=== PATIENT | male | born 1940 | race Caucasian/White ===

== ENCOUNTER 2023-01-28 18:33 | Inpatient (IN) | payer MEDICARE, SELFPAY ==
--- OUTSIDE RECORDS SUMMARY | 2023-01-28 18:37 | XMS_ITS | Continuity of Care Document ---
Author Name Unknown Organization [facility] Address [address] [place] [address]- Care Team Providers Care Bridge Contractor Name Role Phone Stephanie Chaudhari NP Primary Care Physician Encounter [facility] Date(s): 12/13/21 - 01/12/22 [facility] [address] [place] [address]- Allergies, Adverse Reactions, Alerts Substance Reaction Severity Status oxycodone 1 Active amLODIPine Active 1Pt. states that he is unsure if allergy is active. Cannot recall reaction. Immunizations Given and Recorded Vaccine Date Status Refusal Reason SARS-CoV-2 (COVID-19) mRNA BNT-162b2 vac 10/30/21 Recorded SARS-CoV-2 (COVID-19) mRNA BNT-162b2 vac 01/25/21 Recorded SARS-CoV-2 (COVID-19) mRNA BNT-162b2 vac 01/04/21 Recorded tetanus/diphtheria/pertussis, acel(Tdap) 09/14/21 Given influenza virus vaccine, inactivated 08/23/18 Lokesh rded influenza virus vaccine, inactivated 08/24/17 Lokesh rded influenza virus vaccine, inactivated 08/19/16 Lokesh rded influenza virus vaccine, inactivated 08/09/15 Lokesh rded influenza virus vaccine, inactivated 08/14/14 Lokesh rded influenza virus vaccine, inactivated 07/09/11 Lokesh rded influenza virus vaccine, inactivated 09/17/05 Give n Not Given Vaccine Date Status Refusal Reason pneumococcal 13-valent vaccine 1 01/20/21 Not Give n Patient Refuses 1Result Comment: pt. states he already got vaccine Medications aspirin 81 mg oral delayed release tablet = 81 mg, By Mouth, Daily, # 30 tablet, 0 Refills, Maintenance, 11/20/20 13:29:00 EST, EC Tablet, [facility], Partial fill upon patient request if the prescription is for a schedule II opioid drug., 184, cm, 11/19/20 8:51:00 EST, Height, 81.... Start Date: 11/20/20 Stop Date: 12/20/20 Status: Ordered atorvastatin 80 mg oral tablet 1 tablet = 80 mg, By Mouth, Daily at bedtime, # 90 tablet, 0 Refills, Maintenance, Tablet Start Date: 12/15/12 Stop Date: 03/15/13 Status: Ordered Coreg 25 mg oral tablet 25 mg, 1, tablet, By Mouth, 2 times a day, # 60 tablet, Refills 0, Tot. Refills 0, Maintenance, 11/20/20 13:29:00 EST, Route to Pharmacy Electronically, [id number], Partial fill upon patient request if the prescription is for a schedule II... Start Date: 11/20/20 Status: Ordered Diabetic Shoes (1 pair) Diabetic Shoes (1 pair), See Instructions, # 1 each, Refills 1, Tot. Refills 1, Maintenance, Wear shoes continously, E11.65, 01/03/22 14:12:00 EST, Supply Start Date: 01/03/22 Status: Ordered Fish Oil 1200 mg oral capsule 1 capsule = 1,200 mg, By Mouth, Daily, 0 Refills, Maintenance, 09/18/21 22:20:00 EST, Partial fill upon patient request if the prescription is for a schedule II opioid drug. Start Date: 09/18/21 Status: Ordered FREESTYLE JOSÉ MIGUEL SENSOR MEDB Miscellaneous FREESTYLE JOSÉ [employer] MEDB Miscellaneous, See Instructions, # 1 Unknown, 11 Refills, USE TO SCAN FOR BLOOD SUGAR AT LEAST FOUR TIMES A DAY, 183, cm, 12/09/21 11:37:00 EST, Height, 91, kg, 12/08/21 21:08:00 EST, Dry Weight Start Date: 12/10/21 Status: Ordered furosemide 20 mg oral tablet 20 mg, 1, tablet, By Mouth, Daily, # 30 tablet, Refills 0, Maintenance, 09/18/21 6:32:00 EST, Partial fill upon patient request if the prescription is for a schedule II opioid drug. Start Date: 09/18/21 Status: Ordered hydrALAZINE 25 mg oral tablet 25 mg, 1, tablet, By Mouth, Every 8 hours, # 90 tablet, Refills 0, Tot. Refills 0, Maintenance, 11/20/20 13:33:00 EST, Route to Pharmacy Electronically, [id number], Partial fill upon patient request if the prescription is for a schedule II... Start Date: 11/20/20 Stop Date: 12/20/20 Status: Ordered Nitroglycerin 0.4mg Sublingual Tablet See Instructions, Scheduled / PRN, 50 tablet, 5, 5, 05/12/06 20:26:33, chest pain, 1 tab under tongue every 5 minutes as needed for chest pain., Print CINDI Number, [id number] [place] [address] Start Date: 05/12/06 Status: Ordered NovoLIN N FlexPen 100 units/mL subcutaneous suspension See Instructions, INJECT 22 UNITS SUBCUTANEOUSLY WITH BREAKFAST AND 30 UNITS AT BEDTIME, # 45 mL, 0Refills, [facility], 183, cm, 09/27/21 12:43:00 EST, Height, 93, kg, 09/19/21 11:31:00 EST, Dry Weight Start Date: 09/27/21 Status: Ordered Novolin R human recombinant 100 u/ml injectable injection = 15 units, Subcutaneous Injection, 3 times a day before meals, Take 15 units before meals, 3 timesdaily. E11.65, # 30 mL, 5 Refills, Maintenance, 02/13/21 11:42:00 EDT, Solution, [facility], Partial fill upon patient request if th... Start Date: 02/13/21 Status: Ordered oxybutynin 10 mg/24 hr oral tablet, extended release 1 tablet = 10 mg, By Mouth, Daily, Maintenance, 04/11/21 17:04:00 EDT, ER Tablet, ; Start Date: 04/11/21 Status: Ordered Plavix 75 mg oral tablet 75 mg, 1, tablet, By Mouth, Daily, # 30 tablet, Refills 1, Tot. Refills 1, Maintenance, 11/20/20 13:29:00 EST, Route to Pharmacy Electronically, [facility], 184, cm, 11/19/20 8:51:00 EST, Height, 81.4, kg, 11/09/20 6:43:00 EST, Dry Weight Start Date: 11/20/20 Status: Ordered sertraline 50 mg oral tablet 1 tablet = 50 mg, By Mouth, Daily, # 30 tablet, 0 Refills, Maintenance, 09/18/21 6:32:00 EST, Tablet, Partial fill upon patient request if the prescription is for a schedule II opioid drug. Start Date: 09/18/21 Status: Ordered Vitamin C 1000 mg oral tablet 1 tablet = 1,000 mg, By Mouth, Daily, Maintenance, 11/08/20 16:55:00 EST, Tablet, Partial fi; Start Date: 11/08/20 Status: Ordered Vitamin D3 1000 intl units oral tablet 1 tablet = 1,000 International_Units, By Mouth, Daily, Maintenance, 11/08/20 16:54:00 EST, Tablet, Partial fill upon patient request if the prescription is for a schedule II opioid drug. Start Date: 11/08/20 Status: Ordered Problem List Condition Effective Dates Status Health Status Inform ant CAD - Coronary artery disease(Confirmed) Active Chronic kidney disease(Confirmed) Active Dementia(Confirmed) Active Diabetes mellitus type 2(Confirmed) Active Right foot drop(Confirmed) Active History of BPH(Confirmed) Active Hard of hearing(Confirmed) Active History of CVA (cerebrovascu lar accident)(Confirmed) Active Hyperlipidemia(Confirmed) Active Hypertension(Confirmed) Active Osteoarthritis(Confirmed) Active Social History Social History Type Response Smoking Status Never smoker entered on: 11/24/14 Sex
--- OUTSIDE RECORDS SUMMARY | 2023-01-28 18:37 | XMS_ITS | Continuity of Care Document ---
Author Name Unknown Organization [facility] Address [address] [place] [address]- Care Team Providers Care Bottle Selector Name Role Phone Stephanie Chaudhari NP Primary Care Physician [phone] Encounter [facility] Date(s): 12/08/21 - 12/09/[address] [address]- Discharge Disposition: A-D/C Home Attending Physician: Joseph Morgan MD Admitting Physician: Joseph Morgan MD Referring Physician: Not on Staff, Referring MD Allergies, Adverse Reactions, Alerts Substance Reaction Severity [...] Refills, Maintenance, 11/20/20 13:29:00 EST, EC Tablet, [facility], Partial fill upon patient [...] 11/20/20 13:29:00 EST, Route to Pharmacy Electronically, [facility], Partial fill upon patient request if the prescription is for a schedule II... Start Date: 11/20/20 Status: Ordered Fish Oil 1200 mg oral capsule 1 capsule = 1,200 mg, By Mouth, Daily, 0 Refills, Maintenance, 09/18/21 22:20:00 EST, Partial fill upon patient request if the prescription is for a schedule II opioid drug. Start Date: 09/18/21 Status: Ordered furosemide 20 mg oral tablet [...] 11/20/20 13:33:00 EST, Route to Pharmacy Electronically, [facility], Partial fill upon patient request if the prescription is for a schedule II... Start Date: 11/20/20 Stop Date: 12/20/20 Status: Ordered Nitroglycerin 0.4mg Sublingual Tablet See Instructions, Scheduled / PRN, 50 tablet, 5, 5, 05/12/06 20:26:33, chest pain, 1 tab under tongue every 5 minutes as needed for chest pain., Print CINDI Number, [id number] [place] [address] Start Date: 05/12/06 Status: Ordered NovoLIN N FlexPen 100 units/mL subcutaneous suspension See Instructions, INJECT 22 UNITS SUBCUTANEOUSLY WITH BREAKFAST AND 30 UNITS AT BEDTIME, # 45 mL, 0Refills, [facility], 183, cm, 09/27/21 12:43:00 EST, Height, 93, kg, 09/19/21 11:31:00 EST, Dry Weight Start Date: 09/27/21 Status: Ordered Novolin R human recombinant 100 u/ml injectable injection = 15 units, Subcutaneous Injection, 3 times a day before meals, Take 15 units before meals, 3 timesdaily. E11.65, # 30 mL, 5 Refills, Maintenance, 02/13/21 11:42:00 EDT, Solution, [facility], Partial fill upon patient [...] 11/20/20 13:29:00 EST, Route to Pharmacy Electronically, [facility], 184, cm, 11/19/20 8:51:00 [...] Active Hyperlipidemia(Confirmed) Active Hypertension(Confirmed) Active Osteoarthritis(Confirmed) Active Results Radiology Reports * Exam Date Time Procedure Performing Provider Status 12/08/21 10:38 PM Chest 2 Views Frontal and Lat Alysia Ramesh; Auth (Verified) Notes: (Chest 2 Views Frontal and Lat) Reason For Exam: Shortness of Breath RESULT: Chest 2 Views Frontal and Lat Chest 2 Views Frontal and Lat Hx of Present Illness: Family stated that when pt experiences a UTI he becomes aggressive and confused. Today pt had unexplained outburst at and dumped refrigerator contents onto fhe floor.; Reason: Shortness of Breath; Clinical Question(s): CHF COMPARISON: 09/28/2021 FINDINGS: LINES AND TUBES: Dual-lead left subclavian pacer/AICD wires are intact. LUNGS AND PLEURA: Low lung volumes with mild basilar atelectasis. Lungs are otherwise clear with no consolidation. No pleural effusion. No pneumothorax. HEART, MEDIASTINUM AND IAIN: Mild prominence of the cardiac silhouette, unchanged. Normal upper mediastinal and hilar contour. BONES AND SOFT TISSUES: No acute abnormality. IMPRESSION: No acute abnormality. WSN: [id number] Ordering Physician: Soco Gagnon Dictated By: Jony Flores MD Dictated Date/Time: 12/08/21 10:41 p Reviewed By: Jony Flores MD Signed By: Jony Flores MD Signed Date/Time: 12/08/21 10:41 pm Transcribed By: CSChristelle Transcribed Date/Time: 12/08/21 10:41 pm Vital Signs Most recent to oldest [Reference Range]: 1 2 3 Height 183 cm (12/09/21 11:37 AM) 183 cm (12/09/21 10:45 AM) 183 cm (12/09/21 2:42 AM) Weight 91 kg (12/08/21 9:08 PM) 91 kg (12/08/21 9:03 PM) Oxygen Saturation [94-100 %] 99 % (12/09/21 11:37 AM) 98 % (12/09/21 10:45 AM) 98 % (12/09/21 7:25 AM) Pulse Rate [55-90 bpm] 63 bpm (12/09/21 11:37 AM) 60 bpm (12/09/21 10:45 AM) 64 bpm (12/09/21 7:25 AM) Body Mass Index [18.5-24.99] 27.17 *H* (12/08/21 9:03 PM) Blood Pressure [90-138/55-84 mm Hg] 174/70mm Hg *H* (12/09/21 11:37 AM) 150/71mm Hg *H* (12/09/21 10:45 AM) 140/57mm Hg *H* (12/09/21 7:25 AM) Respiratory Rate [16-30 br/min] 18 br/min (12/09/21 11:37 AM) 16 br/min (12/09/21 10:45 AM) 16 br/min (12/09/21 7:25 AM) Temperature [96.8-100.4 DegF] 97.9 DegF (12/09/21 11:37 AM) 97.7 DegF (12/09/21 7:25 AM) 98.3 DegF (12/09/21 2:42 AM) Liters per Minute 0 L/min (12/09/21 10:45 AM) Mode of Delivery (Oxygen) Room air (12/09/21 11:37 AM) Room air (12/09/21 10:45 AM) Room air (12/09/21 7:25 AM) Blood pressure sites Arm, left (12/09/21 11:37 AM) Arm, left (12/09/21 10:45 AM) Arm, left (12/09/21 7:25 AM) Temperature Route Oral (12/09/21 11:37 AM) Temporal (12/09/21 7:25 AM) Oral (12/09/21 2:42 AM) Dry Weight 91 kg (12/08/21 9:08 PM) 91 kg (12/08/21 9:03 PM) Weight Obtained Via Patient/family stated (12/08/21 9:08 PM) Patient/family stated (12/08/21 9:03 PM) Dry Weight Obtained Via Patient/family stated (12/08/21 9:08 PM) Patient/family stated (12/08/21 9:03 PM) Social History Social History Type Response Smoking Status Never smoker entered on: 11/24/14 Sex
--- OUTSIDE RECORDS SUMMARY | 2023-01-28 18:37 | XMS_ITS | Continuity of Care Document ---
Author Name Unknown Organization [facility] Address [address] [place] [address]- Care Team Providers Care Electric Car Operator Name Role Phone Haresh ANN, Floyd Primary Care Physician Encounter [facility] Date(s): 09/07/20 - 09/08/[address] [address] [[email or web address]] Discharge Disposition: A-D/C Home Attending Physician: Oralia Summers DO Admitting Physician: Janice Hargrove DO Referring Physician: Tuan Dykes MD Allergies, Adverse Reactions, Alerts Substance Reaction Severity Status oxycodone Active Immunizations Given and Recorded Vaccine Date Status Refusal Reason influenza virus vaccine, inactivated 09/17/05 Give n Medications Aspirin = 81 mg, By Mouth, Daily, 0 Refills, Maintenance Start Date: 08/15/11 Status: Ordered atorvastatin 80 mg oral tablet 1 tablet = 80 mg, By Mouth, Daily at bedtime, # 90 tablet, 0 Refills, Maintenance, Tablet Start Date: 12/15/12 Stop Date: 03/15/13 Status: Ordered carvedilol 25 mg oral tablet 12.5 mg, 0.5, tablet, By Mouth, 2 times a day, # 60 tablet, Refills 0, Maintenance, 01/22/19 20:04:29 EDT Start Date: 01/22/19 Status: Ordered DIABETIC SHOES W/ 3 SHOE INSERTS DIABETIC SHOES W/ 3 SHOE INSERTS, See Instructions, # 1 each, Refills 0, Tot. Refills 0, Maintenance, E11.65, 09/07/20 15:44:00 EST, Supply Start Date: 09/07/20 Status: Ordered Fish Oil = 1,000 mg, By Mouth, 2 times a day, 0 Refills, Maintenance Start Date: 08/15/11 Status: Ordered glipiZIDE 10 mg oral tablet 2 tablet = 20 mg, By Mouth, Daily, # 30 tablet, 0 Refills, Maintenance, 01/10/20 9:43:00 EDT, Tablet Start Date: 01/10/20 Status: Ordered Insulin LISPRO Inj Subcutaneous Infusion, 0 Refills, Maintenance, 09/06/20 23:36:00 EST Start Date: 09/06/20 Status: Ordered isosorbide mononitrate 30 mg oral tablet, extended release 30 mg, 1, tablet, By Mouth, Daily, # 30 tablet, Refills 0, Tot. Refills 0, Maintenance, 01/23/19 14:42:30 EDT, Route to Pharmacy Electronically, [id number], [facility] [id number] Start Date: 01/23/19 Stop Date: 02/22/19 Status: Ordered Lantus 100 u/ml subcutaneous solution See Instructions, Subcutaneous Injection, 30 units at night, 5 Refills, Maintenance, 09/06/20 23:36:00 EST Start Date: 09/06/20 Stop Date: 10/06/20 Status: Ordered lisinopril 40 mg oral tablet 1 tablet = 40 mg, By Mouth, Daily, # 90 tablet, 0 Refills, Maintenance, Tablet Start Date: 12/15/12 Stop Date: 03/15/13 Status: Ordered melatonin 3 mg oral tablet 2 tablet = 6 mg, By Mouth, Daily, Take at 7:00 PM daily, # 60 tablet, 1 Refills, Maintenance, 01/11/20 12:07:00 EDT, Tablet, [facility], 183, cm, 01/11/20 3:11:00 EDT, Height, 96.4, kg, 01/11/20 4:29:00 EDT, Dry Weight Start Date: 01/11/20 Status: Ordered metFORMIN 500 mg oral tablet 2 tablet = 1,000 mg, By Mouth, Daily, # 60 tablet, 0 Refills, Maintenance, 01/10/20 9:44:00 EDT, Tablet Start Date: 01/10/20 Status: Ordered Nitroglycerin 0.4mg Sublingual Tablet See Instructions, Scheduled / PRN, 50 tablet, 5, 5, 05/12/06 20:26:33, chest pain, 1 tab under tongue every 5 minutes as needed for chest pain., Print CINDI Number, [id number] [place] [address] Start Date: 05/12/06 Status: Ordered oxybutynin 10 mg/24 hr oral tablet, extended release 1 tablet = 10 mg, By Mouth, Daily, # 30 tablet, 0 Refills, Maintenance, 01/11/20 14:34:00 EDT, ER Tablet Start Date: 01/11/20 Status: Ordered Plavix 75 mg oral tablet 75 mg, 1, tablet, By Mouth, Daily, # 30 tablet, Refills 1, Tot. Refills 1, Maintenance, 01/11/20 12:05:00 EDT, Route to Pharmacy Electronically, [id number], 183, cm, 01/11/20 3:11:00 EDT, Height, 96.4, kg, 01/11/20 4:29:00 EDT, Dry Weight Start Date: 01/11/20 Status: Ordered Problem List Condition Effective Dates Status Health Status Inform ant CAD - Coronary artery disease(Confirmed) Active Diabetes mellitus type 2(Confirmed) Active Hyperlipidemia(Confirmed) Active Vital Signs Most recent to oldest [Reference Range]: 1 2 3 Height 183 cm (09/08/20 9:46 AM) 183 cm (09/08/20 4:53 AM) 183 cm (09/07/20 7:50 PM) Weight 93.8 kg (09/06/20 11:01 PM) 97.5 kg (09/06/20 9:53 PM) 97.5 kg (09/06/20 8:25 PM) Oxygen Saturation [94-100 %] 98 % (09/08/20 9:46 AM) 97 % (09/08/20 4:53 AM) 97 % (09/08/20 12:00 AM) Pulse Rate [55-90 bpm] 73 bpm (09/08/20 9:46 AM) 67 bpm (09/08/20 8:14 AM) 82 bpm (09/08/20 4:53 AM) Body Mass Index [18.5-24.99] 28.01 *H* (09/06/20 11:01 PM) 29.11 *H* (09/06/20 9:53 PM) Blood Pressure [90-138/55-84 mm Hg] 108/61mm Hg (09/08/20 9:46 AM) 149/71mm Hg *H* (09/08/20 8:14 AM) 149/71mm Hg *H* (09/08/20 8:14 AM) Respiratory Rate [16-30 br/min] 20 br/min (09/08/20 9:46 AM) 20 br/min (09/08/20 4:53 AM) 22 br/min (09/08/20 12:00 AM) Temperature [96.8-100.4 DegF] 97.5 DegF (09/08/20 9:46 AM) 97.8 DegF (09/08/20 4:53 AM) 98.2 DegF (09/08/20 12:00 AM) Mode of Delivery (Oxygen) Room air (09/08/20 9:46 AM) Room air (09/08/20 4:53 AM) Room air (09/08/20 12:00 AM) Blood pressure sites Arm, left (09/08/20 9:46 AM) Arm, left (09/08/20 4:53 AM) Arm, left (09/08/20 12:00 AM) Temperature Route Oral (09/08/20 9:46 AM) Temporal (09/08/20 4:53 AM) Temporal (09/08/20 12:00 AM) Dry Weight 93.8 kg (09/06/20 11:01 PM) 97.5 kg (09/06/20 9:53 PM) 97.5 kg (09/06/20 8:25 PM) Weight Obtained Via Bed scale (09/06/20 11:01 PM) Patient/family stated (09/06/20 8:25 PM) Dry Weight Obtained Via Bed scale (09/06/20 11:01 PM) Patient/family stated (09/06/20 8:25 PM) Social History Social History Type Response Smoking Status Never smoker entered on: 11/24/14 Sex
--- OUTSIDE RECORDS SUMMARY | 2023-01-28 18:37 | XMS_ITS | Continuity of Care Document ---
Author Name Unknown Organization [facility] Address [address] [place] [id number]- Care Team Providers Care Regulatory Attorney Name Role Phone Haresh ANN, Floyd Primary Care Physician Encounter [facility] Date(s): 01/11/20 - 02/10/[address] [address]- [place] Attending Physician: Not on Staff, Attending MD Admitting Physician: Not on Staff, Admitting MD Referring Physician: Not on Staff, Referring MD Allergies, Adverse Reactions, Alerts Substance Reaction Severity Status oxybutynin 1 Active oxycodone Active 1dizziness Immunizations Given and Recorded Vaccine Date Status [...] 20:04:29 EDT Start Date: 01/22/19 Status: Ordered duloxetine 30 mg oral enteric coated capsule 1 capsule = 30 mg, By Mouth, Daily, 0 Refills, Maintenance, 01/11/20 14:35:00 EDT Start Date: 01/11/20 Status: Ordered Fish Oil = 1,000 mg, By Mouth, 2 times a day, 0 Refills, Maintenance Start Date: 08/15/11 Status: Ordered glipiZIDE 10 mg oral tablet 2 tablet = 20 mg, By Mouth, Daily, # 30 tablet, 0 Refills, Maintenance, 01/10/20 9:43:00 EDT, Tablet Start Date: 01/10/20 Status: Ordered Hydrochlorothiazide = 25 mg, By Mouth, Daily, 0 Refills, Maintenance Start Date: 08/15/11 Status: Ordered isosorbide mononitrate 30 mg oral tablet, extended release 30 mg, 1, tablet, By Mouth, Daily, # 30 tablet, Refills 0, Tot. Refills 0, Maintenance, 01/23/19 14:42:30 EDT, Route to Pharmacy Electronically, [id number], [facility] [id number] Start Date: 01/23/19 Stop Date: 02/22/19 Status: Ordered lisinopril 40 mg oral tablet 1 tablet = 40 mg, By Mouth, Daily, # 90 tablet, 0 Refills, Maintenance, Tablet Start Date: 12/15/12 Stop Date: 03/15/13 Status: Ordered melatonin 3 mg oral tablet 2 tablet = 6 mg, By Mouth, Daily, Take at 7:00 PM daily, # 60 tablet, 1 Refills, Maintenance, 01/11/20 12:07:00 EDT, Tablet, [id number], 183, cm, 01/11/20 3:11:00 EDT, Height, 96.4, kg, 01/11/20 4:29:00 EDT, Dry Weight Start Date: 01/11/20 Status: Ordered metFORMIN 500 mg oral tablet 2 tablet = 1,000 mg, By Mouth, Daily, # 60 tablet, 0 Refills, Maintenance, 01/10/20 9:44:00 EDT, Tablet Start Date: 01/10/20 Status: Ordered Multi Vitamin+ 0 Refills, Maintenance, 01/10/20 9:44:00 EDT Start Date: 01/10/20 Status: Ordered Nitroglycerin 0.4mg Sublingual Tablet See Instructions, Scheduled / PRN, 50 tablet, 5, 5, 05/12/06 20:26:33, chest pain, 1 tab under tongue every 5 minutes as needed for chest pain., Print CINDI Number, [address] [place] [address] Start Date: 05/12/06 Status: Ordered oxybutynin 10 [...] 01/11/20 12:05:00 EDT, Route to Pharmacy Electronically, [id number], 183, cm, 01/11/20 3:11:00 EDT, Height, 96.4, kg, 01/11/20 4:29:00 EDT, Dry Weight Start Date: 01/11/20 Status: Ordered saw palmetto 450 mg oral capsule 1 capsule, By Mouth, Daily, 0 Refills, Maintenance, 01/26/17 8:05:02 EDT Start Date: 01/26/17 Status: Ordered Problem List Condition Effective Dates Status Health Status Inform ant CAD - Coronary artery disease(Confirmed) Active Diabetes mellitus type 2(Confirmed) Active Hyperlipidemia(Confirmed) Active Social History Social History Type Response Smoking Status Never smoker entered on: 11/24/14 Sex
--- OUTSIDE RECORDS SUMMARY | 2023-01-28 18:37 | XMS_ITS | Continuity of Care Document ---
Author Name Unknown Organization [facility] ter Address [address] [place] [address]- Care Team Providers Care Diesel Electrician Name Role Phone Stephanie Chaudhari NP Primary Care Physician [phone] Encounter [facility] Date(s): 01/24/21 - 02/23/[address] [address] Attending Physician: AdmLeah chen Admitting Physician: AdmtrLeah Referring Physician: Admtr ArClaudy Allergies, Adverse Reactions, Alerts Substance Reaction Severity Status oxycodone Active Immunizations Given and Recorded Vaccine Date Status Refusal Reason influenza virus vaccine, inactivated 09/17/05 Give n Not Given Vaccine Date Status Refusal Reason pneumococcal 13-valent vaccine 1 01/20/21 Not Give n Patient Refuses 1Result Comment: pt. states he already got vaccine Medications amLODIPine 10 mg oral tablet 10 mg, 1, tablet, By Mouth, Daily, # 30 tablet, Refills 0, Tot. Refills 0, Maintenance, 11/20/20 13:32:00 EST, Route to Pharmacy Electronically, [facility], Partial fill upon patient request if the prescription is for a schedule II opioid d... Start Date: 11/20/20 Status: Ordered aspirin 81 mg oral delayed release tablet = 81 mg, By Mouth, Daily, # 30 tablet, 0 Refills, Maintenance, 11/20/20 13:29:00 EST, EC Tablet, [facility], Partial fill upon patient [...] 11/20/20 13:29:00 EST, Route to Pharmacy Electronically, [facility], Partial fill upon patient request if the prescription is for a schedule II... Start Date: 11/20/20 Status: Ordered Fish Oil = 1,000 mg, By Mouth, Daily, 0 Refills, Maintenance, 08/15/11 1:12:57 EDT Start Date: 08/15/11 Status: Ordered gabapentin 100 mg oral capsule 100 mg, 1, capsule, By Mouth, Daily at supper, # 30 capsule, Refills 0, Tot. Refills 0, Maintenance, 11/20/20 13:33:00 EST, Route to Pharmacy Electronically, [facility], Partial fill upon patient request if the prescription is for a schedul... Start Date: 11/20/20 Status: Ordered hydrALAZINE 25 mg oral tablet 25 mg, 1, tablet, By Mouth, Every 8 hours, # 90 tablet, Refills 0, Tot. Refills 0, Maintenance, 11/20/20 13:33:00 EST, Route to Pharmacy Electronically, [facility], Partial fill upon patient request if the prescription is for a schedule II... Start Date: 11/20/20 Stop Date: 12/20/20 Status: Ordered isosorbide mononitrate 30 mg oral tablet, extended release 30 mg, 1, tablet, By Mouth, Daily, # 30 tablet, Refills 0, Tot. Refills 0, Maintenance, 11/20/20 13:31:00 EST, Route to Pharmacy Electronically, [facility], 184, cm, 11/19/20 8:51:00 EST, Height, 81.4, kg, 11/09/20 6:43:00 EST, Dry Weight Start Date: 11/20/20 Stop Date: 12/20/20 Status: Ordered Nitroglycerin 0.4mg Sublingual Tablet See Instructions, Scheduled / PRN, 50 tablet, 5, 5, 05/12/06 20:26:33, chest pain, 1 tab under tongue every 5 minutes as needed for chest pain., Print CINDI Number, [address] [place] [address] Start Date: 05/12/06 Status: Ordered Novolin R human recombinant 100 u/ml injectable injection = 15 units, Subcutaneous Injection, 3 times a day before meals, Take 15 units before meals, 3 timesdaily. E11.65, # 30 mL, 5 Refills, Maintenance, 02/13/21 11:42:00 EDT, Solution, [facility], Partial fill upon patient request if th... Start Date: 02/13/21 Status: Ordered Plavix 75 mg oral tablet 75 mg, 1, tablet, By Mouth, Daily, # 30 tablet, Refills 1, Tot. Refills 1, Maintenance, 11/20/20 13:29:00 EST, Route to Pharmacy Electronically, [facility], 184, cm, 11/19/20 8:51:00 EST, Height, 81.4, kg, 11/09/20 6:43:00 EST, Dry Weight Start Date: 11/20/20 Status: Ordered Relion N FlexPen 100 units/mL subcutaneous suspension See Instructions, Take 22 units with breakfast, 30 units with bedtime. E11.65, # 30 mL, 3 Refills, Maintenance, 02/13/21 11:41:00 EDT, Injection, [facility], Partial fill upon patient request if the prescription is for a schedule II... Start Date: 02/13/21 Status: Ordered traZODone 50 mg oral tablet 25 mg, 0.5, tablet, By Mouth, Daily at supper, # 15 tablet, Refills 0, Tot. Refills 0, Maintenance,11/20/20 13:32:00 EST, Route to Pharmacy Electronically, [facility], Partial fill upon patient request if the prescription is for a schedule... Start Date: 11/20/20 Status: Ordered Vitamin C 1000 mg oral tablet 1 tablet = 1,000 mg, By Mouth, Daily, Maintenance, 11/08/20 16:55:00 EST, Tablet, Partial fill uponpatient request if the prescription is for a schedule II opioid drug. Start Date: 11/08/20 Status: Ordered Vitamin D3 [...]
--- OUTSIDE RECORDS SUMMARY | 2023-01-28 18:37 | XMS_ITS | Continuity of Care Document ---
Author Name Unknown Organization [facility] ter Address [address] [place] [id number]- Care Team Providers Care Sort Line Name Role Phone Fara ANNE, Stephanie Primary Care Physician [id number] Date(s): 04/11/21 - 04/12/[address] [address] Dis[facility] Disposition: A-D/C Home Attending Physician: Dagoberto ANN, Isabelle Chowdhury Admitting Physician: Analia ANN, Shaji Diallo Referring Physician: Not on Staff, Referring MD Allergies, Adverse Reactions, Alerts Substance Reaction Severity Status oxycodone Active amLODIPine Active Immunizations Given and Recorded Vaccine Date [...] 11/20/20 13:32:00 EST, Route to Pharmacy Electronically, [facility], Partial fill upon patient request if the prescription is for a schedule II opioid d... Start Date: 11/20/20 Status: Ordered aspirin 81 mg oral delayed release tablet = 81 mg, By Mouth, Daily, # 30 tablet, 0 Refills, Maintenance, 11/20/20 13:29:00 EST, EC Tablet, [facility], Partial fill upon patient request if the prescription is for a schedule II opioid drug., 184, cm, 11/19/20 8:51:00 EST, Height, 81.... Start Date: 11/20/20 Stop Date: 2/18/21 Status: Ordered atorvastatin 80 mg oral tablet 1 tablet = 80 mg, By Mouth, Daily at bedtime, # 90 tablet, 0 Refills, Maintenance, Tablet Start Date: 12/15/12 Stop Date: 03/15/13 Status: Ordered carvedilol 25 mg oral tablet 25 mg, Tablet, By Mouth, 04/12/21 9:00:00 EDT Start Date: 04/12/21 Stop Date: 04/12/21 Status: Completed Coreg 25 mg oral tablet 25 mg, 1, tablet, By Mouth, 2 times a day, # 60 tablet, Refills 0, Tot. Refills 0, Maintenance, 11/20/20 13:29:00 EST, Route to Pharmacy Electronically, [facility], Partial fill upon patient request if the prescription is for a schedule II... Start Date: 11/20/20 Status: Ordered Fish Oil = 1,000 mg, By Mouth, Daily, 0 Refills, Maintenance, 08/15/11 1:12:57 EDT Start Date: 08/15/11 Status: Ordered Gold Osullivan [employer] topical lotion 1 application, Topically, Daily, Maintenance, 04/11/21 17:06:00 EDT, ; Start Date: 04/11/21 Status: Ordered hydrALAZINE 25 mg oral tablet 25 mg, Tablet, By Mouth, 04/12/21 9:00:00 EDT Start Date: 04/12/21 Stop Date: 04/12/21 Status: Completed hydrALAZINE 25 mg oral tablet 25 mg, Tablet, By Mouth, 04/12/21 15:00:00 EDT Start Date: 04/12/21 Stop Date: 04/12/21 Status: Completed hydrALAZINE 25 mg oral tablet 25 mg, 1, tablet, By Mouth, Every 8 hours, # 90 tablet, Refills 0, Tot. Refills 0, Maintenance, 11/20/20 13:33:00 EST, Route to Pharmacy Electronically, [facility], Partial fill upon patient request if the prescription is for a schedule II... Start Date: 11/20/20 Stop Date: 12/20/20 Status: Ordered isosorbide mononitrate 30 mg oral tablet, extended release 30 mg, 1, tablet, By Mouth, Daily, # 30 tablet, Refills 0, Tot. Refills 0, Maintenance, 11/20/20 13:31:00 EST, Route to Pharmacy Electronically, [facility], 184, cm, 11/19/20 8:51:00 EST, Height, 81.4, kg, 11/09/20 6:43:00 EST, Dry Weight Start Date: 11/20/20 Stop Date: 12/20/20 Status: Ordered Nitroglycerin 0.4mg Sublingual Tablet See Instructions, Scheduled / PRN, 50 tablet, 5, 5, 05/12/06 20:26:33, chest pain, 1 tab under tongue every 5 minutes as needed for chest pain., Print CINDI Number, [address] [place] [address] Start Date: 05/12/06 Status: Ordered Novolin R [...] 11/20/20 13:29:00 EST, Route to Pharmacy Electronically, [facility], 184, cm, 11/19/20 8:51:00 EST, [...] schedule II... Start Date: 02/13/21 Status: Ordered silver sulfADIAZINE 1% topical cream 1 application, Topically, Daily, Maintenance, 04/11/21 17:05:00 EDT, ; Start Date: 04/11/21 Status: Ordered Vitamin C 1000 mg oral [...] Exam Date Time Procedure Performing Provider Status 04/11/21 1:01 AM Chest 2 Views Frontal and Lat Dayna Lord; Reba (Verified) Notes: (Chest 2 Views Frontal and Lat) Reason For Exam: Chest Pain;Other: RESULT: Chest 2 Views Frontal and Lat Chest 2 Views Frontal and Lat Hx of Present Illness: Patient from home with complaints of chest pressure in his central area radiating to back since 45 mts ago. History of NM before; Reason: Other:; Chest Pain; Clinical Question(s): CHF COMPARISON: Prior chest radiograph, most recently December 13, 2020. FINDINGS: LINES AND TUBES: None. LUNGS AND PLEURA: Lung volumes are low with bronchovascular crowding and atelectasis. Pulmonary vascularity appears mildly congested and indistinct. No pleural effusion. No pneumothorax. HEART, MEDIASTINUM AND IAIN: Heart is normal in size. Normal upper mediastinal and hilar contour. BONES AND SOFT TISSUES: No acute abnormality. Mild degenerative changes throughout the spine. IMPRESSION: Low lung volumes with bronchovascular crowding and atelectasis. Mildly congested and indistinct vasculature suggesting mild pulmonary edema. WSN: [id number] Ordering Physician: Naila Linares Dictated By: Carlitos Dodson MD Dictated Date/Time: 04/11/21 8:15 am Reviewed By: Carlitos Dodson MD Signed By: Carlitos Dodosn MD Signed Date/Time: 04/11/21 8:15 am Transcribed By: MUNIR Transcribed Date/Time: 04/11/21 8:12 am Vital Signs Most recent to oldest [Reference Range]: 1 2 3 4 Height 183 cm (04/12/21 1:37 PM) 183 cm (04/12/21 7:54 AM) 183 cm (04/12/21 5:58 AM) Weight 93.5 kg (04/12/21 1:04 PM) 93.5 kg (04/12/21 5:00 AM) 98 kg (04/11/21 10:14 AM) Oxygen Saturation [94-100 %] 99 % (04/12/21 1:37 PM) 99 % (04/12/21 7:54 AM) 99 % (04/12/21 5:58 AM) Pulse Rate [55-90 bpm] 66 bpm (04/12/21 1:37 PM) 66 bpm (04/12/21 9:18 AM) 66 bpm (04/12/21 7:54 AM) Blood Pressure [90-138/55-84 mm Hg] 133/68mm Hg (04/12/21 4:43 PM) 133/68mm Hg (04/12/21 1:37 PM) 175/68mm Hg *H* (04/12/21 9:18 AM) 175/68mm Hg *H* (04/12/21 9:18 AM) Respiratory Rate [16-30 br/min] 18 br/min (04/12/21 1:37 PM) 19 br/min (04/12/21 7:54 AM) 18 br/min (04/12/21 5:58 AM) Temperature [96.8-100.4 DegF] 97.6 DegF (04/12/21 1:37 PM) 97.5 DegF (04/12/21 7:54 AM) 97.6 DegF (04/12/21 5:58 AM) Mode of Delivery (Oxygen) Room air (04/12/21 1:37 PM) Room air (04/12/21 7:54 AM) Room air (04/12/21 5:58 AM) Blood pressure sites Arm, right (04/12/21 1:37 PM) Arm, left (04/12/21 7:54 AM) Arm, right (04/12/21 5:58 AM) Temperature Route Oral (04/12/21 1:37 PM) Oral (04/12/21 7:54 AM) Oral (04/12/21 5:58 AM) Dry Weight 98 kg (04/11/21 12:18 AM) Weight Obtained Via Bed scale (04/12/21 5:00 AM) Social History Social History Type Response Smoking Status Never smoker entered on: 11/24/14 Sex
--- OUTSIDE RECORDS SUMMARY | 2023-01-28 18:37 | XMS_ITS | Continuity of Care Document ---
Author Name Unknown Organization [facility] Address [address] [place] [address]- Care Team Providers Care Sales Support Technician Name Role Phone Floyd Hutson MD Primary Care Physician Encounter [facility] AC[facility] R [id number] Date(s): 07/20/20 - 08/19/20 [facility] [address] [place] [address] [facility] Attending Physician: Leah Nguyen Admitting Physician: AdmLeah chen Referring Physician: Admtr ArClaudy Allergies, Adverse Reactions, [...] 01/23/19 14:42:30 EDT, Route to Pharmacy Electronically, [id number], [id number] Start Date: 01/23/19 Stop Date: 02/22/19 Status: [...] 1 Refills, Maintenance, 01/11/20 12:07:00 EDT, Tablet, [facility], 183, cm, 01/11/20 3:11:00 [...] for chest pain., Print CINDI Number, [address] [place] [address] Start Date: 05/12/06 Status: Ordered oxybutynin 10 [...] 01/11/20 12:05:00 EDT, Route to Pharmacy Electronically, [facility], 183, cm, 01/11/20 3:11:00 [...]
--- OUTSIDE RECORDS SUMMARY | 2023-01-28 18:37 | XMS_ITS | Continuity of Care Document ---
Author Name Unknown Organization [facility] Address [address] [facility] [place] [address]- Care Team Providers Care Plant Guard Name Role Phone Stephanie Chaudhari NP Primary Care Physician Encounter [facility] Date(s): 11/05/22 - 12/05/22 [facility] [address] [place] [address]- Attending Physician: Admgustavo, Leah Admitting Physician: AdmtrLeah Referring Physician: Admtr, Ar8 Allergies, Adverse Reactions, Alerts Substance Reaction Severity Status oxycodone 1 Active amLODIPine Active 1Pt. states that he is unsure if allergy is active. Cannot recall reaction. Immunizations Given and Recorded Vaccine Date Status Refusal Reason [id number] 12y+ bivalent booster vax 09/03/22 Recorded influenza virus vaccine, inactivated 09/03/22 Lokesh rded influenza virus vaccine, inactivated 08/23/18 Lokesh rded influenza virus vaccine, inactivated 08/24/17 Lokesh rded influenza virus vaccine, inactivated 08/19/16 Lokesh rded influenza virus vaccine, inactivated 08/09/15 Lokesh rded influenza virus vaccine, inactivated 08/14/14 Lokesh rded influenza virus vaccine, inactivated 07/09/11 Lokesh rded influenza virus vaccine, inactivated 09/17/05 Give n SARS-CoV-2 (COVID-19) mRNA BNT-162b2 vac 10/30/21 Recorded SARS-CoV-2 (COVID-19) mRNA BNT-162b2 vac 01/25/21 Recorded SARS-CoV-2 (COVID-19) mRNA BNT-162b2 vac 01/04/21 Recorded tetanus/diphtheria/pertussis, acel(Tdap) 09/14/21 Given Not Given Vaccine Date Status Refusal Reason pneumococcal 13-valent vaccine 1 3/21/21 Not Give n Patient Refuses 1Result Comment: pt. states he already got vaccine Medications Aricept 10 mg oral tablet 10 mg, 1, tablet, By Mouth, Daily at bedtime, Refills 0, Maintenance, 09/23/22 8:41:00 EST, Partialfill upon patient request if the prescription is for a schedule II opioid drug. Start Date: 09/23/22 Status: Ordered aspirin 81 mg oral delayed release tablet = 81 mg, By Mouth, Daily, # 30 tablet, 0 Refills, Maintenance, 11/20/20 13:29:00 EST, EC Tablet, [facility], Partial fill upon patient request if the prescription is for a schedule II opioid drug., 184, cm, 11/19/20 8:51:00 EST, Height, 81.... Start Date: 11/20/20 Stop Date: 12/20/20 Status: Ordered atorvastatin 80 mg oral tablet 1 tablet = 80 mg, By Mouth, Daily at bedtime, # 90 tablet, 0 Refills, Maintenance, Tablet Start Date: 12/15/12 Stop Date: 03/15/13 Status: Ordered Centrum Silver Men's 1 tablet, By Mouth, Daily, 0 Refills, Maintenance, 09/16/22 16:19:00 EST, Partial fill upon patientrequest if the prescription is for a schedule II opioid drug. Start Date: 09/16/22 Status: Ordered Coreg 25 mg oral tablet 25 mg, 1, tablet, By Mouth, 2 times a day, # 60 tablet, Refills 0, Tot. Refills 0, Maintenance, 11/20/20 13:29:00 EST, Route to Pharmacy Electronically, [facility], Partial fill upon patient request if the prescription is for a schedule II... Start Date: 11/20/20 Status: Ordered Diabetic Shoes (1 pair) Diabetic Shoes (1 pair), See Instructions, # 1 each, Refills 1, Tot. Refills 1, Maintenance, Wear shoes continously, E11.65, 11/19/22 5:57:00 EST, Supply Start Date: 11/19/22 Status: Ordered Fish Oil 1000 mg oral capsule 1 capsule = 1,000 mg, By Mouth, Daily, 0 Refills, Maintenance, 09/16/22 16:19:00 EST, Partial fill upon patient request if the prescription is for a schedule II opioid drug. Start Date: 09/16/22 Status: Ordered furosemide 40 mg oral tablet 40 mg, 1, tablet, By Mouth, Daily, Refills 0, Maintenance, 09/23/22 8:41:00 EST, Partial fill upon patient request if the prescription is for a schedule II opioid drug. Start Date: 09/23/22 Status: Ordered hydrALAZINE 25 mg oral tablet 50 mg, 2, tablet, By Mouth, 3 times a day, Refills 0, Maintenance, 09/23/22 8:41:00 EST, Partial fill upon patient request if the prescription is for a schedule II opioid drug. Start Date: 09/23/22 Status: Ordered Namenda 5 mg oral tablet 1 tablet = 5 mg, By Mouth, Daily, 0 Refills, Maintenance, 09/16/22 16:16:00 EST, Partial fill upon patient request if the prescription is for a schedule II opioid drug. Start Date: 09/16/22 Status: Ordered Nitrostat 0.4 mg sublingual tablet 1 tablet = 0.4 mg, Sublingual, Every 5 minutes, PRN Chest Pain, not to exceed 3 doses/15 min--if pain persists, seek medical attention, 0 Refills, Maintenance, 09/16/22 16:17:00 EST, Partial fill upon patient request if the prescription is for a sched... Start Date: 09/16/22 Status: Ordered NovoLIN N FlexPen 100 units/mL subcutaneous suspension = 25 units, Subcutaneous Injection, Daily before breakfast, 0 Refills, Maintenance, 09/16/22 16:14:00 EST, Partial fill upon patient request if the prescription is for a schedule II opioid drug. Start Date: 09/16/22 Status: Ordered NovoLIN N FlexPen 100 units/mL subcutaneous suspension = 30 units, Subcutaneous Injection, Daily at bedtime, 0 Refills, Maintenance, 09/16/22 16:14:00 EST, Partial fill upon patient request if the prescription is for a schedule II opioid drug. Start Date: 09/16/22 Status: Ordered NovoLIN R FlexPen 100 units/mL injectable solution = 15 units, Subcutaneous Injection, Daily before breakfast, 0 Refills, Maintenance, 09/16/22 16:15:00 EST, Partial fill upon patient request if the prescription is for a schedule II opioid drug. Start Date: 09/16/22 Status: Ordered NovoLIN R FlexPen 100 units/mL injectable solution = 12 units, Subcutaneous Injection, Daily before lunch, 0 Refills, Maintenance, 09/16/22 16:15:00 EST, Partial fill upon patient request if the prescription is for a schedule II opioid drug. Start Date: 09/16/22 Status: Ordered NovoLIN R FlexPen 100 units/mL injectable solution = 15 units, Subcutaneous Injection, Daily before dinner, 0 Refills, Maintenance, 09/16/22 16:16:00 EST, Partial fill upon patient request if the prescription is for a schedule II opioid drug. Start Date: 09/16/22 Status: Ordered oxybutynin 10 mg/24 hr oral tablet, extended release 1 tablet = 10 mg, By Mouth, Daily, Maintenance, 04/11/21 17:04:00 EDT, ER Tablet, ; Start Date: 04/11/21 Status: Ordered Plavix 75 mg oral tablet 75 mg, 1, tablet, By Mouth, Daily, # 30 tablet, Refills 1, Tot. Refills 1, Maintenance, 11/20/20 13:29:00 EST, Route to Pharmacy Electronically, [facility], 184, cm, 11/19/20 8:51:00 EST, Height, 81.4, kg, 11/09/20 6:43:00 EST, Dry Weight Start Date: 11/20/20 Status: Ordered Vitamin B-12 1000 mcg oral tablet 1,000 mcg, 1, tablet, By Mouth, Daily, Refills 0, Maintenance, 09/16/22 16:18:00 EST, Partial fill upon patient request if the prescription is for a schedule II opioid drug. Start Date: 09/16/22 Status: Ordered Vitamin C 1000 mg oral [...] opioid drug. Start Date: 11/08/20 Status: Ordered Zoloft 100 mg oral tablet 1 tablet = 100 mg, By Mouth, Daily, 0 Refills, Maintenance, 09/16/22 16:18:00 EST, Partial fill upon patient request if the prescription is for a schedule II opioid drug. Start Date: 09/16/22 Status: Ordered Problem List Condition Confirmation Course Effective Dates Status H ealth Status Informant CAD - Coronary artery disease Confirmed Active Chronic diastolic heart failure Confirmed Active Stage 3b chronic kidney disease Confirmed Active Dementia Confirmed Active Right foot drop Confirmed Active History of BPH Confirmed Active Hard of hearing Confirmed Active History of CVA (cerebrovascular accident) Confirmed Active Hyperlipidemia Confirmed Active Hypertension Confirmed Active Type 2 diabetes mellitus with stage 3b chronic kidney disease, with long-term current use of insulin Confirmed Active DNR and DNI, but okay with NIPPV Confirmed Active Osteoarthritis Confirmed Active Social History Social History Type Response Smoking Status Never smoker entered on: 11/24/14 Sex Patient Care team information Care Team Personnel Name: Ezio Aguayo MD Position: [facility] Renal MD Member Role: Lifetime Consulting Physician Address: Address: [address] [place] [address], [address] [place] [address]- Name: Cecelia Trotter RN Position: [facility] RN Member Role: Primary Care Nurse Name: Alice Hwang RN Position: [facility] SN RN Member Role: Primary Care Nurse Name: Libra Sullivan RN Position: [facility] RN Member Role: Primary Care Nurse Name: Marleny Cantrell RN Position: S RN Member Role: Primary Care Nurse Name: Stephanie Chaudhari NP Position: [facility] Office Staff Member Role: PCP Address: Address: [address] [place], [place] [id number] [place] [address]- Name: Yamila Corley RN Position: S RN Member Role: Primary Care Nurse Name: Benji Ellison RN Position: S RN Member Role: Primary Care Nurse Name: Chitra Gonzalez RN Position: S RN Member Role: Primary Care Nurse Name: Scarlet Mayo RN Position: S RN Member Role: Primary Care Nurse Name: Nadya Gee RN Position: S RN Member Role: Primary Care Nurse Name: Deisi Reid RN Position: S RN Member Role: Primary Care Nurse Name: Nickolas Blevins MD Position: [facility] Renal MD Member Role: Lifetime Consulting Physician Address: Address: [address] [place] [address] [address] [facility], [place] [address]- Name: Isha Metzger RN Position: S RN Member Role: Primary Care Nurse Name: Malathi Reardon RN Position: [facility] SN RN Member Role: Primary Care Nurse Name: Ean De La Rosa MD Position: [facility] Renal MD Member Role: Lifetime Consulting Physician Address: Address: [address] [place] [address] [facility] [address] Care Team Related Persons Name: AFSANEH HALLEY Address: home [place]KNOWN [id number] Name: MAC FUENTES Address: home [address] [place] [address]
--- OUTSIDE RECORDS SUMMARY | 2023-01-28 18:37 | XMS_ITS | Continuity of Care Document ---
Author Name Unknown Organization [facility] Diabetes Address [address] [place] [address]- Care Team Providers Care Supervisor Nuclear Medicine Name Role Phone Haresh ANN, Floyd Primary Care Physician [place] [facility] [place] - 01/23/23 [facility] [address] [place] [address]- Allergies, Adverse Reactions, Alerts Substance Reaction Severity Status oxycodone 1 Active amLODIPine Active 1Pt. states that he is unsure if allergy is active. Cannot recall reaction. Immunizations Given and Recorded Vaccine Date Status Refusal Reason [id number] 12y+ bivalent booster vax 09/03/22 Recorded influenza [...] Maintenance, 11/20/20 13:29:00 EST, EC Tablet, [facility], Partial fill upon patient [...] 13:29:00 EST, Route to Pharmacy Electronically, [facility], Partial fill upon patient request if the prescription is for a schedule II... Start Date: 11/20/20 Status: Ordered Diabetic Shoes (1 pair) Diabetic Shoes (1 pair), See Instructions, # 1 each, Refills 1, Tot. Refills 1, Maintenance, Wear shoes continously, E11.65, 11/19/22 5:57:00 EST, Supply Start Date: 11/19/22 Status: Ordered Diabetic shoes with custom inserts Diabetic shoes with custom inserts, See Instructions, # 1 each, Refills 0, Tot. Refills 0, Maintenance, DX= E11.40, 01/08/23 10:15:00 EST, Supply Start Date: 01/08/23 Status: Ordered Fish Oil 1000 mg oral capsule 1 capsule = 1,000 mg, By Mouth, Daily, 0 Refills, Maintenance, 09/16/22 16:19:00 EST, Partial fill upon patient request if the prescription is for a schedule II opioid drug. Start Date: 09/16/22 Status: Ordered Freestyle Donald Sensor Freestyle Donald Sensor, See Instructions, # 2 each, Refills 11, Tot. Refills 11, Maintenance, use for continuously checking blood glucose. change every 2 weeks. E11.9, 12/22/22 14:52:00 EST, Supply, 183, cm, 11/12/22 15:35:00 EST, Height, 100, kg,... Start Date: 12/22/22 Status: Ordered furosemide 40 mg oral tablet [...] opioid drug. Start Date: 09/23/22 Status: Ordered Jardiance 25 mg oral tablet 1 tablet = 25 mg, By Mouth, Daily in AM, # 90 tablet, 9 Refills, Maintenance, 12/29/22 11:52:00 EST, Tablet, [facility], Partial fill upon patient request if the prescription is for a schedule II opioid drug., 183, cm, 12/29/22... Start Date: 12/29/22 Status: Ordered losartan 50 mg oral tablet 50 mg, 1, tablet, By Mouth, Daily, # 90 tablet, Refills 10, Tot. Refills 10, Maintenance, 12/29/22 11:53:00 EST, Route to Pharmacy Electronically, [facility], Partial fill uponpatient request if the prescription is for a schedu... Start Date: 12/29/22 Status: Ordered Namenda 5 mg oral tablet [...] a sched... Start Date: 09/16/22 Status: Ordered Novolin R human recombinant 100 u/ml injectable injection See Instructions, Regular insulin TAKE 3 TIMES DAILY WITH MEALS -Breakfast: 15 units -Lunch: 12 units -Dinner: 15 units, # 20 mL, 4 Refills, Maintenance, 12/16/22 9:40:00 EST, [facility], Partial fill upon patient request if... Start Date: 12/16/22 Status: Ordered oxybutynin 10 mg/24 hr oral tablet, extended release 1 tablet = 10 mg, By Mouth, Daily, Maintenance, 04/11/21 17:04:00 EDT, ER Tablet, ; Start Date: 04/11/21 Status: Ordered Plavix 75 mg oral tablet 75 mg, 1, tablet, By Mouth, Daily, # 30 tablet, Refills 1, Tot. Refills 1, Maintenance, 11/20/20 13:29:00 EST, Route to Pharmacy Electronically, [facility], 184, cm, 11/19/20 8:51:00 [...] Care team information Care Team Personnel Name: Dede ANN, Ezio Matias Position: [facility] Renal MD Member Role: Lifetime Consulting Physician Address: Address: [address] [place] [address], [address] [place] [id number]- Name: Cecelia Trotter RN Position: [facility] RN Member Role: Primary Care Nurse Name: Alice Hwang RN Position: [facility] RN Member Role: Primary Care Nurse Name: Libra Sullivan RN Position: [facility] RN Member Role: Primary Care Nurse Name: Marleny Cantrell RN Position: [facility] RN Member Role: Primary Care Nurse Name: Benji Ellison RN Position: [facility] RN Member Role: Primary Care Nurse Name: Chitra Gonzalez RN Position: [facility] RN Member Role: Primary Care Nurse Name: Scarlet Mayo RN Position: [facility] RN Member Role: Primary Care Nurse Name: Nadya Gee RN Position: [facility] RN Member Role: Primary Care Nurse Name: Floyd Hutson MD Position: [facility] Outreach Member Role: PCP Address: Address: [address] [place] [address] [address] [place] [address]- Name: Deisi Reid RN Position: [facility] RN Member Role: Primary Care Nurse Name: Nickolas Blevins MD Position: S Renal MD Member Role: Lifetime Consulting Physician Address: Address: [address] [place] [address] [facility] [place] [address]- Name: Isha Metzger RN Position: S RN Member Role: Primary Care Nurse Name: Malathi Reardon RN Position: [facility] SN RN Member Role: Primary Care Nurse Name: Ean De La Rosa MD Position: [facility] Renal MD Member Role: Lifetime Consulting Physician Address: Address: [address] [place] [address] [facility] [place] [address]- Care Team Related Persons Name: HALLEY SHELBY Address: [place] [address] Name: MAC FUENTES Address: home [address] [place] [id number]
--- OUTSIDE RECORDS SUMMARY | 2023-01-28 18:37 | XMS_ITS | Continuity of Care Document ---
Author Name Unknown Organization [facility] Nephrology Address [address] [place] [address]- Care Team Providers Care Automobile Assembler Name Role Phone Stephanie Chaudhari NP Primary Care Physician Encounter [facility] Date(s): 03/29/21 - 04/28/21 [facility] [address] [place] [address]- Attending Physician: Leah Nguyen Admitting Physician: AdmtrLeah Referring Physician: Admtr, Ar8 [...] 11/20/20 13:32:00 EST, Route to Pharmacy Electronically, [facility], Partial fill upon patient request if the prescription is for a schedule II opioid d... Start Date: 11/20/20 Status: Ordered aspirin 81 mg oral delayed release tablet = 81 mg, By Mouth, Daily, # 30 tablet, 0 Refills, Maintenance, 11/20/20 13:29:00 EST, EC Tablet, [facility], Partial fill upon [...] 11/20/20 13:29:00 EST, Route to Pharmacy Electronically, [facility], Partial fill upon [...] 11/20/20 13:33:00 EST, Route to Pharmacy Electronically, [facility], Partial fill upon patient request if the prescription is for a schedule II... Start Date: 11/20/20 Stop Date: 12/20/20 Status: Ordered isosorbide mononitrate 30 mg oral tablet, extended release 30 mg, 1, tablet, By Mouth, Daily, # 30 tablet, Refills 0, Tot. Refills 0, Maintenance, 11/20/20 13:31:00 EST, Route to Pharmacy Electronically, [facility], 184, cm, 11/19/20 8:51:00 EST, Height, 81.4, kg, 11/09/20 6:43:00 EST, Dry Weight Start Date: 11/20/20 Stop Date: 12/20/20 Status: Ordered Nitroglycerin 0.4mg Sublingual Tablet See Instructions, Scheduled / PRN, 50 tablet, 5, 5, 05/12/06 20:26:33, chest pain, 1 tab under tongue every 5 minutes as needed for chest pain., Print CINDI Number, [address] [place] [address] Start Date: 05/12/06 Status: Ordered Novolin R [...] 11/20/20 13:29:00 EST, Route to Pharmacy Electronically, [facility], 184, cm, 11/19/20 [...]
--- OUTSIDE RECORDS SUMMARY | 2023-01-28 18:37 | XMS_ITS | Continuity of Care Document ---
Author Name Unknown Organization [facility] Address [address] [facility] [place] [address]- Care Team Providers Care Line Operator Name Role Phone Stephanie Chaudhari NP Primary Care Physician Encounter [facility] Date(s): 12/04/22 - 01/03/23 [facility] [address] [place] [address] [place] [address]- Allergies, Adverse Reactions, Alerts Substance Reaction Severity Status oxycodone 1 Active amLODIPine Active 1Pt. states that he is unsure if allergy is active. Cannot recall reaction. Immunizations Given and Recorded Vaccine Date Status Refusal Reason [id number] 12y+ bivalent booster vax 09/03/22 Recorded influenza [...] Refills, Maintenance, 11/20/20 13:29:00 EST, EC Tablet, [facility], Partial fill upon patient [...] 11/20/20 13:29:00 EST, Route to Pharmacy Electronically, [facility], Partial fill upon patient [...] 9 Refills, Maintenance, 12/29/22 11:52:00 EST, Tablet, [facility], Partial fill upon patient request if the prescription is for a schedule II opioid drug., 183, cm, 12/29/22... Start Date: 12/29/22 Status: Ordered losartan 50 mg oral tablet 50 mg, 1, tablet, By Mouth, Daily, # 90 tablet, Refills 10, Tot. Refills 10, Maintenance, 12/29/22 11:53:00 EST, Route to Pharmacy Electronically, [facility], Partial fill uponpatient request [...] mL, 4 Refills, Maintenance, 12/16/22 9:40:00 EST, [facility], Partial fill upon patient [...] 11/20/20 13:29:00 EST, Route to Pharmacy Electronically, [facility], 184, cm, 11/19/20 8:51:00 [...] Personnel Name: Dede ANN, Ezio Matias Position: [facility] Renal MD Member Role: Lifetime Consulting Physician Address: Address: [address] [place] [address], [address] [place] [address]- Name: Cecelia Trotter RN Position: [facility] RN Member Role: Primary Care Nurse Name: Alice Hwang RN Position: [facility] SN RN Member Role: Primary Care Nurse Name: Libra Sullivan RN Position: [facility] RN Member Role: Primary Care Nurse Name: Marleny Cantrell RN Position: [facility] RN Member Role: Primary Care Nurse Name: Stephanie Chaudhari NP Position: [facility] Office Staff Member Role: PCP Address: Address: [address] [place] [address] [address] [place] [address]- Name: Benji Ellison RN Position: [facility] RN Member Role: Primary Care Nurse Name: Chitra Gonzalez RN Position: [facility] RN Member Role: Primary Care Nurse Name: Scarlet Mayo RN Position: [facility] RN Member Role: Primary Care Nurse Name: Nadya Gee RN Position: [facility] RN Member Role: Primary Care Nurse Name: Deisi Reid RN Position: [facility] RN Member Role: Primary Care Nurse Name: Nickolas Blevins MD Position: [facility] Renal MD Member Role: Lifetime Consulting Physician Address: Address: [address] [place] [address] [address] [facility] [place] [address]- Name: Isha Metzger RN Position: S RN Member Role: Primary Care Nurse Name: Malathi Reardon RN Position: S SN RN Member Role: Primary Care Nurse Name: Ean De La Rosa MD Position: [facility] Renal MD Member Role: Lifetime Consulting Physician Address: Address: [address] [place] [address] [facility] [place] [address]- Care Team Related Persons Name: HALLEY SHELBY Address: [place] [address] Name: MAC FUENTES Address: [address] [address]
--- OUTSIDE RECORDS SUMMARY | 2023-01-28 18:37 | XMS_ITS | Continuity of Care Document ---
Author Name Unknown Organization [facility] ter Address [address] [place] [address]- Care Team Providers Care Weaver [place] Name Role Phone Stephanie Chaudhari NP Primary Care Physician [phone] Encounter [facility] [place] Date(s): 12/13/20 - 12/14/[address] [address]- Encounter Diagnosis TIA (transient ischemic attack)(Final) - 12/13/20 Diabetes(Final) - 12/13/20 Hypertension(Final) - 12/13/20 Hyperlipidemia(Final) - 12/13/20 History of stroke(Final) - 12/13/20 Discharge Disposition: A-D/C Home Attending Physician: Andrew Drew MD Admitting Physician: Santos Read MD Referring Physician: Not on Staff, Referring MD Allergies, Adverse Reactions, Alerts Substance Reaction Severity Status oxycodone Active Immunizations Given and Recorded Vaccine Date Status Refusal Reason influenza virus vaccine, inactivated 09/17/05 Give n Medications amLODIPine 10 mg oral tablet 10 mg, 1, tablet, By Mouth, Daily, # 30 tablet, Refills 0, Tot. Refills 0, Maintenance, 11/20/20 13:32:00 EST, Route to Pharmacy Electronically, [facility], Partial fill upon patient request if the prescription is for a schedule II opioid d... Start Date: 11/20/20 Status: Ordered amoxicillin-clavulanate 875 mg-125 mg oral tablet = 875 mg, By Mouth, 2 times a day, for 5 days, # 10 tablet, 0 Refills, Acute 12/19/20 12:16:00 EST,12/14/20 12:16:00 EST, Tablet, [facility], Partial fill upon patient request if the prescription is for a schedule II opioid drug., 181,... Start Date: 12/14/20 Stop Date: 12/19/20 Status: Ordered aspirin 81 mg oral delayed release tablet = 81 mg, By Mouth, Daily, # 30 tablet, 0 Refills, Maintenance, 11/20/20 13:29:00 EST, EC Tablet, [facility], Partial fill upon [...] 11/20/20 13:29:00 EST, Route to Pharmacy Electronically, [facility], Partial fill upon [...] 11/20/20 13:33:00 EST, Route to Pharmacy Electronically, [facility], Partial fill upon patient request if the prescription is for a schedul... Start Date: 11/20/20 Status: Ordered hydrALAZINE 25 mg oral tablet 25 mg, 1, tablet, By Mouth, Every 8 hours, # 90 tablet, Refills 0, Tot. Refills 0, Maintenance, 11/20/20 13:33:00 EST, Route to Pharmacy Electronically, [facility], Partial fill upon patient request if the prescription is for a schedule II... Start Date: 11/20/20 Stop Date: 12/20/20 Status: Ordered isosorbide mononitrate 30 mg oral tablet, extended release 30 mg, 1, tablet, By Mouth, Daily, # 30 tablet, Refills 0, Tot. Refills 0, Maintenance, 11/20/20 13:31:00 EST, Route to Pharmacy Electronically, [facility], 184, cm, 11/19/20 8:51:00 EST, Height, 81.4, kg, 11/09/20 6:43:00 EST, Dry Weight Start Date: 11/20/20 Stop Date: 12/20/20 Status: Ordered Nitroglycerin 0.4mg Sublingual Tablet See Instructions, Scheduled / PRN, 50 tablet, 5, 5, 05/12/06 20:26:33, chest pain, 1 tab under tongue every 5 minutes as needed for chest pain., Print CINDI Number, [address] [place] [address] Start Date: 05/12/06 Status: Ordered Novolin R human recombinant 100 u/ml injectable injection = 15 units, Subcutaneous Injection, 2 times a day, At breakfast and dinner, Maintenance, 12/13/20 17:51:00 EST, Solution, Partial fill upon patient request if the prescription is for a schedule II opioid drug. Start Date: 12/13/20 Status: Ordered Plavix 75 mg oral tablet 75 mg, 1, tablet, By Mouth, Daily, # 30 tablet, Refills 1, Tot. Refills 1, Maintenance, 11/20/20 13:29:00 EST, Route to Pharmacy Electronically, [facility], 184, cm, 11/19/20 8:51:00 EST, Height, 81.4, kg, 11/09/20 6:43:00 EST, Dry Weight Start Date: 11/20/20 Status: Ordered Relion N FlexPen 100 units/mL subcutaneous suspension See Instructions, Inject 15 units subcuataneously daily at breakfast and 30 units at bedtime., Maintenance, 12/13/20 17:48:00 EST, Partial fill upon patient request if the prescription is for a schedule II opioid drug. Start Date: 12/13/20 Status: Ordered traZODone 50 mg oral tablet 25 mg, 0.5, tablet, By Mouth, Daily at supper, # 15 tablet, Refills 0, Tot. Refills 0, Maintenance,11/20/20 13:32:00 EST, Route to Pharmacy Electronically, [facility], Partial fill upon patient request if the [...] Exam Date Time Procedure Performing Provider Status 12/13/20 10:42 AM Chest Portable [facility] (Verified) Notes: (Chest Portable) Reason For Exam: Stroke;Other: RESULT: Chest Portable Chest Portable Hx of Present Illness: ems called to patients home when reported at 0845 had trouble with speech, upon ems arrival symptoms have resolved. No unilateral weakness. Has had hyperglycemia pocus 200-300s working with pcp on this. Denies headache dizziness.; Reason: Other:; Stroke; Clinical Question(s): CHF COMPARISON: 11/08/2020. FINDINGS: LINES AND TUBES: None. LUNGS AND PLEURA: Lung volumes remain diminished with bronchovascular crowding. No focal infiltrate. No pleural effusion. No pneumothorax. HEART, MEDIASTINUM AND IAIN: Heart is normal in size. Normal upper mediastinal and hilar contour. BONES AND SOFT TISSUES: No acute abnormality. IMPRESSION: Hypoventilated. No evidence of acute abnormality. WSN: [id number] Ordering Physician: Ean Aviles Dictated By: Jay Jay Teresa MD Dictated Date/Time: 12/13/20 11:00 a Reviewed By: Jay Jay Teresa MD Signed By: Jay Jay Teresa MD Signed Date/Time: 12/13/20 11:00 am Transcribed By: MUNIR Transcribed Date/Time: 12/13/20 10:57 am Vital Signs Most recent to oldest [Reference Range]: 1 2 3 Height 181 cm (12/14/20 9:54 AM) Weight 81.4 kg (12/14/20 9:54 AM) Oxygen Saturation [94-100 %] 97 % (12/14/20 9:47 AM) 99 % (12/14/20 8:48 AM) 97 % (12/14/20 6:16 AM) Pulse Rate [55-90 bpm] 67 bpm (12/14/20 9:47 AM) 83 bpm (12/14/20 8:48 AM) 77 bpm (12/14/20 6:16 AM) Body Mass Index [18.5-24.99] 24.85 (12/14/20 9:54 AM) Blood Pressure [90-138/55-84 mm Hg] 133/68mm Hg (12/14/20 9:47 AM) 184/65mm Hg *H* (12/14/20 8:48 AM) 163/77mm Hg *H* (12/14/20 6:16 AM) Respiratory Rate [16-30 br/min] 17 br/min (12/14/20 9:47 AM) 18 br/min (12/14/20 8:48 AM) 20 br/min (12/14/20 6:16 AM) Temperature [96.8-100.4 DegF] 97.2 DegF (12/14/20 9:47 AM) 97.8 DegF (12/14/20 6:16 AM) 98.8 DegF (12/14/20 2:21 AM) Mode of Delivery (Oxygen) Room air (12/14/20 9:47 AM) Room air (12/14/20 8:48 AM) Room air (12/14/20 6:16 AM) Blood pressure sites Arm, right (12/14/20 9:47 AM) Arm, right (12/14/20 6:16 AM) Arm, right (12/14/20 12:30 AM) Temperature Route Oral (12/14/20 9:47 AM) Oral (12/14/20 6:16 AM) Oral (12/14/20 2:21 AM) Dry Weight 81.4 kg (12/14/20 9:54 AM) Social History Social History Type Response Smoking Status Never smoker entered on: 11/24/14 Sex
--- OUTSIDE RECORDS SUMMARY | 2023-01-28 18:38 | XMS_ITS | Continuity of Care Document ---
Author Name Unknown Organization [facility] Address [address] [place] [address]- Care Team Providers Care Category Analyst Name Role Phone Stephanie Chaudhari NP Primary Care Physician [phone] Encounter [facility] Date(s): 10/31/21 - 11/01/[address] [address]- Discharge Disposition: A-D/C Home Attending Physician: Neeta Woody MD Admitting Physician: Ana M Venegas MD Referring Physician: Maximo Garcia MD Allergies, Adverse Reactions, Alerts Substance Reaction Severity Status amLODIPine Active oxycodone 1 Active 1Pt. states that he is unsure [...] Refills, Maintenance, 11/20/20 13:29:00 EST, EC Tablet, [facility], Partial fill upon patient [...] Coreg 25 mg oral tablet 25 mg, Tablet, By Mouth, 11/01/21 9:00:00 EST Start Date: 11/01/21 Stop Date: 11/01/21 Status: Completed Coreg 25 mg oral tablet 25 mg, 1, tablet, By Mouth, 2 times a day, # 60 tablet, Refills 0, Tot. Refills 0, Maintenance, 11/20/20 13:29:00 EST, Route to Pharmacy Electronically, [facility], Partial fill upon patient [...] 11/20/20 13:33:00 EST, Route to Pharmacy Electronically, [facility], Partial fill upon patient request if the prescription is for a schedule II... Start Date: 11/20/20 Stop Date: 12/20/20 Status: Ordered Nitroglycerin 0.4mg Sublingual Tablet See Instructions, Scheduled / PRN, 50 tablet, 5, 5, 05/12/06 20:26:33, chest pain, 1 tab under tongue every 5 minutes as needed for chest pain., Print CINDI Number, [address] [place] [address] Start Date: 05/12/06 Status: Ordered NovoLIN N FlexPen 100 units/mL subcutaneous suspension See Instructions, INJECT 22 UNITS SUBCUTANEOUSLY WITH BREAKFAST AND 30 UNITS AT BEDTIME, # 45 mL, 0Refills, [facility], 183, cm, 09/27/21 12:43:00 EST, Height, 93, kg, 09/19/21 11:31:00 EST, Dry Weight Start Date: 09/27/21 Status: Ordered Novolin R human recombinant 100 u/ml injectable injection = 15 units, Subcutaneous Injection, 3 times a day before meals, Take 15 units before meals, 3 timesdaily. E11.65, # 30 mL, 5 Refills, Maintenance, 02/13/21 11:42:00 EDT, Solution, [facility], Partial fill upon patient [...] 11/20/20 13:29:00 EST, Route to Pharmacy Electronically, [facility], 184, cm, 11/19/20 8:51:00 [...] Active Hyperlipidemia(Confirmed) Active Hypertension(Confirmed) Active Osteoarthritis(Confirmed) Active Vital Signs Most recent to oldest [Reference Range]: 1 2 3 Height 180 cm (11/01/21 2:31 PM) 180 cm (11/01/21 11:01 AM) 180 cm (11/01/21 6:20 AM) Weight 92.4 kg (11/01/21 2:31 PM) 92.4 kg (11/01/21 11:01 AM) 92.4 kg (10/31/21 8:00 PM) Oxygen Saturation [94-100 %] 99 % (11/01/21 2:31 PM) 100 % (11/01/21 12:19 PM) 97 % (11/01/21 7:29 AM) Pulse Rate [55-90 bpm] 62 bpm (11/01/21 2:31 PM) 71 bpm (11/01/21 12:19 PM) 65 bpm (11/01/21 9:38 AM) Body Mass Index [18.5-24.99] 28.52 *H* (11/01/21 11:01 AM) 28.52 *H* (10/31/21 8:00 PM) 29.94 *H* (10/31/21 6:31 PM) Blood Pressure [90-138/55-84 mm Hg] 169/74mm Hg *H* (11/01/21 2:31 PM) 116/62mm Hg (11/01/21 12:19 PM) 160/56mm Hg *H* (11/01/21 9:38 AM) Respiratory Rate [16-30 br/min] 20 br/min (11/01/21 2:31 PM) 16 br/min (11/01/21 9:20 AM) 16 br/min (11/01/21 7:29 AM) Temperature [96.8-100.4 DegF] 98.4 DegF (11/01/21 2:31 PM) 98.0 DegF (11/01/21 6:20 AM) 98.0 DegF (11/01/21 3:41 AM) Liters per Minute 0 L/min (10/31/21 8:00 PM) Mode of Delivery (Oxygen) Room air (11/01/21 2:31 PM) Room air (11/01/21 12:19 PM) Room air (11/01/21 7:29 AM) Blood pressure sites Arm, left (11/01/21 12:19 PM) Arm, left (11/01/21 6:20 AM) Arm, left (11/01/21 3:41 AM) Temperature Route Oral (11/01/21 2:31 PM) Oral (11/01/21 6:20 AM) Oral (11/01/21 3:41 AM) Dry Weight 88.6 kg (11/01/21 2:31 PM) 88.6 kg (11/01/21 11:01 AM) 88.6 kg (10/31/21 8:00 PM) Weight Obtained Via Standing scale (10/31/21 8:00 PM) Patient/family stated (10/31/21 1:11 PM) Dry Weight Obtained Via Patient/family s tated (10/31/21 8:00 PM) Patient/family stated (10/31/21 1:11 PM) Social History Social History Type Response Smoking Status Never smoker entered on: 11/24/14 Sex
--- OUTSIDE RECORDS SUMMARY | 2023-01-28 18:38 | XMS_ITS | Continuity of Care Document ---
Author Name Unknown Organization [facility] Nephrology Address [address] [place] [address]- Care Team Providers Care Machine Container Washer Name Role Phone Stephanie Chaudhari NP Primary Care Physician [phone] [facility] Date(s): 10/06/22 - 11/05/22 [facility] Neph[facility] [address] [place] [address] [place] [address]- Allergies, Adverse Reactions, Alerts Substance Reaction Severity Status oxycodone 1 Active amLODIPine Active 1Pt. states that he is unsure if allergy is active. Cannot recall reaction. Immunizations Given and Recorded Vaccine Date Status Refusal Reason influenza virus vaccine, inactivated 09/03/22 Lokesh rded [...] Refills, Maintenance, 11/20/20 13:29:00 EST, EC Tablet, [facility], Partial fill upon patient request [...] 11/20/20 13:29:00 EST, Route to Pharmacy Electronically, [facility], Partial fill upon patient request if the prescription is for a schedule II... Start Date: 11/20/20 Status: Ordered Fish Oil 1000 mg oral [...] 11/20/20 13:29:00 EST, Route to Pharmacy Electronically, [facility], 184, cm, 11/19/20 8:51:00 EST, [...] Team Personnel Name: Ezio Aguayo MD Position: [facility] Renal MD Member Role: Lifetime Consulting Physician Address: Address: [address] [place] [address], [address] [place] [address]- Name: Cecelia Trotter RN Position: S RN Member Role: Primary Care Nurse Name: Alice Hwang RN Position: [facility] SN RN Member Role: Primary Care Nurse Name: Libra Sullivan RN Position: S RN Member Role: Primary Care Nurse Name: Marleny Cantrell RN Position: S RN Member Role: Primary Care Nurse Name: Stephanie Chaudhari NP Position: [facility] [place] Office Staff Member Role: PCP Address: Address: [address] [place] [address] [address] [place] [address]- Name: Yamila Corley RN Position: S RN [...] Care Nurse Name: Nickolas Blevins MD Position: [facility] Renal MD Member Role: Lifetime Consulting Physician Address: Address: [address] [place] [address] [address] [facility] [place] [address]- Name: Isha Metzger RN Position: S RN Member Role: Primary Care Nurse Name: Malathi Reardon RN Position: [facility] SN RN Member Role: Primary Care Nurse Name: Ean De La Rosa MD Position: [facility] Renal MD Member Role: Lifetime Consulting Physician Address: Address: [address] [place] [address] [facility] [place] [address]- Care Team Related Persons Name: HALLEY SHELBY Address: home UNKNOWN [id number] Name: MAC FUENTES Address: home [address] [place] [address]
--- OUTSIDE RECORDS SUMMARY | 2023-01-28 18:38 | XMS_ITS | Continuity of Care Document ---
Author Name Unknown Organization [facility] Address [address] [place] [address]- Care Team Providers Care Clay Press Operator Name Role Phone Stephanie Chaudhari NP Primary Care Physician Encounter [facility] Date(s): 02/13/21 - 03/15/21 [facility] and Diabetes [address] [place] [id number] Allergies, Adverse Reactions, Alerts Substance Reaction Severity [...] 11/20/20 13:32:00 EST, Route to Pharmacy Electronically, [facility], Partial fill upon patient request if the prescription is for a schedule II opioid d... Start Date: 11/20/20 Status: Ordered aspirin 81 mg oral delayed release tablet = 81 mg, By Mouth, Daily, # 30 tablet, 0 Refills, Maintenance, 11/20/20 13:29:00 EST, EC Tablet, [facility], Partial fill upon patient [...] 11/20/20 13:29:00 EST, Route to Pharmacy Electronically, [facility], Partial fill upon patient [...] 11/20/20 13:33:00 EST, Route to Pharmacy Electronically, [facility], Partial fill upon patient request if the prescription is for a schedul... Start Date: 11/20/20 Status: Ordered hydrALAZINE 25 mg oral tablet 25 mg, 1, tablet, By Mouth, Every 8 hours, # 90 tablet, Refills 0, Tot. Refills 0, Maintenance, 11/20/20 13:33:00 EST, Route to Pharmacy Electronically, [facility], Partial fill upon patient request if the prescription is for a schedule II... Start Date: 11/20/20 Stop Date: 12/20/20 Status: Ordered isosorbide mononitrate 30 mg oral tablet, extended release 30 mg, 1, tablet, By Mouth, Daily, # 30 tablet, Refills 0, Tot. Refills 0, Maintenance, 11/20/20 13:31:00 EST, Route to Pharmacy Electronically, [facility], 184, cm, 11/19/20 8:51:00 EST, Height, 81.4, kg, 11/09/20 6:43:00 EST, Dry Weight Start Date: 11/20/20 Stop Date: 12/20/20 Status: Ordered Nitroglycerin 0.4mg Sublingual Tablet See Instructions, Scheduled / PRN, 50 tablet, 5, 5, 05/12/06 20:26:33, chest pain, 1 tab under tongue every 5 minutes as needed for chest pain., Print CINDI Number, [address] [place] [address] Start Date: 05/12/06 Status: Ordered Novolin R human recombinant 100 u/ml injectable injection = 15 units, Subcutaneous Injection, 3 times a day before meals, Take 15 units before meals, 3 timesdaily. E11.65, # 30 mL, 5 Refills, Maintenance, 02/13/21 11:42:00 EDT, Solution, [facility], Partial fill upon patient request if th... Start Date: 02/13/21 Status: Ordered Plavix 75 mg oral tablet 75 mg, 1, tablet, By Mouth, Daily, # 30 tablet, Refills 1, Tot. Refills 1, Maintenance, 11/20/20 13:29:00 EST, Route to Pharmacy Electronically, [facility], 184, cm, 11/19/20 8:51:00 EST, Height, 81.4, kg, 11/09/20 6:43:00 EST, Dry Weight Start Date: 11/20/20 Status: Ordered Relion N FlexPen 100 units/mL subcutaneous suspension See Instructions, Take 22 units with breakfast, 30 units with bedtime. E11.65, # 30 mL, 3 Refills, Maintenance, 02/13/21 11:41:00 EDT, Injection, [facility], Partial fill upon patient request if the prescription is for a schedule II... Start Date: 02/13/21 Status: Ordered traZODone 50 mg oral tablet 25 mg, 0.5, tablet, By Mouth, Daily at supper, # 15 tablet, Refills 0, Tot. Refills 0, Maintenance,11/20/20 13:32:00 EST, Route to Pharmacy Electronically, [facility], Partial fill upon patient [...]
--- OUTSIDE RECORDS SUMMARY | 2023-01-28 18:38 | XMS_ITS | Continuity of Care Document ---
Author Name Unknown Organization [facility] Address [address] [place] [address]- Care Team Providers Care Process Development Technician Name Role Phone Stephanie Chaudhari NP Primary Care Physician Encounter [facility] Date(s): 05/17/21 - 06/16/21 [facility] [address] [place] [address]- Attending Physician: Leah Nguyen Admitting Physician: AdmtrLeah Referring Physician: AdmtrLeah Allergies, Adverse Reactions, Alerts Substance Reaction Severity [...] 11/20/20 13:32:00 EST, Route to Pharmacy Electronically, [facility], Partial fill upon patient request if the prescription is for a schedule II opioid d... Start Date: 11/20/20 Status: Ordered aspirin 81 mg oral delayed release tablet = 81 mg, By Mouth, Daily, # 30 tablet, 0 Refills, Maintenance, 11/20/20 13:29:00 EST, EC Tablet, [facility], Partial fill upon patient [...] 11/20/20 13:29:00 EST, Route to Pharmacy Electronically, [facility], Partial fill upon patient [...] 11/20/20 13:33:00 EST, Route to Pharmacy Electronically, [facility], Partial fill upon patient request if the prescription is for a schedule II... Start Date: 11/20/20 Stop Date: 12/20/20 Status: Ordered isosorbide mononitrate 30 mg oral tablet, extended release 30 mg, 1, tablet, By Mouth, Daily, # 30 tablet, Refills 0, Tot. Refills 0, Maintenance, 11/20/20 13:31:00 EST, Route to Pharmacy Electronically, [facility], 184, cm, 11/19/20 8:51:00 EST, Height, 81.4, kg, 11/09/20 6:43:00 EST, Dry Weight Start Date: 11/20/20 Stop Date: 12/20/20 Status: Ordered Nitroglycerin 0.4mg Sublingual Tablet See Instructions, Scheduled / PRN, 50 tablet, 5, 5, 05/12/06 20:26:33, chest pain, 1 tab under tongue every 5 minutes as needed for chest pain., Print CINDI Number, [address] [place] [address] Start Date: 05/12/06 Status: Ordered Novolin R [...] 11/20/20 13:29:00 EST, Route to Pharmacy Electronically, [facility], 184, cm, 11/19/20 8:51:00 [...]
--- OUTSIDE RECORDS SUMMARY | 2023-01-28 18:38 | XMS_ITS | Continuity of Care Document ---
Author Name Unknown Organization [facility] Neurology Address [address] [facility], [address] Floor, [address] [place] [address]- Care Team Providers Care Fine Arts Packer Name Role Phone Haresh ANN, Floyd Primary Care Physician [phone] Encounter [facility] Date(s): 02/29/20 - 03/30/20 [facility] Neu[facility] [address] [facility], [address]rd Floor, [address] [place] [address]- [facility] Attending Physician: Leah Nguyen Admitting Physician: Leah Nguyen Referring Physician: AdmtrLeah Allergies, Adverse Reactions, Alerts [...] 01/23/19 14:42:30 EDT, Route to Pharmacy Electronically, [id number], [id number] Start Date: 01/23/19 Stop Date: 02/22/19 Status: [...] 1 Refills, Maintenance, 01/11/20 12:07:00 EDT, Tablet, [facility], 183, cm, 01/11/20 3:11:00 [...] needed for chest pain., Print CINDI Number, [address] [place] [address] Start Date: 05/12/06 Status: Ordered oxybutynin 10 [...] 01/11/20 12:05:00 EDT, Route to Pharmacy Electronically, [facility], 183, cm, 01/11/20 3:11:00 [...]
--- OUTSIDE RECORDS SUMMARY | 2023-01-28 18:38 | XMS_ITS | Continuity of Care Document ---
Author Name Unknown Organization [facility] Address [address] [place] [address]- Care Team Providers Care Welding Machine Operator Plasma Arc Name Role Phone Stephanie Chaudhari NP Primary Care Physician [phone] [place] [facility] Date(s): 11/26/20 - 12/26/20 [facility] Diabetes [address] [place] [id number] Allergies, Adverse Reactions, Alerts Substance Reaction Severity Status oxycodone Active Immunizations Given and Recorded Vaccine Date Status Refusal Reason influenza virus vaccine, inactivated 09/17/05 Give n Medications amLODIPine 10 mg oral tablet 10 mg, 1, tablet, By Mouth, Daily, # 30 tablet, Refills 0, Tot. Refills 0, Maintenance, 11/20/20 13:32:00 EST, Route to Pharmacy Electronically, [facility], Partial fill upon patient request if the prescription is for a schedule II opioid d... Start Date: 11/20/20 Status: Ordered aspirin 81 mg oral delayed release tablet = 81 mg, By Mouth, Daily, # 30 tablet, 0 Refills, Maintenance, 11/20/20 13:29:00 EST, EC Tablet, [facility], Partial fill upon patient [...] 11/20/20 13:29:00 EST, Route to Pharmacy Electronically, [facility], Partial fill upon patient [...] 11/20/20 13:33:00 EST, Route to Pharmacy Electronically, [facility] 5278, Partial fill upon patient request if the prescription is for a schedul... Start Date: 11/20/20 Status: Ordered hydrALAZINE 25 mg oral tablet 25 mg, 1, tablet, By Mouth, Every 8 hours, # 90 tablet, Refills 0, Tot. Refills 0, Maintenance, 11/20/20 13:33:00 EST, Route to Pharmacy Electronically, [facility], Partial fill upon patient request if the prescription is for a schedule II... Start Date: 11/20/20 Stop Date: 12/20/20 Status: Ordered isosorbide mononitrate 30 mg oral tablet, extended release 30 mg, 1, tablet, By Mouth, Daily, # 30 tablet, Refills 0, Tot. Refills 0, Maintenance, 11/20/20 13:31:00 EST, Route to Pharmacy Electronically, [facility], 184, cm, 11/19/20 8:51:00 EST, Height, 81.4, kg, 11/09/20 6:43:00 EST, Dry Weight Start Date: 11/20/20 Stop Date: 12/20/20 Status: Ordered Nitroglycerin 0.4mg Sublingual Tablet See Instructions, Scheduled / PRN, 50 tablet, 5, 5, 05/12/06 20:26:33, chest pain, 1 tab under tongue every 5 minutes as needed for chest pain., Print CINDI Number, [address] [place] [address] Start Date: 05/12/06 Status: Ordered Novolin R [...] 11/20/20 13:29:00 EST, Route to Pharmacy Electronically, [facility], 184, cm, 11/19/20 8:51:00 [...] Maintenance,11/20/20 13:32:00 EST, Route to Pharmacy Electronically, [facility], Partial fill upon patient [...]
--- OUTSIDE RECORDS SUMMARY | 2023-01-28 18:38 | XMS_ITS | Continuity of Care Document ---
Author Name Unknown Organization [facility] Address [address] [place] [address]- Care Team Providers Care Bell Staff Name Role Phone Fara ANNE, Stephanie Primary Care Physician [place] [facility] Date(s): 12/21/20 - 02/02/[address] [address]- Attending Physician: Jani Barragan MD Admitting Physician: Jani Barragan MD Referring Physician: Stephanie Chaudhari NP Allergies, Adverse Reactions, Alerts Substance Reaction Severity [...] 11/20/20 13:32:00 EST, Route to Pharmacy Electronically, [facility], Partial fill upon patient request if the prescription is for a schedule II opioid d... Start Date: 11/20/20 Status: Ordered aspirin 81 mg oral delayed release tablet = 81 mg, By Mouth, Daily, # 30 tablet, 0 Refills, Maintenance, 11/20/20 13:29:00 EST, EC Tablet, [facility], Partial fill upon patient request [...] 11/20/20 13:29:00 EST, Route to Pharmacy Electronically, [facility], Partial fill upon patient request [...] 11/20/20 13:33:00 EST, Route to Pharmacy Electronically, [facility], Partial fill upon patient request if the prescription is for a schedul... Start Date: 11/20/20 Status: Ordered hydrALAZINE 25 mg oral tablet 25 mg, 1, tablet, By Mouth, Every 8 hours, # 90 tablet, Refills 0, Tot. Refills 0, Maintenance, 11/20/20 13:33:00 EST, Route to Pharmacy Electronically, [facility], Partial fill upon patient request if the prescription is for a schedule II... Start Date: 11/20/20 Stop Date: 12/20/20 Status: Ordered isosorbide mononitrate 30 mg oral tablet, extended release 30 mg, 1, tablet, By Mouth, Daily, # 30 tablet, Refills 0, Tot. Refills 0, Maintenance, 11/20/20 13:31:00 EST, Route to Pharmacy Electronically, [facility], 184, cm, 11/19/20 8:51:00 EST, Height, 81.4, kg, 11/09/20 6:43:00 EST, Dry Weight Start Date: 11/20/20 Stop Date: 12/20/20 Status: Ordered Nitroglycerin 0.4mg Sublingual Tablet See Instructions, Scheduled / PRN, 50 tablet, 5, 5, 05/12/06 20:26:33, chest pain, 1 tab under tongue every 5 minutes as needed for chest pain., Print CINDI Number, [address] [place] [address] Start Date: 05/12/06 Status: Ordered Novolin R [...] 11/20/20 13:29:00 EST, Route to Pharmacy Electronically, [facility], 184, cm, 11/19/20 8:51:00 EST, [...] Maintenance,11/20/20 13:32:00 EST, Route to Pharmacy Electronically, [facility], Partial fill upon patient request [...]
--- OUTSIDE RECORDS SUMMARY | 2023-01-28 18:38 | XMS_ITS | Continuity of Care Document ---
Author Name Unknown Organization [facility] Address [address] [place] [address]- Care Team Providers Care Salt Machine Operator Name Role Phone Haresh ANN, Floyd Primary Care Physician Encounter [facility] Date(s): 02/20/20 - 02/20/[address] [address]- [facility] Discharge Disposition: A-D/C Home Attending Physician: Joseph [...] 01/23/19 14:42:30 EDT, Route to Pharmacy Electronically, [id number], [id number] Start Date: 01/23/19 Stop Date: 02/22/19 Status: [...] 1 Refills, Maintenance, 01/11/20 12:07:00 EDT, Tablet, [facility], 183, cm, 01/11/20 [...] needed for chest pain., Print CINDI Number, [address] [place] [address] Start Date: 05/12/06 Status: Ordered oxybutynin 10 [...] 01/11/20 12:05:00 EDT, Route to Pharmacy Electronically, [facility], 183, cm, 01/11/20 [...] recent to oldest [Reference Range]: 1 2 Height 183 cm (02/20/20 9:39 PM) 183 cm (02/20/20 7:38 PM) Weight 98 kg (02/20/20 9:39 PM) 98 kg (02/20/20 7:38 PM) Oxygen Saturation [94-100 %] 97 % (02/20/20 9:39 PM) 99 % (02/20/20 7:38 PM) Pulse Rate [55-90 bpm] 69 bpm (02/20/20 9:39 PM) 72 bpm (02/20/20 7:38 PM) Body Mass Index [18.5-24.99] 29.26 *H* (02/20/20 9:39 PM) Blood Pressure [90-138/55-84 mm Hg] 159/ 85mm Hg *H* (02/20/20 9:39 PM) 161/65mm Hg *H* (02/20/20 7:38 PM) Respiratory Rate [16-30 br/min] 16 br/mi n (02/20/20 9:39 PM) 16 br/min (02/20/20 7:38 PM) Temperature [96.8-100.4 DegF] 98.2 DegF (02/20/20 7:38 PM) Mode of Delivery (Oxygen) Room air (02/20/20 9:39 PM) Room air (02/20/20 7:38 PM) Blood pressure sites Arm, left (02/20/20 9:39 PM) Arm, left (02/20/20 7:38 PM) Temperature Route Oral (02/20/20 7:38 PM) Dry Weight 98 kg (02/20/20 9:39 PM) 98 kg (02/20/20 7:38 PM) Weight Obtained Via Patient/family state d (02/20/20 7:38 PM) Dry Weight Obtained Via Patient/family s tated (02/20/20 7:38 PM) Social History Social History Type Response Smoking Status Never smoker entered on: 11/24/14 Sex
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
--- OUTSIDE RECORDS SUMMARY | 2023-01-28 18:38 | XMS_ITS | Continuity of Care Document ---
Author Name Unknown Organization [facility] Address [address] [place] [address]- Care Team Providers Care Intake Coordinator Name Role Phone Fara ANNE, Stephanie Primary Care Physician Encounter [facility] Date(s): 01/19/21 - 01/20/[address] [address]- Discharge Disposition: A-D/C Home Attending Physician: Neeta Woody MD Admitting Physician: Marquez Laguerre DO Referring Physician: Not on Staff, Referring MD [...] amLODIPine 10 mg oral tablet 10 mg, Tablet, By Mouth, 01/20/21 9:00:00 EDT Start Date: 01/20/21 Stop Date: 01/20/21 Status: Completed amLODIPine 10 mg oral tablet 10 mg, 1, tablet, By Mouth, Daily, # 30 tablet, Refills 0, Tot. Refills 0, Maintenance, 11/20/20 13:32:00 EST, Route to Pharmacy Electronically, [facility], Partial fill upon patient request if the prescription is for a schedule II opioid d... Start Date: 11/20/20 Status: Ordered aspirin 81 mg oral delayed release tablet = 81 mg, By Mouth, Daily, # 30 tablet, 0 Refills, Maintenance, 11/20/20 13:29:00 EST, EC Tablet, [facility], Partial fill upon [...] oral tablet 25 mg, Tablet, By Mouth, 01/20/21 9:00:00 EDT Start Date: 01/20/21 Stop Date: 01/20/21 Status: Completed Coreg 25 mg oral tablet 25 mg, 1, tablet, By Mouth, 2 times a day, # 60 tablet, Refills 0, Tot. Refills 0, Maintenance, 11/20/20 13:29:00 EST, Route to Pharmacy Electronically, [facility], Partial fill upon [...] 11/20/20 13:33:00 EST, Route to Pharmacy Electronically, [facility], Partial fill upon patient request if the prescription is for a schedul... Start Date: 11/20/20 Status: Ordered hydrALAZINE 25 mg oral tablet 25 mg, Tablet, By Mouth, 01/20/21 7:00:00 EDT Start Date: 01/20/21 Stop Date: 01/20/21 Status: Completed hydrALAZINE 25 mg oral tablet 25 mg, 1, tablet, By Mouth, Every 8 hours, # 90 tablet, Refills 0, Tot. Refills 0, Maintenance, 11/20/20 13:33:00 EST, Route to Pharmacy Electronically, [facility], Partial fill upon patient request if the prescription is for a schedule II... Start Date: 11/20/20 Stop Date: 12/20/20 Status: Ordered isosorbide mononitrate 30 mg oral tablet, extended release 30 mg, 1, tablet, By Mouth, Daily, # 30 tablet, Refills 0, Tot. Refills 0, Maintenance, 11/20/20 13:31:00 EST, Route to Pharmacy Electronically, [facility], 184, cm, 11/19/20 8:51:00 EST, Height, 81.4, kg, 11/09/20 6:43:00 EST, Dry Weight Start Date: 11/20/20 Stop Date: 12/20/20 Status: Ordered levoFLOXacin 500 mg oral tablet 1 tablet = 500 mg, By Mouth, Every 24 hours, for 4 days, # 4 tablet, 0 Refills, Acute 01/25/21 12:49:00 EDT, 01/21/21 12:49:00 EDT, Tablet, [facility], Partial fill upon patient request ifthe prescription is for a schedule II opioid drug.,... Start Date: 01/21/21 Stop Date: 01/25/21 Status: Ordered Nitroglycerin 0.4mg Sublingual Tablet See Instructions, Scheduled / PRN, 50 tablet, 5, 5, 05/12/06 20:26:33, chest pain, 1 tab under tongue every 5 minutes as needed for chest pain., Print CINDI Number, [address] [place] [address] Start Date: 05/12/06 Status: Ordered Novolin R [...] 11/20/20 13:29:00 EST, Route to Pharmacy Electronically, [facility], 184, cm, 11/19/20 [...] Maintenance,11/20/20 13:32:00 EST, Route to Pharmacy Electronically, [facility], Partial fill upon [...] [Reference Range]: 1 2 3 4 Height 182 cm (01/20/21 1:57 PM) 182 cm (01/20/21 5:29 AM) 182 cm (01/19/21 11:22 PM) Weight 94.5 kg (01/19/21 11:22 PM) 97.7 kg (01/19/21 8:28 PM) Oxygen Saturation [94-100 %] 99 % (01/20/21 1:57 PM) 95 % (01/20/21 5:29 AM) 96 % (01/19/21 11:22 PM) Pulse Rate [55-90 bpm] 65 bpm (01/20/21 1:57 PM) 80 bpm (01/20/21 8:13 AM) 74 bpm (01/20/21 5:29 AM) Body Mass Index [18.5-24.99] 28.53 *H* (01/19/21 11:22 PM) Blood Pressure [90-138/55-84 mm Hg] 133/64mm Hg (01/20/21 1:57 PM) 161/81mm Hg *H* (01/20/21 8:13 AM) 161/81mm Hg *H* (01/20/21 8:13 AM) 161/81mm Hg *H* (01/20/21 8:13 AM) Respiratory Rate [16-30 br/min] 20 br/min (01/20/21 1:57 PM) 20 br/min (01/20/21 5:29 AM) 20 br/min (01/19/21 11:22 PM) Temperature [96.8-100.4 DegF] 98.0 DegF (01/20/21 1:57 PM) 97.6 DegF (01/20/21 5:29 AM) 98.4 DegF (01/19/21 11:22 PM) Mode of Delivery (Oxygen) Room air (01/20/21 1:57 PM) Room air (01/20/21 5:29 AM) Room air (01/19/21 11:22 PM) Blood pressure sites Arm, left (01/20/21 1:57 PM) Arm, right (01/20/21 5:29 AM) Arm, left (01/19/21 11:22 PM) Temperature Route Oral (01/20/21 1:57 PM) Oral (01/20/21 5:29 AM) Oral (01/19/21 11:22 PM) Dry Weight 94.5 kg (01/19/21 11:22 PM) 97.7 kg (01/19/21 8:28 PM) Weight Obtained Via Standing scale (01/19/21 11:22 PM) Patient/family stated (01/19/21 8:28 PM) Dry Weight Obtained Via Standing scale (01/19/21 11:22 PM) Patient/family stated (01/19/21 8:28 PM) Social History Social History Type Response Smoking Status Never smoker entered on: 11/24/14 Sex
--- OUTSIDE RECORDS SUMMARY | 2023-01-28 18:38 | XMS_ITS | Continuity of Care Document ---
Author Name Unknown Organization [facility] Address [address] [facility] [place] [address]- Care Team Providers Care Embedded Systems Software Engineer Name Role Phone Fara ANNE, Stephanie Primary Care Physician [phone] Encounter [facility] Date(s): 10/06/22 - 12/05/22 [facility] [address] [place] [address] [place] [address]- Attending Physician: Rolando Malhotra MD Allergies, Adverse Reactions, Alerts Substance Reaction Severity Status oxycodone 1 Active amLODIPine Active 1Pt. states that he is unsure if allergy is active. Cannot recall reaction. Immunizations Given and Recorded Vaccine Date Status Refusal Reason [id number] 12y+ bivalent booster vax 09/03/22 Recorded influenza [...] Maintenance, 11/20/20 13:29:00 EST, EC Tablet, [facility], Partial fill upon patient [...] 13:29:00 EST, Route to Pharmacy Electronically, [facility], Partial fill upon patient [...] 13:29:00 EST, Route to Pharmacy Electronically, [facility], 184, cm, 11/19/20 8:51:00 [...] Team Personnel Name: Ezio Aguayo MD Position: [facility] Renal MD Member Role: Lifetime Consulting Physician Address: Address: [address] [place] [address], [address] [place] [address] Name: Cecelia Trotter RN Position: [facility] RN Member Role: Primary Care Nurse Name: Alice Hwang RN Position: [facility] SN RN Member Role: Primary Care Nurse Name: Libra Sullivan RN Position: [facility] RN Member Role: Primary Care Nurse Name: Marleny Cantrell RN Position: [facility] RN Member Role: Primary Care Nurse Name: Stephanie Chaudhari NP Position: [facility] Office Staff Member Role: PCP Address: Address: [address] [place] [id number]- Name: Yamila Corley RN Position: [facility] RN Member Role: Primary Care Nurse Name: Benji Ellison RN Position: S RN Member Role: Primary Care Nurse Name: Chitra Gonzalez RN Position: [facility] RN Member Role: Primary Care Nurse Name: Scarlet Mayo RN Position: [facility] RN Member Role: Primary Care Nurse Name: Nadya Gee RN Position: [facility] RN Member Role: Primary Care Nurse Name: Deisi Reid RN Position: S RN Member Role: Primary Care Nurse Name: Nickolas Blevins MD Position: [facility] Renal MD Member Role: Lifetime Consulting Physician Address: Address: [address] [place] [address] [address] [facility] [place] [address]- Name: Isha Metzger RN Position: S RN Member Role: Primary Care Nurse Name: Malathi Reardon RN Position: [facility] RN Member Role: Primary Care Nurse Name: Ean De La Rosa MD Position: [facility] Renal MD Member Role: Lifetime Consulting Physician Address: Address: [address] [place] [address] [facility] [address] Care Team Related Persons Name: HALLEY SHELBY Address: home [place]KNOWN [id number] Name: MAC FUENTES Address: home [address] [place] [address]
--- OUTSIDE RECORDS SUMMARY | 2023-01-28 18:38 | XMS_ITS | Continuity of Care Document ---
Author Name Unknown Organization [facility] Address [address] [place] [address]- Care Team Providers Care Funeral Prearrangement Counselor Name Role Phone Stephanie Chaudhari NP Primary Care Physician Encounter [facility] Date(s): 02/22/21 - 03/24/21 [facility] [address] [place] [address]- Referring Physician: Keerthi Valente Allergies, Adverse Reactions, Alerts Substance Reaction Severity [...] 11/20/20 13:32:00 EST, Route to Pharmacy Electronically, [facility], Partial fill upon patient request if the prescription is for a schedule II opioid d... Start Date: 11/20/20 Status: Ordered aspirin 81 mg oral delayed release tablet = 81 mg, By Mouth, Daily, # 30 tablet, 0 Refills, Maintenance, 11/20/20 13:29:00 EST, EC Tablet, [facility], Partial fill upon [...] 11/20/20 13:29:00 EST, Route to Pharmacy Electronically, [facility], Partial fill upon [...] 11/20/20 13:33:00 EST, Route to Pharmacy Electronically, [facility], Partial fill upon patient request if the prescription is for a schedul... Start Date: 11/20/20 Status: Ordered hydrALAZINE 25 mg oral tablet 25 mg, 1, tablet, By Mouth, Every 8 hours, # 90 tablet, Refills 0, Tot. Refills 0, Maintenance, 11/20/20 13:33:00 EST, Route to Pharmacy Electronically, [facility], Partial fill upon patient request if the prescription is for a schedule II... Start Date: 11/20/20 Stop Date: 12/20/20 Status: Ordered isosorbide mononitrate 30 mg oral tablet, extended release 30 mg, 1, tablet, By Mouth, Daily, # 30 tablet, Refills 0, Tot. Refills 0, Maintenance, 11/20/20 13:31:00 EST, Route to Pharmacy Electronically, [facility], 184, cm, 11/19/20 8:51:00 EST, Height, 81.4, kg, 11/09/20 6:43:00 EST, Dry Weight Start Date: 11/20/20 Stop Date: 12/20/20 Status: Ordered Nitroglycerin 0.4mg Sublingual Tablet See Instructions, Scheduled / PRN, 50 tablet, 5, 5, 05/12/06 20:26:33, chest pain, 1 tab under tongue every 5 minutes as needed for chest pain., Print CINDI Number, [address] [place] [address] Start Date: 05/12/06 Status: Ordered Novolin R human recombinant 100 u/ml injectable injection = 15 units, Subcutaneous Injection, 3 times a day before meals, Take 15 units before meals, 3 timesdaily. E11.65, # 30 mL, 5 Refills, Maintenance, 02/13/21 11:42:00 EDT, Solution, [facility], Partial fill upon patient request if th... Start Date: 02/13/21 Status: Ordered Plavix 75 mg oral tablet 75 mg, 1, tablet, By Mouth, Daily, # 30 tablet, Refills 1, Tot. Refills 1, Maintenance, 11/20/20 13:29:00 EST, Route to Pharmacy Electronically, [facility], 184, cm, 11/19/20 8:51:00 EST, Height, 81.4, kg, 11/09/20 6:43:00 EST, Dry Weight Start Date: 11/20/20 Status: Ordered Relion N FlexPen 100 units/mL subcutaneous suspension See Instructions, Take 22 units with breakfast, 30 units with bedtime. E11.65, # 30 mL, 3 Refills, Maintenance, 02/13/21 11:41:00 EDT, Injection, [facility], Partial fill upon patient request if the prescription is for a schedule II... Start Date: 02/13/21 Status: Ordered traZODone 50 mg oral tablet 25 mg, 0.5, tablet, By Mouth, Daily at supper, # 15 tablet, Refills 0, Tot. Refills 0, Maintenance,11/20/20 13:32:00 EST, Route to Pharmacy Electronically, [facility], Partial fill upon [...]
--- OUTSIDE RECORDS SUMMARY | 2023-01-28 18:38 | XMS_ITS | Continuity of Care Document ---
Author Name Unknown Organization [facility] Address [address] [place] [address]- Care Team Providers Care Mental Health Orderly Name Role Phone Stephanie Chaudhari NP Primary Care Physician Encounter [facility] [place] [place] Date(s): 09/23/21 - 09/27/[address] [address] Discharge Disposition: Disch/Trans to IP Rehab or unit w/in Hos Attending Physician: Bhavya Victor MD Admitting Physician: Jesus Stanley MD Referring Physician: Jesus Stanley MD Allergies, Adverse Reactions, Alerts Substance Reaction Severity Status amLODIPine Active oxycodone Active Immunizations Given and Recorded Vaccine Date Status Refusal Reason tetanus/diphtheria/pertussis, acel(Tdap) 09/14/21 Given SARS-CoV-2 (COVID-19) mRNA BNT-162b2 vac 01/25/21 Recorded SARS-CoV-2 (COVID-19) mRNA BNT-162b2 vac 01/04/21 Recorded influenza virus vaccine, inactivated 09/17/05 Give n Not Given Vaccine Date Status Refusal Reason pneumococcal 13-valent vaccine 1 01/20/21 Not Give n Patient Refuses 1Result Comment: pt. states he already got vaccine Medications aspirin 81 mg oral delayed release tablet = 81 mg, By Mouth, Daily, # 30 tablet, 0 Refills, Maintenance, 11/20/20 13:29:00 EST, EC Tablet, [facility], Partial fill upon patient request if the [...] oral tablet 25 mg, Tablet, By Mouth, 09/27/21 9:00:00 EST Start Date: 09/27/21 Stop Date: 09/27/21 Status: Completed Coreg 25 mg oral tablet 25 mg, 1, tablet, By Mouth, 2 times a day, # 60 tablet, Refills 0, Tot. Refills 0, Maintenance, 11/20/20 13:29:00 EST, Route to Pharmacy Electronically, [facility], Partial fill upon patient request [...] oral tablet 25 mg, Tablet, By Mouth, 09/27/21 13:00:00 EST Start Date: 09/27/21 Stop Date: 09/27/21 Status: Completed hydrALAZINE 25 mg oral tablet 25 mg, 1, tablet, By Mouth, Every 8 hours, # 90 tablet, Refills 0, Tot. Refills 0, Maintenance, 11/20/20 13:33:00 EST, Route to Pharmacy Electronically, [facility], Partial fill upon patient request if the prescription is for a schedule II... Start Date: 11/20/20 Stop Date: 12/20/20 Status: Ordered isosorbide mononitrate 30 mg oral tablet, extended release 60 mg, 2, tablet, By Mouth, Daily, # 60 tablet, Refills 0, Tot. Refills 0, Maintenance, 09/23/21 9:37:00 EST, Route to Pharmacy Electronically, [facility], Partial fill upon patient request if the prescription is for a schedule II opioid . Start Date: 09/23/21 Status: Ordered Nitroglycerin 0.4mg Sublingual Tablet See Instructions, Scheduled / PRN, 50 tablet, 5, 5, 05/12/06 20:26:33, chest pain, 1 tab under tongue every 5 minutes as needed for chest pain., Print CINDI Number, [address] [place] [address] Start Date: 05/12/06 Status: Ordered NovoLIN N FlexPen 100 units/mL subcutaneous suspension See Instructions, INJECT 22 UNITS SUBCUTANEOUSLY WITH BREAKFAST AND 30 UNITS AT BEDTIME, # 45 mL, 0Refills, [facility], 183, cm, 09/27/21 12:43:00 EST, Height, 93, kg, 09/19/21 11:31:00 EST, Dry Weight Start Date: 09/27/21 Status: Ordered Novolin R human recombinant 100 u/ml injectable injection = 15 units, Subcutaneous Injection, 3 times a day before meals, Take 15 units before meals, 3 timesdaily. E11.65, # 30 mL, 5 Refills, Maintenance, 02/13/21 11:42:00 EDT, Solution, [facility], Partial fill [...] 11/20/20 13:29:00 EST, Route to Pharmacy Electronically, [facility], 184, cm, 11/19/20 8:51:00 EST, [...] Exam Date Time Procedure Performing Provider Status 09/27/21 4:27 PM Chest 2 Views Frontal and Lat Amita Ibanez; Auth (Verified) Notes: (Chest 2 Views Frontal and Lat) Reason For Exam: Postop RESULT: Chest 2 Views Frontal and Lat Chest 2 Views Frontal and Lat HISTORY: Postoperative. COMPARISON: Chest radiograph 09/18/2021. FINDINGS: LINES AND TUBES: Left subclavian approach dual lead pacemaker wires appear intact, tip overlying the heart. LUNGS AND PLEURA: Low lung volumes. No pleural effusion. No pneumothorax. HEART, MEDIASTINUM AND IAIN: Unchanged cardiomediastinal silhouette. BONES AND SOFT TISSUES: Multilevel degenerative changes of the spine. Subacute fracture lateral aspect right eighth rib, present previously. Previously present mildly displaced fracture lateral aspect left ninth rib not imaged on the current study. IMPRESSION: New left subclavian approach dual lead pacemaker. No acute complications. I have personally reviewed the images and I agree with this report. WSN: [id number] Ordering Physician: Anand Ramos Dictated By: Ted ANN, Dick Duran Dictated Date/Time: 09/27/21 4:48 pm Reviewed By: Jony Vila MD By: Jony Vila MD Signed Date/Time: 09/27/21 4:53 pm Transcribed By: MUNIR Transcribed Date/Time: 09/27/21 4:48 pm Vital Signs Most recent to oldest [Reference Range]: 1 2 3 Height 183 cm (09/27/21 12:30 PM) 183 cm (09/27/21 7:45 AM) 183 cm (09/26/21 8:10 PM) Weight 87.8 kg (09/26/21 6:33 AM) 89.9 kg (09/25/21 6:57 AM) 91 kg (09/25/21 6:10 AM) Oxygen Saturation [94-100 %] 95 % (09/27/21 12:30 PM) 97 % (09/27/21 7:45 AM) 97 % (09/26/21 8:10 PM) Pulse Rate [55-90 bpm] 59 bpm (09/27/21 12:30 PM) 62 bpm (09/27/21 8:34 AM) 62 bpm (09/27/21 7:45 AM) Blood Pressure [90-138/55-84 mm Hg] 132/64mm Hg (09/27/21 2:09 PM) 132/64mm Hg (09/27/21 12:30 PM) 184/71mm Hg *H* (09/27/21 8:34 AM) Respiratory Rate [16-30 br/min] 20 br/min (09/27/21 12:30 PM) 20 br/min (09/27/21 7:45 AM) 18 br/min (09/26/21 8:10 PM) Temperature [96.8-100.4 DegF] 97.0 DegF (09/27/21 12:30 PM) 97.4 DegF (09/27/21 7:45 AM) 97.3 DegF (09/26/21 8:10 PM) Mode of Delivery (Oxygen) Room air (09/27/21 12:30 PM) Room air (09/27/21 7:45 AM) Room air (09/26/21 8:10 PM) Blood pressure sites Arm, left (09/27/21 12:30 PM) Arm, right (09/27/21 7:45 AM) Arm, right (09/26/21 8:10 PM) Temperature Route Temporal (09/27/21 12:30 PM) Temporal (09/27/21 7:45 AM) Temporal (09/26/21 8:10 PM) Weight Obtained Via Bed scale (09/26/21 6:33 AM) Bed scale (09/25/21 6:57 AM) Bed scale (09/24/21 5:54 AM) Social History Social History Type Response Smoking Status Never smoker entered on: 11/24/14 Sex
--- OUTSIDE RECORDS SUMMARY | 2023-01-28 18:38 | XMS_ITS | Continuity of Care Document ---
Author Name Unknown Organization [facility] Address [address] [place] [address]- Care Team Providers Care Location Director Name Role Phone Fara WATERMELON HARVESTING SUPERVISOR, Stephanie Primary Care Physician Encounter 11/21/20 - 01/18/21 [facility] [address] [place] [address]- Discharge Disposition: GOALS MET Allergies, Adverse Reactions, Alerts Substance Reaction Severity Status oxycodone Active Immunizations Given and Recorded Vaccine Date Status Refusal Reason influenza virus vaccine, inactivated 09/17/05 Give n Medications amLODIPine 10 mg oral tablet 10 mg, 1, tablet, By Mouth, Daily, # 30 tablet, Refills 0, Tot. Refills 0, Maintenance, 11/20/20 13:32:00 EST, Route to Pharmacy Electronically, [facility], Partial fill upon patient request if the prescription is for a schedule II opioid d... Start Date: 11/20/20 Status: Ordered aspirin 81 mg oral delayed release tablet = 81 mg, By Mouth, Daily, # 30 tablet, 0 Refills, Maintenance, 11/20/20 13:29:00 EST, EC Tablet, [facility], Partial fill upon [...] 11/20/20 13:29:00 EST, Route to Pharmacy Electronically, [facility], Partial fill upon [...] 11/20/20 13:33:00 EST, Route to Pharmacy Electronically, [facility], Partial fill upon patient request if the prescription is for a schedul... Start Date: 11/20/20 Status: Ordered hydrALAZINE 25 mg oral tablet 25 mg, 1, tablet, By Mouth, Every 8 hours, # 90 tablet, Refills 0, Tot. Refills 0, Maintenance, 11/20/20 13:33:00 EST, Route to Pharmacy Electronically, [facility], Partial fill upon patient request if the prescription is for a schedule II... Start Date: 11/20/20 Stop Date: 12/20/20 Status: Ordered isosorbide mononitrate 30 mg oral tablet, extended release 30 mg, 1, tablet, By Mouth, Daily, # 30 tablet, Refills 0, Tot. Refills 0, Maintenance, 11/20/20 13:31:00 EST, Route to Pharmacy Electronically, [facility], 184, cm, 11/19/20 8:51:00 EST, Height, 81.4, kg, 11/09/20 6:43:00 EST, Dry Weight Start Date: 11/20/20 Stop Date: 12/20/20 Status: Ordered Nitroglycerin 0.4mg Sublingual Tablet See Instructions, Scheduled / PRN, 50 tablet, 5, 5, 05/12/06 20:26:33, chest pain, 1 tab under tongue every 5 minutes as needed for chest pain., Print CINDI Number, [address] [place] [address] Start Date: 05/12/06 Status: Ordered Novolin R [...] 11/20/20 13:29:00 EST, Route to Pharmacy Electronically, [facility], 184, cm, 11/19/20 [...] Maintenance,11/20/20 13:32:00 EST, Route to Pharmacy Electronically, [facility], Partial fill upon [...]
--- OUTSIDE RECORDS SUMMARY | 2023-01-28 18:38 | XMS_ITS | Continuity of Care Document ---
Author Name Unknown Organization [facility] Address [address] [place] [address]- Care Team Providers Care Special Duty Nurse Name Role Phone Fara ANNE, Stephanie Primary Care Physician [place] [facility] [place]): 12/05/20 - 01/04/21 [facility] [address] [place] [id number] Allergies, Adverse Reactions, Alerts Substance Reaction Severity Status oxycodone Active Immunizations Given and Recorded Vaccine Date Status Refusal Reason influenza virus vaccine, inactivated 09/17/05 Give n Medications amLODIPine 10 mg oral tablet 10 mg, 1, tablet, By Mouth, Daily, # 30 tablet, Refills 0, Tot. Refills 0, Maintenance, 11/20/20 13:32:00 EST, Route to Pharmacy Electronically, [facility], Partial fill upon patient request if the prescription is for a schedule II opioid d... Start Date: 11/20/20 Status: Ordered aspirin 81 mg oral delayed release tablet = 81 mg, By Mouth, Daily, # 30 tablet, 0 Refills, Maintenance, 11/20/20 13:29:00 EST, EC Tablet, [facility], Partial fill upon [...] 11/20/20 13:29:00 EST, Route to Pharmacy Electronically, [facility], Partial fill upon [...] 11/20/20 13:33:00 EST, Route to Pharmacy Electronically, [facility], Partial fill upon patient request if the prescription is for a schedul... Start Date: 11/20/20 Status: Ordered hydrALAZINE 25 mg oral tablet 25 mg, 1, tablet, By Mouth, Every 8 hours, # 90 tablet, Refills 0, Tot. Refills 0, Maintenance, 11/20/20 13:33:00 EST, Route to Pharmacy Electronically, [facility], Partial fill upon patient request if the prescription is for a schedule II... Start Date: 11/20/20 Stop Date: 12/20/20 Status: Ordered isosorbide mononitrate 30 mg oral tablet, extended release 30 mg, 1, tablet, By Mouth, Daily, # 30 tablet, Refills 0, Tot. Refills 0, Maintenance, 11/20/20 13:31:00 EST, Route to Pharmacy Electronically, [facility], 184, cm, 11/19/20 8:51:00 EST, Height, 81.4, kg, 11/09/20 6:43:00 EST, Dry Weight Start Date: 11/20/20 Stop Date: 12/20/20 Status: Ordered Nitroglycerin 0.4mg Sublingual Tablet See Instructions, Scheduled / PRN, 50 tablet, 5, 5, 05/12/06 20:26:33, chest pain, 1 tab under tongue every 5 minutes as needed for chest pain., Print [facility]INDI Number, [id number] [place] [address] Start Date: 05/12/06 Status: Ordered Novolin R [...] 11/20/20 13:29:00 EST, Route to Pharmacy Electronically, [facility], 184, cm, 11/19/20 [...] Maintenance,11/20/20 13:32:00 EST, Route to Pharmacy Electronically, [facility], Partial fill upon [...]
--- OUTSIDE RECORDS SUMMARY | 2023-01-28 18:38 | XMS_ITS | Continuity of Care Document ---
Author Name Unknown Organization [facility] Address [address] [place] [address]- Care Team Providers Care Concrete Foreman Name Role Phone Stephanie Chaudhari NP Primary Care Physician Encounter [facility] Date(s): 11/11/22 - 11/12/[address] [address]- Discharge Disposition: A-D/C Home Attending Physician: Isaac Salazar MD Admitting Physician: Fabiano ANN, Lesly Referring Physician: Not on Staff, Referring MD Allergies, Adverse Reactions, Alerts Substance Reaction Severity Status oxycodone 1 Active amLODIPine Active 1Pt. states that he is unsure if allergy is active. Cannot recall reaction. Immunizations Given and Recorded Vaccine Date Status Refusal Reason [id number] 12y+ bivalent booster vax 09/03/22 Recorded influenza [...] Refills, Maintenance, 11/20/20 13:29:00 EST, EC Tablet, [id number], Partial fill upon [...] oral tablet 25 mg, Tablet, By Mouth, 11/12/22 9:00:00 EST Start Date: 11/12/22 Stop Date: 11/12/22 Status: Completed Coreg 25 mg oral tablet 25 mg, 1, tablet, By Mouth, 2 times a day, # 60 tablet, Refills 0, Tot. Refills 0, Maintenance, 11/20/20 13:29:00 EST, Route to Pharmacy Electronically, [id number], Partial fill upon [...] hydrALAZINE 25 mg oral tablet 50 mg, Tablet, By Mouth, 11/12/22 9:00:00 EST Start Date: 11/12/22 Stop Date: 11/12/22 Status: Completed hydrALAZINE 25 mg oral tablet 50 mg, [...] 11/20/20 13:29:00 EST, Route to Pharmacy Electronically, [id number], 184, cm, 11/19/20 [...] with NIPPV Confirmed Active Osteoarthritis Confirmed Active Results Radiology Reports * Exam Date Time Procedure Performing Provider Status 11/11/22 5:[address] Cervical Spine W/O Contrast Paulette Toribio; Reba (Verified) Notes: (CT Cervical Spine W/O Contrast) Reason For Exam: Trauma RESULT: CT Cervical Spine W/O Contrast CT Head/Brain W/O Contrast, CT Cervical Spine W/O Contrast INDICATION: Increased weakness and falls over the past few days. One fall with head strike. TECHNIQUE: Noncontrast head CT using axial technique was reconstructed in axial and coronal planes.Noncontrast spiral CT through the cervical spine was formatted in 3 planes. Automatic tube modulation was used for the cervical spine and iterative dose reconstruction was used for both the head and cervical spine to optimize scan parameters and image quality. COMPARISON: None. FINDINGS: Research Scientist View Findings, Lines and Tubes: 12/08/2021. BRAIN AND EXTRA-AXIAL SPACES: No parenchymal hemorrhage, midline shift, or mass effect. Almanza-white matter differentiation is wellpreserved. Right frontal and parietal lobe encephalomalacia, seen on prior. No acute infarct. Negative insular ribbon and hyperdense vessel signs. Mild prominence of the ventricles and sulci consistent with parenchymal volume loss. Moderate low-density white matter changes. No subarachnoid hemorrhage. No subdural or epidural collection. CALVARIUM, SKULL BASE, AND SOFT TISSUES: No fractures or suspicious bony lesions. The paranasal sinuses and mastoid air cells are clear. Visualized orbits and globes are intact. The extracranial soft tissues are unremarkable. CERVICAL SPINE: No fracture. No acute osseous abnormalities. Moderate multilevel degenerative disc space narrowing and end plate irregularity. Cervical lordosisis straightened. There is grade 1 anterolisthesis of C7 on T1. OTHER BONES: No acute abnormality. CERVICAL SOFT TISSUES AND LUNG APICES: Bilateral carotid bulb calcifications Visualized lung apices are clear. IMPRESSION: No acute intracranial process. Moderate degenerative changes of the cervical spine with no acute fracture or abnormality. I have personally reviewed the images and I agree with this report. WSN: [id number] Ordering Physician: Shay Menendez Dictated By: Abelardo Contreras MD Dictated Date/Time: 11/11/22 5:38 pm Reviewed By: Ibeth Toney MD Signed By: Ibeth Toney MD Signed Date/Time: 11/11/22 5:43 pm Transcribed By: MUNIR Transcribed Date/Time: 11/11/22 5:31 pm * Exam Date Time Procedure Performing Provider Status 11/11/22 5:[address] Head/Brain W/O Contrast Catarino , Ulises jacobsonyl; Auth (Verified) Notes: (CT Head/Brain W/O Contrast) Reason For Exam: Trauma RESULT: CT Head/Brain W/O Contrast CT Head/Brain W/O Contrast, CT Cervical Spine W/O Contrast INDICATION: Increased weakness and falls over the past few days. One fall with head strike. TECHNIQUE: Noncontrast head CT using axial technique was reconstructed in axial and coronal planes.Noncontrast spiral CT through the cervical spine was formatted in 3 planes. Automatic tube modulation was used for the cervical spine and iterative dose reconstruction was used for both the head and cervical spine to optimize scan parameters and image quality. COMPARISON: None. FINDINGS: Research Scientist View Findings, Lines and Tubes: 12/08/2021. BRAIN AND EXTRA-AXIAL SPACES: No parenchymal hemorrhage, midline shift, or mass effect. Almanza-white matter differentiation is wellpreserved. Right frontal and parietal lobe encephalomalacia, seen on prior. No acute infarct. Negative insular ribbon and hyperdense vessel signs. Mild prominence of the ventricles and sulci consistent with parenchymal volume loss. Moderate low-density white matter changes. No subarachnoid hemorrhage. No subdural or epidural collection. CALVARIUM, SKULL BASE, AND SOFT TISSUES: No fractures or suspicious bony lesions. The paranasal sinuses and mastoid air cells are clear. Visualized orbits and globes are intact. The extracranial soft tissues are unremarkable. CERVICAL SPINE: No fracture. No acute osseous abnormalities. Moderate multilevel degenerative disc space narrowing and end plate irregularity. Cervical lordosisis straightened. There is grade 1 anterolisthesis of C7 on T1. OTHER BONES: No acute abnormality. CERVICAL SOFT TISSUES AND LUNG APICES: Bilateral carotid bulb calcifications Visualized lung apices are clear. IMPRESSION: No acute intracranial process. Moderate degenerative changes of the cervical spine with no acute fracture or abnormality. I have personally reviewed the images and I agree with this report. WSN: [id number] Ordering Physician: Shay Menendez Dictated By: Abelardo Contreras MD Dictated Date/Time: 11/11/22 5:38 pm Reviewed By: Ibeth Toney MD Signed By: Ibeth Toney MD Signed Date/Time: 11/11/22 5:43 pm Transcribed By: MUNIR Transcribed Date/Time: 11/11/22 5:31 pm * Exam Date Time Procedure Performing Provider Status 11/11/22 5:17 PM Chest 2 Views Frontal and Lat Risa Terrazas; Reba (Verified) Notes: (Chest 2 Views Frontal and Lat) Reason For Exam: Persistent Cough RESULT: Chest 2 Views Frontal and Lat Chest 2 Views Frontal and Lat Hx of Present Illness: pt presents via ems reporting weakness and falls over the past couple days. pt last fell 3 days ago, hit head, on plavix. pt also presents hypertensive per pt highest reading was 200 100. denies any CASTORENA or blurry vision.; Reason: Persistent Cough; Clinical Question(s): Pneumonia COMPARISON: 09/16/2022 FINDINGS: LINES AND TUBES: Dual-lead left subclavian pacer/AICD wires are intact. LUNGS AND PLEURA: Clear lungs. Normal pulmonary vascularity. No pleural effusion. No pneumothorax. HEART, MEDIASTINUM AND IAIN: Heart is normal in size. Normal mediastinal and hilar contour. BONES AND SOFT TISSUES: No acute abnormality. Osteopenia. Spine degenerative changes. IMPRESSION: No acute abnormality. WSN: [id number] Ordering Physician: Shay Menendez Dictated By: Jony Barrera MD Dictated Date/Time: 11/11/22 5:23 pm Reviewed By: Jony Barrera MD Signed By: Jony Barrera MD Signed Date/Time: 11/11/22 5:23 pm Transcribed By: MUNIR Transcribed Date/Time: 11/11/22 5:21 pm Vital Signs Most recent to oldest [Reference Range]: 1 2 3 Height 183 cm (11/12/22 3:35 PM) 183 cm (11/12/22 9:14 AM) 183 cm (11/12/22 5:06 AM) Weight 100 kg (11/12/22 3:35 PM) 100 kg (11/12/22 9:14 AM) 100 kg (11/12/22 5:06 AM) Oxygen Saturation [94-100 %] 98 % (11/12/22 3:35 PM) 98 % (11/12/22 9:14 AM) 98 % (11/12/22 5:06 AM) Pulse Rate [55-90 bpm] 66 bpm (11/12/22 3:35 PM) 64 bpm (11/12/22 9:14 AM) 64 bpm (11/12/22 9:10 AM) Body Mass Index [18.5-24.99 kg/m2] 29.86 kg/m2 *H* (11/12/22 3:35 PM) 29.86 kg/m2 *H* (11/12/22 9:14 AM) 29.86 kg/m2 *H* (11/12/22 5:06 AM) Blood Pressure [90-138/55-84 mm Hg] 152/68mm Hg *H* (11/12/22 3:35 PM) 141/50mm Hg *H* (11/12/22 9:14 AM) 141/50mm Hg *H* (11/12/22 9:11 AM) Respiratory Rate [16-30 br/min] 16 br/min (11/12/22 3:35 PM) 18 br/min (11/12/22 9:14 AM) 16 br/min (11/12/22 5:06 AM) Temperature [96.8-100.4 DegF] 97.7 DegF (11/12/22 9:14 AM) 98.3 DegF (11/12/22 5:06 AM) 98.9 DegF (11/11/22 11:07 PM) Mode of Delivery (Oxygen) Room air (11/12/22 3:35 PM) Room air (11/12/22 5:06 AM) Room air (11/11/22 8:35 PM) Blood pressure sites Arm, right (11/12/22 3:35 PM) Arm, left (11/12/22 5:06 AM) Arm, left (11/11/22 11:07 PM) Temperature Route Temporal (11/11/22 11:07 PM) Temporal (11/11/22 4:13 PM) Oral (11/11/22 2:49 PM) Dry Weight 100 kg (11/12/22 3:35 PM) 100 kg (11/12/22 9:14 AM) 100 kg (11/12/22 5:06 AM) Social History Social History Type Response Smoking Status Never smoker entered on: 11/24/14 Sex History and physical note * Balwinder Bishop DO: PERFORM, MODIFY Event Display: History and Physical Hospital Authored Date: Patient: ??JOSEPH CRESPO ? Age:??82 Years?Sex:??Male?:??1940?? History of Present Illness Mr. Crespo is an 82-year-old gentleman??with a past medical history of??diastolic heart failure, coronary artery disease, type 2 diabetes, chronic kidney disease, hypertension, stroke who presents with??multiple falls and elevated blood pressures. History is obtained from??prior records,??the patient's , and the patient who is a fair historian. ?? The patient??states that his keeps track of his blood pressures and they are generally controlled at home. ??His physical therapist came to the house today??and checked his blood pressure before??their session and noted that it was??200 systolic.?? His ??checked it on their machine as welland his blood pressure was as high as??220/115.?? He did not have any symptoms??at that time.?Hecurrently offers no complaints other than a??mild frontal headache which is not unusual for him.?? I spoke to his on the phone who states that his blood pressures are generally in the 130-140 range. ??She has been giving him all his medications as prescribed.?? She does note that while he was in rehab he was getting hydralazine 50 mg 4 times daily??though??after coming home she was instructed??to??give it??3 times daily which she has been doing.?? There have been no dose changes to his blood pressure medications and he has not missed any doses.?? She is concerned about his blood pressurethough??she is more concerned that he is falling a lot.?? He has had some unwitnessed falls??at home as??they constantly find new bruises on him.?? This morning she noted??new bruises on his??chin and he does not know how it got there.?? He is unsteady on his feet and has??right foot drop which impairs his mobility. ?? In the ED his blood pressure was as high as 200 systolic. ??He was given 25 mg of oral hydralazine??with improvement in his blood pressures.?? His labs were unremarkable. ??CT scan of the head showed no acute??pathology. Review of Systems Positive ROS are noted in??BOLD TEXT General?fatigue, weight change, fever, chills, falls HEENT?CASTORENA, vision change, sore throat?? Pulm?cough, SOB, BALES, wheezing CV?chest pain, palpitations, PND, orthopnea, edema GI?abd pain, nausea, vomiting, diarrhea, constipation, melena, hematochezia ?dysuria, increased frequency, hematuria, incontinence MS?back pain, joint swelling, arthralgias Neuro?syncope, dizziness, weakness, paresthesias Hematologic?bleeding tendency, easy bruising Skin?rash, lesions Psych?depression, SI/HI Objective Vital Signs?? Temperature: 98.9 DegF (11/11/22 23:07:00) Temperature Route: Temporal (11/11/22 23:07:00) Pulse Rate: 84 bpm (11/11/22 23:07:00) Respiratory Rate: 16 br/min (11/11/22 23:07:00) Systolic Blood Pressure:??172 mm Hg??High (11/11/22:07:) Diastolic Blood Pressure: 58 mm Hg (11/11/22::00) Blood pressure sites: Arm, left (11/11/22:07:00) Mean Arterial Pressure: 96 mm Hg (11/11/22:07:) Pulse Pressure: 114 mm Hg (11/11/22::) Oxygen Saturation: 99 % (11/11/22::) Mode of Delivery (Oxygen): Room air (11/11/22 20:35:00) ?? Physical Exam Constitutional: No acute distress, well-developed, alert and oriented x4 HEENT: Normocephalic, ecchymosis noted, PERRLA, EOMI, oropharynx clear, moist mucus membranes, hardof hearing Respiratory: CTA bilaterally, no wheezes/rhonchi/rales Cardiac: RRR, +S1/S2, no murmurs/rubs, pulses palpable and equal in all extremities, edema bilaterally, worse on the left Gastrointestinal: +BS, non-tender to palpation, non-distended Neurologic: CNII-XII grossly intact, 5/5 strength in all extremities, sensation intact, left foot drop Musculoskeletal: No gross deformities, back non-tender to palpation Skin: Scattered ecchymosis on his extremities Psych: Mood appropriate to situation Assessment/Plan Assessment:??Mr. Crespo is an 82 yo gentleman with pmh of HFpEF, CAD, T2DM, CKD, HTN, CVA who presents with falls and elevated blood pressures ?? Frequent falls (R29.6):??Likely multifactorial. He does have??right foot drop and??bilateral knee replacements.??There could be a component of orthostasis??as his??antihypertensives and diuretics were uptitrated during his admission back in September. CT head and neck did not show any acute injuries. No symptoms to suggest infection though does have a leukocytosis and hx of BPH so need to rule out UTI -Physical therapy evaluation -Check orthostatics -Urinalysis ?? Uncontrolled hypertension (I10):??Blood pressure as high as 203/71 in the ED. Was noted to be high at home on a routine check. He is asymptomatic. CT head shows no acute pathology. Unclear cause of his elevated blood pressures as his administers his medications and he has not missed any doses nor have there been any dose changes. Blood pressure normalized after a single dose of 25 mg hydralazine. Troponin elevated though lower than his levels in 09/2022. Likely his baseline in the setting of CKD -We will continue his home antihypertensive regimen consisting of Coreg 25 mg twice daily, hydralazine 50 mg 3 times daily ?? Chronic diastolic heart failure (I50.32):??Currently appears euvolemic.??Continue Lasix ?? Stage 4 Chronic kidney disease: Baseline creatinine hovering around 3 for the past few months, was??1.8 in early 2021. Currently 3.1 ?? Dementia (F03.90):??Mentation is at baseline, he is alert and oriented though hard of hearing.??Continue Namenda, donepezil ?? Type 2 diabetes mellitus with stage 3b chronic kidney disease, with long-term current use of insulin (E11.22):??Continue??insulin NPH??25 units in the morning and 30 units at bedtime with lispro sliding scale ?? Coronary artery disease (I25.10):??. History of CVA (cerebrovascular accident) (Z86.73):? -Continue aspirin, Plavix ?? VTE Prophylaxis:??Moderate risk, Lovenox ?VTE Prophylaxis Assessment:??VTE Prophylaxis Ordered ?? Code Status:??DNR/DNI, MOLST in CIS ?Order Code Status:??Code Status Ordered ?? Patient evaluated on 11/11/2022 ?? Histories Allergies Allergies ?(Active and Proposed Allergies Only) oxycodone? (Severity: Unknown severity, Onset: Unknown) ?Comments: Pt. states that he is unsure if allergy is active. Cannot recall reaction. amLODIPine? (Severity: Unknown severity, Onset: Unknown) ? Past Medical History/Problem List Active Problems??(13) CAD - Coronary artery disease Chronic diastolic heart failure Dementia DNR and DNI, but okay with NIPPV Hard of hearing History of BPH History of CVA (cerebrovascular accident) Hyperlipidemia Hypertension Osteoarthritis Right foot drop Stage 3b chronic kidney disease Type 2 diabetes mellitus with stage 3b chronic kidney disease, with long-term current use of insulin ? Past Surgical History Comprehensive eye examination: 11/03/06 Prostate specific antigen (PSA); complexed (direct measurement) ? 13-JUL-2018 23:08:32<$>: 10/14/06 Colonoscopy: 07/05/02 ? Social History Alcohol Details:??Use: Never. Home/Environment Details:??Lives with: Spouse. Nutrition/Health Details:??Diet: Diabetic, Low sodium. Other Details:??Name: HCP: Mac Vazquez, . ??Details: He is a DO NOT RESUSCITATE and DO NOT INTUBATE, but okay with NIPPV. Substance Abuse Details:??Use: Never. Tobacco Details:??Never smoker Electronic Cigarette/Vaping Details:??Electronic Cigarette Use: Never. ? Family History No family history recorded. ? Medications Home Medications Ascorbic Acid (Vitamin C 1000 mg oral tablet)?1?tab(s)?1,000?Milligram?By Mouth?Daily Aspirin (aspirin 81 mg oral delayed release tablet)?81?Milligram?By Mouth?Daily?for 30?Days Atorvastatin (atorvastatin 80 mg oral tablet)?1?tab(s)?80?Milligram?By Mouth?Daily at bedtime?for 90?Days Carvedilol (Coreg 25 mg oral tablet)?25?Milligram?1?tablet?By Mouth?2 times a day Cholecalciferol (Vitamin D3 1000 intl units oral tablet)?1?tab(s)?1,000?International Unit?By Mouth?Daily Clopidogrel (Plavix 75 mg oral tablet)?75?Milligram?1?tablet?By Mouth?Daily Cyanocobalamin (Vitamin B-12 1000 mcg oral tablet)?1,000?Microgram?1?tablet?By Mouth?Daily Donepezil (Aricept 10 mg oral tablet)?10?Milligram?1?tablet?By Mouth?Daily at bedtime Furosemide (furosemide 40 mg oral tablet)?40?Milligram?1?tablet?By Mouth?Daily hydrALAZINE (hydrALAZINE 25 mg oral tablet)?50?Milligram?2?tablet?By Mouth?3 times a day Insulin NPH (NovoLIN N FlexPen 100 units/mL subcutaneous suspension)?25?unit(s)?Subcutaneous Injection?Daily before breakfast Insulin NPH (NovoLIN N FlexPen 100 units/mL subcutaneous suspension)?30?unit(s)?Subcutaneous Injection?Daily at bedtime Insulin Regular Human (NovoLIN R FlexPen 100 units/mL injectable solution)?15?unit(s)?Subcutaneous Injection?Daily before breakfast Insulin Regular Human (NovoLIN R FlexPen 100 units/mL injectable solution)?12?unit(s)?Subcutaneous Injection?Daily before lunch Insulin Regular Human (NovoLIN R FlexPen 100 units/mL injectable solution)?15?unit(s)?Subcutaneous Injection?Daily before dinner Memantine (Namenda 5 mg oral tablet)?1?tab(s)?5?Milligram?By Mouth?Daily Multivitamin With Minerals (Centrum Silver Men's)?1?tab(s)?By Mouth?Daily Nitroglycerin (Nitrostat 0.4 mg sublingual tablet)?1?tab(s)?0.4?Milligram?Sublingual?Every 5 minutes?as needed?Chest Pain?not to exceed 3 doses/15 min--if pain persists, seek medical attention [place]-3 Polyunsaturated Fatty Acids (Fish Oil 1000 mg oral capsule)?1?capsule?1,000?Milligram?By Mouth?Daily Oxybutynin (oxybutynin 10 mg/24 hr oral tablet, extended release)?1?tab(s)?10?Milligram?By Mouth?Daily Sertraline (Zoloft 100 mg oral tablet)?1?tab(s)?100?Milligram?By Mouth?Daily ? Results Recent Labs BLOOD COUNT & DIFF WBC 13.6 k/mm3 (High)?? 11/11/2022 16:25 RBC 3.25 m/mm3 (Low)?? 11/11/2022 16:25 Hgb 9.6 Gm/dL (Low)?? 11/11/2022 16:25 Hct 28.7 % (Low)?? 11/11/2022 16:25 MCV 88.3 femtoliters ()?? 11/11/2022 16:25 MCH 29.5 pg ()?? 11/11/2022 16:25 MCHC 33.4 g/dL ()?? 11/11/2022 16:25 Platelet Count 248 k/mm3 ()?? 11/11/2022 16:25 RDW-SD 45.3 femtoliters ()?? 11/11/2022 16:25 MPV 11.5 femtoliters ()?? 11/11/2022 16:25 Nucleated RBC (Automated) 0.0 #/100 WBC'S ()?? 11/11/2022 16:25 Abs. NRBC 0.0 k/mm3 ()?? 11/11/2022 16:25 Abs. Neut 10.3 k/mm3 (High)?? 11/11/2022 16:25 Abs. Lymph 2.2 k/mm3 ()?? 11/11/2022 16:25 Abs. Marshall 0.9 k/mm3 ()?? 11/11/2022 16:25 Abs. Eo 0.1 k/mm3 ()?? 11/11/2022 16:25 Abs. Baso 0.0 k/mm3 ()?? 11/11/2022 16:25 Neut % 75.9 % ()?? 11/11/2022 16:25 Lymph % 16.0 % ()?? 11/11/2022 16:25 Marshall % 6.8 % ()?? 11/11/2022 16:25 Eos % 0.7 % ()?? 11/11/2022 16:25 Baso % 0.2 % ()?? 11/11/2022 16:25 Imm Gran 0.4 % ()?? 11/11/2022 16:25 Abs. Imm Gran 0.1 k/mm3 ()?? 11/11/2022 16:25 ?? CARDIAC Nt-Probnp 1023 pg/mL (High)?? 11/11/2022 16:27 High Sensitivity Troponin (HSTnT) 556 ng/L (Critical)?? 11/11/2022 19:29 ?? CHEM GENERAL Sodium 141 mmol/L ()?? 11/11/2022 16:25 Potassium 4.0 mmol/L ()?? 11/11/2022 16:25 Chloride 103 mmol/L ()?? 11/11/2022 16:25 Bicarbonate Level 21 mmol/L (Low)?? 11/11/2022 16:25 Anion Gap 17 ()?? 11/11/2022 16:25 Glucose Level 103 mg/dL (High)?? 11/11/2022 16:25 Glucose, POC 213 mg/dL (High)?? 11/11/2022 22:48 BUN 77 mg/dL (High)?? 11/11/2022 16:25 Creatinine-Blood 3.1 mg/dL (High)?? 11/11/2022 16:25 Estimated GFR Creatinine 20 ML/MIN/1.73 M2 ()?? 11/11/2022 16:25 ?? HEME OTHER Hold Blue Top SPECIMEN DISCARDED AFTER 4 HOURS. ()?? 11/11/2022 16:25 ?? VIROLOGY Influenza A PCR NEGATIVE ()?? 11/11/2022 18:52 Influenza B PCR NEGATIVE ()?? 11/11/2022 18:52 RSV PCR NEGATIVE ()?? 11/11/2022 18:52 COVID-19 PCR Specimen Source NASAL ()?? 11/11/2022 18:52 COVID-19 PCR Result NEGATIVE ()?? 11/11/2022 18:52 ? EKG study * Event Display: ECG 12-Lead Authored Date: Please click on pdf link to open report * Event Display: ECG 12-Lead Authored Date: Ventricular Rate: 65 BPM Atrial Rate: 65 BPM P-R Interval: 170 ms QRS Duration: 100 ms Q-T Interval: 438 ms QTC Calculation(Bazett): 455 ms P [place]: 96 degrees R [place]: 6 degrees T [place]: 40 degrees Normal sinus rhythm Voltage criteria for left ventricular hypertrophy Inferior infarct , age undetermined Abnormal ECG When compared with ECG of 17-SEP-2022 10:54, Inferior infarct is now Present Confirmed by DAMIÁN LANGSTON MD ([id number]) on 11/12/2022 7:48:34 PM Rand: DAMIÁN LANGSTON MD Note * Isaac Salazar MD: PERFORM Event Display: Discharge/Transfer Note Hospital Authored Date: [id number] Patient: ??JOSEPH CRESPO ? Age:??82 Years?Sex:??Male?:??1940?? Patient Information Discharge Location: ED Hold Primary Care Physician: Stephanie Chaudhari NP Admit Date/Time: 11/11/22 18:15 Discharge Disposition Discharge Disposition: Home with Home Health Discharge Diagnosis Chronic diastolic heart failure (I50.32) Coronary artery disease (I25.10) Dementia (F03.90) Frequent falls (R29.6) History of BPH (Z87.438) History of CVA (cerebrovascular accident) (Z86.73) Hyperlipidemia (E78.5) Type 2 diabetes mellitus with stage 3b chronic kidney disease, with long-term current use of insulin (E11.22) Uncontrolled hypertension (I10) CAD - Coronary artery disease Dementia Hard of hearing History of BPH Hyperlipidemia Osteoarthritis Right foot drop ?? _ Discharge Medications Ascorbic Acid (Vitamin C 1000 mg oral tablet)?1?tab(s)?1,000?Milligram?By Mouth?Daily Aspirin (aspirin 81 mg oral delayed release tablet)?81?Milligram?By Mouth?Daily?for 30?Days Atorvastatin (atorvastatin 80 mg oral tablet)?1?tab(s)?80?Milligram?By Mouth?Daily at bedtime?for 90?Days Carvedilol (Coreg 25 mg oral tablet)?25?Milligram?1?tablet?By Mouth?2 times a day Cholecalciferol (Vitamin D3 1000 intl units oral tablet)?1?tab(s)?1,000?International Unit?By Mouth?Daily Clopidogrel (Plavix 75 mg oral tablet)?75?Milligram?1?tablet?By Mouth?Daily Cyanocobalamin (Vitamin B-12 1000 mcg oral tablet)?1,000?Microgram?1?tablet?By Mouth?Daily Donepezil (Aricept 10 mg oral tablet)?10?Milligram?1?tablet?By Mouth?Daily at bedtime Furosemide (furosemide 40 mg oral tablet)?40?Milligram?1?tablet?By Mouth?Daily hydrALAZINE (hydrALAZINE 25 mg oral tablet)?50?Milligram?2?tablet?By Mouth?3 times a day Insulin NPH (NovoLIN N FlexPen 100 units/mL subcutaneous suspension)?25?unit(s)?Subcutaneous Injection?Daily before breakfast Insulin NPH (NovoLIN N FlexPen 100 units/mL subcutaneous suspension)?30?unit(s)?Subcutaneous Injection?Daily at bedtime Insulin Regular Human (NovoLIN R FlexPen 100 units/mL injectable solution)?15?unit(s)?Subcutaneous Injection?Daily before breakfast Insulin Regular Human (NovoLIN R FlexPen 100 units/mL injectable solution)?12?unit(s)?Subcutaneous Injection?Daily before lunch Insulin Regular Human (NovoLIN R FlexPen 100 units/mL injectable solution)?15?unit(s)?Subcutaneous Injection?Daily before dinner Memantine (Namenda 5 mg oral tablet)?1?tab(s)?5?Milligram?By Mouth?Daily Multivitamin With Minerals (Centrum Silver Men's)?1?tab(s)?By Mouth?Daily Nitroglycerin (Nitrostat 0.4 mg sublingual tablet)?1?tab(s)?0.4?Milligram?Sublingual?Every 5 minutes?as needed?Chest Pain?not to exceed 3 doses/15 min--if pain persists, seek medical attention [place]-3 Polyunsaturated Fatty Acids (Fish Oil 1000 mg oral capsule)?1?capsule?1,000?Milligram?By Mouth?Daily Oxybutynin (oxybutynin 10 mg/24 hr oral tablet, extended release)?1?tab(s)?10?Milligram?By Mouth?Daily Sertraline (Zoloft 100 mg oral tablet)?1?tab(s)?100?Milligram?By Mouth?Daily ? Medications Started none Medications Discontinued none Doses Changed none Allergies Allergies ?(Active and Proposed Allergies Only) oxycodone? (Severity: Unknown severity, Onset: Unknown) ?Comments: Pt. states that he is unsure if allergy is active. Cannot recall reaction. amLODIPine? (Severity: Unknown severity, Onset: Unknown) ? PCP Follow-Up/Heads-Up none Hospital Course Frequent falls Hypertensive urgency ??? 82-year-old gentleman with past medical history of hypertension presented to the hospital with complaints of multiple falls and elevated blood pressure. Patient mentions that visiting nurse at his house check blood pressure was above 200 and recommended to go to the hospital. In the emergency department he had systolic blood pressure 203, he was given p.o. hydralazine which improved his bloodpressure to patient's baseline of systolic 140-150. Patient was restarted on home blood pressure regimen with Coreg twice daily and hydralazine 50 mg 3 times a day. Patient does have multiple falls at home he has a history of right foot drop as well as bilateral knee replacements.?Trauma work-upwith CT head/C-spine is negative, chest x-ray is negative as well.?Patient was seen by physical therapist recommended for home with services for physical therapy at home. Patient will be discharged home. ?? Diastolic heart failure ??? Not in acute exacerbation, continue with home dose of Lasix ?? CKD stage IV ??? Patient's creatinine in early 2021 was 1.8 however in the last few months it has been closer to3. Creatinine during this admission was 3.1. 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 ?? Dementia ??? Continue with Namenda and donepezil ?? Type 2 diabetes mellitus ??? Continue with NPH insulin 25 units in the morning and 30 units at bedtime ?? CAD History of CVA ??? Continue with aspirin/Plavix ?? Objective Assessment and Plan Assessment:??See hospital course?? Vital Signs?? Temperature: 97.7 DegF (11/12/22 09:14:00) Temperature Route: Temporal (11/11/22 23:07:00) Pulse Rate: 64 bpm (11/12/22 09:14:00) Respiratory Rate: 18 br/min (11/12/22 09:14:00) Systolic Blood Pressure:??141 mm Hg??High (11/12/22 09:14:00) Diastolic Blood Pressure:??50 mm Hg??Low (11/12/22 09:14:00) Blood pressure sites: Arm, left (11/12/22 05:06:00) Mean Arterial Pressure: 80 mm Hg (11/12/22 09:14:00) Pulse Pressure: 91 mm Hg (11/12/22 09:14:00) Oxygen Saturation: 98 % (11/12/22 09:14:00) Mode of Delivery (Oxygen): Room air (11/12/22 05:06:00) ? . Physical Exam Constitutional: Alert, in no distress. Oriented??x3 Respiratory: Clear to auscultation. No wheezing, rales or rhonchi. Cardiovascular: S1 S2 regular. No murmurs,??no pitting edema Gastrointestinal: Abdomen soft, no abdonimal tenderness, non-distended. Normal bowel sounds. Neurologic: Moving all extremities Psychiatric: Normal mood and affect Pending Results Urinalysis w/hold for Urine Culture ordered on 11/11/2022 Follow-Up Appointments Added Follow Up ?Time Frame ?Comments Fara ANNE, Stephanie?2 to 5 weeks Patient Instructions You were admitted to the hospital due to multiple falls and elevated blood pressure.?? You were given medication for the blood pressure and it has returned to your baseline.?? You will need to continue with the home blood pressure regimen.?? You were also seen by physical therapy for multiple falls, they recommended that you should receive physical therapy at home. ?? No new medications ?? Continue taking all of your other home medications as previously prescribed ?? Please follow-up with your primary care physician Post Discharge Care Code Status: ?? No Resuscitation Condition: fair Prognosis: Fair Discharge ?11/12/22 14:04:00 EST Discharge Prescriptions ?None, ??11/12/22 14:04:00 EST Home Health Face to Face *Denotes mandatory tijerina ?? *I certify that this patient is under my care and that I or an allowed non- physician working with me had a face to face encounter with the patient on this date:??11/12/2022 14:05 ?? *The encounter with the patient was in whole, or in part, for the following medical condition, which is the primary diagnosis(es) for home health care:??Chronic diastolic heart failure (I50.32) Coronary artery disease (I25.10) Dementia (F03.90) Frequent falls (R29.6) History of BPH (Z87.438) History of CVA (cerebrovascular accident) (Z86.73) Hyperlipidemia (E78.5) Type 2 diabetes mellitus with stage 3b chronic kidney disease, with long-term current use of insulin (E11.22) Uncontrolled hypertension (I10) CAD - Coronary artery disease Dementia Hard of hearing History of BPH Hyperlipidemia Osteoarthritis Right foot drop ? *Select the indications for the discipline/s that are being arranged for this patient. Nursing (select all that apply): [_] None [X] Medication management (reconciliation, teaching)?? [X] Chronic disease management?? [_] Wound care and treatment?? [_] Home safety evaluation [_] Administer SQ/IM/IV medications?? [_] Cath care?? [_] Drain care?? [_] Trach or GT care?? Other _ Occupation Therapy (select all that apply): [_] None [_] ADL Management [_] Fall prevention training [_] Energy conservation [_] Cognitive training Other _ Physical Therapy (select all that apply): [_] None [_] Functional mobility training [_] Home exercise program to strengthen [_] Increase ROM?? [X] Falls prevention training [_] Home maintenance program for chronic disease Other _ Speech Therapy (select all that apply): [_] None [_] Swallow evaluation and training [_] Speech and language training [_] Cognitive training to process, organize, and/or recall information Other _ ? *Homebound due to (select all that apply): [_] Inability to leave home without assistance/supervision [_] Inability to ambulate without assistance [_] Pain [X] Decreased strength and endurance [_] Unsteady gait [_] Severe SOB and fatigue [_] Impaired transfers [_] Inability to negotiate stairs [_] Limited weight bearing [_] Mental status change? *Physician Signature:??Isaac Salazar MD ?? *By signing this, I certify that I have personally evaluated the patient and agree with the findings and recommendations as documented above. ? hFTF Results Discharge Labs BLOOD COUNT & DIFF WBC 13.6 k/mm3 (High)?? 11/11/2022 16:25 RBC 3.25 m/mm3 (Low)?? 11/11/2022 16:25 Hgb 9.6 Gm/dL (Low)?? 11/11/2022 16:25 Hct 28.7 % (Low)?? 11/11/2022 16:25 MCV 88.3 femtoliters ()?? 11/11/2022 16:25 MCH 29.5 pg ()?? 11/11/2022 16:25 MCHC 33.4 g/dL ()?? 11/11/2022 16:25 Platelet Count 248 k/mm3 ()?? 11/11/2022 16:25 RDW-SD 45.3 femtoliters ()?? 11/11/2022 16:25 MPV 11.5 femtoliters ()?? 11/11/2022 16:25 Nucleated RBC (Automated) 0.0 #/100 WBC'S ()?? 11/11/2022 16:25 Abs. NRBC 0.0 k/mm3 ()?? 11/11/2022 16:25 Abs. Neut 10.3 k/mm3 (High)?? 11/11/2022 16:25 Abs. Lymph 2.2 k/mm3 ()?? 11/11/2022 16:25 Abs. Marshall 0.9 k/mm3 ()?? 11/11/2022 16:25 Abs. Eo 0.1 k/mm3 ()?? 11/11/2022 16:25 Abs. Baso 0.0 k/mm3 ()?? 11/11/2022 16:25 Neut % 75.9 % ()?? 11/11/2022 16:25 Lymph % 16.0 % ()?? 11/11/2022 16:25 Marshall % 6.8 % ()?? 11/11/2022 16:25 Eos % 0.7 % ()?? 11/11/2022 16:25 Baso % 0.2 % ()?? 11/11/2022 16:25 Imm Gran 0.4 % ()?? 11/11/2022 16:25 Abs. Imm Gran 0.1 k/mm3 ()?? 11/11/2022 16:25 ?? CARDIAC Nt-Probnp 1023 pg/mL (High)?? 11/11/2022 16:27 High Sensitivity Troponin (HSTnT) 556 ng/L (Critical)?? 11/11/2022 19:29 ?? CHEM GENERAL Sodium 139 mmol/L ()?? 11/12/2022 05:39 Potassium 3.9 mmol/L ()?? 11/12/2022 05:39 Chloride 102 mmol/L ()?? 11/12/2022 05:39 Bicarbonate Level 20 mmol/L (Low)?? 11/12/2022 05:39 Anion Gap 17 ()?? 11/12/2022 05:39 Glucose Level 103 mg/dL (High)?? 11/11/2022 16:25 Glucose, POC 156 mg/dL (High)?? 11/12/2022 07:34 BUN 73 mg/dL (High)?? 11/12/2022 05:39 Creatinine-Blood 3.2 mg/dL (High)?? 11/12/2022 05:39 Estimated GFR Creatinine 19 ML/MIN/1.73 M2 ()?? 11/12/2022 05:39 ?? HEME OTHER Hold Blue Top SPECIMEN DISCARDED AFTER 4 HOURS. ()?? 11/11/2022 16:25 ? VIROLOGY Influenza A PCR NEGATIVE ()?? 11/11/2022 18:52 Influenza B PCR NEGATIVE ()?? 11/11/2022 18:52 RSV PCR NEGATIVE ()?? 11/11/2022 18:52 COVID-19 PCR Specimen Source NASAL ()?? 11/11/2022 18:52 COVID-19 PCR Result NEGATIVE ()?? 11/11/2022 18:52 ? Imaging(s) ?CT Head/Brain W/O Contrast ?? 11/11/2022 17:11??by Dawna ANN Devrim ? IMPRESSION: ?? No acute intracranial process. ?? Moderate degenerative changes of the cervical spine with no acute fracture or abnormality. ?Chest 2 Views Frontal and Lat ?? 11/11/2022 17:17??by Jony Barrera MD ?IMPRESSION: ?? No acute abnormality. ? 35??minutes spent on discharge * [facility] , CIS S: TRANSCRIBE Jony Barrera MD: VERIFY Event Display: Result: Authored Date: [id number] Chest 2 Views Frontal and Lat Hx of Present Illness: pt presents via ems reporting weakness and falls over the past couple days. pt last fell 3 days ago, hit head, on plavix. pt also presents hypertensive per pt highest reading was 200 100. denies any CASTORENA or blurry vision.; Reason: Persistent Cough; Clinical Question(s): Pneumonia COMPARISON: 09/16/2022 FINDINGS: LINES AND TUBES: Dual-lead left subclavian pacer/AICD wires are intact. LUNGS AND PLEURA: Clear lungs. Normal pulmonary vascularity. No pleural effusion. No pneumothorax. HEART, MEDIASTINUM AND IAIN: Heart is normal in size. Normal mediastinal and hilar contour. BONES AND SOFT TISSUES: No acute abnormality. Osteopenia. Spine degenerative changes. IMPRESSION: No acute abnormality. WSN: [id number] Ordering Physician: Shay Menendez Dictated By: Jony Barrera MD Dictated Date/Time: 11/11/22 5:23 pm Reviewed By: Jony Barrera MD Signed By: Jony Barrera MD Signed Date/Time: 11/11/22 5:23 pm Transcribed By: MUNIR Transcribed Date/Time: 11/11/22 5:[address] Cervical spine WO contrast * [facility] , CIS S: TRANSCRIBE Dawna ANN, Ibeth: VERIFY Abelardo Contreras MD: SIGN Event Display: Result: Authored Date: [id number] CT Head/Brain W/O Contrast, CT Cervical Spine W/O Contrast INDICATION: Increased weakness and falls over the past few days. One fall with head strike. TECHNIQUE: Noncontrast head CT using axial technique was reconstructed in axial and coronal planes.Noncontrast spiral CT through the cervical spine was formatted in 3 planes. Automatic tube modulation was used for the cervical spine and iterative dose reconstruction was used for both the head and cervical spine to optimize scan parameters and image quality. COMPARISON: None. FINDINGS: Research Scientist View Findings, Lines and Tubes: 12/08/2021. BRAIN AND EXTRA-AXIAL SPACES: No parenchymal hemorrhage, midline shift, or mass effect. Almanza-white matter differentiation is wellpreserved. Right frontal and parietal lobe encephalomalacia, seen on prior. No acute infarct. Negative insular ribbon and hyperdense vessel signs. Mild prominence of the ventricles and sulci consistent with parenchymal volume loss. Moderate low-density white matter changes. No subarachnoid hemorrhage. No subdural or epidural collection. CALVARIUM, SKULL BASE, AND SOFT TISSUES: No fractures or suspicious bony lesions. The paranasal sinuses and mastoid air cells are clear. Visualized orbits and globes are intact. The extracranial soft tissues are unremarkable. CERVICAL SPINE: No fracture. No acute osseous abnormalities. Moderate multilevel degenerative disc space narrowing and end plate irregularity. Cervical lordosisis straightened. There is grade 1 anterolisthesis of C7 on T1. OTHER BONES: No acute abnormality. CERVICAL SOFT TISSUES AND LUNG APICES: Bilateral carotid bulb calcifications Visualized lung apices are clear. IMPRESSION: No acute intracranial process. Moderate degenerative changes of the cervical spine with no acute fracture or abnormality. I have personally reviewed the images and I agree with this report. WSN: [id number] Ordering Physician: Shay Menendez Dictated By: Abelardo Contreras MD Dictated Date/Time: 11/11/22 5:38 pm Reviewed By: Ibeth Toney MD Signed By: Ibeth Toney MD Signed Date/Time: 11/11/22 5:43 pm Transcribed By: MUNIR Transcribed Date/Time: 11/11/22 5:[address] Head WO contrast * [facility] , CIS S: TRANSCRIBE Ibeth Toney MD: VERIFY Abelardo Contreras MD: SIGN Event Display: Result: Authored Date: [id number] CT Head/Brain W/O Contrast, CT Cervical Spine W/O Contrast INDICATION: Increased weakness and falls over the past few days. One fall with head strike. TECHNIQUE: Noncontrast head CT using axial technique was reconstructed in axial and coronal planes.Noncontrast spiral CT through the cervical spine was formatted in 3 planes. Automatic tube modulation was used for the cervical spine and iterative dose reconstruction was used for both the head and cervical spine to optimize scan parameters and image quality. COMPARISON: None. FINDINGS: Research Scientist View Findings, Lines and Tubes: 12/08/2021. BRAIN AND EXTRA-AXIAL SPACES: No parenchymal hemorrhage, midline shift, or mass effect. Almanza-white matter differentiation is wellpreserved. Right frontal and parietal lobe encephalomalacia, seen on prior. No acute infarct. Negative insular ribbon and hyperdense vessel signs. Mild prominence of the ventricles and sulci consistent with parenchymal volume loss. Moderate low-density white matter changes. No subarachnoid hemorrhage. No subdural or epidural collection. CALVARIUM, SKULL BASE, AND SOFT TISSUES: No fractures or suspicious bony lesions. The paranasal sinuses and mastoid air cells are clear. Visualized orbits and globes are intact. The extracranial soft tissues are unremarkable. CERVICAL SPINE: No fracture. No acute osseous abnormalities. Moderate multilevel degenerative disc space narrowing and end plate irregularity. Cervical lordosisis straightened. There is grade 1 anterolisthesis of C7 on T1. OTHER BONES: No acute abnormality. CERVICAL SOFT TISSUES AND LUNG APICES: Bilateral carotid bulb calcifications Visualized lung apices are clear. IMPRESSION: No acute intracranial process. Moderate degenerative changes of the cervical spine with no acute fracture or abnormality. I have personally reviewed the images and I agree with this report. WSN: [id number] Ordering Physician: Shay Menendez Dictated By: Abelardo Contreras MD Dictated Date/Time: 11/11/22 5:38 pm Reviewed By: Ibeth Toney MD Signed By: Ibeth Toney MD Signed Date/Time: 11/11/22 5:43 pm Transcribed By: MUNIR Transcribed Date/Time: 11/11/22 5:31 pm Patient Care team information Care Team Personnel Name: Ezio Aguayo MD Position: [facility] Renal MD Member Role: Lifetime Consulting Physician Address: Address: [address] [place] [address], [address] [place] [address]- Name: Cecelia Trotter RN Position: [facility] RN Member Role: Primary Care Nurse Name: Alice Hwang RN Position: [facility] RN Member Role: Primary Care Nurse Name: Libra Sullivan RN Position: [facility] RN Member Role: Primary Care Nurse Name: Marleny Cantrell RN Position: [facility] RN Member Role: Primary Care Nurse Name: Stephanie Chaudhari NP Position: [facility] Office Staff Member Role: PCP Address: Address: [address] [place] [address] [address] [place] [address]- [place] Name: Yamila Corley RN Position: [facility] RN Member Role: Primary Care Nurse Name: Benji Ellison RN Position: [facility] RN Member Role: Primary Care Nurse Name: Chitra Gonzalez RN Position: [facility] RN Member Role: Primary Care Nurse Name: Scarlet Mayo RN Position: [facility] RN Member Role: Primary Care Nurse Name: Nadya Gee RN Position: [facility] RN Member Role: Primary Care Nurse Name: Deisi Reid RN Position: [facility] RN Member Role: Primary Care Nurse Name: Nickolas Blevins MD Position: [facility] Renal MD Member Role: Lifetime Consulting Physician Address: Address: [address] [place] [address] [address] [facility] [place] [address]- Name: Isha Metzger RN Position: [facility] RN Member Role: Primary Care Nurse Name: Malathi Reardon RN Position: [facility] SN RN Member Role: Primary Care Nurse Name: Ean De La Rosa MD Position: [facility] Renal MD Member Role: Lifetime Consulting Physician Address: Address: [address] [place] [address] [facility] [address] Name: Sherrell BRYANT Attending Position: [facility] ED Medicine MD Name: Mac Antonio Position: [facility] ED OA Member Role: ED Associate Name: Oralia Fitch RN Position: [facility] ED RN W/OE and Tasks Member Role: Patient Care Provider Care Team Related Persons Name: HALLEY SHELBY Address: home [place] [address] Name: MAC FUENTES Address: home [address] [place] [address]
--- OUTSIDE RECORDS SUMMARY | 2023-01-28 18:38 | XMS_ITS | Continuity of Care Document ---
Author Name Unknown Organization [facility] ter Address [address] [place] [id number]- Care Team Providers Care Mixer Operator Vacuum Pan Salt Name Role Phone Floyd Hutson MD Primary Care Physician Encounter [facility] Date(s): 05/01/20 - 08/29/[address] [address]- [facility] Attending Physician: Jani Barragan MD Admitting Physician: Jani Barragan MD Referring Physician: Floyd Hutson MD Allergies, Adverse Reactions, Alerts Substance Reaction [...] 20:04:29 EDT Start Date: 01/22/19 Status: Ordered Diabetic schoes Diabetic schoes, See Instructions, # 1 each, Refills 0, Tot. Refills 0, Maintenance, Diabetic shoes, 08/28/20 11:13:00 EDT, Supply Start Date: 08/28/20 Status: Ordered Diabetic shoes Diabetic shoes, See Instructions, # 1 each, Refills 0, Tot. Refills 0, Maintenance, Diabetic shoes,08/28/20 11:08:00 EDT, Supply Start Date: 08/28/20 Status: Ordered duloxetine 30 mg oral enteric [...] 01/23/19 14:42:30 EDT, Route to Pharmacy Electronically, [id number], [facility] [id number] Start Date: 01/23/19 Stop Date: 02/22/19 Status: [...] 1 Refills, Maintenance, 01/11/20 12:07:00 EDT, Tablet, [id number], 183, cm, 01/11/20 3:11:00 [...] for chest pain., Print CINDI Number, [address] [place] [address] Start Date: 05/12/06 Status: Ordered oxybutynin 10 [...] 01/11/20 12:05:00 EDT, Route to Pharmacy Electronically, [id number], 183, cm, 01/11/20 3:11:00 [...]
--- OUTSIDE RECORDS SUMMARY | 2023-01-28 18:38 | XMS_ITS | Continuity of Care Document ---
Author Name Unknown Organization [facility] ter Address [address] [place] [id number] Care Team Providers Care Ignition Expert Name Role Phone Floyd Hutson MD Primary Care Physician [phone] Encounter [facility] Date(s): 09/16/22 - 09/23/[address] [address]- Encounter Diagnosis Hyperkalemia(Final) - 09/19/22 Hyperkalemia(Final) - 09/16/22 Discharge Disposition: Disch/Trans to IP Rehab or unit w/in Hos Attending Physician: Arya ANN, Christine Admitting Physician: Akiko Membreno MD Referring Physician: Not on Staff, Referring [...] Refills, Maintenance, 11/20/20 13:29:00 EST, EC Tablet, [id number], Partial fill upon patient [...] 11/20/20 13:29:00 EST, Route to Pharmacy Electronically, [id number], Partial fill upon patient request if the prescription is for a schedule II... Start Date: 11/20/20 Status: Ordered Coreg 25 mg oral tablet 25 mg, Tablet, By Mouth, 09/23/22 9:00:00 EST Start Date: 09/23/22 Stop Date: 09/23/22 Status: Completed Fish Oil 1000 mg oral capsule 1 [...] oral tablet 50 mg, Tablet, By Mouth, Hold for: SBP <110, 09/23/22 9:00:00 EST Start Date: 09/23/22 Stop Date: 09/23/22 Status: Completed Namenda 5 mg oral tablet 1 tablet [...] 11/20/20 13:29:00 EST, Route to Pharmacy Electronically, [id number], 184, cm, 11/19/20 8:51:00 [...] NIPPV Confirmed Active Osteoarthritis Confirmed Active Results Orders for Microbiology Reports Name Date Blood Culture 09/16/22 Blood Culture #2 09/16/22 Microbiology Reports TEST:Blood Culture, Second Order STATUS:Auth (Verified) BODY SITE: SOURCE:Blood COLLECTED DATE/TIME:09/16/22 8:06 AM Blood Culture, Second Order SPECIMEN DESCRIPTION : BLOOD RHAND SPECIAL REQUESTS : NONE CULTURE : NO GROWTH 5 DAYS. REPORT STATUS : FINAL 09/21/2022 TEST:Blood Culture STATUS:Auth (Verified) BODY SITE: SOURCE:Blood COLLECTED DATE/TIME:09/16/22 7:49 AM Blood Culture SPECIMEN DESCRIPTION : BLOOD L AC SPECIAL REQUESTS : NONE CULTURE : NO GROWTH 5 DAYS. REPORT STATUS : FINAL 09/21/2022 Radiology Reports * Exam Date Time Procedure Performing Provider Status 09/19/22 9:[address] Chest W/O Contrast Maris Swenson ; Modified Notes: (CT Chest W/O Contrast) Reason For Exam: Pneumonia, unresolved;Other: RESULT: CT Chest W/O Contrast CT Chest W/O Contrast INDICATION: Reason: Pneumonia, unresolved; Clinical Question(s): Interstitial Alveolar Infiltration; TECHNIQUE: Helical CT scan of the chest without IV contrast, formatted in 3 planes. Weight-based protocol was performed using automatic exposure control. CTDIvol Body: 7.70 mGy, DLP Body: 305 mGy*cm. COMPARISON: No prior chest CT is available for comparison. Correlation is made with radiograph from09/16/2022. FINDINGS: Ski Patrol Officer view findings, lines and tubes: Dual-lead implanted left subclavian pacemaker. Trachea and airways: Patent without evidence of tracheal or endobronchial lesion. Lungs and pleura: Multifocal bilateral groundglass opacities, most severe in the upper lobes and centrally. Moderate bilateral pleural effusions with underlying atelectasis. No pneumothorax. Mediastinum and gracie: No mass or hematoma. No mediastinal or hilar lymphadenopathy. No esophageal abnormality. Heart: Mild cardiomegaly. The blood pool is hypoattenuating relative to the myocardium, compatible with anemia. No pericardial effusion. Severe coronary artery calcification. Aorta: Moderate vascular calcification but no aneurysm. Pulmonary arteries: Normal caliber. Chest wall soft tissues: No acute abnormality. Diaphragm: Intact. Upper abdomen: More completely evaluated on recent CT abdomen/pelvis from 09/17/2022. Bones: No acute abnormality. Multiple old healed right rib fractures. Mild degenerative changes of the thoracic spine. IMPRESSION: Findings are most likely due to moderate pulmonary edema with bilateral pleural effusions, althoughatypical pneumonia is possible. WSN: [id number] Ordering Physician: Nuzhat Moya Dictated By: Jony William MD Dictated Date/Time: 09/19/22 9:27 am Reviewed By: Jony William MD Signed By: Jony William MD Signed Date/Time: 09/19/22 9:27 am Transcribed By: MUNIR Transcribed Date/Time: 09/19/22 9:21 am * Exam Date Time Procedure Performing Provider Status 09/18/22 2:43 PM US Doppler Ext Lower Venous Right Caroline Goyal; Auth (Verified) Notes: (US Doppler Ext Lower Venous Right) Reason For Exam: Pain/Tenderness Extremities RESULT: US Doppler Ext Lower Venous Right US Doppler Ext Lower Venous Right REASON: Pain Tenderness Extremities; Clinical Question(s): Thrombus COMPARISON: 11/18/2020 IMAGING TECHNIQUE: Streamlined portable ultrasound of the lower extremity deep venous system was performed using grayscale, color, and spectral Doppler ultrasound from the common femoral through the popliteal vein assessing for complete compressibility and good response to compression and augmentation. The calf veins are not assessed. FINDINGS: Common femoral vein: Patent. No thrombosis. Femoral vein: Patent. No thrombosis. Popliteal vein: Patent. No thrombosis. Contralateral common femoral vein: Patent. No thrombosis. OTHER FINDINGS: None. IMPRESSION: No evidence of deep venous thrombosis from the groin through the popliteal vein. Calf veins not assessed with portable technique. I have personally reviewed the images and I agree with this report. WSN: [id number] Ordering Physician: Nuzhat Moya Dictated By: Kylee Newton DO Dictated Date/Time: 09/18/22 3:18 pm Reviewed By: Jm Parr MD Signed By: Jm Parr MD Signed Date/Time: 09/18/22 3:23 pm Transcribed By: MUNIR Transcribed Date/Time: 09/18/22 3:11 pm * Exam Date Time Procedure Performing Provider Status 09/17/22 10:14 PM US Retroperitoneum Comp Claudio Paige; Auth (Verified) Notes: (US Retroperitoneum Comp) Reason For Exam: MAURICIO, hydronpehrosis;Other: RESULT: US Retroperitoneum Comp US Retroperitoneum Comp Reason: Other:; MAURICIO, hydronpehrosis; Clinical Question(s): Acute Renal Failure; Order Comment: COMPARISON: None. FINDINGS: Right kidney: 9.3 cm in length. No hydronephrosis. Normal parenchymal thickness and echotexture. Nostones. No suspicious mass. Left kidney: 9.6 cm in length. No hydronephrosis. Normal parenchymal thickness and echotexture. No stones. No suspicious mass. Few simple cysts, largest measuring 4.5 cm. Urinary bladder: No stone, mass, wall thickening or debris. IMPRESSION: No hydronephrosis or other acute abnormality. WSN: [id number] Ordering Physician: Nuzhat Moya Dictated By: Jony Flores MD Dictated Date/Time: 09/17/22 11:49 p Reviewed By: Jony Flores MD Signed By: Jony Flores MD Signed Date/Time: 09/17/22 11:49 pm Transcribed By: MUNIR Transcribed Date/Time: 09/17/22 11:47 pm * Exam Date Time Procedure Performing Provider Status 09/17/22 4:[address] Abdomen and Pelvi s W/O Contrast Maxine Connolly; Auth (Verified) Notes: (CT Abdomen and Pelvis W/O Contrast) Reason For Exam: Anemia, r/o retroperitoneal;Other: RESULT: CT Abdomen and Pelvis W/O Contrast CT Abdomen and Pelvis W/O Contrast Reason: Other:; Anemia, r o retroperitoneal; Clinical Question(s): Hemorrhage Hematoma; Order Comment: TECHNIQUE: Spiral CT through the abdomen and pelvis without IV contrast formatted in 3 planes. Thisstudy was performed without oral contrast. Weight- based protocol using automatic tube modulation was used to optimize exposure parameters. CTDIvol Body: 15.30 mGy, DLP Body: 893 mGy*cm. COMPARISON: 03/18/2021. FINDINGS: Ski Patrol Officer View Findings, Lines and Tubes: None. Visualized Chest: Small bilateral pleural effusions with adjacent compressive atelectasis of the lower lobes bilaterally. Mild interstitial edema. Mild cardiomegaly, unchanged. Partially imaged pacemaker electrodes in the right atrium and right ventricle. Diaphragm: Normal. Liver: Normal in size and attenuation. 1.1 cm cyst in the anterior right hepatic lobe. Gallbladder: No CT evidence of gallbladder pathology. Bile ducts: No biliary ductal dilation. Spleen: Normal. Pancreas: Normal. Adrenal glands: Normal. Kidneys and ureters: No hydronephrosis, stones, or noncontrast evidence of suspicious masses. 4.3 cm cyst in the upper pole of the left kidney with punctate peripheral wall calcification. Additional probable hemorrhagic or proteinaceous cyst along the anterior aspect of interpolar region measuring a pproximately 1.2 cm is unchanged. Bladder: Mildly distended, though no significant wall thickening. Reproductive organs: The prostate is enlarged measuring approximately 6.8 cm in transverse dimension. Stomach, small bowel, and large bowel: Stomach, small bowel and large bowel are normal in caliber. No evidence of bowel obstruction. There is diffuse wall thickening and surrounding fat stranding of the rectum and distal sigmoid colon compatible with rectosigmoid proctitis. There is a prominent stool ball within the rectal vault. Normal caliber of the small bowel loops. No evidence of bowel obstruction. Appendix: Not seen, but no evidence of appendicitis. Peritoneum and retroperitoneum: Small volume of free flowing fluid in the right lower quadrant. No evidence of loculation. No omental or mesenteric lesions. Lymph nodes: No enlarged lymph nodes. Blood vessels: Moderate atherosclerotic vascular calcification. No aortic aneurysm. Abdominal and pelvic wall: Abdominal wall anasarca. Fat stranding in the ventral abdominal wall maybe related to injection therapy. Bones: No acute abnormality. Old healed right-sided rib fractures. Patient is status post left total hip arthroplasty. IMPRESSION: 1. Rectal and distal sigmoid wall thickening with surrounding fat stranding compatible with proctosigmoiditis. A prominent stool ball within the rectal vault raise the possibility of stercoral colitis. 2. Small bilateral pleural effusions with mild interstitial pulmonary edema. 3. Prostatomegaly. Findings discussed with Nuzhat BEAR at 09/17/2022 4:44 PM. WSN: [id number] Ordering Physician: Nuzhat Moya Dictated By: Jm Aguirre MD Dictated Date/Time: 09/17/22 4:44 pm Reviewed By: Jm Aguirre MD Signed By: Jm Aguirre MD Signed Date/Time: 09/17/22 4:44 pm Transcribed By: MUNIR Transcribed Date/Time: 09/17/22 4:27 pm * Exam Date Time Procedure Performing Provider Status 09/16/22 8:01 AM Chest Portable Sara Gary; Reba ( Verified) Notes: (Chest Portable) Reason For Exam: Shortness of Breath RESULT: Chest Portable Chest Portable REASON: Shortness of Breath; Clinical Question(s): CHF / CHF COMPARISON: 12/08/2021 FINDINGS: LINES AND TUBES: Dual-lead left subclavian pacer wires are intact. LUNGS AND PLEURA: Diffuse groundglass opacity throughout both lungs with mild reticular interstitial prominence. No pleural effusion. No pneumothorax. HEART, MEDIASTINUM AND GRACIE: Heart is normal in size. Normal mediastinal and hilar contour. BONES AND SOFT TISSUES: No acute abnormality. IMPRESSION: Diffuse groundglass opacity throughout both lungs could be due to moderate pulmonary edema or atypical/viral pneumonia. WSN: [id number] Ordering Physician: Edelmira Cuevas Dictated By: Jony William MD Dictated Date/Time: 09/16/22 8:10 am Reviewed By: Jony William MD Signed By: Jony William MD Signed Date/Time: 09/16/22 8:10 am Transcribed By: MUNIR Transcribed Date/Time: 09/16/22 8:09 am Vital Signs Most recent to oldest [Reference Range]: 1 2 3 Height 182 cm (09/23/22 10:09 AM) 182 cm (09/23/22 8:07 AM) 182 cm (09/23/22 3:40 AM) Weight 88.8 kg (09/23/22 6:57 AM) 88.7 kg (09/22/22 5:26 AM) 89.9 kg (09/21/22 5:19 AM) Oxygen Saturation [94-100 %] 98 % (09/23/22 10:09 AM) 96 % (09/23/22 8:07 AM) 99 % (09/23/22 3:40 AM) Pulse Rate [55-90 bpm] 60 bpm (09/23/22 10:09 AM) 63 bpm (09/23/22 9:18 AM) 63 bpm (09/23/22 8:07 AM) Body Mass Index [18.5-24.99 kg/m2] 27.8 kg/m2 *H* (09/16/22 1:22 PM) 28.02 kg/m2 *H* (09/16/22 10:36 AM) Blood Pressure [90-138/55-84 mm Hg] 159/62mm Hg *H* (09/23/22 10:09 AM) 169/59mm Hg *H* (09/23/22 9:19 AM) 169/59mm Hg *H* (09/23/22 9:18 AM) Respiratory Rate [16-30 br/min] 18 br/min (09/23/22 10:09 AM) 18 br/min (09/23/22 8:07 AM) 24 br/min (09/23/22 3:40 AM) Temperature [96.8-100.4 DegF] 97.5 DegF (09/23/22 10:09 AM) 97.7 DegF (09/23/22 8:07 AM) 98.0 DegF (09/23/22 3:40 AM) Liters per Minute 2 L/min (09/21/22 3:17 AM) 2 L/min (09/19/22 7:28 PM) 4 L/min (09/19/22 1:00 PM) Mode of Delivery (Oxygen) Room air (09/23/22 10:09 AM) Room air (09/23/22 8:07 AM) Room air (09/23/22 3:40 AM) Blood pressure sites Arm, right (09/23/22 10:09 AM) Arm, left (09/23/22 8:07 AM) Arm, left (09/23/22 3:40 AM) Temperature Route Oral (09/23/22 10:09 AM) Oral (09/23/22 8:07 AM) Temporal (09/23/22 3:40 AM) Dry Weight 92.1 kg (09/16/22 1:22 PM) 92.8 kg (09/16/22 10:36 AM) 92.8 kg (09/16/22 8:00 AM) Weight Obtained Via Bed scale (09/23/22 6:57 AM) Bed scale (09/22/22 5:26 AM) Bed scale (09/21/22 5:19 AM) Dry Weight Obtained Via Patient/family stated (09/16/22 8:00 AM) Social History Social History Type Response Smoking Status Never smoker entered on: 11/24/14 Sex Male History and physical note * Ceasar Garibay DO: PERFORM Event Display: History and Physical Hospital Authored Date: [id number] Patient: ??JOSEPH CRESPO ? Age:??82 Years?Sex:??Male?:??1940?? Chief Complaint/Reason for Consultation Shortness of breath History of Present Illness 82-year-old gentleman with a history of??chronic diastolic heart failure,??insulin-dependent diabetes mellitus??with CKD,??coronary artery disease, dementia, BPH, hypertension??and hyperlipidemia. ??He presents to??the emergency department??with??respiratory distress??on CPAP.?? He is unable to provide a good history due to??CPAP in place and dementia. ??History is provided by his , Mac. ?? Joseph was in his normal state??of health??and Mac noted??that his lower extremities had become??severely edematous??on Thursday. ??She called??her PCP??and was given permission to give him an extra dose of??his Lasix.?? They then both??awoke this morning at 3 AM??in preparation for an 8:30 AM??PCP appointment.?? She made him coffee and toast??after which??Joseph stated that he??did not feel great and went to go lay down.?? Mac then??heard him calling out??and found him??in extremis??begging her to call 911.?? EMS arrived and put him on CPAP??and gave him??Nitropaste. ?? Mac does note that??he complained of some mild right shoulder pain??this morning, but felt that he had just slept on it wrong.?? He has no pain currently. ?? Mac states that??Joseph usually follows??a low-sodium diet??and she does not make any meals??with added salt.?? Unfortunately,??it was Mac's birthday??this weekend??and on Thursday??theyordered??food for the republican from [employer].?? Joseph indulged himself??a lot??and likely had a high sodium load. Review of Systems Unable to obtain due to??dementia and BiPAP Objective Vital Signs?? Temperature: 98.1 DegF (09/16/22 13:22:00) Temperature Route: Temporal (09/16/22 13:22:00) Pulse Rate: 83 bpm (09/16/22 13:22:00) Heart Rate Monitored: 81 bpm (09/16/22 13:34:00) Respiratory Rate: 20 br/min (09/16/22 13:34:00) Systolic Blood Pressure:??147 mm Hg??High (09/16/22 13:34:00) Diastolic Blood Pressure: 73 mm Hg (09/16/22 13:34:00) Blood pressure sites: Arm, left (09/16/22 13:22:00) Mean Arterial Pressure: 91 mm Hg (09/16/22 13:22:00) Pulse Pressure: 74 mm Hg (09/16/22 13:34:00) Oxygen Saturation: 96 % (09/16/22 13:34:00) Mode of Delivery (Oxygen): BiPAP (09/16/22 13:34:00) FiO2: 40 % (09/16/22 11:45:00) Early Warning Score: 3 (09/16/22 13:34:50) ? Physical Exam Constitutional: Alert. Well developed and well nourished. In no acute distress.?? On BiPAP. Head: Normocephalic. Eyes: Pupils are equal, round and reactive to light. Extraocular muscles intact. No pallor or scleral icterus Ear, Nose and Throat: Trachea midline. Neck: Supple, Full range of motion. Respiratory:??On BiPAP.?? Well bilaterally. Cardiovascular:??Rate regular. Rhythm regular. No murmurs, rubs or gallops. Gastrointestinal:??Abdomen soft. ??Distended. ??Nontender. Normal bowel sounds. Genitourinary:??No costovertebral angle tenderness. Extremities:??2-3+??lower extremity edema. No cyanosis or clubbing. Neurologic:??Awake??and responds to his voice.?Grossly nonfocal.? Skin:??No rash.?? Musculoskeletal:??No gross deformities on inspection. Heme/Lymphatics:??Palpation of neck reveals no swelling or tenderness of neck nodes.?? Psychiatric: Normal mood and affect. Assessment/Plan Diagnoses 1. ??Acute respiratory failure with hypoxia ??(J96.01) 2. ??Acute on chronic diastolic heart failure ??(I50.33) 3. ??Do not intubate, perform CPR, or defibrillate ??(Z66) 4. ??Acute kidney injury superimposed on chronic kidney disease ??(N17.9) 5. ??Elevated troponin ??(R77.8) 6. ??Type 2 diabetes mellitus with stage 3b chronic kidney disease, with long- term current use of insulin ??(E11.22) 7. ??Hyperkalemia ??(E87.5) ?? Assessment:??82-year-old gentleman with a history of chronic diastolic heart failure, insulin-dependent diabetes mellitus with CKD, coronary artery disease, dementia, BPH, hypertension and hyperlipidemia. He presents to the emergency department with respiratory distress on CPAP. He is unable to provide a good history due to CPAP in place and dementia. History is provided by his , Mac. ?? Acute respiratory failure with hypoxia (J96.01):??Due to heart failure exacerbation. Currently on BiPAP and this will be continued. We can try to wean tomorrow. ?? Acute on chronic diastolic heart failure (I50.33):??Due to??dietary indiscretion. We will give IV Lasix and monitor I's and O's and daily weights. ?? Acute kidney injury superimposed on chronic kidney disease (N17.9):??Due to cardiorenal syndrome from heart failure. We will monitor renal function as we diurese. ?? Elevated troponin (R77.8):??History of elevated troponins.??Likely elevated??further due to heart failure exacerbation and acute kidney injury. Do not suspect??a??plaque rupture at this time. ?? Type 2 diabetes mellitus with stage 3b chronic kidney disease, with long-term current use of insulin (E11.22):??We will give basal bolus insulin therapy. ?? Hyperkalemia (E87.5):??Given calcium??and??insulin in the emergency department.??Was only mildly elevated at the time. He will be on a??low potassium diet??and we will monitor??potassium levels. ?? Do not intubate, perform CPR, or defibrillate (Z66):??He is a DO NOT RESUSCITATE and DO NOT INTUBATE per HCP.??She did indicate that he would be willing??to have NIPPV. ?? VTE Prophylaxis:??Subcutaneous heparin ?VTE Prophylaxis Assessment:??VTE Prophylaxis Ordered ?? Code Status:??DNR and DNI ?Order Code Status:??Code Status Ordered Histories Allergies Allergies ?(Active and Proposed Allergies [...] Details:??Electronic Cigarette Use: Never. ? Family History Not contributory to current presentation Medications Home Medications Ascorbic Acid (Vitamin C 1000 mg oral tablet)?1?tab(s)?1,000?Milligram?By Mouth?Daily Aspirin (aspirin 81 mg oral delayed release tablet)?81?Milligram?By Mouth?Daily?for 30?Days Atorvastatin (atorvastatin 80 mg oral tablet)?1?tab(s)?80?Milligram?By Mouth?Daily at bedtime?for 90?Days Carvedilol (Coreg 25 mg oral tablet)?25?Milligram?1?tablet?By Mouth?2 times a day Cholecalciferol (Vitamin D3 1000 intl units oral tablet)?1?tab(s)?1,000?International Unit?By Mouth?Daily Clopidogrel (Plavix 75 mg oral tablet)?75?Milligram?1?tablet?By Mouth?Daily Donepezil (Aricept 10 mg oral tablet)?10?Milligram?1?tablet?By Mouth?Daily at bedtime Durable Medical Equipment (Diabetic Shoes (1 pair))?See Instructions?Wear shoes continously, E11.65 Furosemide (furosemide 20 mg oral tablet)?20?Milligram?1?tablet?By Mouth?Daily Insulin NPH (NovoLIN N FlexPen 100 units/mL subcutaneous suspension)?See Instructions?Take 25units before breakfast and 30 units before dinner. E11.65. 90-day supply. Insulin Regular Human (Novolin R human recombinant 100 u/ml injectable injection)?15?unit(s)?Subcutaneous Injection?3 times a day before meals?Take 15 units before meals, 3 times daily. E11.65 Memantine (Namenda 10 mg oral tablet)?1?tab(s)?10?Milligram?By Mouth?Daily Miscellaneous Rx (FREESTYLE JOSÉ MIGUEL SENSOR MEDB Miscellaneous)?See Instructions?USE TO SCAN FORBLOOD SUGAR AT LEAST FOUR TIMES A DAY Nitroglycerin (Nitroglycerin 0.4mg Sublingual Tablet)?See Instructions?as needed?chest pain?1 tab under tongue every 5 minutes as needed for chest pain. Clifford-3 Polyunsaturated Fatty Acids (Fish Oil 1200 mg oral capsule)?1?capsule?1,200?Milligram?By Mouth?Daily Oxybutynin (oxybutynin 10 mg/24 hr oral tablet, extended release)?1?tab(s)?10?Milligram?By Mouth?Daily Sertraline (sertraline 50 mg oral tablet)?1?tab(s)?50?Milligram?By Mouth?Daily ? Results Recent Labs BLOOD COUNT & DIFF WBC 15.1 k/mm3 (High)?? 09/16/2022 07:49 RBC 3.37 m/mm3 (Low)?? 09/16/2022 07:49 Hgb 9.7 Gm/dL (Low)?? 09/16/2022 07:49 Hct 31.2 % (Low)?? 09/16/2022 07:49 MCV 92.6 femtoliters ()?? 09/16/2022 07:49 MCH 28.8 pg ()?? 09/16/2022 07:49 MCHC 31.1 g/dL (Low)?? 09/16/2022 07:49 Platelet Count 276 k/mm3 ()?? 09/16/2022 07:49 RDW-SD 45.4 femtoliters ()?? 09/16/2022 07:49 MPV 11.7 femtoliters ()?? 09/16/2022 07:49 Nucleated RBC (Automated) 0.0 #/100 WBC'S ()?? 09/16/2022 07:49 Abs. NRBC 0.0 k/mm3 ()?? 09/16/2022 07:49 Abs. Neut 11.7 k/mm3 (High)?? 09/16/2022 07:49 Abs. Lymph 2.1 k/mm3 ()?? 09/16/2022 07:49 Abs. [place] 1.1 k/mm3 ()?? 09/16/2022 07:49 Abs. Eo 0.2 k/mm3 ()?? 09/16/2022 07:49 Abs. Baso 0.0 k/mm3 ()?? 09/16/2022 07:49 Neut % 77.2 % (High)?? 09/16/2022 07:49 Lymph % 13.8 % (Low)?? 09/16/2022 07:49 [place] % 7.2 % ()?? 09/16/2022 07:49 Eos % 1.1 % ()?? 09/16/2022 07:49 Baso % 0.2 % ()?? 09/16/2022 07:49 Imm Gran 0.5 % ()?? 09/16/2022 07:49 Abs. Imm Gran 0.1 k/mm3 ()?? 09/16/2022 07:49 ?? CARDIAC Troponin T Quant 0.54 ng/mL (Critical)?? 09/16/2022 07:49 Nt-Probnp 2627 pg/mL (High)?? 09/16/2022 07:49 ?? CHEM GENERAL Sodium 136 mmol/L ()?? 09/16/2022 07:49 Potassium 5.5 mmol/L (High)?? 09/16/2022 07:49 Chloride 102 mmol/L ()?? 09/16/2022 07:49 Bicarbonate Level 22 mmol/L ()?? 09/16/2022 07:49 Anion Gap 12 ()?? 09/16/2022 07:49 Glucose Level 415 mg/dL (High)?? 09/16/2022 07:49 Glucose, POC 395 mg/dL (High)?? 09/16/2022 10:35 BUN 55 mg/dL (High)?? 09/16/2022 07:49 Creatinine-Blood 2.9 mg/dL (High)?? 09/16/2022 07:49 Estimated GFR Creatinine 22 ML/MIN/1.73 M2 ()?? 09/16/2022 07:49 Calcium 9.0 mg/dL ()?? 09/16/2022 07:49 Magnesium 2.1 mg/dL ()?? 09/16/2022 07:49 Protein, Total 6.3 Gm/dL ()?? 09/16/2022 07:49 Albumin 3.6 Gm/dL ()?? 09/16/2022 07:49 AG Ratio 1.3 ()?? 09/16/2022 07:49 Alkaline Phosphatase 146 units/L (High)?? 09/16/2022 07:49 Lipase 28 units/L ()?? 09/16/2022 07:49 AST (SGOT) 26 units/L ()?? 09/16/2022 07:49 ALT (SGPT) 30 units/L ()?? 09/16/2022 07:49 Bilirubin, Total 0.4 mg/dL ()?? 09/16/2022 07:49 Lactate 2.1 mmol/L ()?? 09/16/2022 07:49 ?? HEME OTHER Hold Blue Top SPECIMEN DISCARDED AFTER 4 HOURS. ()?? 09/16/2022 07:49 ?? VIROLOGY COVID-19 by RT-PCR NEGATIVE ()?? 09/16/2022 08:07 ? EKG study * Event Display: EKG Authored Date: * Event Display: ECG 12-Lead Authored Date: Please click on pdf link to open report * Event Display: ECG 12-Lead Authored Date: Ventricular Rate: 66 BPM Atrial Rate: 66 BPM P-R Interval: 158 ms QRS Duration: 94 ms Q-T Interval: 430 ms QTC Calculation(Bazett): 450 ms P [place]: 31 degrees R [place]: 27 degrees T [place]: 78 degrees Normal sinus rhythm Left ventricular hypertrophy with repolarization abnormality Abnormal ECG When compared with ECG of 17-SEP-2022 10:54, No significant change Confirmed by JANA VAIL ([id number]) on 09/17/2022 12:17:14 PM [place]: JANA VAIL * Event Display: ECG 12-Lead Authored Date: Please click on pdf link to open report * Event Display: ECG 12-Lead Authored Date: Ventricular Rate: 83 BPM Atrial Rate: 83 BPM P-R Interval: 180 ms QRS Duration: 102 ms Q-T Interval: 382 ms QTC Calculation(Bazett): 448 ms P [place]: 42 degrees R [place]: 48 degrees T [place]: 60 degrees Normal sinus rhythm ST and T wave abnormality, consider inferior ischemia Abnormal ECG When compared with ECG of 08-DEC-2021 21:06, ST no longer elevated in Inferior leads Confirmed by CRISTOBAL EAGLE ([id number]) on 09/23/2022 8:32:57 PM [place]: CRISTOBAL EAGLE Heart * Event Display: Echocardiogram - Complete Authored Date: Transthoracic Echocardiography Report (TTE) Patient Demographics Patient Name JOSEPH CRESPO Date of Study 09/17/2022 Corporate Gender Male Facility Race Ethnicity Date of 1940 Height: 71.65 inches Age 82 year(s) Weight: 202.83 pounds Accession Number [id number] BSA: 2.14 m2 Room Number [id number] BMI: 27.77 kg/m2 Referring Physician Daniella Noland Interpreting Jana Vail MD PA Physician Lacing Presser Maris Bustamante RCS Fellow René Diana Indications NSTEMI. Clinical History Hyperlipidemia Coronary artery disease CVA Hypertension Diabetes CKD Study Data Type of Study TTE procedure:Echo Complete-Doppler, Colorflow, M-Mode. Study Date09/17/2022 Start Time: 02:36 PM Study Location: [facility] Adult Echo Study Status: ICU/CCU Patient Status: Routine Technical Quality: Fair due to patient supine. Blood Pressure:127/44 mmHg EKG: Normal sinus rhythm HR: 69 bpm Allergies - Codeine. 2D Measurements LV Diastolic Dimension: 4.86 cm LV Systolic Dimension: 3.3 cm LV Septum Diastolic: 1.29 cm LV PW Diastolic: 1.16 cm AO Root Dimension: 3.5 cm LA Dimension: 4.3 cm LA ESV (BP):70.75 ml LVOT Stroke Volume: 71.7 ml LA ESV Index: 33 ml/m2 Stroke Volume Index33.5 ml/m2 LVOT: 1.9 cm Cardiac Index:2.31 l/min/m2 Ascending Aorta:3.7 cm Doppler Measurements AV Peak Velocity: 163 cm/s MV Peak E-Wave: 116 cm/s AV Peak Gradient: 10.63 mmHg MV Peak A-Wave: 86.4 cm/s AV Mean Gradient: 6 mmHg MV E/A Ratio: 1.34 AV VTI:31.2 cm MV P1/2t: 48 msec LVOT Peak Velocity: 135 cm/s LVOT VTI25.3 cm MV Deceleration Time: 164 msec AV Area (Continuity):2.3 cm2 MV Area (PHT): 4.58 cm2 TR Velocity:292 cm/s TR Gradient:34.11 mmHg E' Septal Velocity: 9.68 cm/s E' Lateral Velocity: 10 cm/s E/Med E':11.44620 E/Lat E':11.6 Cardiac Anatomy Left Ventricle/Interventricular Septum The left ventricular size is normal. The left ventricular wall thickness is mild to moderately increased. The LV systolic function is normal. The left ventricular ejection fraction is 60-65 %. There are no regional wall motion abnormalities. Left ventricular filling pressures are indeterminate. Left Atrium/Interatrial Septum The left atrium is dilated. Aortic Valve The aortic valve is trileaflet. The aortic valve appears mildly thickened and calcified. There is significant no aortic regurgitation. There is no aortic stenosis. Mitral Valve The mitral valve appears mildly thickened. There is moderate mitral regurgitation. There is no significant mitral stenosis. Aorta The ascending aorta and aortic root are normal in size. Right Ventricle The right ventricular size and function appears grossly normal. A pacer/ICD wire is seen in the right ventricle. Right Atrium The right atrium is normal in size. Pulmonic Valve The pulmonic valve is poorly visualized. There is trace pulmonic regurgitation. Tricuspid Valve The tricuspid valve is poorly visualized. There is mild tricuspid valve regurgitation. Pumonary Artery The pulmonary artery systolic pressure estimation is 45-50 mmHg. There is mild pulmonary hypertension. Venous Structures The inferior vena cava appears dilated. Inferior vena cava inspiratory collapse is blunted. Pericardium/Extracardiac There is no pericardial effusion. Summary The left ventricular size is normal. The left ventricular wall thickness is mild to moderately increased. The LV systolic function is normal. The left ventricular ejection fraction is 60-65 %. There are no regional wall motion abnormalities. Left ventricular filling pressures are indeterminate. The aortic valve is trileaflet. The aortic valve appears mildly thickened and calcified. There is significant no aortic regurgitation. There is no aortic stenosis. The mitral valve appears mildly thickened. There is moderate mitral regurgitation. There is no significant mitral stenosis. The right ventricular size and function appears grossly normal. A pacer/ICD wire is seen in the right ventricle. The pulmonary artery systolic pressure estimation is 45-50 mmHg. There is mild pulmonary hypertension. There is no pericardial effusion. Comparison Comparison made to prior done on September 19, 2021. Images not available for review. Signature * Event Display: Echocardiogram - Complete Authored Date: [id number] Note * Maddi Chase RN: PERFORM Event Display: Discharge/Transfer Note Hospital Authored Date: Nursing Discharge Note Entered On: 09/23/2022 13:02 EST Performed On: 09/23/2022 13:01 EST by Maddi Chase RN Nursing Discharge Note 2 Discharge Time : 09/23/2022 12:30 EST Discharge Level of Care at Discharge : Short-term Acute Inpatient Discharge Nursing Homes/Rehab Facilities : [facility] Patient Left Unit Via : Ambulance Patient Accompanied Off Unit with : Ambulance/Chair Van Personnel Handover Given to Transport Personnel : Yes DC Instructions Provided & Signed by Pt : Unable Patient Understands D/C Instructions : Yes Verbalized Understanding of D/C Plan By : Patient Patient Instructions Discharge Signed : No Instructions for Discharge Comments : Pt d/c to rehab Discharge Comments : left iv removed with catheter tip intact Did Pt have Specialty Bed or Wound Vac : No Rena ELDRIDGE, Maddi - 09/23/2022 13:01 EST * Nuzhat King: PERFORM Event Display: Discharge/Transfer Note Hospital Authored Date: [id number] Patient: ??JOSEPH CRESPO ? Age:??82 Years?Sex:??Male?:??1940?? Patient Information Discharge Location: 7 Primary Care Physician: Floyd Hutson MD Admit Date/Time: 09/16/22 09:15 Discharge Date:??09/23/2022 09:00 Discharge Disposition Discharge Disposition: Halfway Facility/Rehab Discharge Diagnosis Acute respiratory failure with hypoxia (J96.01) Acute on chronic diastolic heart failure (I50.33) Acute kidney injury superimposed on chronic kidney disease (N17.9) Elevated troponin (R77.8) Type 2 diabetes mellitus with stage 3b chronic kidney disease, with long-term current use of insulin (E11.22) Hyperkalemia (E87.5) _ Discharge Medications Ascorbic Acid (Vitamin C [...] doses/15 min--if pain persists, seek medical attention Clifford-3 Polyunsaturated Fatty Acids (Fish Oil 1000 mg oral capsule)?1?capsule?1,000?Milligram?By Mouth?Daily Oxybutynin (oxybutynin 10 mg/24 hr oral tablet, extended release)?1?tab(s)?10?Milligram?By Mouth?Daily Sertraline (Zoloft 100 mg oral tablet)?1?tab(s)?100?Milligram?By Mouth?Daily Medications Started None Medications Discontinued None Doses Changed Lasix increased to 40 mg daily Hydralazine increased to 50 mg three times daily Allergies Allergies ?(Active and Proposed Allergies Only) oxycodone? (Severity: Unknown severity, Onset: Unknown) ?Comments: Pt. states that he is unsure if allergy is active. Cannot recall reaction. amLODIPine? (Severity: Unknown severity, Onset: Unknown) PCP Follow-Up/Heads-Up 1. Patient needs labs done at rehab on 09/24 and/or 09/26 with results faxed to Dr. De La Rosa at [phone] 2. Needs close monitoring of his heart failure/renal function for the ongoing months Hospital Course Mr. Crespo is an 82-year-old male with past medical history of chronic diastolic heart failure, insulin-dependent diabetes mellitus with CKD, coronary artery disease, dementia, BPH, hypertension and hyperlipidemia who presented to the urgency department on 09/16 due to shortness of breath and lowerextremity edema. The patient was initially requiring BiPAP, has since been weaned to room air, he received IV diuresis and is now net -2.6 L during this admission with a 4 kg weight loss. His exam issignificantly improved, lungs are clear to auscultation and he has minimal lower extremity edema. He was also found to have acute kidney injury on his CKD, kidney function does remain elevated from his baseline. Labs to be completed on 09/26 and faxed to his half backer (Dr. De La Rosa at [phone]).He also did have a drop in his hemoglobin on 09/17, received 1 unit of PRBCs and IV iron and hemoglobin has remained stable since. There is no evidence of bleeding, CT abdomen and pelvis was nonacute, hemolysis labs were negatvie. On the day of discharge, the patient has no acute complaints and is e ager to be discharged to rehab. ?? See below for problem focused plan: Objective Acute respiratory failure with hypoxia (J96.01):?? Acute on chronic diastolic heart failure (I50.33): Possible pneumonia, rhino/enterovirus Multifactorial due to??heart failure exacerbation, rhinovirus??and possible pneumonia?? Initially on BiPAP, now weaned to room air CXR with diffuse groundglass opacities ? pulmonary edema vs atypical pneumonia Leukocytosis of 14-15, procalcitonin 0.7 Echo (09/17): EF 60-65%, no WMA, moderate MR, PA pressure 45-50 mmHg?? Chest CT (09/19): Moderate pulmonary edema and bilateral pleural effusions Extended viral panel positive for rhino/enterovirus Ceftriaxone and doxycycline x 5 days (completed 09/21) - Continue PO Lasix 40 mg daily - Daily weights (educated on 3/5lb rule) ? Acute kidney injury superimposed on chronic kidney disease (N17.9):?? Recent baseline creatinine 1.8-2.0, presented at 2.9 with a peak at 3.3 Due to cardiorenal syndrome from heart failure, nephrology following Renal US without hydronephrosis - Trend renal function, electrolytes ? *Needs labs done 09/24 and/or 09/[address] De La Rosa at [phone] - Low sodium/potassium diet - Outpatient renal doppler to r/o SHABBIR - Avoid nephrotoxins ? Acute on chronic anemia?? Baseline hgb around 9, dropped to 7.5 on 09/17 No melena/hematochezia/hematuria, no clear??source, denies abdominal pain Hgb stable after transfusion, hemolysis labs negative. B12, folate and iron studies WNL CT abdomen/pelvis without bleed but ? stercoral colitis - Trend CBC in the next upcoming weeks - Resumed ASA??(09/19) and Plavix (09/20) - IV iron per renal ? Elevated troponin (R77.8):?? NSTEMI Multivessel CAD History of elevated troponin, slightly worse than baseline and uptrending EKG with ST segment depressions in inferior and lateral leads Cardiac cath 09/2021 with severe 3 vessel disease, managed medically -??Continue ASA and Plavix ? Hypertension, uncontrolled Was well controlled while on nitro gtt, somewhat uncontrolled since weaned off Home regimen includes carvedilol 25 mg BID and hydralazine 25 mg BID - Continue home carvedilol and hydralazine 50 mg TID - Diuresis as above ? Chronic, stable or resolved medical conditions:?? Type 2 diabetes mellitus with stage 3b chronic kidney disease, with long-term current use of insulin (E11.22):??ISS/POC TID, NPH BID, hypoglycemic emergency measures Hyperkalemia (E87.5) - resolved:??Given calcium??and??insulin in the emergency department.??Was only mildly elevated at the time. He will be on a??low potassium diet??and we will monitor??potassium levels. . Physical Exam Constitutional: 82 year old male, alert, in no??acute distress. Mental Status: Oriented to self and hospital, calm and cooperative. Respiratory: Clear to auscultation, diminished at bases. No wheezing, rales or rhonchi. Cardiovascular: RRR, S1 S2 regular. No murmurs, rubs or gallops.??Trace pitting pedal edema on the right only Gastrointestinal: Abdomen soft, non-tender, non-distended. Normal bowel sounds. Neurologic: No focal deficits, diffusely weak. [facility] Patient Education Titles Furosemide Oral Tablet?? Hydralazine Oral Tablet?? Heart Failure Discharge Instructions for Heart Failure?? Coping with Kidney Failure?? Follow-Up Appointments Added Follow Up ?Time Frame ?Comments Floyd Hutson MD?Within two weeks?Call to schedule a post hospitalization follow up Ean De La Rosa MD?Within two weeks?Please follow up with the kidney doctors within the next couple of weeks Patient Instructions Diagnosis: -Heart failure -Kidney injury -Rhinovirus ?? Important results: -Your kidney function remains slightly worse than your baseline, you will need repeat labs done on 09/24 or 09/[address] Swayer office, they should do these at rehab ?? Further instructions: -Heart failure: Continue to take your water pill (Lasix), eat a low sodium diet (2 g daily). Check your weights daily and call your PCP for weight gain or more than 3 lbs in 1 day or 5 lbs in 1 week -Kidney disease: You should have labs done within the next few days and schedule a follow up with the kidney doctors. Avoids NSAIDs such as Ibuprofen or Aleve. -Rhinovirus: You tested positive for the rhinovirus, per the CDC you no longer need isolation sinceyou are not experiencing any symptoms ?? Medication changes: -Lasix increased to 40 mg daily, hydralazine increased to 50 mg three times a day ? It was a pleasure caring for you, I am glad you are feeling better! Please follow up with your PCP in the next 1-2 weeks for a post-hospitalization follow up Post Discharge Care Diet: Renal diet Activity: Ambulate with assistance as tolerated Wound Care: None Code Status: No Resuscitation Other Comfort Measures: DO NOT RESUSCITATE and DO NOT INTUBATE - okayfor NIV Condition: Fair Prognosis: Fair Discharge ?09/23/22 9:00:00 EST Discharge Prescriptions ?Written, ??09/23/22 9:00:00 EST Home Health Face to Face ^HomeHealthFTF Results Discharge Labs BLOOD BANK Blood Type AB Positive ()?? 09/17/2022 16:02 Antibody Screen Negative ()?? 09/17/2022 16:02 RBC Unit ID [id number] ()?? 09/17/2022 17:14 RBC Available PT ()?? 09/17/2022 17:14 ?? BLOOD COUNT & DIFF WBC 9.4 k/mm3 ()?? 09/22/2022 02:04 RBC 3.33 m/mm3 (Low)?? 09/22/2022 02:04 Hgb 9.3 Gm/dL (Low)?? 09/22/2022 02:04 Hct 28.5 % (Low)?? 09/22/2022 02:04 MCV 85.6 femtoliters ()?? 09/22/2022 02:04 MCH 27.9 pg ()?? 09/22/2022 02:04 MCHC 32.6 g/dL (Low)?? 09/22/2022 02:04 Platelet Count 257 k/mm3 ()?? 09/22/2022 02:04 RDW-SD 40.7 femtoliters ()?? 09/22/2022 02:04 MPV 10.9 femtoliters ()?? 09/22/2022 02:04 Nucleated RBC (Automated) 0.0 #/100 WBC'S ()?? 09/22/2022 02:04 Abs. NRBC 0.0 k/mm3 ()?? 09/22/2022 02:04 Abs. Neut 12.2 k/mm3 (High)?? 09/17/2022 05:28 Abs. Lymph 1.5 k/mm3 ()?? 09/17/2022 05:28 Abs. [place] 1.5 k/mm3 (High)?? 09/17/2022 05:28 Abs. Eo 0.0 k/mm3 ()?? 09/17/2022 05:28 Abs. Baso 0.0 k/mm3 ()?? 09/17/2022 05:28 Neut % 79.2 % (High)?? 09/17/2022 05:28 Lymph % 10.0 % (Low)?? 09/17/2022 05:28 [place] % 9.8 % ()?? 09/17/2022 05:28 Eos % 0.3 % ()?? 09/17/2022 05:28 Baso % 0.2 % ()?? 09/17/2022 05:28 Retic Count 1.6 % ()?? 09/17/2022 11:31 Retic Count Corrected 0.8 % (Low)?? 09/17/2022 11:31 Retic Production Index 0.4 % (Low)?? 09/17/2022 11:31 Imm Gran 0.5 % ()?? 09/17/2022 05:28 Abs. Imm Gran 0.1 k/mm3 ()?? 09/17/2022 05:28 ? CARDIAC CK, Total 191 units/L ()?? 09/17/2022 09:19 CK MB Confirmation - Quant 12.0 ng/mL (High)?? 09/17/2022 09:19 Troponin T Quant 0.65 ng/mL (Critical)?? 09/16/2022 13:16 Nt-Probnp 2627 pg/mL (High)?? 09/16/2022 07:49 High Sensitivity Troponin (HSTnT) 921 ng/L (Critical)?? 09/17/2022 09:19 ? CHEM GENERAL Sodium 138 mmol/L ()?? 09/22/2022 02:04 Potassium 3.4 mmol/L (Low)?? 09/22/2022 02:04 Chloride 101 mmol/L ()?? 09/22/2022 02:04 Bicarbonate Level 24 mmol/L ()?? 09/22/2022 02:04 Anion Gap 13 ()?? 09/22/2022 02:04 Glucose Level 176 mg/dL (High)?? 09/22/2022 02:04 Glucose, POC 79 mg/dL ()?? 09/23/2022 08:05 Hemoglobin A1C (Monitoring) 7.9 % (High)?? 09/17/2022 05:28 BUN 66 mg/dL (High)?? 09/22/2022 02:04 Creatinine-Blood 3.1 mg/dL (High)?? 09/22/2022 02:04 Estimated GFR Creatinine 20 ML/MIN/1.73 M2 ()?? 09/22/2022 02:04 Calcium 9.2 mg/dL ()?? 09/17/2022 05:28 Phosphorus 4.3 mg/dL ()?? 09/21/2022 12:55 Magnesium 1.8 mg/dL ()?? 09/22/2022 02:04 Protein, Total 6.3 Gm/dL ()?? 09/16/2022 07:49 Albumin 3.6 Gm/dL ()?? 09/16/2022 07:49 AG Ratio 1.3 ()?? 09/16/2022 07:49 LDH 259 units/L (High)?? 09/17/2022 09:19 Alkaline Phosphatase 146 units/L (High)?? 09/16/2022 07:49 Lipase 28 units/L ()?? 09/16/2022 07:49 AST (SGOT) 26 units/L ()?? 09/16/2022 07:49 ALT (SGPT) 30 units/L ()?? 09/16/2022 07:49 Bilirubin, Total 0.4 mg/dL ()?? 09/17/2022 09:19 Bilirubin, Direct <0.2 mg/dL ()?? 09/17/2022 09:19 Bilirubin, Indirect Direct bilirubin is less than the measureable limit. Therefore, indirect mg/dL ()?? 09/17/2022 09:19 Vitamin B12 Level 809 pg/mL ()?? 09/18/2022 02:02 Folic Acid Level 24.7 ng/mL ()?? 09/18/2022 02:02 Lactate 0.8 mmol/L ()?? 09/16/2022 13:16 Iron Level 12 mcg/dL (Low)?? 09/18/2022 02:02 Iron Binding Capacity, Unsaturated 186 mcg/dL ()?? 09/18/2022 02:02 Ferritin Level 232 ng/mL ()?? 09/18/2022 02:02 C-Reactive Protein 13.9 mg/dL (High)?? 09/19/2022 09:03 ?? ENDOCRINE/TUMOR MARKER TSH 2.46 uIU/mL ()?? 09/17/2022 05:28 ? HEME OTHER Hold Lavender Top SPECIMEN DISCARDED AFTER 24 HOURS. ()?? 09/23/2022 08:14 Hold Blue Top SPECIMEN DISCARDED AFTER 4 HOURS. ()?? 09/16/2022 07:49 ?? IMMUNOLOGY GENERAL Complement C3 147 mg/dL ()?? 09/20/2022 15:42 Complement C4 37 mg/dL ()?? 09/20/2022 15:42 IgG 838 mg/dL ()?? 09/20/2022 15:42 IgA 288 mg/dL ()?? 09/20/2022 15:42 IgM 75 mg/dL ()?? 09/20/2022 15:42 Transferrin 155 mg/dL (Low)?? 09/18/2022 02:02 Haptoglobin 213 mg/dL (High)?? 09/17/2022 09:19 ? MISC. CHEMISTRY Procalcitonin 0.52 ng/mL ()?? 09/19/2022 09:03 ? UA/URINALYSIS Appear/Color, Urine YELLOW ()?? 09/17/2022 13:34 Clarity TURBID (Abnormal)?? 09/17/2022 13:34 Specific [place], Urine 1.019 ()?? 09/17/2022 13:34 pH, Urine 6.0 ()?? 09/17/2022 13:34 Albumin, Urine 3+ (Abnormal)?? 09/17/2022 13:34 Glucose, Urine 2+ (Abnormal)?? 09/17/2022 13:34 Ketones, Urine NEGATIVE ()?? 09/17/2022 13:34 Bilirubin, Urine NEGATIVE ()?? 09/17/2022 13:34 Hemoglobin, Urine TRACE (Abnormal)?? 09/17/2022 13:34 Nitrite, Urine NEGATIVE ()?? 09/17/2022 13:34 Leukocyte, Urine NEGATIVE ()?? 09/17/2022 13:34 Urobilinogen NORMAL mg/dL ()?? 09/17/2022 13:34 WBC's, Urine <1 /HPF ()?? 09/17/2022 13:34 RBC's, Urine 1 /HPF ()?? 09/17/2022 13:34 Bacteria SLIGHT HPF (Abnormal)?? 09/17/2022 13:34 Squamous Epith <1 /HPF ()?? 09/17/2022 13:34 Hyaline Cast 1 LPF ()?? 09/17/2022 13:34 Granular Cast 1 /LPF ()?? 09/17/2022 13:34 Mucus SLIGHT /LPF ()?? 09/17/2022 13:34 Culture Indication CULTURE NOT INDICATED ()?? 09/17/2022 13:34 ?? URINE OTHER Sodium, Urine Random 78 mmol/L ()?? 09/16/2022 15:30 Protein, Total Urine Random 259 mg/dL ()?? 09/16/2022 15:30 TP/Cr Ratio 7.72 (High)?? 09/16/2022 15:30 Creatinine, Urine 33.5 mg/dL ()?? 09/16/2022 15:30 ?? VIROLOGY Adenovirus by PCR NEGATIVE ()?? 09/18/2022 08:05 Coronavirus 229E by PCR (not COVID-19) NEGATIVE ()?? 09/18/2022 08:05 Coronavirus HKU1 by PCR (not COVID-19) NEGATIVE ()?? 09/18/2022 08:05 Coronavirus NL63 by PCR (not COVID-19) NEGATIVE ()?? 09/18/2022 08:05 Coronavirus OC43 by PCR (not COVID-19) NEGATIVE ()?? 09/18/2022 08:05 Human Metapneumovirus by PCR NEGATIVE ()?? 09/18/2022 08:05 Rhinovirus/Enterovirus by PCR POSITIVE (Abnormal)?? 09/18/2022 08:05 Influenza A by PCR NEGATIVE ()?? 09/18/2022 08:05 Influenza B by PCR NEGATIVE ()?? 09/18/2022 08:05 Parainfluenza 1 by PCR NEGATIVE ()?? 09/18/2022 08:05 Parainfluenza 2 by PCR NEGATIVE ()?? 09/18/2022 08:05 Parainfluenza 3 by PCR NEGATIVE ()?? 09/18/2022 08:05 Parainfluenza 4 by PCR NEGATIVE ()?? 09/18/2022 08:05 RSV by PCR NEGATIVE ()?? 09/18/2022 08:05 Bordetella Pertussis by PCR NEGATIVE ()?? 09/18/2022 08:05 Chlamydophila Pneumoniae by PCR NEGATIVE ()?? 09/18/2022 08:05 Mycoplasma Pneumoniae by PCR NEGATIVE ()?? 09/18/2022 08:05 COVID-19 by RT-PCR NEGATIVE ()?? 09/22/2022 11:50 COVID-19 PCR Specimen Source NASAL ()?? 09/18/2022 05:43 COVID-19 PCR Result NEGATIVE ()?? 09/18/2022 05:43 COVID-19 (SARS-CoV-2) by PCR NEGATIVE ()?? 09/18/2022 08:05 Bordetella Parapertussis by PCR NEGATIVE ()?? 09/18/2022 08:05 ? Microbiology ?? COVID-19 (Novel Coronavirus), Rapid PCR?? Completed?? Source: Nasal Body Site: Nose Collected Dt/Tm: 09/16/2022 07:41 Last Updated Dt/Tm: 09/16/2022 09:15 Blood Culture?? Completed?? Source: Blood Body Site: ?? Collected Dt/Tm: 09/16/2022 07:41 Last Updated Dt/Tm: 09/16/2022 09:57 ?SPECIMEN DESCRIPTION : BLOOD ??L ACSPECIAL REQUESTS : NONECULTURE : NO GROWTH 5 DAYS.REPORT STATUS : FINAL 09/21/2022 Blood Culture #2?? Completed?? Source: Blood Body Site: ?? Collected Dt/Tm: 09/16/2022 07:41 Last Updated Dt/Tm: 09/16/2022 07:42 ?SPECIMEN DESCRIPTION : BLOOD RHANDSPECIAL REQUESTS : NONECULTURE : NO GROWTH 5 DAYS.REPORT STATUS : FINAL 09/21/2022 COVID-19 (2019 Novel Coronavirus) PCR?? Completed?? Source: Nasal Body Site: Nose Collected Dt/Tm: 09/18/2022 05:43 Last Updated Dt/Tm: 09/19/2022 11:45 Respiratory Pathogen PCR with COVID-19?? Completed?? Source: Nasal Body Site: Nose Collected Dt/Tm: 09/18/2022 08:05 Last Updated Dt/Tm: 09/19/2022 09:23 ? 35??minutes spent on discharge * Event Display: Discharge/Transfer Note Hospital Authored Date: * Rena ELDRIDGE, aMddi: PERFORM Event Display: Patient Education/Instruction Authored Date: Inpatient Adult Discharge Instructions [address] [address] Name: JOSEPH CRESPO : 1940 Visit: 09/16/2022 09:15:00 Current Date: 09/23/2022 10:56 Account: [id number] Inpatient Adult Discharge Instructions We would like to thank you for allowing us to assist you with your healthcare needs. The following includes patient education materials and information regarding your injury/illness. Our entire staffstrives to provide an excellent experience for our patients and their families. PLEASE ENSURE YOU FOLLOW-UP PER THE INSTRUCTIONS BELOW! ?? YOUR OPINION IS IMPORTANT TO US! Please complete the survey you may receive by mail or email. Your feedback will be used to make improvements to the healthcare experiences of our patients and their families. Surveys are administered by [employer] ?? If further treatment with your primary care physician or another doctor is recommended, it is important for you to keep the appointment. Call your primary care physician or return to the Emergency Department immediately if your condition worsens, fails to improve, or new symptoms develop. If you need to find a doctor, you can call [facility] [employer] for a referral at [phone] or toll free at [phone] or log in to [email or web address].. ?? You can view and manage your care through the patient portal or by using a health care brandan of your choosing. [employer] is a website that allows you to securely view your medical information including your hospital discharge summary, office visit summaries, medications and follow-up visits. You can also request appointments, renew medications, and request access to your medical information using a health care brandan of your choosing, or just ask a question. You can enroll at [email or web address] or register during your next office visit. You have been discharged from [facility], Patient Care Unit: S3. If you have any questions regarding these instructions after you leave, please call us and we will be happy to assist you. [facility] Your Care Team Attending Physician Arya ANN, Shilpior Consulting Providers Pako FONTANA, Onel Malhotra MD, Rolando Discharging Providers Nita BEAR, Nuzhat Reason for Admission Shortness of breath Your Diagnosis Hyperkalemia Acute on chronic diastolic heart failure Acute respiratory failure with hypoxia Acute kidney injury superimposed on chronic kidney disease Elevated troponin Type 2 diabetes mellitus with stage 3b chronic kidney disease, with long-term current use of insulin Hyperkalemia Tests Performed Below is a partial list of the tests performed during your hospitalization. You may have had other tests and procedures not included in this list. Please discuss all test results with your provider. Basic Metabolic Panel BUN C-REACTIVE PROTEIN CBC CBC w/ Differential CK (CREATINE KINASE) CKMB CONFIRMATION/QUANT COMPLEMENT C3 COMPLEMENT C4 Comprehensive Metabolic Panel COVID-19 (NOVEL CORONAVIRUS), PCR Creatinine Electrolytes Ferritin Folate Level Glucose Level GLUCOSE POC HAPTOGLOBIN Hemoglobin A1C (Monitoring) High Sensitivity Troponin T HOLD BLUE TUBE HOLD LAVENDER TUBE IMMUNOFIXATION SERUM?-- Results Pending -- Iron Binding Capacity Unsaturated Iron Level Lactate Level Lactic Acid Level LDH Lipase Magnesium Level Phosphorus Level ProBNP PROCALCITONIN, SERUM Respiratory Pathogen PCR with COVID-19 RETICULOCYTE COUNT Sodium Urine TOTAL AND DIRECT BILIRUBIN Transferrin Troponin T Quant Troponin T, High Sensitivity TSH Type and Screen Urinalysis Complete/Reflex Culture Urine Protein/Creatinine Ratio Vitamin B12 Level CT Abdomen and Pelvis W/O Contrast CT Chest W/O Contrast Doppler Ext Lower Venous Right (US) US Retroperitoneum Comp XR Chest Portable ? You will be contacted within 72 hours with your results. Primary Care Provider Haresh ANN, Floyd Advance Directive Health Care Proxy on File Yes - Health Care Proxy Yes - MOLST No qualifying data available. Discharge Vitals Temperature: 97.5 DegF Height: 182 cm Pulse Rate: 60 bpm Weight: 88.8 kg Respiratory Rate: 18 br/min Body Mass Index:??27.8 kg/m2??High Systolic Blood Pressure:??159 mm Hg??High Body surface area: 2.16 Diastolic Blood Pressure: 62 mm Hg ?? Oxygen Saturation: 98 % ?? Studies Pending All tests and labs ordered during this hospital stay have been completed unless listed below. Please discuss all pending results with your provider listed above in these instructions. ?? Add On Lab Order C Reactive Protein (CRP) COVID-19 (2019 Novel Coronavirus) PCR Hold Gel Top Tube (HOLD GEL TUBE) Immunofixation Serum Procalcitonin Level Transfuse RBCs What to do next Instructions From Your Doctor Diagnosis: -Heart failure -Kidney injury -Rhinovirus ?? Important results: -Your kidney function remains slightly worse than your baseline, you will need repeat labs done on 09/24 or 09/[address] Sawyer office, they should do these at rehab ?? Further instructions: -Heart failure: Continue to take your water pill (Lasix), eat a low sodium diet (2 g daily). Check your weights daily and call your PCP for weight gain or more than 3 lbs in 1 day or 5 lbs in 1 week -Kidney disease: You should have labs done within the next few days and schedule a follow up with the kidney doctors. Avoids NSAIDs such as Ibuprofen or Aleve. -Rhinovirus: You tested positive for the rhinovirus, per the CDC you no longer need isolation sinceyou are not experiencing any symptoms ?? Medication changes: -Lasix increased to 40 mg daily, hydralazine increased to 50 mg three times a day ? It was a pleasure caring for you, I am glad you are feeling better! Please follow up with your PCP in the next 1-2 weeks for a post-hospitalization follow up Discharge Orders Diet:??Renal diet Activity:??Ambulate with assistance as tolerated Wound Care:??None Code Status:??No Resuscitation Other Comfort Measures: DO NOT RESUSCITATE and DO NOT INTUBATE - okay for NIV Condition:??Fair Prognosis:??Fair You Need to Schedule the Following Appointments Follow Up with??Floyd Hutson MD When??Within Within two weeks Why: Call to schedule a post hospitalization follow up Where: [address] [place] [address] [address] [place] [address]- Follow Up with??Ean De La Rosa MD When??Within Within two weeks Why: Please follow up with the kidney doctors within the next couple of weeks Where: [address] [place] [address] [facility] [place] [address]- Discharge Medications JOSEPH CRESPO :1940 Visit Date:09/16/2022 Medications: Please continue your medications until treatment is completed or stopped by your provider. Medications not listed below should be discontinued. Discuss any questions related to medications with your provider. What How Much When Instructions Next Dose New Donepezil (Aricept 10 mg oral tablet) 1 tab(s) Oral Daily at Bedtime 09/23 in pm Changed Furosemide (furosemide 40 mg oral tablet) 1 tab(s) Oral Daily 09/24 in am Changed Insulin NPH (NovoLIN N FlexPen 100 units/ mL subcutaneous suspension) 25 unit(s) Subcutaneous Injection Daily before breakfast 09/24 in am Changed Insulin NPH (NovoLIN N FlexPen 100 units/ mL subcutaneous suspension) 30 unit(s) Subcutaneous Injection Daily at Bedtime 09/23 at bedtime Changed Insulin Regular Human (NovoLIN R FlexPen 100 units/ mL injectable solution) 12 unit(s) Subcutaneous Injection Daily before lunch 09/24 before lunch Changed Insulin Regular Human (NovoLIN R FlexPen 100 units/ mL injectable solution) 15 unit(s) Subcutaneous Injection Daily before dinner 09/23 before dinner Changed Insulin Regular Human (NovoLIN R FlexPen 100 units/ mL injectable solution) 15 unit(s) Subcutaneous Injection Daily before breakfast 09/24 before breakfast Changed Memantine (Namenda 5 mg oral tablet) 1 tab(s) Oral Daily 09/24 in am Changed Nitroglycerin (Nitrostat 0.4 mg sublingual tablet) 1 tab(s) Sublingual Every 5 minutes as needed for Chest Pain not to exceed 3 doses/ 15 min--if pain persists, seek medical attention ?? as needed Changed Clifford-3 Polyunsaturated Fatty Acids (Fish Oil 1000 mg oral capsule) 1 capsule Oral Daily 09/24 in am Changed Sertraline (Zoloft 100 mg oral tablet) 1 tab(s) Oral Daily 09/24 in am Changed hydrALAZINE (hydrALAZINE 25 mg oral tablet) 2 tab(s) Oral 3 times a day 09/23 in pm Unchanged Ascorbic Acid (Vitamin C 1000 mg oral tablet) 1 tab(s) Oral Daily 09/24 in am Unchanged Aspirin (aspirin 81 mg oral delayed release tablet) 81 Milligram Oral Daily Duration: 30 Days 09/24 in am Unchanged Atorvastatin (atorvastatin 80 mg oral tablet) 1 tab(s) Oral Daily at Bedtime Duration: 90 Days 09/23 in pm Unchanged Carvedilol (Coreg 25 mg oral tablet) 1 tab(s) Oral Twice a day 09/23 in pm Unchanged Cholecalciferol (Vitamin D3 1000 intl units oral tablet) 1 tab(s) Oral Daily 09/24 in am Unchanged Clopidogrel (Plavix 75 mg oral tablet) 1 tab(s) Oral Daily 09/24 in am Unchanged Cyanocobalamin (Vitamin B-12 1000 mcg oral tablet) 1 tab(s) Oral Daily 09/24 in am Unchanged Multivitamin With Minerals (Centrum Silver Men's) 1 tab(s) Oral Daily 09/24 in am Unchanged Oxybutynin (oxybutynin 10 mg/ 24 hr oral tablet, extended release) 1 tab(s) Oral Daily 09/24 in am ?? What How Much When Comments Stop Taking Durable Medical Equipment (Diabetic Shoes (1 pair)) See instructions Wear shoes continously, E11.65 ?? Stop Taking Miscellaneous Rx (FREESTYLE JOSÉ MIGUEL SENSOR MEDB Miscellaneous) See instructions USE TO SCAN FOR BLOOD SUGAR AT LEAST FOUR TIMES A DAY ?? Test Results Below is a partial list of the most recent Laboratory test results done prior to this discharge. You may have had other tests and procedures not included in this list. Please discuss all test resultswith your provider. RBC Available - PT (09/17/2022) RBC Unit ID - [id number] (09/17/2022) Basic Metabolic Panel (09/17/2022) ???Sodium - 140 mmol/L???Potassium - 4.3 mmol/L???Chloride - 105 mmol/L???Bicarbonate Level - 23 mmol/L???Anion Gap - 12???Glucose Level - 114 mg/dL???BUN - 60 mg/dL???Creatinine-Blood - 3.2 mg/dL???Estimated GFR Creatinine - 19 ML/MIN/1.73 M2???Calcium - 9.2 mg/dL BUN (09/22/2022) ???BUN - 66 mg/dL C-REACTIVE PROTEIN (09/19/2022) ???C-Reactive Protein - 13.9 mg/dL CBC (09/22/2022) ???WBC - 9.4 k/mm3???RBC - 3.33 m/mm3???Hgb - 9.3 Gm/dL???Hct - 28.5 %???MCV - 85.6 femtoliters???MCH - 27.9 pg???MCHC - 32.6 g/dL???Platelet Count - 257 k/mm3???RDW-SD - 40.7 femtoliters???MPV - 10.9 femtoliters???Nucleated RBC (Automated) - 0.0 #/100 WBC'S???Abs. NRBC - 0.0 k/mm3 CBC w/ Differential (09/17/2022) ???WBC - 15.4 k/mm3???RBC - 2.52 m/mm3???Hgb - 7.5 Gm/dL???Hct - 22.3 %???MCV - 88.5 femtoliters???MCH - 29.8 pg???MCHC - 33.6 g/dL???Platelet Count - 199 k/mm3???RDW-SD - 43.9 femtoliters???MPV - 12.2 femtoliters???Nucleated RBC (Automated) - 0.0 #/100 WBC'S???Abs. NRBC - 0.0 k/mm3???Abs. Neut - 12.2 k/mm3???Abs. Lymph - 1.5 k/mm3???Abs. [place] - 1.5 k/mm3???Abs. Eo - 0.0 k/mm3???Abs. Baso - 0.0 k/mm3???Neut % - 79.2 %???Lymph % - 10.0 %???[place] % - 9.8 %???Eos % - 0.3 %???Baso % - 0.2 %???Imm Gran - 0.5 %???Abs. Imm Gran - 0.1 k/mm3 CK (CREATINE KINASE) (09/17/2022) ???CK, Total - 191 units/L CKMB CONFIRMATION/QUANT (09/17/2022) ???CK MB Confirmation - Quant - 12.0 ng/mL COMPLEMENT C3 (09/20/2022) ???Complement C3 - 147 mg/dL COMPLEMENT C4 (09/20/2022) ???Complement C4 - 37 mg/dL Comprehensive Metabolic Panel (09/16/2022) ???Sodium - 136 mmol/L???Potassium - 5.5 mmol/L???Chloride - 102 mmol/L???Bicarbonate Level - 22 mmol/L???Anion Gap - 12???Glucose Level - 415 mg/dL???BUN - 55 mg/dL???Creatinine-Blood - 2.9 mg/dL???Estimated GFR Creatinine - 22 ML/MIN/1.73 M2???Calcium - 9.0 mg/dL???Protein, Total - 6.3 Gm/dL???Albumin - 3.6 Gm/dL???AG Ratio - 1.3???Alkaline Phosphatase - 146 units/L???AST (SGOT) - 26 units/L???ALT (SGPT) - 30 units/L???Bilirubin, Total - 0.4 mg/dL COVID-19 (NOVEL CORONAVIRUS), PCR (09/22/2022) ???COVID-19 by RT-PCR - NEGATIVE Creatinine (09/22/2022) ???Creatinine-Blood - 3.1 mg/dL???Estimated GFR Creatinine - 20 ML/MIN/1.73 M2 Electrolytes (09/22/2022) ???Sodium - 138 mmol/L???Potassium - 3.4 mmol/L???Chloride - 101 mmol/L???Bicarbonate Level - 24 mmol/L???Anion Gap - 13 Ferritin (09/18/2022) ???Ferritin Level - 232 ng/mL Folate Level (09/18/2022) ???Folic Acid Level - 24.7 ng/mL Glucose Level (09/22/2022) ???Glucose Level - 176 mg/dL GLUCOSE POC (09/23/2022) ???Glucose, POC - 79 mg/dL HAPTOGLOBIN (09/17/2022) ???Haptoglobin - 213 mg/dL Hemoglobin A1C (Monitoring) (09/17/2022) ???Hemoglobin A1C (Monitoring) - 7.9 % High Sensitivity Troponin T (09/16/2022) ???High Sensitivity Troponin (HSTnT) - 670 ng/L HOLD BLUE TUBE (09/16/2022) ???Hold Blue Top - SPECIMEN DISCARDED AFTER 4 HOURS. HOLD LAVENDER TUBE (09/23/2022) ???Hold Lavender Top - SPECIMEN DISCARDED AFTER 24 HOURS. Iron Binding Capacity Unsaturated (09/18/2022) ???Iron Binding Capacity, Unsaturated - 186 mcg/dL Iron Level (09/18/2022) ???Iron Level - 12 mcg/dL Lactate Level (09/16/2022) ???Lactate - 2.1 mmol/L Lactic Acid Level (09/16/2022) ???Lactate - 0.8 mmol/L LDH (09/17/2022) ???LDH - 259 units/L Lipase (09/16/2022) ???Lipase - 28 units/L Magnesium Level (09/22/2022) ???Magnesium - 1.8 mg/dL Phosphorus Level (09/21/2022) ???Phosphorus - 4.3 mg/dL ProBNP (09/16/2022) ???Nt-Probnp - 2627 pg/mL PROCALCITONIN, SERUM (09/19/2022) ???Procalcitonin - 0.52 ng/mL Respiratory Pathogen PCR with COVID-19 (09/18/2022) ???Adenovirus by PCR - NEGATIVE???Coronavirus 229E by PCR (not COVID-19) - NEGATIVE???Coronavirus HKU1 by PCR (not COVID-19) - NEGATIVE???Coronavirus NL63 by PCR (not COVID-19) - NEGATIVE???Coronavirus OC43 by PCR (not COVID-19) - NEGATIVE???Human Metapneumovirus by PCR - NEGATIVE???Rhinovirus/Enterovirus by PCR - POSITIVE???Influenza A by PCR - NEGATIVE???Influenza B by PCR - NEGATIVE???Parainfluenza 1 by PCR - NEGATIVE???Parainfluenza 2 by PCR - NEGATIVE???Parainfluenza 3 by PCR - NEGATIVE???Parainfluenza 4 by PCR - NEGATIVE???RSV by PCR - NEGATIVE???Bordetella Pertussis by PCR - NEGATIVE??? Chlamydophila Pneumoniae by PCR - NEGATIVE???Mycoplasma Pneumoniae by PCR - NEGATIVE???COVID-19 (SARS-CoV-2) by PCR - NEGATIVE???Bordetella Parapertussis by PCR - NEGATIVE RETICULOCYTE COUNT (09/17/2022) ???Retic Count - 1.6 %???Retic Count Corrected - 0.8 %???Retic Production Index - 0.4 % Sodium Urine (09/16/2022) ???Sodium, Urine Random - 78 mmol/L TOTAL AND DIRECT BILIRUBIN (09/17/2022) ? ?Bilirubin, Total - 0.4 mg/dL? ?Bilirubin, Direct - <0.2 mg/dL? ?Bilirubin, Indirect - Direct bilirubin is less than the measureable limit. Therefore, indirect Transferrin (09/18/2022) ???Transferrin - 155 mg/dL Troponin T Quant (09/16/2022) ???Troponin T Quant - 0.65 ng/mL Troponin T, High Sensitivity (09/17/2022) ???High Sensitivity Troponin (HSTnT) - 921 ng/L TSH (09/17/2022) ???TSH - 2.46 uIU/mL Type and Screen (09/17/2022) ???Blood Type - AB Positive???Antibody Screen - Negative Urinalysis Complete/Reflex Culture (09/17/2022) ???Appear/Color, Urine - YELLOW???Clarity - TURBID???Specific [place], Urine - 1.019???pH, Urine - 6.0???Albumin, Urine - 3+???Glucose, Urine - 2+???Ketones, Urine - NEGATIVE???Bilirubin, Urine - NEGATIVE???Hemoglobin, Urine - TRACE???Nitrite, Urine - NEGATIVE???Leukocyte, Urine - NEGATIVE???Urobilinogen - NORMAL? ?WBC's, Urine - <1 /HPF? ?RBC's, Urine - 1 /HPF? ?Bacteria - SLIGHT? ?Squamous Epith - <1 /HPF? ?Hyaline Cast - 1 LPF? ?Granular Cast - 1 /LPF? ?Mucus - SLIGHT? ?Culture Indication - CULTURE NOT INDICATED Urine Protein/Creatinine Ratio (09/16/2022) ???Protein, Total Urine Random - 259 mg/dL???TP/Cr Ratio - 7.72???Creatinine, Urine - 33.5 mg/dL Vitamin B12 Level (09/18/2022) ???Vitamin B12 Level - 809 pg/mL Allergies (NKA means No Known Allergies) amLODIPine oxycodone Problems Active Problems??(13) CAD - Coronary artery disease?? Chronic diastolic heart failure?? Dementia?? DNR and DNI, but okay with NIPPV?? Hard of hearing?? History of BPH?? History of CVA (cerebrovascular accident)?? Hyperlipidemia?? Hypertension?? Osteoarthritis?? Right foot drop?? Stage 3b chronic kidney disease?? Type 2 diabetes mellitus with stage 3b chronic kidney disease, with long-term current use of insulin?? Education Materials Below is the list of Educational Leaflet Providered with your Discharge Instructions. Furosemide Oral Tablet?? Hydralazine Oral Tablet?? Heart Failure Discharge Instructions for Heart Failure?? Coping with Kidney Failure?? Valuables and Belongings I fully understand and agree that [facility] accepts no responsibility for all my personal property including clothing, toilet articles, radios, jewelry, dentures, hearing aids, rings, money, or any other property that is in my possession or is brought to me after admission. I understand certain valuables may be placed in a hospital safe for a short period of time. I understand that the hospital is not liable for loss or damage due to accident, fire, or other natural occurrence while said property is in the safe. I accept full responsibility for any personal property that I keep with me, and will not hold the hospital responsible in case of loss or disappearance. I acknowledge that i have been encouraged to send valuables and belongings home. ?? Review of Valuable and Belonging List: With patient Date for Pt to Sign Valuables/Belongings: 09/23/22 10:09:00 ?? Other Discharge Information ? Case Management Discharge Plan?? Discharge Plan?? Discharge Agency Information?? Discharge Level of Care at Discharge: Short-term Acute Inpatient Name of Agency #1: [facility] Discharge Transportation Arranged: [facility] [id number] [phone] Agency Software Quality Assurance Analyst #1: intake Mode of Transportation Arranged: Ambulance Service Categories #1: Occupational Therapy, Physical Therapy, Halfway Discharge Arranged Transport Date/Time: 09/23/22 12:30:00 Name of Person Notified of Transfer: Joseph and Mac Fuentes Discharge Nursing Homes/Rehab Facilities: [facility] Phone Number of Receiving Facility: [phone] ?? Pulmonary Rehab Status?? Pulmonary Rehab Discharge Status?? CPAP/BiPAP Mask Type: Full CPAP/BiPAP Mask Size: Medium Respiratory Rate: 18 br/min ? Common Emergency Awareness Tips IS IT A STROKE? Act FAST and Check for these signs: FACE Does the face look uneven? ARM Does one arm drift down? SPEECH Does their speech sound strange? TIME Call at any sign of stroke ?? Heart Attack Signs Chest discomfort: Most heart attacks involve discomfort in the center of the chest and lasts more than a few minutes, or goes away and comes back. It can feel like uncomfortable pressure, squeezing, fullness or pain. Discomfort in upper body: Symptoms can include pain or discomfort in one or both arms, back, neck, jaw or stomach. Shortness of breath: With or without discomfort. Other signs: Breaking out in a cold sweat, nausea, or lightheaded. Remember, MINUTES DO MATTER. If you experience any of these heart attack warning signs, call to get immediate medical attention! ?? Smoking can increase your chances of developing chronic health problems and can cause harmful effects to other family members in your house. If you smoke, you are strongly encouraged to quit. Please call [facility] From[employer] Link at [phone] or 1-703-[employer] ([phone]) or log in to [email or web address] for referrals to smoking cessation programs. ?? The National Suicide Prevention Hotline is available 25/05 if you or someone you know needs to find a reason to keep living. By calling 1-154-374-INVOLTA (2397) you'll be connected to a skilled, trained counselor at a crisis center in your area. INPATIENT DISCHARGE INSTRUCTIONS SIGNATURE PAGE JOSEPH CRESPO Location:[facility] Registration Date and Time:09/16/2022 09:15 EST Primary Care Physician: Floyd Hutson MD, I JOSEPH CRESPO, have received the above patient education materials/instructions and have verbalized understanding. If ambulance or transport services are being used I further acknowledge being given a choice of service. ?? If you need to contact me, please call me at this number: . Patient/Cloth Painter Name: Patient/Cloth Painter Signature: Relationship to Patient: Witness Name/Signature: Date: * Nuzhat King: PERFORM Event Display: Patient Education Leaflets Authored Date: [id number] Furosemide Oral Tablet ?? [id number] Furosemide Oral Tablet Brands: Lasix Uses This medicine is used for the following purposes: ??? high blood pressure ??? swelling ?? Instructions This medicine may be taken with or without food. It is very important that you take the medicine at about the same time every day. It will work bestif you do this. Keep the medicine at room temperature. Avoid heat and direct light. This medicine will make you urinate more. If you have difficulty passing urine, please tell your doctor. This medicine may cause you to become more sensitive to the sun. Use sunscreen or wear protective clothing when you are exposed to the sun. It is important that you keep taking each dose of this medicine on time even if you are feeling well. If you forget to take a dose on time, take it as soon as you remember. If it is almost time for thenext dose, do not take the missed dose. Return to your normal dosing schedule. Do not take 2 doses of this medicine at one time. Tell your doctor and pharmacist about all your medicines. Include prescription and [id number], vitamins, and herbal medicines. Do not suddenly stop taking this medicine. Check with your doctor before stopping. It is very important that you follow your doctor's instructions for all blood tests. ?? Cautions Tell your doctor and pharmacist if you ever had an allergic reaction to a medicine. Some patients taking this medicine have experienced serious side effects. Please speak with your doctor to understand the risks and benefits associated with this medicine. Do not use the medication any more than instructed. This medicine may cause dizziness or fainting, especially after exercising or in hot weather. Be very careful when standing or sitting up quickly. Your ability to stay alert or to react quickly may be impaired by this medicine. Do not drive or operate machinery until you know how this medicine will affect you. Please check with your doctor before drinking alcohol while on this medicine. Tell the doctor or pharmacist if you are , planning to be , or . Do not start or stop any other medicines without first speaking to your doctor or pharmacist. Do not share this medicine with anyone who has not been prescribed this medicine. ?? Side Effects The following is a list of some common side effects from this medicine. Please speak with your doctor about what you should do if you experience these or other side effects. ??? constipation ??? dizziness ??? dry mouth ??? lack of energy and tiredness ??? headaches ??? high blood sugar ??? low blood pressure ??? liver problems ??? red, burning, or itchy skin ??? stomach upset or abdominal pain ??? increased risk of sunburn ??? increased urinary frequency ??? blurring or changes of vision If you have any of the following side effects, you may be getting too much medicine. Please contactyour doctor to let them know about these side effects. ??? confusion ??? drowsiness or sedation ??? fainting ??? numbness or tingling in hands and feet ??? irritability ??? muscle cramps ??? muscle pain or weakness ??? tight or rigid muscles ??? thirst ??? unsteadiness while walking ??? urinating less often ??? dark urine Call your doctor or get medical help right away if you notice any of these more serious side effects: ??? shallow, irregular breathing ??? changes in memory, mood, or thinking ??? ear problems (ringingin the ears, hearing loss) ??? fast or irregular heart beats ??? kidney problems ??? kidney stones ??? signs of liver damage (such as yellowing of eye or skin, dark urine, or unusual tiredness) ??? seizures ??? light colored stool ??? unusual or unexplained tiredness or weakness ??? severe or persistent vomiting A few people may have an allergic reaction to this medicine. Symptoms can include difficulty breathing, skin rash, itching, swelling, or severe dizziness. If you notice any of these symptoms, seek medical help quickly. ?? Extra Please speak with your doctor, nurse, or pharmacist if you have any questions about this medicine. ?? [email or web address] IMPORTANT NOTE: This document tells you briefly how to take your medicine, but it does not tell youall there is to know about it. Your doctor or pharmacist may give you other documents about your medicine. Please talk to them if you have any questions. Always follow their advice. There is a more complete description of this medicine available in [place]. Scan this code on your smartphone or tablet or use the web address below. You can also ask your pharmacist for a printout. If you have any questions, please ask your pharmacist. The display and use of this drug information is subject to Terms of Use. Copyright(c) 2021 [employer]. ?? [employer]. All rights reserved. This information is not intended as a substitute for professional medical care. Always follow your healthcare professional's instructions. ?? * Nuzhat King: PERFORM Event Display: Patient Education Leaflets Authored Date: [id number] Hydralazine Oral Tablet ?? 98214-90 Hydralazine Oral Tablet Uses This medicine is used for the following purposes: ??? heart failure ??? high blood pressure ?? Instructions This medicine may be taken with or without food. Keep the medicine at room temperature. Avoid heat and direct light. It is important that you keep taking each dose of this medicine on time even if you are feeling well. If you forget to take a dose on time, take it as soon as you remember. If it is almost time for thenext dose, do not take the missed dose. Return to your normal dosing schedule. Do not take 2 doses of this medicine at one time. Tell your doctor and pharmacist about all your medicines. Include prescription and gjcp-iot-bxcjflusqabnntlk, vitamins, and herbal medicines. Do not suddenly stop taking this medicine. Check with your doctor before stopping. ?? Cautions Tell your doctor and pharmacist if you ever had an allergic reaction to a medicine. Do not use the medication any more than instructed. This medicine may cause dizziness or fainting, especially after exercising or in hot weather. Be very careful when standing or sitting up quickly. Your ability to stay alert or to react quickly may be impaired by this medicine. Do not drive or operate machinery until you know how this medicine will affect you. Please check with your doctor before drinking alcohol while on this medicine. Contact your doctor if you notice a change in the amount or darkening of your urine. Tell the doctor or pharmacist if you are , planning to be , or . Do not start or stop any other medicines without first speaking to your doctor or pharmacist. Do not share this medicine with anyone who has not been prescribed this medicine. ?? Side Effects The following is a list of some common side effects from this medicine. Please speak with your doctor about what you should do if you experience these or other side effects. ??? decreased appetite ??? diarrhea ??? dizziness ??? headaches ??? rapid heartbeat ??? nausea and vomiting Call your doctor or get medical help right away if you notice any of these more serious side effects: ??? chest pain ??? fainting ??? numbness or tingling in hands and feet ??? unusual or unexplained tiredness or weakness ??? blood in urine A few people may have an allergic reaction to this medicine. Symptoms can include difficulty breathing, skin rash, itching, swelling, or severe dizziness. If you notice any of these symptoms, seek medical help quickly. ?? Extra Please speak with your doctor, nurse, or pharmacist if you have any questions about this medicine. ?? [email or web address] IMPORTANT NOTE: This document tells you briefly how to take your medicine, but it does not tell youall there is to know about it. Your doctor or pharmacist may give you other documents about your medicine. Please talk to them if you have any questions. Always follow their advice. There is a more complete description of this medicine available in [place]. Scan this code on your smartphone or tablet or use the web address below. You can also ask your pharmacist for a printout. If you have any questions, please ask your pharmacist. The display and use of this drug information is subject to Terms of Use. Copyright(c) 2021 [employer]. ?? [employer]. All rights reserved. This information is not intended as a substitute for professional medical care. Always follow your healthcare professional's instructions. ?? * Nuzhat King: PERFORM Event Display: Patient Education Leaflets Authored Date: [id number] Heart Failure Discharge Instructions for Heart Failure ?? 153 Discharge Instructions for Heart Failure The heart is a muscle that pumps oxygen-rich blood to all parts of the body. When you have heart failure, the heart is not able to pump as well as it should. Blood and fluid may back up into the lungs (congestive heart failure), and some parts of the body don ???t get enough oxygen-rich blood to work normally. These problems lead to the symptoms of heart failure. Heart failure can occur due to aninjury to the heart or from natural processes. You can control symptoms of heart failure with some lifestyle changes and by following your doctor's advice. Home care Activity Ask your healthcare provider about an exercise program. You can benefit from simple activities suchas walking or gardening. Exercising most days of the week can make you feel better. Don't be discouraged if your progress is slow at first. Rest as needed. Stop activity if you develop symptoms such as chest pain, lightheadedness, or significant shortness of breath. Find activities that you enjoy, such as brisk walking, dancing, swimming, or gardening. These will help you stay active and strengthen your heart. Diet Follow a heart healthy diet. And make sure to limit the salt (sodium) in your diet. Salt causes your body to hold water. This makes your heart work harder as there is more fluid for the heart to pump. Limit your salt by doing the following: ??? Limit canned, dried, packaged, and fast foods. ??? Don't add salt to your food. ??? Season foods with herbs instead of salt. ??? Watch how much liquids you drink. Drinking too much can make heartfailure worse. Talk with your health care provider about how much you should drink each day. ??? Limit the amount of alcohol you drink. It may harm your heart. Women should have no more than 1 drink a day and men should have no more than 2. ??? When you eat out, request that your meals have no added salt. Tobacco If you smoke, it's very important to quit. Smoking increases your chances of having a heart attack by harming the blood vessels that provide oxygen to your heart. This makes heart failure worse. Quitting smoking is the number one thing you can do to improve your health. Enroll in a stop-smoking program to improve your chances of success. Talk with your healthcare provider??about medicines or nicotine replacement therapy to help you quit smoking. Ask your healthcare provider about smoking cessation support groups. Medicine Take your medicines exactly as prescribed. Learn the names and purpose of each of your medicines. Keep an accurate medicine list and current dosages with you at all times. Don't skip doses. If you miss a dose of your medicine, take it as soon as you remember. If you miss a dose and??it's almost time for your next dose, just wait and take your next dose at the normal time. Don't take a double dose. If you are unsure, call your doctor's office. Make sure not to mix up your medicines or forget what you've taken the same day. Weight monitoring Weigh yourself every day. A sudden weight gain can mean your heart failure is getting worse. Weigh yourself at the same time of day and in the same kind of clothes. Ideally, weigh yourself first thing in the morning after you empty your bladder, but before you eat breakfast. Your healthcare provider will show you how to track your weight. He or she will also discuss with you when you should call if you have a sudden, unexpected increase in your weight. In general, your healthcare provider may ask you to report if your weight goes up by more than 2 pounds in 1 day,?? 5 pounds in 1 week, or whatever weight gain you were told by your doctor. This is asign that you are retaining more fluid than you should be. Clues to weight gain include checking your ankles for swelling, or noticing you are short of breath when you lie down. Follow-up care Make a follow-up appointment as directed. Depending on the type and severity of heart failure you have, you may need follow-up as early as 7 days from hospital discharge. Keep appointments for checkups and lab tests that are needed to check your medicines and condition. Recognize that your health and even survival depend on your following medical recommendations. Symptoms Heart failure can cause a variety of symptoms, including: ??? Shortness of breath ??? Trouble breathing at night, especially when you lie down ??? Swelling in the legs and feet or in the belly (abdomen) ??? Becoming easily fatigued ??? Irregular or rapid heartbeat ??? Weakness or lightheadedness ??? Swelling of the neck veins It is important to know what to do if symptoms get worse or if you develop signs of worsening heartfailure. ?? When to see your healthcare provider Call your doctor right away if you have any of these signs of worsening heart failure: ??? Sudden weight gain (more than 2 pounds in 1 day or 5??pounds in 1 week, or whatever weight gainyou were told to report by your doctor) ??? Trouble breathing not related to being active ??? New or increased swelling of your legs or ankles ??? Swelling or pain in your abdomen ??? Breathing trouble at night (waking up short of breath, needing more pillows to breathe) ??? Frequent coughing that doesn't go away ??? Feeling much more tired than usual Call 911 Call 911 right away if you have: ??? Severe shortness of breath, such that you can't catch your breath even while??resting ??? Severe chest pain that does not resolve with rest or nitroglycerin ??? Cove, foamy mucus with cough and shortness of breath ??? A continuous rapid or irregular heartbeat ??? Passing out or fainting ??? Stroke symptoms such as sudden numbness or weakness on one side of your face, arm, or leg or sudden confusion, trouble speaking or vision changes ? Please refer to the Heart Failure Handbook for more information. ? * Rosemary Jasmine RN: VERIFY, PERFORM, SIGN Event Display: Case Management Discharge Plan Authored Date: Patient: JOSEPH CRESPO Age: 82 years Sex: Male : 1940 Associated Diagnoses: None Author: Rosemary Jasmine RN Discharge Plan Case Management Discharge Plan : Case Management Discharge Plan Data 09/22/2022 15:23 EST Discharge Level of Care at Discharge Short-term Acute Inpatient Discharge Nursing Homes/Rehab Facilities [facility] [place] Discharge Transportation Arranged [facility] [address] [facility] [phone] Discharge Arranged Transport Date/Time 09/23/2022 12:30 Mode of Transportation Arranged Ambulance Name of Agency #1 [facility] [employer] #1 intake Service Categories #1 Occupational Therapy, Physical Therapy, [facility] Name of Person Notified of Transfer Joseph and Mac Fuentes Phone Number of Receiving Facility [phone] * Event Display: Cardiac Rhythm Strips Authored Date: * Event Display: Cardiac Rhythm Strips Authored Date: * ABI Carter S: TRANSCYULY Parr MD, Jm J: VERIFY Kylee Newton DO F: SIGN Event Display: Result: Authored Date: US Doppler Ext Lower Venous Right REASON: Pain Tenderness Extremities; Clinical Question(s): Thrombus COMPARISON: 11/18/2020 IMAGING TECHNIQUE: Streamlined portable ultrasound of the lower extremity deep venous system was performed using grayscale, color, and spectral Doppler ultrasound from the common femoral through the popliteal vein assessing for complete compressibility and good response to compression and augmentation. The calf veins are not assessed. FINDINGS: Common femoral vein: Patent. No thrombosis. Femoral vein: Patent. No thrombosis. Popliteal vein: Patent. No thrombosis. Contralateral common femoral vein: Patent. No thrombosis. OTHER FINDINGS: None. IMPRESSION: No evidence of deep venous thrombosis from the groin through the popliteal vein. Calf veins not assessed with portable technique. I have personally reviewed the images and I agree with this report. WSN: [id number] Ordering Physician: Nuzhat Moya Dictated By: Kylee Newton DO Dictated Date/Time: 09/18/22 3:18 pm Reviewed By: Jm Parr MD Signed By: Jm Parr MD Signed Date/Time: 09/18/22 3:23 pm Transcribed By: MUNIR Transcribed Date/Time: 09/18/22 3:11 pm Hospital Progress note * Ean De La Rosa MD: PERFORM, SIGN, VERIFY Event Display: Progress Note Hospital Authored Date: [id number] Patient: JOSEPH CRESPO Age: 82 years Sex: Male : 1940 Associated Diagnoses: None Author: Ean De La Rosa MD Overnight Events & Current Issues Seen and examined, events noted Review of Systems Review of Systems Constitutional: no chills, no fever. Physical Examination Vital Signs Vitals : VITALS 09/23/2022 10:09 EST Height 182 cm Temperature 97.5 DegF Temperature Route Oral Pulse Rate 60 bpm Respiratory Rate 18 br/min Systolic Blood Pressure 159 mm Hg H Diastolic Blood Pressure 62 mm Hg Blood pressure sites Arm, right Mean Arterial Pressure 94 mm Hg Pulse Pressure 97 mm Hg Oxygen Saturation 98 % Mode of Delivery (Oxygen) Room air . Weight : Weight lb/oz 09/22/2022 5:26 EST Weight lb/oz 195 lb 9 oz . BMI : Body Mass Index 09/16/2022 13:22 EST Body Mass Index 27.8 kg/m2 H 09/16/2022 10:36 EST Body Mass Index 28.02 kg/m2 H . General Appearance NAD. HEENT Moist mucous membranes. Respiratory Decreased breath sounds: at bases. Cardiac Rhythms: RRR. Abdomen/GI Abdomen: soft, non-tender. Extremities Edema. Results Review General results Most recent results Discrete results only : ALL SERVICE SECTIONS 09/22/2022 2:04 EST Creatinine-Blood 3.1 mg/dL H 09/21/2022 12:55 EST Creatinine-Blood 2.9 mg/dL H 09/20/2022 9:48 EST Creatinine-Blood 2.9 mg/dL H 09/19/2022 9:03 EST Creatinine-Blood 3.2 mg/dL H 09/18/2022 2:02 EST Creatinine-Blood 3.3 mg/dL H 09/17/2022 5:28 EST Creatinine-Blood 3.2 mg/dL H 09/16/2022 7:49 EST Creatinine-Blood 2.9 mg/dL H Impression and Plan COMPREHENSIVE PLAN 1. MAURICIO: most c/w CRSyn and WRF with diuresis and ques at new BSL vs delayed recovery to BSL 2. 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 NRProt: UPCR 7.7, DN vs other 4. HFpEF:appears compensated now and back on maintanence diuretics 5. Anemia: Fe/epodef--s/p IV Fe 6.MBD of CKD REC: ok to d/c to rehab with close monitoring of renal func; out pt doppler of renals; avoid Ntoxins; cont epo/Fe as outpt as well as track PTH/vit D I will arrange f/u as outpt with [facility] * Meg Montez RN: VERIFY, PERFORM, SIGN Event Display: Progress Note Hospital Authored Date: Patient: JOSEPH CRESPO Age: 82 years Sex: Male : 1940 Associated Diagnoses: None Author: Meg Montez RN Findings Problem Related to Alteration in Cardiac Function (new) : Alteration in Cardiac Function/new 09/22/2022 11:00 EST Alteration in Cardiac Status Related to Heart failure Goals & Outcomes, Cardiac Status Pt will resume/maintain intact neuro function, Pt will resume/maintain adequate cardiac output, Pt will resume/maintain adequate hemodynamic status, Pt will resume/maintain adequate respiratory function, Pt will maintain adequate GI/ function appropriate for pt, Pt will maintain adequate nutrition status Cardiac Interventions Implemented Assess/monitor cardiac status, Assess/monitor neuro status, Assess/monitor respiratory status, Assess for tolerance of IV infusions; verify rate & dose, Call/Report variances in ECG to provider, Document & Monitor O2 Sats; Administer O2 as ordered, Ensure adequate caloric intake, If no bowel movement in 3 days activate bowel regime, Monitor & document daily weight, Monitor anticoagulation values, Monitor ECG w/administration of antiarrhythmics (CO 13.420), Obtain 12 Lead ECG and CXR as ordered, Prep pt for treatments & procedures, Teach/encourage deep breath & cough exercises, Teach/encourage use of incentive spirometer, Team conversation regarding appropriate level of care Goals/Interventions, Cardiac Yes Cardiac, Problem Start 09/16/2022 14:33 Reviewed Plan with, Cardiac Status Patient Patient Progression, Cardiac Status Patient progressing according to plan 09/22/2022 3:00 EST Alteration in Cardiac Status Related to Heart failure Goals & Outcomes, Cardiac Status Pt will resume/maintain intact neuro function, Pt will resume/maintain adequate cardiac output, Pt will resume/maintain adequate hemodynamic status, Pt will resume/maintain adequate respiratory function, Pt will maintain adequate GI/ function appropriate for pt, Pt will maintain adequate nutrition status Cardiac Interventions Implemented Assess/monitor cardiac status, Assess/monitor neuro status, Assess/monitor respiratory status, Assess for tolerance of IV infusions; verify rate & dose, Call/Report variances in ECG to provider, If no bowel movement in 3 days activate bowel regime, Monitor & document daily weight, Monitor anticoagulation values, Monitor ECG w/administration of antiarrhythmics (CO 13.420), Prep pt for treatments & procedures, Teach/encourage deep breath & cough exercises, Teach/encourage use of incentive spirometer, Team conversation regarding appropriate levelof care Goals/Interventions, Cardiac Yes Cardiac, Problem Start 09/16/2022 14:33 Reviewed Plan with, Cardiac Status Patient Patient Progression, Cardiac Status Patient progressing according to plan 09/20/2022 8:00 EST Alteration in Cardiac Status Related to Heart failure Goals & Outcomes, Cardiac Status Pt will resume/maintain adequate cardiac output, Pt will resume/maintain adequate hemodynamic status, Pt will resume/maintain adequate respiratory function, Pt will resume/maintain intact neuro function, Pt will maintain adequate GI/ function appropriate for pt, Pt will maintain adequate nutrition status Cardiac Interventions Implemented Assess/monitor cardiac status Goals/Interventions, Cardiac Yes Cardiac, Problem Start 09/16/2022 14:33 Reviewed Plan with, Cardiac Status Patient Patient Progression, Cardiac Status Patient progressing according to plan 09/20/2022 2:00 EST Alteration in Cardiac Status Related to Heart failure Goals & Outcomes, Cardiac Status Pt will resume/maintain adequate cardiac output, Pt will resume/maintain adequate hemodynamic status, Pt will resume/maintain adequate respiratory function, Pt will resume/maintain intact neuro function, Pt will maintain adequate GI/ function appropriate for pt, Pt will maintain adequate nutrition status Cardiac Interventions Implemented Assess/monitor cardiac status, Assess/monitor neuro status, Assess/monitor respiratory status, Assess for tolerance of IV infusions; verify rate & dose, Call/Report variances in ECG to provider, Document & Monitor O2 Sats; Administer O2 as ordered, Ensure adequate caloric intake Goals/Interventions, Cardiac Yes Cardiac, Problem Start 09/16/2022 14:33 Reviewed Plan with, Cardiac Status Patient Patient Progression, Cardiac Status Patient progressing according to plan . Narrative/Incidental pt alert and orient x3. forgetful and [place]. NSR and Apaced on monitor. ls dim with fine crackles RLL. o2 sat on ra 95%. no sob noted. left heel with mepilex area boggy. blanchable erythema to buttocks. incontinent care provided. bedalarm set for safety. call light within reach. will continue to monitor.. Discharge Information Case Management Discharge Plan : Case Management Discharge Plan Data 09/22/2022 15:23 EST Discharge Level of Care at Discharge Short-term Acute Inpatient Discharge Nursing Homes/Rehab Facilities [facility] [place] Discharge Transportation Arranged [facility] [address] [phone] Discharge Arranged Transport Date/Time 09/23/2022 12:30 Mode of Transportation Arranged Ambulance Name of Agency #1 [facility] [employer]st #1 intake Service Categories #1 Occupational Therapy, Physical Therapy, [facility] Name of Person Notified of Transfer Joseph and Mac Fuentes Phone Number of Receiving Facility [phone] Rehabilitation Discharge : Rehab Discharge Index 09/22/2022 13:57 EST Walker: distance < 10 09/20/2022 15:35 EST Comments on treatment indicated 82 y/o Male admit with respiratory distress dxwith CHF exacerbation. PT to see for therex, bed mobility, transfers, balance and gait trng. Walker: distance stand only Distance pt will ambulate 10 ft with ww Full chart review completed Yes Other findings Pt very pleasant and motivated to participate in mobility with PT. Able to move all extremities well and moved from supine to sit up with Min A. Pt able to stand from elevated bed height after several attempts and Mod A. Rehab indicated, PT to follow. Plan of care PT Gait training, Transfer training, Therapeutic exercise, Functional Activities, Balance training * Ena De La Rosa MD: PERFORM, SIGN, VERIFY Event Display: Progress Note Hospital Authored Date: Patient: JOSEPH CRESPO Age: 82 years Sex: Male : 1940 Associated Diagnoses: None Author: Ean De La Rosa MD Overnight Events & Current Issues Seen and examined, events noted Review of Systems Review of Systems Constitutional: no chills, no fever. Physical Examination Vital Signs Vitals : VITALS 09/22/2022 15:41 EST Height 182 cm Temperature 97.6 DegF Temperature Route Temporal Pulse Rate 59 bpm Respiratory Rate 18 br/min Systolic Blood Pressure 165 mm Hg H Diastolic Blood Pressure 66 mm Hg Blood pressure sites Arm, left Mean Arterial Pressure 99 mm Hg Pulse Pressure 99 mm Hg Oxygen Saturation 96 % Mode of Delivery (Oxygen) Room air . Weight : Weight lb/oz 09/22/2022 5:26 EST Weight lb/oz 195 lb 9 oz . BMI : Body Mass Index 09/16/2022 13:22 EST Body Mass Index 27.8 kg/m2 H 09/16/2022 10:36 EST Body Mass Index 28.02 kg/m2 H . General Appearance NAD. HEENT Moist mucous membranes. Respiratory Decreased breath sounds: at bases. Cardiac Rhythms: RRR. Abdomen/GI Abdomen: soft, non-tender. Extremities Edema. Results Review General results Today's results : Results 09/22/2022 2:04 EST WBC 9.4 k/mm3 RBC 3.33 m/mm3 L Hgb 9.3 Gm/dL L Hct 28.5 % L MCV 85.6 femtoliters MCH 27.9 pg MCHC 32.6 g/dL L Platelet Count 257 k/mm3 RDW-SD 40.7 femtoliters MPV 10.9 femtoliters Nucleated RBC (Automated) 0.0 #/100 WBC'S Abs. NRBC 0.0 k/mm3 Sodium 138 mmol/L Potassium 3.4 mmol/L L Chloride 101 mmol/L Bicarbonate Level 24 mmol/L Anion Gap 13 Glucose Level 176 mg/dL H BUN 66 mg/dL H Creatinine-Blood 3.1 mg/dL H Estimated GFR Creatinine 20 ML/MIN/1.73 M2 Magnesium 1.8 mg/dL Most recent results Discrete results only : ALL SERVICE SECTIONS 09/22/2022 2:04 EST Creatinine-Blood 3.1 mg/dL H 09/21/2022 12:55 EST Creatinine-Blood 2.9 mg/dL H 09/20/2022 9:48 EST Creatinine-Blood 2.9 mg/dL H 09/19/2022 9:03 EST Creatinine-Blood 3.2 mg/dL H 09/18/2022 2:02 EST Creatinine-Blood 3.3 mg/dL H 09/17/2022 5:28 EST Creatinine-Blood 3.2 mg/dL H 09/16/2022 7:49 EST Creatinine-Blood 2.9 mg/dL H Impression and Plan COMPREHENSIVE PLAN 1. MAURICIO: most c/w CRSyn and WRF with diuresis and ques at new BSL vs delayed recovery to BSL 2. 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 NRProt: UPCR 7.7 4. HFpEF:appears compensated now and back on maintanence diuretics 5. Anemia: Fe/epodef--s/p IV Fe 6.MBD of CKD REC: ok to d/c torehab with close monitoring of renal func; outptdoppler of renals; avoidNtoxins; cont epo/Fe as outpt as wellas track PTH/vit D I will arrange f/u as outpt with [facility] US Retroperitoneum * BHSPowerscribe , CIS S: TRANSCRIBE Mark ANN, Jony Yu: VERIFY Event Display: Result: Authored Date: US Retroperitoneum Comp Reason: Other:; MAURICIO, hydronpehrosis; Clinical Question(s): Acute Renal Failure; Order Comment: COMPARISON: None. FINDINGS: Right kidney: 9.3 cm in length. No hydronephrosis. Normal parenchymal thickness and echotexture. Nostones. No suspicious mass. Left kidney: 9.6 cm in length. No hydronephrosis. Normal parenchymal thickness and echotexture. No stones. No suspicious mass. Few simple cysts, largest measuring 4.5 cm. Urinary bladder: No stone, mass, wall thickening or debris. IMPRESSION: No hydronephrosis or other acute abnormality. WSN: [id number] Ordering Physician: Nuzhat Moya Dictated By: Jony Flores MD Dictated Date/Time: 09/17/22 11:49 p Reviewed By: Jony Flores MD Signed By: Jony Flores MD Signed Date/Time: 09/17/22 11:49 pm Transcribed By: MUNIR Transcribed Date/Time: 09/17/22 11:[address] Abdomen and Pelvis WO contrast * BHSP[employer]erscribe , CIS S: TRANSCRIJm Salcedo MD: VERIFY Event Display: Result: Authored Date: [id number] CT Abdomen and Pelvis W/O Contrast Reason: Other:; Anemia, r o retroperitoneal; Clinical Question(s): Hemorrhage Hematoma; Order Comment: TECHNIQUE: Spiral CT through the abdomen and pelvis without IV contrast formatted in 3 planes. Thisstudy was performed without oral contrast. Weight- based protocol using automatic tube modulation was used to optimize exposure parameters. CTDIvol Body: 15.30 mGy, DLP Body: 893 mGy*cm. COMPARISON: 03/18/2021. FINDINGS: Ski Patrol Officer View Findings, Lines and Tubes: None. Visualized Chest: Small bilateral pleural effusions with adjacent compressive atelectasis of the lower lobes bilaterally. Mild interstitial edema. Mild cardiomegaly, unchanged. Partially imaged pacemaker electrodes in the right atrium and right ventricle. Diaphragm: Normal. Liver: Normal in size and attenuation. 1.1 cm cyst in the anterior right hepatic lobe. Gallbladder: No CT evidence of gallbladder pathology. Bile ducts: No biliary ductal dilation. Spleen: Normal. Pancreas: Normal. Adrenal glands: Normal. Kidneys and ureters: No hydronephrosis, stones, or noncontrast evidence of suspicious masses. 4.3 cm cyst in the upper pole of the left kidney with punctate peripheral wall calcification. Additional probable hemorrhagic or proteinaceous cyst along the anterior aspect of interpolar region measuring a pproximately 1.2 cm is unchanged. Bladder: Mildly distended, though no significant wall thickening. Reproductive organs: The prostate is enlarged measuring approximately 6.8 cm in transverse dimension. Stomach, small bowel, and large bowel: Stomach, small bowel and large bowel are normal in caliber. No evidence of bowel obstruction. There is diffuse wall thickening and surrounding fat stranding of the rectum and distal sigmoid colon compatible with rectosigmoid proctitis. There is a prominent stool ball within the rectal vault. Normal caliber of the small bowel loops. No evidence of bowel obstruction. Appendix: Not seen, but no evidence of appendicitis. Peritoneum and retroperitoneum: Small volume of free flowing fluid in the right lower quadrant. No evidence of loculation. No omental or mesenteric lesions. Lymph nodes: No enlarged lymph nodes. Blood vessels: Moderate atherosclerotic vascular calcification. No aortic aneurysm. Abdominal and pelvic wall: Abdominal wall anasarca. Fat stranding in the ventral abdominal wall maybe related to injection therapy. Bones: No acute abnormality. Old healed right-sided rib fractures. Patient is status post left total hip arthroplasty. IMPRESSION: 1. Rectal and distal sigmoid wall thickening with surrounding fat stranding compatible with proctosigmoiditis. A prominent stool ball within the rectal vault raise the possibility of stercoral colitis. 2. Small bilateral pleural effusions with mild interstitial pulmonary edema. 3. Prostatomegaly. Findings discussed with Nuzhat BEAR at 09/17/2022 4:44 PM. WSN: [id number] Ordering Physician: Nuzhat Moya Dictated By: Jm Aguirre MD Dictated Date/Time: 09/17/22 4:44 pm Reviewed By: Jm Aguirre MD Signed By: Jm Aguirre MD Signed Date/Time: 09/17/22 4:44 pm Transcribed By: MUNIR Transcribed Date/Time: 09/17/22 4:[address] Chest WO contrast * [facility] , CIS S: TRANSCRIBE Jony William MD S: VERIFY Event Display: Result: Authored Date: [id number] CT Chest W/O Contrast INDICATION: Reason: Pneumonia, unresolved; Clinical Question(s): Interstitial Alveolar Infiltration; TECHNIQUE: Helical CT scan of the chest without IV contrast, formatted in 3 planes. Weight-based protocol was performed using automatic exposure control. CTDIvol Body: 7.70 mGy, DLP Body: 305 mGy*cm. COMPARISON: No prior chest CT is available for comparison. Correlation is made with radiograph from09/16/2022. FINDINGS: Ski Patrol Officer view findings, lines and tubes: Dual-lead implanted left subclavian pacemaker. Trachea and airways: Patent without evidence of tracheal or endobronchial lesion. Lungs and pleura: Multifocal bilateral groundglass opacities, most severe in the upper lobes and centrally. Moderate bilateral pleural effusions with underlying atelectasis. No pneumothorax. Mediastinum and gracie: No mass or hematoma. No mediastinal or hilar lymphadenopathy. No esophageal abnormality. Heart: Mild cardiomegaly. The blood pool is hypoattenuating relative to the myocardium, compatible with anemia. No pericardial effusion. Severe coronary artery calcification. Aorta: Moderate vascular calcification but no aneurysm. Pulmonary arteries: Normal caliber. Chest wall soft tissues: No acute abnormality. Diaphragm: Intact. Upper abdomen: More completely evaluated on recent CT abdomen/pelvis from 09/17/2022. Bones: No acute abnormality. Multiple old healed right rib fractures. Mild degenerative changes of the thoracic spine. IMPRESSION: Findings are most likely due to moderate pulmonary edema with bilateral pleural effusions, althoughatypical pneumonia is possible. WSN: [id number] Ordering Physician: Nuzhat Moya Dictated By: Jony William MD Dictated Date/Time: 09/19/22 9:27 am Reviewed By: Jony William MD Signed By: Jony William MD Signed Date/Time: 09/19/22 9:27 am Transcribed By: MUNIR Transcribed Date/Time: 09/19/22 9:21 am Portable XR Chest Views * [facility] , CIS S: TRANSCRIBE Jony William MD: VERIFY Event Display: Result: Authored Date: [id number] Chest Portable REASON: Shortness of Breath; Clinical Question(s): CHF / CHF COMPARISON: 12/08/2021 FINDINGS: LINES AND TUBES: Dual-lead left subclavian pacer wires are intact. LUNGS AND PLEURA: Diffuse groundglass opacity throughout both lungs with mild reticular interstitial prominence. No pleural effusion. No pneumothorax. HEART, MEDIASTINUM AND GRACIE: Heart is normal in size. Normal mediastinal and hilar contour. BONES AND SOFT TISSUES: No acute abnormality. IMPRESSION: Diffuse groundglass opacity throughout both lungs could be due to moderate pulmonary edema or atypical/viral pneumonia. WSN: [id number] Ordering Physician: Edelmira Cuevas Dictated By: Jony William MD Dictated Date/Time: 09/16/22 8:10 am Reviewed By: Jony William MD Signed By: Jony William MD Signed Date/Time: 09/16/22 8:10 am Transcribed By: MUNIR Transcribed Date/Time: 09/16/22 8:09 am Patient Care team information Care Team Personnel Name: Ezio Aguayo MD Position: [facility] Renal Member Role: Lifetime Consulting Physician Address: Address: [address] [place] [address], [address] [place] [address]- Name: Cecelia Trotter RN Position: [facility] RN Member Role: Primary Care Nurse Name: Alice Hwang RN Position: [facility] SN RN Member Role: Primary Care Nurse Name: Libra Sullivan RN Position: [facility] RN Member Role: Primary Care Nurse Name: Marleny Cantrell RN Position: S RN Member Role: Primary Care Nurse Name: Yamila Corley RN Position: S RN Member Role: Primary Care Nurse Name: Benji Ellison RN Position: S RN Member Role: Primary Care Nurse Name: Chitra Gonzalez RN Position: S RN Member Role: Primary Care Nurse Name: Scarlet Mayo RN Position: [facility] RN Member Role: Primary Care Nurse Name: Nadya Gee RN Position: S RN Member Role: Primary Care Nurse Name: Floyd Hutson MD Position: [facility] Outreach Member Role: PCP Address: Address: [address] [place] [address] [address] [place] [address]- Name: Deisi Reid RN Position: S RN Member Role: Primary Care Nurse Name: Nickolas Blevins MD Position: [facility] Renal MD Member Role: Lifetime Consulting Physician Address: Address: [address] [facility] [address] [facility], [place] [address]- Name: Isha Metzger RN Position: [facility] RN Member Role: Primary Care Nurse Name: Malathi Reardon RN Position: [facility] SN RN Member Role: Primary Care Nurse Name: Ean De La Rosa MD Position: [facility] Renal MD Member Role: Lifetime Consulting Physician Address: Address: [address] [place] [address] [facility] [place] [address]- Name: Cailin Mcdonough Position: [facility] ED TA [facility] Name: Edelmira Cuevas DO Position: [facility] Resident Member Role: ED Resident Address: Address: [address] [place] [address]- Name: Darren Johnson MD Position: [facility] ED Medicine MD Member Role: ED Physician Address: Address: [address] [place] [address] [place] [address]- Name: Viridiana Chaparro RN Position: [facility] ED RN W/OE and Tasks Member Role: Patient Care Provider Name: Kamala Amin Position: [facility] ED RN W/OE and Tasks Member Role: Patient Care Provider Name: Suellen Arechiga Position: [facility] ED OA Charge Member Role: ED Associate Care Team Related Persons Name: MAC FUENTES Address: home [address] [place] [address]
--- OUTSIDE RECORDS SUMMARY | 2023-01-28 18:38 | XMS_ITS | Continuity of Care Document ---
Author Name Unknown Organization [facility] Address [address] [place] [address]- Care Team Providers Care Detention Officer Name Role Phone Stephanie Chaudhari NP Primary Care Physician [phone] Encounter [facility] Date(s): 01/08/21 - 01/08/[address] [address]- Discharge Disposition: A-D/C Home Attending Physician: Truong Lima MD Admitting Physician: Truong Lima MD Referring Physician: Not on Staff, Referring MD Allergies, Adverse Reactions, Alerts Substance Reaction Severity Status oxycodone Active Immunizations Given and Recorded Vaccine Date Status Refusal Reason influenza virus vaccine, inactivated 09/17/05 Give n Medications amLODIPine 10 mg oral tablet 10 mg, 1, tablet, By Mouth, Daily, # 30 tablet, Refills 0, Tot. Refills 0, Maintenance, 11/20/20 13:32:00 EST, Route to Pharmacy Electronically, [facility], Partial fill upon patient request if the prescription is for a schedule II opioid d... Start Date: 11/20/20 Status: Ordered aspirin 81 mg oral delayed release tablet = 81 mg, By Mouth, Daily, # 30 tablet, 0 Refills, Maintenance, 11/20/20 13:29:00 EST, EC Tablet, [facility], Partial fill upon patient [...] 11/20/20 13:29:00 EST, Route to Pharmacy Electronically, [facility], Partial fill upon patient [...] 11/20/20 13:33:00 EST, Route to Pharmacy Electronically, [facility], Partial fill upon patient request if the prescription is for a schedul... Start Date: 11/20/20 Status: Ordered hydrALAZINE 25 mg oral tablet 25 mg, 1, tablet, By Mouth, Every 8 hours, # 90 tablet, Refills 0, Tot. Refills 0, Maintenance, 11/20/20 13:33:00 EST, Route to Pharmacy Electronically, [facility], Partial fill upon patient request if the prescription is for a schedule II... Start Date: 11/20/20 Stop Date: 12/20/20 Status: Ordered isosorbide mononitrate 30 mg oral tablet, extended release 30 mg, 1, tablet, By Mouth, Daily, # 30 tablet, Refills 0, Tot. Refills 0, Maintenance, 11/20/20 13:31:00 EST, Route to Pharmacy Electronically, [facility], 184, cm, 11/19/20 8:51:00 EST, Height, 81.4, kg, 11/09/20 6:43:00 EST, Dry Weight Start Date: 11/20/20 Stop Date: 12/20/20 Status: Ordered Nitroglycerin 0.4mg Sublingual Tablet See Instructions, Scheduled / PRN, 50 tablet, 5, 5, 05/12/06 20:26:33, chest pain, 1 tab under tongue every 5 minutes as needed for chest pain., Print CINDI Number, [address] [place] [address] Start Date: 05/12/06 Status: Ordered Novolin R [...] 11/20/20 13:29:00 EST, Route to Pharmacy Electronically, [facility], 184, cm, 11/19/20 8:51:00 [...] Maintenance,11/20/20 13:32:00 EST, Route to Pharmacy Electronically, [facility], Partial fill upon patient [...] to oldest [Reference Range]: 1 2 Height 182 cm (01/08/21 10:28 AM) Weight 97.7 kg (01/08/21 10:28 AM) Oxygen Saturation [94-100 %] 98 % (01/08/21 12:23 PM) 99 % (01/08/21 10: AM) Pulse Rate [55-90 bpm] 57 bpm (01/08/21 12:23 PM) 58 bpm (01/08/21 10:28 AM) Blood Pressure [90-138/55-84 mm Hg] 118/ 62mm Hg (01/08/21 12:23 PM) 127/70mm Hg (01/08/21 10:28 AM) Respiratory Rate [16-30 br/min] 18 br/mi n (01/08/21 12:23 PM) 18 br/min (01/08/21 10:28 AM) Temperature [96.8-100.4 DegF] 97.8 DegF (01/08/21 10:28 AM) Mode of Delivery (Oxygen) Room air (01/08/21 12:23 PM) Room air (01/08/21 10:28 AM) Temperature Route Oral (01/08/21 10:28 AM) Dry Weight 97.7 kg (01/08/21 10:28 AM) Social History Social History Type Response Smoking Status Never smoker entered on: 11/24/14 Sex
--- OUTSIDE RECORDS SUMMARY | 2023-01-28 18:38 | XMS_ITS | Continuity of Care Document ---
Author Name Unknown Organization [facility] ter Address [address] [place] [address]- Care Team Providers Care Industrial Relations Representative Name Role Phone Stephanie Chaudhari NP Primary Care Physician Encounter [facility] Date(s): 11/27/22 - 11/27/[address] [address]- Discharge Disposition: A-Error Chart/Home (ED Only) Attending Physician: Not on Staff, Attending MD Admitting Physician: Not on Staff, Admitting MD Referring Physician: Not on Staff, Referring MD Allergies, Adverse Reactions, Alerts Substance Reaction Severity Status oxycodone 1 Active amLODIPine Active 1Pt. states that he is unsure if allergy is active. Cannot recall reaction. Immunizations Given and Recorded Vaccine Date Status Refusal Reason [id number] 12y+ bivalent booster vax 09/03/22 Recorded influenza [...] Refills, Maintenance, 11/20/20 13:29:00 EST, EC Tablet, [facility], Partial fill upon patient request [...] 11/20/20 13:29:00 EST, Route to Pharmacy Electronically, [facility], Partial fill upon patient request [...] 11/20/20 13:29:00 EST, Route to Pharmacy Electronically, [facility], 184, cm, 11/19/20 8:51:00 EST, [...] Team Personnel Name: Ezio Aguayo MD Position: [facility] Renal MD Member Role: Lifetime Consulting Physician Address: Address: [address] [place] [address], [address] [place] [address]- Name: Cecelia Trotter RN Position: [facility] RN Member Role: Primary Care Nurse Name: Alice Hwang RN Position: [facility] RN Member Role: Primary Care Nurse Name: Libra Sullivan RN Position: [facility] RN Member Role: Primary Care Nurse Name: Marleny Cantrell RN Position: [facility] RN Member Role: Primary Care Nurse Name: Stephanie Chaudhari NP Position: [facility] Office Staff Member Role: PCP Address: Address: [address] [place] [address] [address] [place] [address]- Name: Yamila Corley RN Position: [facility] RN Member Role: Primary Care Nurse Name: Benji Ellison RN Position: [facility] RN Member Role: Primary Care Nurse Name: Chitra Gonzalez RN Position: [facility] RN Member Role: Primary Care Nurse Name: Scarlet Mayo RN Position: [facility] RN Member Role: Primary Care Nurse Name: Nadya Gee RN Position: [facility] RN Member Role: Primary Care Nurse Name: Deisi Reid RN Position: [facility] RN Member Role: Primary Care Nurse Name: Nickolas Blevins MD Position: [facility] Renal MD Member Role: Lifetime Consulting Physician Address: Address: [address] [place] [address] [address] [facility] [place] [address]- Name: Isha Metzger RN Position: [facility] RN Member Role: Primary Care Nurse Name: Malathi Reardon RN Position: [facility] SN RN Member Role: Primary Care Nurse Name: Ean De La Rosa MD Position: [facility] Renal MD Member Role: Lifetime Consulting Physician Address: Address: [address] [place] [address] [facility] [address] Care Team Related Persons Name: TANYAAYANNA HALLEY Address: home [place] [id number] Name: MAC FUENTES Address: [address] [place] [address]
--- OUTSIDE RECORDS SUMMARY | 2023-01-28 18:38 | XMS_ITS | Continuity of Care Document ---
Author Name Unknown Organization [facility] Address [address] [place] [address]- Care Team Providers Care Stenotype Operator Name Role Phone Stephanie Chaudhari NP Primary Care Physician Encounter [facility] Date(s): 01/10/22 - 01/10/[address] [address]- Encounter Diagnosis Agitation(Final) - 01/10/22 Discharge Disposition: A-D/C Home Attending Physician: Roxana Rios MD Admitting Physician: Roxana Rios MD Referring Physician: Not on Staff, Referring [...] Refills, Maintenance, 11/20/20 13:29:00 EST, EC Tablet, [facility], Partial fill upon patient [...] 11/20/20 13:29:00 EST, Route to Pharmacy Electronically, [facility], Partial fill upon patient [...] 11/20/20 13:33:00 EST, Route to Pharmacy Electronically, [facility], Partial fill upon patient request if the prescription is for a schedule II... Start Date: 11/20/20 Stop Date: 12/20/20 Status: Ordered Nitroglycerin 0.4mg Sublingual Tablet See Instructions, Scheduled / PRN, 50 tablet, 5, 5, 05/12/06 20:26:33, chest pain, 1 tab under tongue every 5 minutes as needed for chest pain., Print CINDI Number, [address] [place] [address] Start Date: 05/12/06 Status: Ordered NovoLIN N FlexPen 100 units/mL subcutaneous suspension See Instructions, INJECT 22 UNITS SUBCUTANEOUSLY WITH BREAKFAST AND 30 UNITS AT BEDTIME, # 45 mL, 0Refills, [facility], 183, cm, 09/27/21 12:43:00 EST, Height, 93, kg, 09/19/21 11:31:00 EST, Dry Weight Start Date: 09/27/21 Status: Ordered Novolin R human recombinant 100 u/ml injectable injection = 15 units, Subcutaneous Injection, 3 times a day before meals, Take 15 units before meals, 3 timesdaily. E11.65, # 30 mL, 5 Refills, Maintenance, 02/13/21 11:42:00 EDT, Solution, [facility], Partial fill upon patient [...] 11/20/20 13:29:00 EST, Route to Pharmacy Electronically, [facility], 184, cm, 11/19/20 8:51:00 [...] oldest [Reference Range]: 1 2 3 Height 165 cm (01/10/22 2:34 PM) Weight 82 kg (01/10/22 2:34 PM) Oxygen Saturation [94-100 %] 97 % (01/10/22 3:32 PM) 97 % (01/10/22 3:26 PM) 97 % (01/10/22 2:15 PM) Blood Pressure [90-138/55-84 mm Hg] 153/64mm Hg *H* (01/10/22 3:32 PM) 147/68mm Hg *H* (01/10/22 3:26 PM) 139/68mm Hg *H* (01/10/22 2:15 PM) Temperature [96.8-100.4 DegF] 97.5 DegF (01/10/22 2:15 PM) Mode of Delivery (Oxygen) Room air (01/10/22 3:32 PM) Room air (01/10/22 3:26 PM) Room air (01/10/22 2:15 PM) Blood pressure sites Arm, right (01/10/22 3:32 PM) Arm, right (01/10/22 3:26 PM) Arm, right (01/10/22 2:15 PM) Temperature Route Temporal (01/10/22 2:15 PM) Dry Weight 82 kg (01/10/22 2:34 PM) Weight Obtained Via Patient/family state d (01/10/22 2:34 PM) Dry Weight Obtained Via Patient/family s tated (01/10/22 2:34 PM) Social History Social History Type Response Smoking Status Never smoker entered on: 11/24/14 Sex
--- OUTSIDE RECORDS SUMMARY | 2023-01-28 18:38 | XMS_ITS | Continuity of Care Document ---
Author Name Unknown Organization [facility] Address [address] [place] [address]- Care Team Providers Care Seam Hammerer Name Role Phone Stephanie Chaudhari NP Primary Care Physician [phone] Encounter [facility] Date(s): 09/14/21 - 09/14/[address] [address]- Discharge Disposition: A-D/C Home Attending Physician: Soco Gagnon MD Admitting Physician: Soco Gagnon MD Referring Physician: Not on Staff, Referring MD Allergies, Adverse Reactions, Alerts Substance Reaction Severity Status oxycodone Active amLODIPine Active Immunizations Given and Recorded Vaccine Date Status Refusal Reason tetanus/diphtheria/pertussis, acel(Tdap) 09/14/21 Given influenza virus vaccine, inactivated 09/17/05 Give n Not Given Vaccine Date Status Refusal Reason pneumococcal 13-valent vaccine 1 01/20/21 Not Give n Patient Refuses 1Result Comment: pt. states he already got vaccine Medications amLODIPine 10 mg oral tablet 10 mg, 1, tablet, By Mouth, Daily, # 30 tablet, Refills 0, Tot. Refills 0, Maintenance, 11/20/20 13:32:00 EST, Route to Pharmacy Electronically, [facility], Partial fill upon patient request if the prescription is for a schedule II opioid d... Start Date: 11/20/20 Status: Ordered aspirin 81 mg oral delayed release tablet = 81 mg, By Mouth, Daily, # 30 tablet, 0 Refills, Maintenance, 11/20/20 13:29:00 EST, EC Tablet, [facility], Partial fill upon patient request if the prescription is for a schedule II opioid drug., 184, cm, 11/19/20 8:51:00 EST, Height, 81.... Start Date: 11/20/20 Stop Date: 12/20/20 Status: Ordered atorvastatin 80 mg oral tablet 1 tablet = 80 mg, By Mouth, Daily at bedtime, # 90 tablet, 0 Refills, Maintenance, Tablet Start Date: 12/15/12 Stop Date: 03/15/13 Status: Ordered cephalexin monohydrate 500 mg oral tablet 1 tablet = 500 mg, By Mouth, 4 times a day, for 7 days, # 28 tablet, 0 Refills, Acute 09/21/21 19:21:00 EST, 09/14/21 19:21:00 EST, Tablet, [facility], Partial fill upon patient request ifthe prescription is for a schedule II opioid drug.,... Start Date: 09/14/21 Stop Date: 09/21/21 Status: Ordered Coreg 25 mg oral tablet 25 mg, 1, tablet, By Mouth, 2 times a day, # 60 tablet, Refills 0, Tot. Refills 0, Maintenance, 11/20/20 13:29:00 EST, Route to Pharmacy Electronically, [facility], Partial fill upon patient [...] 11/20/20 13:33:00 EST, Route to Pharmacy Electronically, [facility], Partial fill upon patient request if the prescription is for a schedule II... Start Date: 11/20/20 Stop Date: 12/20/20 Status: Ordered isosorbide mononitrate 30 mg oral tablet, extended release 30 mg, 1, tablet, By Mouth, Daily, # 30 tablet, Refills 0, Tot. Refills 0, Maintenance, 11/20/20 13:31:00 EST, Route to Pharmacy Electronically, [facility], 184, cm, 11/19/20 8:51:00 EST, Height, 81.4, kg, 11/09/20 6:43:00 EST, Dry Weight Start Date: 11/20/20 Stop Date: 12/20/20 Status: Ordered Nitroglycerin 0.4mg Sublingual Tablet See Instructions, Scheduled / PRN, 50 tablet, 5, 5, 05/12/06 20:26:33, chest pain, 1 tab under tongue every 5 minutes as needed for chest pain., Print CINDI Number, [address] [place] [address] Start Date: 05/12/06 Status: Ordered Novolin R [...] 11/20/20 13:29:00 EST, Route to Pharmacy Electronically, [facility], 184, cm, 11/19/20 8:51:00 [...] Range]: 1 2 3 Height 183 cm (09/14/21 8:02 PM) 183 cm (09/14/21 8:02 PM) 183 cm (09/14/21 6:47 PM) Weight 93.5 kg (09/14/21 8:02 PM) 93.5 kg (09/14/21 8:02 PM) 93.5 kg (09/14/21 6:47 PM) Oxygen Saturation [94-100 %] 96 % (09/14/21 8:02 PM) 97 % (09/14/21 6:47 PM) Pulse Rate [55-90 bpm] 67 bpm (09/14/21 8:02 PM) 68 bpm (09/14/21 6:47 PM) Body Mass Index [18.5-24.99] 27.92 *H* (09/14/21 8:02 PM) 27.92 *H* (09/14/21 8:02 PM) Blood Pressure [90-138/55-84 mm Hg] 179/67mm Hg *H* (09/14/21 8:02 PM) 179/79mm Hg *H* (09/14/21 6:47 PM) Respiratory Rate [16-30 br/min] 18 br/min (09/14/21 8:02 PM) 18 br/min (09/14/21 6:47 PM) Temperature [96.8-100.4 DegF] 98.1 DegF (09/14/21 8:02 PM) 98 DegF (09/14/21 6:47 PM) Liters per Minute 0 L/min (09/14/21 8:02 PM) Mode of Delivery (Oxygen) Room air (09/14/21 8:02 PM) Room air (09/14/21 6:47 PM) Blood pressure sites Arm, left (09/14/21 8:02 PM) Arm, right (09/14/21 6:47 PM) Temperature Route Oral (09/14/21 8:02 PM) Oral (09/14/21 6:47 PM) Dry Weight 93.5 kg (09/14/21 8:02 PM) 93.5 kg (09/14/21 8:02 PM) 93.5 kg (09/14/21 6:47 PM) Social History Social History Type Response Smoking Status Never smoker entered on: 11/24/14 Sex
--- OUTSIDE RECORDS SUMMARY | 2023-01-28 18:38 | XMS_ITS | Continuity of Care Document ---
Author Name [facility] Address [address] [place] [address]- Care Team Providers Care Gamma Facilities Operator Name Role Phone Stephanie Chaudhari NP Primary Care Physician Encounter [facility] Date(s): 09/18/21 - 09/23/[address] [address]- Encounter Diagnosis CHF exacerbation(Final) - 09/18/21 Discharge Disposition: Transferred to short-term general hospit Attending Physician: Sinan Faulkner DO Admitting Physician: Balwinder Bishop DO Referring Physician: Manjit Dodd DO Allergies, Adverse Reactions, Alerts Substance Reaction Severity [...] Refills, Maintenance, 11/20/20 13:29:00 EST, EC Tablet, [facility], Partial fill upon patient request if the [...] oral tablet 25 mg, Tablet, By Mouth, 09/23/21 9:00:00 EST Start Date: 09/23/21 Stop Date: 09/23/21 Status: Completed Coreg 25 mg oral tablet 25 mg, 1, tablet, By Mouth, 2 times a day, # 60 tablet, Refills 0, Tot. Refills 0, Maintenance, 11/20/20 13:29:00 EST, Route to Pharmacy Electronically, [facility], Partial fill upon patient request [...] oral tablet 25 mg, Tablet, By Mouth, 09/23/21 9:00:00 EST Start Date: 09/23/21 Stop Date: 09/23/21 Status: Completed hydrALAZINE 25 mg oral tablet 25 mg, 1, tablet, By Mouth, Every 8 hours, # 90 tablet, Refills 0, Tot. Refills 0, Maintenance, 11/20/20 13:33:00 EST, Route to Pharmacy Electronically, [facility], Partial fill upon patient request if the prescription is for a schedule II... Start Date: 11/20/20 Stop Date: 12/20/20 Status: Ordered isosorbide mononitrate 30 mg oral tablet, extended release 60 mg, 2, tablet, By Mouth, Daily, # 60 tablet, Refills 0, Tot. Refills 0, Maintenance, 09/23/21 9:37:00 EST, Route to Pharmacy Electronically, [facility], Partial fill upon patient request if the prescription is for a schedule II opioid drKarlie. Start Date: 09/23/21 Status: Ordered Nitroglycerin 0.4mg Sublingual Tablet See Instructions, Scheduled / PRN, 50 tablet, 5, 5, 05/12/06 20:26:33, chest pain, 1 tab under tongue every 5 minutes as needed for chest pain., Print CINDI Number, [address] [place] [address] Start Date: 05/12/06 Status: Ordered Novolin R [...] 11/20/20 13:29:00 EST, Route to Pharmacy Electronically, [facility], 184, cm, 11/19/20 8:51:00 EST, [...] schedule II... Start Date: 02/13/21 Status: Ordered sertraline 50 mg oral tablet [...] Exam Date Time Procedure Performing Provider Status 09/18/21 3:37 AM Chest 2 Views Frontal and Lat Caroline French; Reba (Verified) Notes: (Chest 2 Views Frontal and Lat) Reason For Exam: Shortness of Breath RESULT: Chest 2 Views Frontal and Lat Chest 2 Views Frontal and Lat Hx of Present Illness: Pt was unable to get up from the chair after 3 attempts with his . Pt was feeling fine all morning, however, approximately 3 hours prior to arrival, the Pt was unable to stand.; Reason: Shortness of Breath; Clinical Question(s): CHF COMPARISON: 04/11/2021 FINDINGS: LINES AND TUBES: None. LUNGS AND PLEURA: Clear lungs. Normal pulmonary vascularity. No pleural effusion. No pneumothorax. HEART, MEDIASTINUM AND IAIN: Unchanged. BONES AND SOFT TISSUES: No acute abnormality. IMPRESSION: No acute abnormality. WSN: [id number] Ordering Physician: Manjit Dodd Dictated By: Bob Sood MD Dictated Date/Time: 09/18/21 11:48 a Reviewed By: Bob Sood MD Signed By: Bob Sood MD Signed Date/Time: 09/18/21 11:48 am Transcribed By: MUNIR Transcribed Date/Time: 09/18/21 11:45 am Vital Signs Most recent to oldest [Reference Range]: 1 2 3 Height 183 cm (09/23/21 10:47 AM) 183 cm (09/23/21 4:21 AM) 183 cm (09/23/21 12:17 AM) Weight 91.6 kg (09/23/21 6:29 AM) 91.6 kg (09/22/21 9:19 AM) 90.4 kg (09/22/21 5:20 AM) Oxygen Saturation [94-100 %] 96 % (09/23/21 10:47 AM) 98 % (09/23/21 4:21 AM) 97 % (09/23/21 12:17 AM) Pulse Rate [55-90 bpm] 64 bpm 1 (09/23/21 10:47 AM) 64 bpm (09/23/21 9:08 AM) 60 bpm (09/23/21 4:21 AM) Body Mass Index [18.5-24.99] 27.77 *H* (09/18/21 6:50 PM) 27.92 *H* (09/18/21 5:43 PM) 27.92 *H* (09/18/21 3:22 PM) Blood Pressure [90-138/55-84 mm Hg] 103/53mm Hg (09/23/21 10:47 AM) 145/65mm Hg *H* (09/23/21 9:08 AM) 145/65mm Hg *H* (09/23/21 9:07 AM) Respiratory Rate [16-30 br/min] 20 br/min (09/23/21 10:47 AM) 18 br/min (09/23/21 4:21 AM) 18 br/min (09/23/21 12:17 AM) Temperature [96.8-100.4 DegF] 97.9 DegF (09/23/21 10:47 AM) 97.9 DegF (09/23/21 4:21 AM) 97.5 DegF (09/23/21 12:17 AM) Liters per Minute 2 L/min (09/19/21 11:00 AM) 2 L/min (09/19/21 4:34 AM) 2 L/min (09/19/21 12:00 AM) Mode of Delivery (Oxygen) Room air (09/23/21 10:47 AM) Room air (09/23/21 4:21 AM) Room air (09/23/21 12:17 AM) Blood pressure sites Arm, left (09/23/21 10:47 AM) Arm, right (09/23/21 4:21 AM) Arm, right (09/23/21 12:17 AM) Temperature Route Oral (09/23/21 10:47 AM) Oral (09/23/21 4:21 AM) Oral (09/23/21 12:17 AM) Dry Weight 93 kg (09/19/21 11:31 AM) 97 kg (09/18/21 6:50 PM) 93.5 kg (09/18/21 5:43 PM) Weight Obtained Via Standing scale (09/23/21 6:29 AM) Standing scale (09/22/21 9:19 AM) Standing scale (09/22/21 5:20 AM) Dry Weight Obtained Via Patient/family s tated (09/18/21 6:50 PM) Patient/family stated (09/18/21 1:59 AM) 1Result Comment: alessandra aware of heart rate Social History Social History Type Response Smoking Status Never smoker entered on: 11/24/14 Sex
--- OUTSIDE RECORDS SUMMARY | 2023-01-28 18:38 | XMS_ITS | Continuity of Care Document ---
Author Name Unknown Organization [facility] ter Address [address] [place] [address]- Care Team Providers Care Marksmanship Instructor Name Role Phone Stephanie Chaudhari NP Primary Care Physician [phone] Encounter [facility] Date(s): 12/07/20 - 01/12/[address] [address]- Attending Physician: Jani Barragan MD Admitting Physician: [...] 11/20/20 13:32:00 EST, Route to Pharmacy Electronically, [facility], Partial fill upon patient request if the prescription is for a schedule II opioid d... Start Date: 11/20/20 Status: Ordered aspirin 81 mg oral delayed release tablet = 81 mg, By Mouth, Daily, # 30 tablet, 0 Refills, Maintenance, 11/20/20 13:29:00 EST, EC Tablet, [facility], Partial fill upon patient [...] 11/20/20 13:29:00 EST, Route to Pharmacy Electronically, [facility], Partial fill upon patient [...] 11/20/20 13:33:00 EST, Route to Pharmacy Electronically, [facility], Partial fill upon patient request if the prescription is for a schedul... Start Date: 11/20/20 Status: Ordered hydrALAZINE 25 mg oral tablet 25 mg, 1, tablet, By Mouth, Every 8 hours, # 90 tablet, Refills 0, Tot. Refills 0, Maintenance, 11/20/20 13:33:00 EST, Route to Pharmacy Electronically, [facility], Partial fill upon patient request if the prescription is for a schedule II... Start Date: 11/20/20 Stop Date: 12/20/20 Status: Ordered isosorbide mononitrate 30 mg oral tablet, extended release 30 mg, 1, tablet, By Mouth, Daily, # 30 tablet, Refills 0, Tot. Refills 0, Maintenance, 11/20/20 13:31:00 EST, Route to Pharmacy Electronically, [facility], 184, cm, 11/19/20 8:51:00 EST, Height, 81.4, kg, 11/09/20 6:43:00 EST, Dry Weight Start Date: 11/20/20 Stop Date: 12/20/20 Status: Ordered Nitroglycerin 0.4mg Sublingual Tablet See Instructions, Scheduled / PRN, 50 tablet, 5, 5, 05/12/06 20:26:33, chest pain, 1 tab under tongue every 5 minutes as needed for chest pain., Print CINDI Number, [address] [place] [address] Start Date: 05/12/06 Status: Ordered Novolin R [...] 11/20/20 13:29:00 EST, Route to Pharmacy Electronically, [facility], 184, cm, 11/19/20 8:51:00 [...] Maintenance,11/20/20 13:32:00 EST, Route to Pharmacy Electronically, [facility], Partial fill upon patient [...]
--- OUTSIDE RECORDS SUMMARY | 2023-01-28 18:38 | XMS_ITS | Continuity of Care Document ---
Author Name Unknown Organization [facility] Address [address] [place] [address]- Care Team Providers Care Assistant Offset Press Operator Name Role Phone Stephanie Chaudhari NP Primary Care Physician Encounter [facility] Date(s): 10/24/21 - 02/21/22 [facility] [address] [place] [address]- Attending Physician: Jani Barragan MD Admitting Physician: [...] Refills, Maintenance, 11/20/20 13:29:00 EST, EC Tablet, [facility], Partial fill upon patient [...] 11/20/20 13:29:00 EST, Route to Pharmacy Electronically, [facility], Partial fill upon patient [...] 11/20/20 13:33:00 EST, Route to Pharmacy Electronically, [facility], Partial fill upon patient request if the prescription is for a schedule II... Start Date: 11/20/20 Stop Date: 12/20/20 Status: Ordered Nitroglycerin 0.4mg Sublingual Tablet See Instructions, Scheduled / PRN, 50 tablet, 5, 5, 05/12/06 20:26:33, chest pain, 1 tab under tongue every 5 minutes as needed for chest pain., Print CINDI Number, [address] [place] [address] Start Date: 05/12/06 Status: Ordered NovoLIN N FlexPen 100 units/mL subcutaneous suspension See Instructions, INJECT 22 UNITS SUBCUTANEOUSLY WITH BREAKFAST AND 30 UNITS AT BEDTIME, # 45 mL, 0Refills, [facility], 183, cm, 09/27/21 12:43:00 EST, Height, 93, kg, 09/19/21 11:31:00 EST, Dry Weight Start Date: 09/27/21 Status: Ordered Novolin R human recombinant 100 u/ml injectable injection = 15 units, Subcutaneous Injection, 3 times a day before meals, Take 15 units before meals, 3 timesdaily. E11.65, # 30 mL, 5 Refills, Maintenance, 02/13/21 11:42:00 EDT, Solution, [facility], Partial fill upon patient [...] 11/20/20 13:29:00 EST, Route to Pharmacy Electronically, [facility], 184, cm, 11/19/20 8:51:00 [...]
--- OUTSIDE RECORDS SUMMARY | 2023-01-28 18:38 | XMS_ITS | Continuity of Care Document ---
Author Name Unknown Organization [facility] Address [address] [place] [address]- Care Team Providers Care Marketing Production Coordinator Name Role Phone Stephanie Chaudhari NP Primary Care Physician Encounter [facility] [place] Date(s): 01/27/22 - 02/26/22 [facility] [address] [place] [id number] Attending Physician: Admtr, Leah Admitting Physician: AdmtrLeah Referring Physician: Admtr, [...] Refills, Maintenance, 11/20/20 13:29:00 EST, EC Tablet, [facility], Partial fill upon [...] 11/20/20 13:29:00 EST, Route to Pharmacy Electronically, [facility], Partial fill upon [...] 11/20/20 13:33:00 EST, Route to Pharmacy Electronically, [facility], Partial fill upon patient request if the prescription is for a schedule II... Start Date: 11/20/20 Stop Date: 12/20/20 Status: Ordered Nitroglycerin 0.4mg Sublingual Tablet See Instructions, Scheduled / PRN, 50 tablet, 5, 5, 05/12/06 20:26:33, chest pain, 1 tab under tongue every 5 minutes as needed for chest pain., Print CINDI Number, [address] [place] [address] Start Date: 05/12/06 Status: Ordered NovoLIN N FlexPen 100 units/mL subcutaneous suspension See Instructions, INJECT 22 UNITS SUBCUTANEOUSLY WITH BREAKFAST AND 30 UNITS AT BEDTIME, # 45 mL, 0Refills, [facility], 183, cm, 09/27/21 12:43:00 EST, Height, 93, kg, 09/19/21 11:31:00 EST, Dry Weight Start Date: 09/27/21 Status: Ordered Novolin R human recombinant 100 u/ml injectable injection = 15 units, Subcutaneous Injection, 3 times a day before meals, Take 15 units before meals, 3 timesdaily. E11.65, # 30 mL, 5 Refills, Maintenance, 02/13/21 11:42:00 EDT, Solution, [facility], Partial fill upon patient [...] 11/20/20 13:29:00 EST, Route to Pharmacy Electronically, [facility], 184, cm, 11/19/20 [...]
--- OUTSIDE RECORDS SUMMARY | 2023-01-28 18:38 | XMS_ITS | Continuity of Care Document ---
Author Name Unknown Organization [facility] Address [address] [place] [address]- Care Team Providers Care Poultry Pinner Name Role Phone Stephanie Chaudhari NP Primary Care Physician [phone] Encounter [facility] [place] Date(s): 02/21/21 - 03/23/21 [facility] [address] [place] [id number] Allergies, Adverse Reactions, Alerts Substance Reaction [...] 11/20/20 13:32:00 EST, [facility] to [facility] Electronically, [facility] [...] 11/20/20 13:31:00 EST, Route to Pharmacy Electronically, [facility] [...] for chest pain., Print CINDI Number, [address] [place] [address] Start Date: 05/12/06 Status: Ordered Novolin R human recombinant 100 u/ml injectable injection = 15 units, Subcutaneous Injection, 3 times a day before meals, Take 15 units before meals, 3 timesdaily. E11.65, # 30 mL, 5 Refills, Maintenance, 02/13/21 11:42:00 EDT, Solution, [facility], Partial fill upon patient [...] 3 Refills, Maintenance, 02/13/21 11:41:00 EDT, Injection, [facility], Partial fill upon patient request if the prescription is for a schedule II... Start Date: 02/13/21 Status: Ordered traZODone 50 mg oral tablet 25 mg, 0.5, tablet, By Mouth, Daily at supper, # 15 tablet, Refills 0, Tot. Refills 0, Maintenance,11/20/20 13:32:00 EST, Route to Pharmacy Electronically, [facility] [...]
--- OUTSIDE RECORDS SUMMARY | 2023-01-28 18:38 | XMS_ITS | Continuity of Care Document ---
Author Name Unknown Organization [facility] ter Address [address] [place] [address]- Care Team Providers Care Hand Buffing Wheel Former Name Role Phone Fraa ANNE, Stephanie Primary Care Physician [place] [facility] [place] Date(s): 09/28/21 - 09/30/[address] [address] Discharge Disposition: Transferred to short-term general hospit Attending Physician: Boo Whipple MD Admitting Physician: Krystal Hassan MD Referring Physician: Not on Staff, Referring [...] EC Tablet, [facility], Partial fill upon patient request if the [...] oral tablet 25 mg, Tablet, By Mouth, 09/30/21 9:00:00 EST Start Date: 09/30/21 Stop Date: 09/30/21 Status: Completed Coreg 25 mg oral tablet [...] oral tablet 25 mg, Tablet, By Mouth, 09/30/21 5:00:00 EST Start Date: 09/30/21 Stop Date: 09/30/21 Status: Completed hydrALAZINE 25 mg oral tablet 25 mg, Tablet, By Mouth, 09/30/21 13:00:00 EST Start Date: 09/30/21 Stop Date: 09/30/21 Status: Completed hydrALAZINE 25 mg oral tablet [...] mononitrate 30 mg oral tablet, extended release 90 mg, 3, tablet, By Mouth, Daily, # 60 tablet, Refills 0, Tot. Refills 0, Maintenance, 09/23/21 9:37:00 EST, [facility], [facility] [...] for chest pain., Print CINDI Number, [address] [place] [address] Start Date: 05/12/06 Status: Ordered NovoLIN N FlexPen 100 units/mL subcutaneous suspension See Instructions, INJECT 22 UNITS SUBCUTANEOUSLY WITH BREAKFAST AND 30 UNITS AT BEDTIME, # 45 mL, 0Refills, [facility], 183, cm, 09/27/21 12:43:00 EST, Height, 93, kg, 09/19/21 11:31:00 EST, Dry Weight Start Date: 09/27/21 Status: Ordered Novolin R human recombinant 100 u/ml injectable injection = 15 units, Subcutaneous Injection, 3 times a day before meals, Take 15 units before meals, 3 timesdaily. E11.65, # 30 mL, 5 Refills, Maintenance, 02/13/21 11:42:00 EDT, Solution, [facility], Partial fill upon [...] Exam Date Time Procedure Performing Provider Status 09/28/21 12:42 PM Chest Portable Philipp Emmanuel; Auth ( Verified) Notes: (Chest Portable) Reason For Exam: Shortness of Breath RESULT: Chest Portable Chest Portable Hx of Present Illness: Pt to [facility] [place] s p fall. Pt reports he was weighing himself in his kitchen when he fell backwards off the scale. Denies hitting his head or any LOC. Per EMS, pt had some CP but pt denies and states he has SOB. Denies any pain for this RN; Reason: Shortness of Breath; Clinical Question(s): CHF COMPARISON: 09/27/2021 FINDINGS: LINES AND TUBES: Left-sided pacer with leads terminating in right atrium and right ventricle. LUNGS AND PLEURA: Low lung volumes. No pleural effusion. No pneumothorax. HEART, MEDIASTINUM AND IAIN: Heart is normal in size. Normal upper mediastinal and hilar contour. BONES AND SOFT TISSUES: No acute abnormality. IMPRESSION: Low lung volumes. WSN: [id number] Ordering Physician: Gena Wasserman MD Dictated By: Virginia Patel MD Dictated Date/Time: 09/28/21 12:45 p Reviewed By: Virginia Patel MD Signed By: Virginia Patel MD Signed Date/Time: 09/28/21 12:45 pm Transcribed By: MUNIR Transcribed Date/Time: 09/28/21 12:45 pm Vital Signs Most recent to oldest [Reference Range]: 1 2 3 Height 183 cm (09/30/21 2:15 AM) 183 cm (09/29/21 7:44 PM) 183 cm (09/29/21 3:15 PM) Weight 88.4 kg (09/30/21 5:29 AM) 89.1 kg (09/29/21 6:48 AM) 86.9 kg (09/28/21 5:02 PM) Oxygen Saturation [94-100 %] 96 % (09/30/21 9:00 AM) 95 % (09/30/21 2:15 AM) 96 % (09/29/21 7:44 PM) Pulse Rate [55-90 bpm] 60 bpm (09/30/21 9:00 AM) 67 bpm (09/30/21 8:35 AM) 65 bpm (09/30/21 2:15 AM) Body Mass Index [18.5-24.99] 25.95 *H* (09/28/21 5:02 PM) Blood Pressure [90-138/55-84 mm Hg] 103/61mm Hg (09/30/21 2:00 PM) 140/60mm Hg *H* (09/30/21 8:35 AM) 154/56mm Hg *H* (09/30/21 4:58 AM) Respiratory Rate [16-30 br/min] 18 br/min (09/30/21 9:00 AM) 18 br/min (09/30/21 2:15 AM) 18 br/min (09/29/21 7:44 PM) Temperature [96.8-100.4 DegF] 96.8 DegF (09/30/21 9:00 AM) 97.6 DegF (09/30/21 2:15 AM) 97.9 DegF (09/29/21 7:44 PM) Mode of Delivery (Oxygen) Room air (09/30/21 9:00 AM) Room air (09/30/21 2:15 AM) Room air (09/29/21 7:44 PM) Blood pressure sites Arm, left (09/30/21 2:15 AM) Arm, left (09/29/21 7:44 PM) Arm, left (09/29/21 8:51 AM) Temperature Route Temporal (09/30/21 9:00 AM) Temporal (09/30/21 2:15 AM) Temporal (09/29/21 7:44 PM) Dry Weight 97 kg (09/28/21 5:02 PM) Weight Obtained Via Bed scale (09/30/21 5:29 AM) Bed scale (09/29/21 6:48 AM) Bed scale (09/28/21 5:02 PM) Dry Weight Obtained Via Patient/family s tated (09/28/21 5:02 PM) Social History Social History Type Response Smoking Status Never smoker entered on: 11/24/14 Sex
--- OUTSIDE RECORDS SUMMARY | 2023-01-28 18:38 | XMS_ITS | Continuity of Care Document ---
Author Name Unknown Organization [facility] Address [address] [place] [address]- Care Team Providers Care Transmission Rebuilder Name Role Phone Stephanie Chaudhari NP Primary Care Physician Encounter [facility] [place] Date(s): 05/10/21 - 09/07/21 [facility] [address] [place] [id number] Attending Physician: Jani Barragan MD Admitting Physician: [...] 11/20/20 13:32:00 EST, Route to Pharmacy Electronically, [facility], Partial fill upon patient request if the prescription is for a schedule II opioid d... Start Date: 11/20/20 Status: Ordered aspirin 81 mg oral delayed release tablet = 81 mg, By Mouth, Daily, # 30 tablet, 0 Refills, Maintenance, 11/20/20 13:29:00 EST, EC Tablet, [facility], Partial fill upon patient [...] 11/20/20 13:29:00 EST, Route to Pharmacy Electronically, [facility], Partial fill upon patient [...] 11/20/20 13:33:00 EST, Route to Pharmacy Electronically, [facility], Partial fill upon patient request if the prescription is for a schedule II... Start Date: 11/20/20 Stop Date: 12/20/20 Status: Ordered isosorbide mononitrate 30 mg oral tablet, extended release 30 mg, 1, tablet, By Mouth, Daily, # 30 tablet, Refills 0, Tot. Refills 0, Maintenance, 11/20/20 13:31:00 EST, Route to Pharmacy Electronically, [facility], 184, cm, 11/19/20 8:51:00 EST, Height, 81.4, kg, 11/09/20 6:43:00 EST, Dry Weight Start Date: 11/20/20 Stop Date: 12/20/20 Status: Ordered Nitroglycerin 0.4mg Sublingual Tablet See Instructions, Scheduled / PRN, 50 tablet, 5, 5, 05/12/06 20:26:33, chest pain, 1 tab under tongue every 5 minutes as needed for chest pain., Print CINDI Number, [address] [place] [address] Start Date: 05/12/06 Status: Ordered Novolin R [...] 11/20/20 13:29:00 EST, Route to Pharmacy Electronically, [facility], 184, cm, 11/19/20 8:51:00 [...]
--- OUTSIDE RECORDS SUMMARY | 2023-01-28 18:39 | XMS_ITS | Continuity of Care Document ---
Author Name Unknown Organization [facility] Address [address] [place] [address]- Care Team Providers Care Metal Technician Name Role Phone Stephanie Chaudhari NP Primary Care Physician [phone] Encounter [facility] Date(s): 01/27/22 - 02/26/22 [facility] [address] [place] [address]- Allergies, Adverse Reactions, Alerts Substance Reaction Severity [...] Refills, Maintenance, 11/20/20 13:29:00 EST, EC Tablet, [facility], Partial fill upon patient [...] 11/20/20 13:29:00 EST, Route to Pharmacy Electronically, [facility], Partial fill upon patient [...] 11/20/20 13:33:00 EST, Route to Pharmacy Electronically, [facility], Partial fill upon patient request if the prescription is for a schedule II... Start Date: 11/20/20 Stop Date: 12/20/20 Status: Ordered Nitroglycerin 0.4mg Sublingual Tablet See Instructions, Scheduled / PRN, 50 tablet, 5, 5, 05/12/06 20:26:33, chest pain, 1 tab under tongue every 5 minutes as needed for chest pain., Print CINDI Number, [address] [place] [address] Start Date: 05/12/06 Status: Ordered NovoLIN N FlexPen 100 units/mL subcutaneous suspension See Instructions, INJECT 22 UNITS SUBCUTANEOUSLY WITH BREAKFAST AND 30 UNITS AT BEDTIME, # 45 mL, 0Refills, [facility], 183, cm, 09/27/21 12:43:00 EST, Height, 93, kg, 09/19/21 11:31:00 EST, Dry Weight Start Date: 09/27/21 Status: Ordered Novolin R human recombinant 100 u/ml injectable injection = 15 units, Subcutaneous Injection, 3 times a day before meals, Take 15 units before meals, 3 timesdaily. E11.65, # 30 mL, 5 Refills, Maintenance, 02/13/21 11:42:00 EDT, Solution, [facility], Partial fill upon patient [...] 11/20/20 13:29:00 EST, Route to Pharmacy Electronically, [facility], 184, cm, 11/19/20 8:51:00 [...]
--- OUTSIDE RECORDS SUMMARY | 2023-01-28 18:39 | XMS_ITS | Continuity of Care Document ---
Author Name Unknown Organization [facility] Address [address] [place] [address]- Care Team Providers Care Clinical Psychologist Licensed Name Role Phone Floyd Hutson MD Primary Care Physician [phone] Encounter [facility] Date(s): 04/21/20 - 08/19/20 [facility] [address] [place] [id number]- [facility] Attending Physician: Jani Barragan MD Admitting [...] 01/23/19 14:42:30 EDT, Route to Pharmacy Electronically, [id number], [id number] Start Date: 01/23/19 Stop Date: 02/22/19 Status: [...] 1 Refills, Maintenance, 01/11/20 12:07:00 EDT, Tablet, [facility], 183, cm, 01/11/20 3:11:00 EDT, [...] needed for chest pain., Print CINDI Number, [address] [place] [address] Start Date: 05/12/06 Status: Ordered oxybutynin 10 [...] 01/11/20 12:05:00 EDT, Route to Pharmacy Electronically, [facility], 183, cm, 01/11/20 3:11:00 EDT, [...]
--- OUTSIDE RECORDS SUMMARY | 2023-01-28 18:39 | XMS_ITS | Continuity of Care Document ---
Author Name Unknown Organization [facility] Address [address] [place] [address]- Care Team Providers Care Transformation Analyst Name Role Phone Stephanie Chaudhari NP Primary Care Physician [phone] Encounter [facility] Date(s): 11/14/22 - 12/14/22 [facility] [address] [place] [address]- Allergies, Adverse Reactions, Alerts Substance Reaction Severity Status oxycodone 1 Active amLODIPine Active 1Pt. states that he is unsure if allergy is active. Cannot recall reaction. Immunizations Given and Recorded Vaccine Date Status Refusal Reason [id number] 12y+ bivalent booster vax 09/03/22 Recorded influenza [...] Refills, Maintenance, 11/20/20 13:29:00 EST, EC Tablet, [facility], Partial fill upon [...] 11/20/20 13:29:00 EST, Route to Pharmacy Electronically, [facility], Partial fill upon [...] 11/20/20 13:29:00 EST, Route to Pharmacy Electronically, [facility], 184, cm, 11/19/20 [...] Team Personnel Name: Ezio Aguayo MD Position: [facility] Renal MD Member Role: Lifetime Consulting Physician Address: Address: [address] [place] [address], [address] [place] [address]- Name: Cecelia Trotter RN Position: [facility] RN Member Role: Primary Care Nurse Name: Alice Hwang RN Position: [facility] SN RN Member Role: Primary Care Nurse Name: Libra Sullivan RN Position: [facility] RN Member Role: Primary Care Nurse Name: Marleny Cantrell RN Position: [facility] RN Member Role: Primary Care Nurse Name: Stephanie Chaudhari NP Position: [facility] Office Staff Member Role: PCP Address: Address: [address] [place] [address] [address] [place] [address]- Name: Yamila Corley RN Position: [facility] RN Member Role: Primary Care Nurse Name: Benji Ellison RN Position: [facility] RN Member Role: Primary Care Nurse Name: Chitra Gonzalez RN Position: [facility] RN Member Role: Primary Care Nurse Name: Scarlet Mayo RN Position: [facility] RN Member Role: Primary Care Nurse Name: Nadya Gee RN Position: [facility] RN Member Role: Primary Care Nurse Name: Deisi Reid RN Position: [facility] RN Member Role: Primary Care Nurse Name: Nickolas Blevins MD Position: [facility] Renal MD Member Role: Lifetime Consulting Physician Address: Address: [address] [place] [address] [address] [facility] [place] [address]- Name: Isha Metzger RN Position: [facility] RN Member Role: Primary Care Nurse Name: Malathi Reardon RN Position: [facility] SN RN Member Role: Primary Care Nurse Name: Ean De La Rosa MD Position: [facility] Renal MD Member Role: Lifetime Consulting Physician Address: Address: [address] [place] [address] [facility] [place] [address]- Care Team Related Persons Name: HALLEY SHELBY Address: home UNKNOWN [id number] Name: MAC FUENTES Address: home [address] [place] [address]
--- OUTSIDE RECORDS SUMMARY | 2023-01-28 18:39 | XMS_ITS | Continuity of Care Document ---
Author Name Unknown Organization [facility] Address [address] [place] [address]- Care Team Providers Care Checker Loader Name Role Phone Stephanie Chaudhari NP Primary Care Physician Encounter [facility] Date(s): 12/16/20 - 01/15/21 [facility] Diabetes [address] [place] [address] Allergies, Adverse Reactions, Alerts Substance Reaction Severity Status oxycodone Active Immunizations Given and Recorded Vaccine Date Status Refusal Reason influenza virus vaccine, inactivated 09/17/05 Give n Medications amLODIPine 10 mg oral tablet 10 mg, 1, tablet, By Mouth, Daily, # 30 tablet, Refills 0, Tot. Refills 0, Maintenance, 11/20/20 13:32:00 EST, Route to Pharmacy Electronically, [facility], Partial fill upon patient request if the prescription is for a schedule II opioid d... Start Date: 11/20/20 Status: Ordered aspirin 81 mg oral delayed release tablet = 81 mg, By Mouth, Daily, # 30 tablet, 0 Refills, Maintenance, 11/20/20 13:29:00 EST, EC Tablet, [facility], Partial fill upon patient [...] 11/20/20 13:29:00 EST, Route to Pharmacy Electronically, [facility], Partial fill upon patient [...] 11/20/20 13:33:00 EST, Route to Pharmacy Electronically, [facility], Partial fill upon patient request if the prescription is for a schedul... Start Date: 11/20/20 Status: Ordered hydrALAZINE 25 mg oral tablet 25 mg, 1, tablet, By Mouth, Every 8 hours, # 90 tablet, Refills 0, Tot. Refills 0, Maintenance, 11/20/20 13:33:00 EST, Route to Pharmacy Electronically, [facility], Partial fill upon patient request if the prescription is for a schedule II... Start Date: 11/20/20 Stop Date: 12/20/20 Status: Ordered isosorbide mononitrate 30 mg oral tablet, extended release 30 mg, 1, tablet, By Mouth, Daily, # 30 tablet, Refills 0, Tot. Refills 0, Maintenance, 11/20/20 13:31:00 EST, Route to Pharmacy Electronically, [facility], 184, cm, 11/19/20 8:51:00 EST, Height, 81.4, kg, 11/09/20 6:43:00 EST, Dry Weight Start Date: 11/20/20 Stop Date: 12/20/20 Status: Ordered Nitroglycerin 0.4mg Sublingual Tablet See Instructions, Scheduled / PRN, 50 tablet, 5, 5, 05/12/06 20:26:33, chest pain, 1 tab under tongue every 5 minutes as needed for chest pain., Print CINDI Number, [address] [place] [address] Start Date: 05/12/06 Status: Ordered Novolin R [...] 11/20/20 13:29:00 EST, Route to Pharmacy Electronically, [facility], 184, cm, 11/19/20 8:51:00 [...] Maintenance,11/20/20 13:32:00 EST, Route to Pharmacy Electronically, [facility], Partial fill upon patient [...]
--- OUTSIDE RECORDS SUMMARY | 2023-01-28 18:39 | XMS_ITS | Continuity of Care Document ---
Author Name Unknown Organization [facility] Address [address] [facility], [address] Floor, [address] [place] [address]- Care Team Providers Care Surveyor Helper Name Role Phone Haresh ANN, Floyd Primary Care Physician Encounter [facility] Date(s): 01/12/20 - 03/30/20 [facility] [address], [address], [address] [place] [address]- [facility] Attending Physician: Trevor Powers MD Admitting Physician: Trevor Powers MD Allergies, Adverse Reactions, Alerts Substance Reaction [...] 01/23/19 14:42:30 EDT, Route to Pharmacy Electronically, [id number], [id number] Start Date: 01/23/19 Stop Date: 02/22/19 Status: [...] 1 Refills, Maintenance, 01/11/20 12:07:00 EDT, Tablet, [facility], 183, cm, 01/11/20 3:11:00 [...] for chest pain., Print CINDI Number, [address] [place] [address] Start Date: 05/12/06 Status: Ordered oxybutynin 10 [...] 01/11/20 12:05:00 EDT, Route to Pharmacy Electronically, [facility], 183, cm, 01/11/20 3:11:00 [...]
--- OUTSIDE RECORDS SUMMARY | 2023-01-28 18:39 | XMS_ITS | Continuity of Care Document ---
Author Name Unknown Organization [facility] Address [address] [place] [address]- Care Team Providers Care Bullet Assembly Press Setter Operator Name Role Phone Stephanie Chaudhari NP Primary Care Physician [phone] Encounter [facility] Date(s): 04/04/22 - 05/04/22 [facility] [address] [place] [address]- Allergies, Adverse Reactions, Alerts Substance Reaction Severity [...] Lokesh rded influenza virus vaccine, inactivated 08/09/15 Olkesh rded influenza virus vaccine, inactivated 08/14/14 Lokesh [...] Refills, Maintenance, 11/20/20 13:29:00 EST, EC Tablet, [facility], Partial fill upon [...] 11/20/20 13:29:00 EST, Route to Pharmacy Electronically, [facility], Partial fill upon [...] 11/20/20 13:33:00 EST, Route to Pharmacy Electronically, [facility], Partial fill upon patient request if the prescription is for a schedule II... Start Date: 11/20/20 Stop Date: 12/20/20 Status: Ordered Nitroglycerin 0.4mg Sublingual Tablet See Instructions, Scheduled / PRN, 50 tablet, 5, 5, 05/12/06 20:26:33, chest pain, 1 tab under tongue every 5 minutes as needed for chest pain., Print CINDI Number, [address] [place] [address] Start Date: 05/12/06 Status: Ordered NovoLIN N FlexPen 100 units/mL subcutaneous suspension See Instructions, Take 25 units before breakfast and 30 units before dinner. E11.65. 90-day supply., # 45 mL, 3 Refills, 03/03/22 7:20:00 EDT, [facility], 165, cm, 01/27/22 10:43:00 EDT, Height, 82, kg, 01/10/22 14:34:00 EST, Dry We... Start Date: 03/03/22 Status: Ordered Novolin R human recombinant 100 u/ml injectable injection = 15 units, Subcutaneous Injection, 3 times a day before meals, Take 15 units before meals, 3 timesdaily. E11.65, # 30 mL, 5 Refills, Maintenance, 02/13/21 11:42:00 EDT, Solution, [facility], Partial fill upon patient [...] 11/20/20 13:29:00 EST, Route to Pharmacy Electronically, [facility], 184, cm, 11/19/20 [...]
--- OUTSIDE RECORDS SUMMARY | 2023-01-28 18:39 | XMS_ITS | Continuity of Care Document ---
Author Name Unknown Organization [facility] Address [address] [place] [address]- Care Team Providers Care Mower Operator Name Role Phone Haresh ANN, Floyd Primary Care Physician [phone] Encounter [facility] Date(s): 03/09/20 - 04/08/20 [facility] [address] [place] [address]- [facility] Attending Physician: Leha Nguyen Admitting Physician: AdmLeah chen Referring Physician: [...] 01/23/19 14:42:30 EDT, Route to Pharmacy Electronically, [id number], [facility] [id number] Start Date: 01/23/19 Stop Date: 02/22/19 Status: [...] 1 Refills, Maintenance, 01/11/20 12:07:00 EDT, Tablet, [facility], 183, cm, 01/11/20 [...] needed for chest pain., Print CINDI Number, [address] [place] [address] Start Date: 05/12/06 Status: Ordered oxybutynin 10 [...] 01/11/20 12:05:00 EDT, Route to Pharmacy Electronically, [facility], 183, cm, 01/11/20 [...]
--- OUTSIDE RECORDS SUMMARY | 2023-01-28 18:39 | XMS_ITS | Continuity of Care Document ---
Author Name Unknown Organization [facility] Address [address] [place] [address]- Care Team Providers Care Circuit Judge Name Role Phone Stephanie Chaudhari NP Primary Care Physician [phone] [place] [facility] Date(s): 11/08/20 - 11/20/[address] [address]- Discharge Disposition: A-Transfer VNA/Home Health Attending Physician: Lesly Mario MD Admitting Physician: Comfort Arrieta MD Referring Physician: Not on Staff, Referring MD Allergies, Adverse Reactions, Alerts Substance Reaction Severity Status oxycodone Active Immunizations Given and Recorded Vaccine Date Status Refusal Reason influenza virus vaccine, inactivated 09/17/05 Give n Medications amLODIPine 10 mg oral tablet 10 mg, Tablet, By Mouth, 11/20/20 9:00:00 EST Start Date: 11/20/20 Stop Date: 11/20/20 Status: Completed amLODIPine 10 mg oral tablet 10 mg, 1, tablet, By Mouth, Daily, # 30 tablet, Refills 0, Tot. Refills 0, Maintenance, 11/20/20 13:32:00 EST, Route to Pharmacy Electronically, [facility], Partial fill upon patient request if the prescription is for a schedule II opioid d... Start Date: 11/20/20 Status: Ordered aspirin 81 mg oral delayed release tablet = 81 mg, By Mouth, Daily, # 30 tablet, 0 Refills, Maintenance, 11/20/20 13:29:00 EST, EC Tablet, [facility], Partial fill upon patient request if the prescription is for a schedule II opioid drug., 184, cm, 11/19/20 8:51:00 EST, Height, 81.... Start Date: 11/20/20 Stop Date: 12/20/20 Status: Ordered atorvastatin 80 mg oral tablet 1 tablet = 80 mg, By Mouth, Daily at bedtime, # 90 tablet, 0 Refills, Maintenance, Tablet Start Date: 12/15/12 Stop Date: 03/15/13 Status: Ordered cefdinir 125 mg/5 mL oral liquid = 300 mg, By Mouth, 2 times a day, for 4 days, # 7 each, 0 Refills, Acute 11/24/20 13:37:00 EST, 11/20/20 13:37:00 EST, Suspension, [facility], Partial fill upon patient request if the prescription is for a schedule II opioid drug., 184, cm... Start Date: 11/20/20 Stop Date: 11/24/20 Status: Ordered Coreg 25 mg oral tablet 25 mg, Tablet, By Mouth, Hold for: Hr < 60 and /or SBP < 110, 11/20/20 9:00:00 EST Start Date: 11/20/20 Stop Date: 11/20/20 Status: Completed Coreg 25 mg oral tablet 25 mg, 1, tablet, By Mouth, 2 times a day, # 60 tablet, Refills 0, Tot. Refills 0, Maintenance, 11/20/20 13:29:00 EST, Route to Pharmacy Electronically, [facility], Partial fill upon patient [...] 11/20/20 13:33:00 EST, Route to Pharmacy Electronically, [facility], Partial fill upon patient request if the prescription is for a schedul... Start Date: 11/20/20 Status: Ordered glipiZIDE 10 mg oral tablet, extended release 1 tablet = 10 mg, By Mouth, Daily, # 30 tablet, 0 Refills, Maintenance, 11/20/20 13:34:00 EST, ER Tablet, [facility], Partial fill upon patient request if the prescription is for a schedule II opioid drug., 184, cm, 11/19/20 8:51:00 EST, He... Start Date: 11/20/20 Status: Ordered hydrALAZINE 25 mg oral tablet 25 mg, Tablet, By Mouth, Hold for: sbp < 120, 11/20/20 9:00:00 EST Start Date: 11/20/20 Stop Date: 11/20/20 Status: Completed hydrALAZINE 25 mg oral tablet 25 mg, 1, tablet, By Mouth, Every 8 hours, # 90 tablet, Refills 0, Tot. Refills 0, Maintenance, 11/20/20 13:33:00 EST, Route to Pharmacy Electronically, [facility], Partial fill upon patient request if the prescription is for a schedule II... Start Date: 11/20/20 Stop Date: 12/20/20 Status: Ordered Insulin LISPRO Inj Subcutaneous Infusion, 0 Refills, Maintenance, 09/06/20 23:36:00 EST Start Date: 09/06/20 Status: Ordered isosorbide mononitrate 30 mg oral tablet, extended release 30 mg, 1, tablet, By Mouth, Daily, # 30 tablet, Refills 0, Tot. Refills 0, Maintenance, 11/20/20 13:31:00 EST, Route to Pharmacy Electronically, [facility], 184, cm, 11/19/20 8:51:00 EST, Height, 81.4, kg, 11/09/20 6:43:00 EST, Dry Weight Start Date: 11/20/20 Stop Date: 12/20/20 Status: Ordered Lantus Inj 0.35 mL = 35 units, Subcutaneous Injection, Daily at bedtime, 0 Refills, Maintenance, 11/20/20 13:30:00 EST, Injection, Partial fill upon patient request if the prescription is for a schedule II opioid drug. Start Date: 11/20/20 Status: Ordered melatonin 3 mg oral tablet 2 tablet = 6 mg, By Mouth, Daily, Take at 7:00 PM daily, # 60 tablet, 1 Refills, Maintenance, 11/20/20 13:31:00 EST, Tablet, [facility], 184, cm, 11/19/20 8:51:00 EST, Height, 81.4, kg, 11/09/20 6:43:00 EST, Dry Weight Start Date: 11/20/20 Status: Ordered MiraLax oral powder for reconstitution = 17 Gm, By Mouth, Daily, PRN Constipation, for 10 days, dissolve in water before taking, # 255 Gm,0 Refills, Acute 11/30/20 13:32:00 EST, 11/20/20 13:32:00 EST, REC Powder, [facility], Partial fill upon patient request if the prescription... Start Date: 11/20/20 Stop Date: 11/30/20 Status: Ordered Nitroglycerin 0.4mg Sublingual Tablet See Instructions, Scheduled / PRN, 50 tablet, 5, 5, 05/12/06 20:26:33, chest pain, 1 tab under tongue every 5 minutes as needed for chest pain., Print CINDI Number, [address] [place] [address] Start Date: 05/12/06 Status: Ordered Plavix 75 mg oral tablet 75 mg, 1, tablet, By Mouth, Daily, # 30 tablet, Refills 1, Tot. Refills 1, Maintenance, 11/20/20 13:29:00 EST, Route to Pharmacy Electronically, [facility], 184, cm, 11/19/20 8:51:00 EST, Height, 81.4, kg, 11/09/20 6:43:00 EST, Dry Weight Start Date: 11/20/20 Status: Ordered Senna 8.6 mg oral tablet 17.2 mg, 2, tablet, By Mouth, Daily, for 30 days, # 60 tablet, Refills 0, Tot. Refills 0, Acute, 12/20/20 13:32:00 EST, 11/20/20 13:32:00 EST, Route to Pharmacy Electronically, [facility] Tablet, Partial fill upon patient request if the pre... Start Date: 11/20/20 Stop Date: 12/20/20 Status: Ordered traZODone 50 mg oral tablet 25 mg, 0.5, tablet, By Mouth, Daily at supper, # 15 tablet, Refills 0, Tot. Refills 0, Maintenance,11/20/20 13:32:00 EST, Route to Pharmacy Electronically, [facility], Partial fill upon patient [...] Hyperlipidemia(Confirmed) Active Hypertension(Confirmed) Active Osteoarthritis(Confirmed) Active Results Orders for Microbiology Reports Name Date Urine Culture (URINE CULTURE) 11/16/20 Microbiology Reports TEST:Urine Culture STATUS:Auth (Verified) BODY SITE: SOURCE:URINE COLLECTED DATE/TIME:11/16/20 5:40 AM Urine Culture SPECIMEN DESCRIPTION : URINE SPECIAL REQUESTS : NONE CULTURE : >100,000 COL/ML CITROBACTER (DIVERSUS) KOSERI REPORT STATUS : FINAL 11/18/2020 ORGANISM >100,000 COL/ML CITROBACTER (DIVERSUS) KOSERI METHOD MIN. INHIB. CONC. (MCG/ML) AMPICILLIN RESISTANT AMPICILLIN/SULBACTAM SUSCEPTIBLE AMOXICILLIN/CLAVULAN SUSCEPTIBLE CEFAZOLIN SUSCEPTIBLE CEFEPIME SUSCEPTIBLE CEFTRIAXONE SUSCEPTIBLE CIPROFLOXACIN SUSCEPTIBLE ERTAPENEM SUSCEPTIBLE GENTAMICIN SUSCEPTIBLE LEVOFLOXACIN SUSCEPTIBLE MEROPENEM SUSCEPTIBLE NITROFURANTOIN INTERMEDIATE PIPERACILLIN/TAZOBAC SUSCEPTIBLE TRIMETH/SULFAMETHOX SUSCEPTIBLE TETRACYCLINE SUSCEPTIBLE Radiology Reports * Exam Date Time Procedure Performing Provider Status 11/08/20 1:56 PM Chest Portable Sujatha Lemus; Auth (Ve rified) Notes: (Chest Portable) Reason For Exam: ams;Other: RESULT: Chest Portable Chest Portable HISTORY: Altered mental status. CLINICAL QUESTION: Pneumonia. COMPARISON: Chest radiograph 01/09/2020, 01/22/2019 and 01/26/2017. FINDINGS: LINES AND TUBES: None. LUNGS AND PLEURA: Low lung volumes, likely on expiratory phase. Lungs are otherwise clear with no consolidation. No pleural effusion. No pneumothorax. HEART, MEDIASTINUM AND IAIN: Heart is normal in size. Normal upper mediastinal and hilar contour. BONES AND SOFT TISSUES: Multilevel mild degenerative changes of the thoracolumbar spine. Mild dextroscoliosis of the thoracic spine. No acute osseous abnormality. IMPRESSION: Low lung volumes without evidence of acute abnormality. I have personally reviewed the images and I agree with this report. WSN: [id number] Ordering Physician: Amor Khan Dictated By: Dick Jean MD Dictated Date/Time: 11/08/20 2:06 pm Reviewed By: Sandro Benitez MD Signed By: Sandro Benitez MD Signed Date/Time: 11/08/20 2:11 pm Transcribed By: MUNIR Transcribed Date/Time: 11/08/20 2:01 pm Vital Signs Most recent to oldest [Reference Range]: 1 2 3 Height 184 cm (11/19/20 7:00 AM) 184 cm (11/18/20 5:17 PM) 184 cm (11/18/20 5:08 PM) Weight 77.9 kg (11/18/20 8:00 PM) 81.4 kg (11/09/20 6:43 AM) 81.4 kg (11/09/20 6:33 AM) Oxygen Saturation [94-100 %] 94 % (11/20/20 8:00 AM) 94 % (11/20/20 4:00 AM) 94 % (11/19/20 9:00 PM) Pulse Rate [55-90 bpm] 88 bpm (11/20/20 8:18 AM) 65 bpm (11/20/20 4:00 AM) 83 bpm (11/19/20 9:00 PM) Body Mass Index [18.5-24.99] 24.04 (11/09/20 6:43 AM) Blood Pressure [90-138/55-84 mm Hg] 147/66mm Hg *H* (11/20/20 12:39 PM) 130/60mm Hg (11/20/20 8:19 AM) 130/60mm Hg (11/20/20 8:18 AM) Respiratory Rate [16-30 br/min] 18 br/min (11/20/20 8:00 AM) 17 br/min (11/20/20 4:00 AM) 18 br/min (11/19/20 9:00 PM) Temperature [96.8-100.4 DegF] 97.9 DegF (11/20/20 8:00 AM) 97.7 DegF (11/20/20 4:00 AM) 98.2 DegF (11/19/20 9:00 PM) Liters per Minute 2 L/min (11/08/20 11:43 AM) Mode of Delivery (Oxygen) Room air (11/20/20 8:00 AM) Room air (11/20/20 4:00 AM) Room air (11/19/20 9:00 PM) Blood pressure sites Arm, right (11/19/20 9:00 PM) Arm, right (11/19/20 7:00 AM) Arm, right (11/18/20 8:00 PM) Temperature Route Oral (11/20/20 8:00 AM) Oral (11/20/20 4:00 AM) Oral (11/19/20 9:00 PM) Dry Weight 81.4 kg (11/09/20 6:43 AM) Weight Obtained Via Bed scale (11/18/20 8:00 PM) Bed scale (11/09/20 6:43 AM) Social History Social History Type Response Smoking Status Never smoker entered on: 11/24/14 Sex Male
--- OUTSIDE RECORDS SUMMARY | 2023-01-28 18:39 | XMS_ITS | Continuity of Care Document ---
Author Name Unknown Organization [facility] Address [address] [place] [address]- Care Team Providers Care Financial Compliance Officer Name Role Phone Stephanie Chaudhari NP Primary Care Physician Encounter [facility] Date(s): 11/14/22 - 12/14/22 [facility] [address] [place] [id number]- Allergies, Adverse Reactions, Alerts Substance Reaction Severity Status oxycodone 1 Active amLODIPine Active 1Pt. states that he is unsure if allergy is active. Cannot recall reaction. Immunizations Given and Recorded Vaccine Date Status Refusal Reason [id number] 12y+ bivalent booster vax 09/03/22 Recorded influenza [...] Refills, Maintenance, 11/20/20 13:29:00 EST, EC Tablet, [facility], Partial fill upon [...] 11/20/20 13:29:00 EST, Route to Pharmacy Electronically, [facility], Partial fill upon [...] 11/20/20 13:29:00 EST, Route to Pharmacy Electronically, [facility], 184, cm, 11/19/20 [...] Team Personnel Name: Ezio Aguayo MD Position: [facility] Renal MD Member Role: Lifetime Consulting Physician Address: Address: [address] [place] [address], [address] [place] [address]- Name: Cecelia Trotter RN Position: [facility] RN Member Role: Primary Care Nurse Name: Alice Hwang RN Position: [facility] SN RN Member Role: Primary Care Nurse Name: Libra Sullivan RN Position: [facility] RN Member Role: Primary Care Nurse Name: Marleny Cantrell RN Position: [facility] RN Member Role: Primary Care Nurse Name: Stephanie Chaudhari NP Position: [facility] Office Staff Member Role: PCP Address: Address: [address] [place] [address] [address] [place] [address]- Name: Yamila Corley RN Position: [facility] RN Member Role: Primary Care Nurse Name: Benji Ellison RN Position: [facility] RN Member Role: Primary Care Nurse Name: Chitra Gonzalez RN Position: [facility] RN Member Role: Primary Care Nurse Name: Scarlet Mayo RN Position: [facility] RN Member Role: Primary Care Nurse Name: Nadya Gee RN Position: [facility] RN Member Role: Primary Care Nurse Name: Deisi Reid RN Position: [facility] RN Member Role: Primary Care Nurse Name: Nickolas Blevins MD Position: [facility] Renal MD Member Role: Lifetime Consulting Physician Address: Address: [address] [place] [address] [address] [facility] [place] [address]- Name: Isha Metzger RN Position: [facility] RN Member Role: Primary Care Nurse Name: Malathi Reardon RN Position: [facility] SN RN Member Role: Primary Care Nurse Name: Ean De La Rosa MD Position: [facility] Renal MD Member Role: Lifetime Consulting Physician Address: Address: [address] [place] [address] [facility] [place] [address]- Care Team Related Persons Name: HALLEY SHELBY Address: home [place] [address] Name: MAC FUENTES Address: home [address] [place] [address]
--- OUTSIDE RECORDS SUMMARY | 2023-01-28 18:39 | XMS_ITS | Continuity of Care Document ---
Author Name Unknown Organization [facility] Address [address] [place] [address]- Care Team Providers Care Conveyor System Operator Name Role Phone Fara ANNE, Stephanie Primary Care Physician Encounter [facility] Date(s): 12/29/20 - 04/28/21 [facility] [address] [place] [address]- Attending Physician: Rolando Malhotra MD Referring Physician: Astrid ANNE, Fiorella Marcos Allergies, Adverse Reactions, Alerts Substance Reaction Severity [...] 11/20/20 13:32:00 EST, Route to Pharmacy Electronically, [facility], Partial fill upon patient request if the prescription is for a schedule II opioid d... Start Date: 11/20/20 Status: Ordered aspirin 81 mg oral delayed release tablet = 81 mg, By Mouth, Daily, # 30 tablet, 0 Refills, Maintenance, 11/20/20 13:29:00 EST, EC Tablet, [facility], Partial fill upon [...] 11/20/20 13:29:00 EST, Route to Pharmacy Electronically, [facility], Partial fill upon [...] 11/20/20 13:33:00 EST, Route to Pharmacy Electronically, [facility], Partial fill upon patient request if the prescription is for a schedule II... Start Date: 11/20/20 Stop Date: 12/20/20 Status: Ordered isosorbide mononitrate 30 mg oral tablet, extended release 30 mg, 1, tablet, By Mouth, Daily, # 30 tablet, Refills 0, Tot. Refills 0, Maintenance, 11/20/20 13:31:00 EST, Route to Pharmacy Electronically, [facility], 184, cm, 11/19/20 8:51:00 EST, Height, 81.4, kg, 11/09/20 6:43:00 EST, Dry Weight Start Date: 11/20/20 Stop Date: 12/20/20 Status: Ordered Nitroglycerin 0.4mg Sublingual Tablet See Instructions, Scheduled / PRN, 50 tablet, 5, 5, 05/12/06 20:26:33, chest pain, 1 tab under tongue every 5 minutes as needed for chest pain., Print CINDI Number, [address] [place] [address] Start Date: 05/12/06 Status: Ordered Novolin R [...] 11/20/20 13:29:00 EST, Route to Pharmacy Electronically, [facility], 184, cm, 11/19/20 [...]
--- OUTSIDE RECORDS SUMMARY | 2023-01-28 18:39 | XMS_ITS | Continuity of Care Document ---
Author Name Unknown Organization [facility] Address [address] [place] [address]- Care Team Providers Care Lens Grinder Name Role Phone Floyd Hutson MD Primary Care Physician Encounter [facility] Date(s): 02/28/20 - 05/16/20 [facility] [address] [place] [address]- [facility] Attending Physician: Jani Barragan MD Admitting Physician: [...] 01/23/19 14:42:30 EDT, Route to Pharmacy Electronically, [id number], [id number] Start Date: 01/23/19 Stop Date: 02/22/19 Status: [...] 1 Refills, Maintenance, 01/11/20 12:07:00 EDT, Tablet, [facility], 183, cm, 01/11/20 3:11:00 [...] needed for chest pain., Print CINDI Number, [address] [place] [address] Start Date: 05/12/06 Status: Ordered oxybutynin 10 [...] 01/11/20 12:05:00 EDT, Route to Pharmacy Electronically, [facility], 183, cm, 01/11/20 3:11:00 [...]
--- OUTSIDE RECORDS SUMMARY | 2023-01-28 18:39 | XMS_ITS | Continuity of Care Document ---
Author Name Unknown Organization [facility] Address [address] [place] [address]- Care Team Providers Care Substation Operator Conversion Name Role Phone Stephanie Chaudhari NP Primary Care Physician Encounter [facility] Date(s): 01/24/21 - 04/27/21 [facility] [address] [place] [id number] Attending Physician: Jani Barragan MD Admitting Physician: [...] 11/20/20 13:32:00 EST, Route to Pharmacy Electronically, [facility], Partial fill upon patient request if the prescription is for a schedule II opioid d... Start Date: 11/20/20 Status: Ordered aspirin 81 mg oral delayed release tablet = 81 mg, By Mouth, Daily, # 30 tablet, 0 Refills, Maintenance, 11/20/20 13:29:00 EST, EC Tablet, [facility], Partial fill upon [...] 11/20/20 13:29:00 EST, Route to Pharmacy Electronically, [facility], Partial fill upon [...] 11/20/20 13:33:00 EST, Route to Pharmacy Electronically, [facility], Partial fill upon patient request if the prescription is for a schedule II... Start Date: 11/20/20 Stop Date: 12/20/20 Status: Ordered isosorbide mononitrate 30 mg oral tablet, extended release 30 mg, 1, tablet, By Mouth, Daily, # 30 tablet, Refills 0, Tot. Refills 0, Maintenance, 11/20/20 13:31:00 EST, Route to Pharmacy Electronically, [facility], 184, cm, 11/19/20 8:51:00 EST, Height, 81.4, kg, 11/09/20 6:43:00 EST, Dry Weight Start Date: 11/20/20 Stop Date: 12/20/20 Status: Ordered Nitroglycerin 0.4mg Sublingual Tablet See Instructions, Scheduled / PRN, 50 tablet, 5, 5, 05/12/06 20:26:33, chest pain, 1 tab under tongue every 5 minutes as needed for chest pain., Print CINDI Number, [address] [place] [address] Start Date: 05/12/06 Status: Ordered Novolin R [...] 11/20/20 13:29:00 EST, Route to Pharmacy Electronically, [facility], 184, cm, 11/19/20 [...]
--- OUTSIDE RECORDS SUMMARY | 2023-01-28 18:39 | XMS_ITS | Continuity of Care Document ---
Author Name Unknown Organization [facility] Address [address] [place] [address]- Care Team Providers Care Industrial Engineering Technician Name Role Phone Haresh ANN, Floyd Primary Care Physician Encounter [facility] Date(s): 12/15/22 - 01/14/23 [facility] [address] [place] [id number]- Allergies, Adverse Reactions, Alerts Substance Reaction Severity Status oxycodone 1 Active amLODIPine Active 1Pt. states that he is unsure if allergy is active. Cannot recall reaction. Immunizations Given and Recorded Vaccine Date Status Refusal Reason [id number] 12y+ bivalent booster vax 09/03/22 Recorded influenza [...] Refills, Maintenance, 11/20/20 13:29:00 EST, EC Tablet, [facility], Partial fill upon patient [...] 11/20/20 13:29:00 EST, Route to Pharmacy Electronically, [facility], Partial fill upon patient [...] 9 Refills, Maintenance, 12/29/22 11:52:00 EST, Tablet, [facility], Partial fill upon patient request if the prescription is for a schedule II opioid drug., 183, cm, 12/29/22... Start Date: 12/29/22 Status: Ordered losartan 50 mg oral tablet 50 mg, 1, tablet, By Mouth, Daily, # 90 tablet, Refills 10, Tot. Refills 10, Maintenance, 12/29/22 11:53:00 EST, Route to Pharmacy Electronically, [facility], Partial fill uponpatient request [...] mL, 4 Refills, Maintenance, 12/16/22 9:40:00 EST, [facility], Partial fill upon [...] 11/20/20 13:29:00 EST, Route to Pharmacy Electronically, [facility], 184, cm, 11/19/20 8:51:00 [...] Personnel Name: Dede ANN, Ezio Matias Position: [facility] Renal MD Member Role: Lifetime Consulting Physician Address: Address: [address] [place] [address], [address] [place] [address]- Name: Cecelia Trotter RN Position: [facility] RN Member Role: Primary Care Nurse Name: Alice Hwang RN Position: [facility] RN Member Role: Primary Care Nurse Name: Libra Sullivan RN Position: [facility] RN Member Role: Primary Care Nurse Name: Marleny Cantrell RN Position: [facility] RN Member Role: Primary Care Nurse Name: Benji Ellison RN Position: [facility] RN Member Role: Primary Care Nurse Name: Chitra Gonzalez RN Position: [facility] RN Member Role: Primary Care Nurse Name: Scarlet Mayo RN Position: [facility] RN Member Role: Primary Care Nurse Name: Nadya Gee RN Position: [facility] RN Member Role: Primary Care Nurse Name: Floyd Hutson MD Position: [facility] Outreach Member Role: PCP Address: Address: [address] [place] [address] [address] [place] [address]- Name: Deisi Reid RN Position: [facility] RN Member Role: Primary Care Nurse Name: Nickolas Blevins MD Position: S Renal MD Member Role: Lifetime Consulting Physician Address: Address: [address] [place] [address] [facility] [place] [address]- Name: Isha Metzger RN Position: S RN Member Role: Primary Care Nurse Name: Malathi Reardon RN Position: [facility] SN RN Member Role: Primary Care Nurse Name: Ean De La Rosa MD Position: [facility] Renal MD Member Role: Lifetime Consulting Physician Address: Address: [address] [place] [address] [facility] [place] [address]- Care Team Related Persons Name: HALLEY SHELBY Address: [place] [address] Name: MAC FUENTES Address: home [address] [place] [address]
--- OUTSIDE RECORDS SUMMARY | 2023-01-28 18:39 | XMS_ITS | Continuity of Care Document ---
Author Name Unknown Organization [facility] Address [address] [place] [address]- Care Team Providers Care Art Appraiser Name Role Phone Stephanie Chaudhari NP Primary Care Physician Encounter [facility] Date(s): 12/01/22 - 12/31/22 [facility] [address] [place] [address]- Allergies, Adverse Reactions, Alerts Substance Reaction Severity Status oxycodone 1 Active amLODIPine Active 1Pt. states that he is unsure if allergy is active. Cannot recall reaction. Immunizations Given and Recorded Vaccine Date Status Refusal Reason [id number] 12y+ bivalent booster vax 09/03/22 Recorded influenza [...] Refills, Maintenance, 11/20/20 13:29:00 EST, EC Tablet, [facility], Partial fill upon [...] 11/20/20 13:29:00 EST, Route to Pharmacy Electronically, [facility], Partial fill upon [...] 9 Refills, Maintenance, 12/29/22 11:52:00 EST, Tablet, [facility], Partial fill upon patient request if the prescription is for a schedule II opioid drug., 183, cm, 12/29/22... Start Date: 12/29/22 Status: Ordered losartan 50 mg oral tablet 50 mg, 1, tablet, By Mouth, Daily, # 90 tablet, Refills 10, Tot. Refills 10, Maintenance, 12/29/22 11:53:00 EST, Route to Pharmacy Electronically, [facility], Partial fill [...] mL, 4 Refills, Maintenance, 12/16/22 9:40:00 EST, [facility], Partial fill [...] 11/20/20 13:29:00 EST, Route to Pharmacy Electronically, [facility], 184, cm, 11/19/20 [...] Team Personnel Name: Ezio Aguayo MD Position: [facility] Renal MD Member Role: Lifetime Consulting Physician Address: Address: [address] [place] [address], [address] [place] [address]- Name: Cecelia Trotter RN Position: [facility] RN Member Role: Primary Care Nurse Name: Alice Hwang RN Position: [facility] SN RN Member Role: Primary Care Nurse Name: Libra Sullivan RN Position: [facility] RN Member Role: Primary Care Nurse Name: Marleny Cantrell RN Position: [facility] RN Member Role: Primary Care Nurse Name: Stephanie Chaudhari NP Position: [facility] Office Staff Member Role: PCP Address: Address: [address] [place] [address] [address] [place] [address]- Name: Benji Ellison RN Position: [facility] RN Member Role: Primary Care Nurse Name: Chitra Gonzalez RN Position: [facility] RN Member Role: Primary Care Nurse Name: Scarlet Mayo RN Position: [facility] RN Member Role: Primary Care Nurse Name: Nadya Gee RN Position: [facility] RN Member Role: Primary Care Nurse Name: Deisi Reid RN Position: [facility] RN Member Role: Primary Care Nurse Name: Nickolas Blevins MD Position: [facility] Renal MD Member Role: Lifetime Consulting Physician Address: Address: [address] [place] [address] [address] [facility] [place] [address]- Name: Isha Metzger RN Position: S RN Member Role: Primary Care Nurse Name: Malathi Reardon RN Position: [facility] RN Member Role: Primary Care Nurse Name: Ean De La Rosa MD Position: [facility] Renal MD Member Role: Lifetime Consulting Physician Address: Address: [address] [place] [address] [facility] [address] Care Team Related Persons Name: HALLEY SHELBY Address: [place] [address] Name: MAC FUENTES Address: [address] [address]
--- OUTSIDE RECORDS SUMMARY | 2023-01-28 18:39 | XMS_ITS | Continuity of Care Document ---
Author Name Unknown Organization [facility] Address [address] [place] [address]- Care Team Providers Care Child Care Supervisor Name Role Phone Floyd Hutson MD Primary Care Physician [id number] Date(s): 07/30/20 - 08/29/[address] [address]- [facility] Attending Physician: AdmHarrison [email or web address] Admitting Physician: Admtr, Ar8 Referring Physician: Admtr, Ar8 Allergies, Adverse Reactions, [...] 01/23/19 14:42:30 EDT, Route to Pharmacy Electronically, [id number], [id number] Start Date: 01/23/19 Stop Date: 02/22/19 Status: [...] 1 Refills, Maintenance, 01/11/20 12:07:00 EDT, Tablet, [facility], 183, cm, 01/11/20 3:11:00 [...] for chest pain., Print CINDI Number, [address] [place] [address] Start Date: 05/12/06 Status: Ordered oxybutynin 10 [...] 01/11/20 12:05:00 EDT, Route to Pharmacy Electronically, [facility], 183, cm, 01/11/20 3:11:00 [...]
--- OUTSIDE RECORDS SUMMARY | 2023-01-28 18:39 | XMS_ITS | Continuity of Care Document ---
Author Name Unknown Organization [facility] Address [address] [place] [address]- Care Team Providers Care Production Support Manager Name Role Phone Stephanie Chaudhari NP Primary Care Physician [phone] Encounter [facility] Date(s): 10/10/22 - 11/09/22 [facility] [address] [place] [address] Allergies, Adverse Reactions, Alerts Substance [...] Refills, Maintenance, 11/20/20 13:29:00 EST, EC Tablet, [facility], Partial fill upon [...] 11/20/20 13:29:00 EST, Route to Pharmacy Electronically, [facility], Partial fill upon [...] 11/20/20 13:29:00 EST, Route to Pharmacy Electronically, [facility], 184, cm, 11/19/20 [...] Team Personnel Name: Ezio Aguayo MD Position: [facility] Renal MD Member Role: Lifetime Consulting Physician Address: Address: [address] [place] [address], [address] [place] [address]- Name: Cecelia Trotter RN Position: S RN Member Role: Primary Care Nurse Name: Alice Hwang RN Position: [facility] SN RN Member Role: Primary Care Nurse Name: Libra Sullivan RN Position: S RN Member Role: Primary Care Nurse Name: Marleny Cantrell RN Position: S RN Member Role: Primary Care Nurse Name: Stephanie Chaudhari NP Position: [facility] Office Staff Member Role: PCP Address: Address: [address] [place] [address] [address] [place] [address]- Name: Yamila Corley RN Position: S RN [...] Care Nurse Name: Nickolas Blevins MD Position: [facility] Renal MD Member Role: Lifetime Consulting Physician Address: Address: [address] [place] [address] [address] [facility] [place] [address]- Name: Isha Metzger RN Position: S RN Member Role: Primary Care Nurse Name: Malathi Reardon RN Position: [facility] SN RN Member Role: Primary Care Nurse Name: Ean De La Rosa MD Position: [facility] Renal MD Member Role: Lifetime Consulting Physician Address: Address: [address] [place] [address] [facility] [place] [address]- [place] Care Team Related Persons Name: HALLEY SHELBY Address: home [place]KNOWN [address] Name: MAC FUENTES Address: [address] [place] [address]
[2023-01-28 20:45] VITALS: BP 175/81; PULSE 60; RESP 17; TEMP 36.8; O2SAT 97
[2023-01-28] MEDS: Atorvastatin Calcium 80 MG TABLET PO (21:38)
[2023-01-28] MEDS: carvediloL 25 MG TABLET PO (21:38)
[2023-01-28] MEDS: hydrALAZINE HCl 25 MG TABLET PO (21:38)
[2023-01-28 21:40] VITALS: BP 190/77; PULSE 66; RESP 20
[2023-01-28 21:45] LABS: Glucose, Whole Blood 256 mg/dL (60-115)
[2023-01-28] MEDS: Insulin Lispro 100 UNIT/ML 3 ML VIAL SUBCUT (22:04)
--- NOTE | 2023-01-28 22:27 | PC.ADMIT ---
Pt is an 83yo male who was brought to [facility] ED after an outburst at home where he smashed a vase with his cane breaking it. His cut her hand requiring stitches, this happened accidentally as she was picking it up per . According to pt received a dx of vascular dementia ~1.5yrs ago. She reports he has recently been more agitated and easily frustrated, especially since family stopped allowing him to drive. Per pt ambulates at home with a cane and supervision, he wears a lower leg brace to right leg. Upon arrival to unit he was a 2 person max assist to transfer to , later in shift he was able to bed transferred to bed via alessandra-stedy without issue. He has a PMH if CAD, CDHF, BPH CVA, HTN, stg3 CKD, and DM2 with long-term use of insulin. Pt is extremely [place] and per report hearing aides are at home and broken. Pt signed CV and CRAMEL for . He initially declined HS meds but eventually took, he also allowed POC and sliding scale coverage. Pt was oriented to room and unit. Plan of care and Q5min safety checks initiated, pt bed alarm is on.
[2023-01-28 23:00] VITALS: BP 140/76; PULSE 65
[2023-01-29 05:13] VITALS: BMI 27.5
[2023-01-29 06:00] VITALS: BP 178/75; PULSE 62; RESP 16; TEMP 36.4; O2SAT 98
[2023-01-29 07:54] LABS: Glucose, Whole Blood 93 mg/dL (60-115)
[2023-01-29 08:48] LABS: Cholesterol 127 mg/dL; HDL Cholesterol 26 mg/dL; LDL Cholesterol Calculated 73 mg/dl; Triglycerides 141 mg/dL
[2023-01-29] MEDS: oxyBUTYnin chloride ER 5 MG TAB.ER.24 10 MG PO (08:58)
[2023-01-29] MEDS: Clopidogrel Bisulfate 75 MG TABLET PO (08:59)
[2023-01-29] MEDS: Furosemide 40 MG TABLET PO (08:59)
[2023-01-29] MEDS: carvediloL 25 MG TABLET PO ×2 (08:59→20:26)
[2023-01-29] MEDS: Losartan Potassium 50 MG TABLET PO (08:59)
[2023-01-29] MEDS: hydrALAZINE HCl 25 MG TABLET PO ×3 (08:59→20:26)
[2023-01-29] MEDS: Sertraline HCL 100 MG TABLET PO (08:59)
[2023-01-29] MEDS: Memantine HCl 5 MG TABLET PO (08:59)
--- NOTE | 2023-01-29 11:17 | P.CONHOSP_ITS ---
History of Present Illness Data of Consult Service Date: 01/29/23 Primary Care Provider: Floyd Hutson MD [facility] Reason for consult: Admission H&P Pt is an 83-year-old male with a PMH significant for dementia, HLD, CAD, diabtes, HTN, and CKD who is admitted to [facility] for increasing agitation and aggressive behavior. Medical consult for admission H&P. Patient has no acute medical concerns at this time. Complaints of chronic left foot soreness at night which he attributes to diabetic neuropathy. Patient has a history of total knee arthroplasty bilateral, and left hip replacement. Patient also notes that he is seen by visiting nurses twice a week from [facility] for unsteadiness on his feet. Patient ambulates with a walker. Patient also has a foot brace on his right foot and lower leg. Patient states he has drop foot as a result of a complication from his right knee arthroplasty. Patient denies chest pain/pressure, palpitations. No shortness of breath. Fever, chills, nausea, vomiting, diarrhea. No abdominal pain. Labs reviewed, initial POC high, repeat WNL. Vitals reviewed, pt slightly hypertensive. Review of Systems Review of Systems: Chronic left foot soreness at night Patient denies any acute complaints at this time [facility] Functional capacity: uses cane/walker Surgical History History of arthroplasty of left knee History of arthroplasty of right knee Social History Household Members: Spouse Housing: House Do you presently have visiting nurse or other home services: No Patient Tobacco Use Status: Former Tobacco user Tobacco use type: Cigarette Smoked in Last 30 Days: No e-Cigarette/Vaping Use: Never Used Patient Interested in Nicotine Replacement: No Patient Given Instructions on How to Stop Smoking: No Second Hand Smoke Exposure: No Use of substances other than those prescribed or required for medical reasons: No Currently Displaying Signs/Symptoms of Drug Intoxication Withdrawal: No Any prior treatment program specific to substance use: No Advance Directives: No Advance Directives Information Provided: No Do you have thoughts of harming others: None Do you have a plan to hurt others: No Plan Recently lost weight without trying: Unsure Nutrition Risks: No Nutritional Risk Poor oral hygiene: No service: No Sexual orientation: Straight/Heterosexual Meds Allergies Allergy/AdvReac Type Severity Reaction Status Date / Time amlodipine Allergy Unknown Unknown Verified 01/28/23 18:56 oxycodone Allergy Unknown Unknown Verified 01/28/23 18:56 Active Medications: Current Medications Acetaminophen (Acetaminophen 325 Mg Tablet) 650 mg PO Q6H PRN PRN Reason: Headache/Pain Mild Scale (1-3) Al Hydroxide/Mg Hydroxide (Magnesium Hydrox/Alum Hydrox 30 Ml Oral.Susp) 30 ml PO Q6H PRN PRN Reason: Heartburn/Nausea Atorvastatin Calcium (Atorvastatin Calcium 80 Mg Tablet) 80 mg PO BEDTIME [facility] Last Admin: 01/28/23 21:38 Dose: 80 mg Carvedilol (Carvedilol 25 Mg Tablet) 25 mg PO BID [facility]; Protocol Last Admin: 01/29/23 08:59 Dose: 25 mg Clopidogrel Bisulfate (Clopidogrel Bisulfate 75 Mg Tablet) 75 mg PO DAILY [facility] Last Admin: 01/29/23 08:59 Dose: 75 mg Furosemide (Furosemide 40 Mg Tablet) 40 mg PO DAILY [facility]; Protocol Last Admin: 01/29/23 08:59 Dose: 40 mg Glucose (Glucose Gel 15 Gm Gel..Gram.) 15 gm PO Q15M PRN; Protocol PRN Reason: per Hypoglycemia Standing Ord. Hydralazine HCl (Hydralazine Hcl 25 Mg Tablet) 25 mg PO TID [facility]; Protocol Last Admin: 01/29/23 08:59 Dose: 25 mg Dextrose (D10) 250 mls @ 750 mls/hr IV Q15M PRN; Protocol PRN Reason: per Hypoglycemia Standing Ord. Insulin Human Lispro (Insulin Lispro 100 Unit/Ml 3 Ml Vial) 0 unit SUBCUT QIDACHS [facility]; Protocol Last Admin: 01/29/23 09:00 Dose: Not Given Losartan Potassium (Losartan Potassium 50 Mg Tablet) 50 mg PO DAILY [facility]; Protocol Last Admin: 01/29/23 08:59 Dose: 50 mg Magnesium Hydroxide (Milk Of Magnesia 30 Ml Oral.Susp) 30 ml PO DAILY PRN PRN Reason: Constipation Memantine (Memantine Hcl 5 Mg Tablet) 5 mg PO DAILY [facility] Last Admin: 01/29/23 08:59 Dose: 5 mg Oxybutynin Chloride (Oxybutynin Chloride Er 5 Mg Tab.Er.24) 10 mg PO DAILY [facility] Last Admin: 01/29/23 08:58 Dose: 10 mg Sertraline HCl (Sertraline Hcl 100 Mg Tablet) 100 mg PO DAILY [facility] Last Admin: 01/29/23 08:59 Dose: 100 mg Home Medications Medication Instructions Recorded Confirmed Last Taken Type atorvastatin 80 mg tablet 80 mg PO BEDTIME 01/28/23 01/28/23 Unknown History carvedilol 25 mg tablet 25 mg PO BID 01/28/23 01/28/23 Unknown History clopidogrel 75 mg tablet 75 mg PO DAILY 01/28/23 01/28/23 Unknown History furosemide 40 mg tablet 40 mg PO DAILY 01/28/23 01/28/23 Unknown History hydralazine 25 mg tablet 25 mg PO TID 01/28/23 Unknown History hydralazine 25 mg tablet 25 mg PO TID 01/28/23 01/28/23 Unknown History losartan 50 mg tablet 50 mg PO DAILY 01/28/23 01/28/23 Unknown History memantine 5 mg tablet 5 mg PO DAILY 01/28/23 01/28/23 Unknown History oxybutynin chloride 10 mg 10 mg PO DAILY 01/28/23 01/28/23 Unknown History tablet,extended release 24 hr sertraline 100 mg tablet 100 mg PO DAILY 01/28/23 01/28/23 Unknown History Physical Exam Vital Signs and Narrative: Vital Signs: Last Vital Signs Temp 97.6 F 01/29/23 06:00 Pulse 62 01/29/23 06:00 Resp 16 01/29/23 06:00 BP 178/75 H 01/29/23 06:00 Pulse Ox 98 01/29/23 06:00 O2 Del Method Room Air 01/29/23 06:00 BMI result Body Mass Index 27.5 General: AOx3, no acute distress Resp: CTA bilaterally CVS: S1, S2, RRR GI: +BS, NT, no distention Skin: No rash Neuro: Cranial nerves II-XII grossly intact bilaterally. Upper motor grossly intact bilaterally. Lower left motor grossly intact. Right foot brace in place. Pt incapable of right doriflexion or plantar flexion. Extremities: No edema Psych: Appropriate affect Results Labs Labs: Laboratory Results - last 24 hr 01/28/23 01/29/23 01/29/23 21:41 07:48 08:13 POC Glucose 256 H 93 Triglycerides 141 Cholesterol 127 LDL Cholesterol, Calc 73 HDL Cholesterol 26 Assessment and Plan (1) Routine history and physical examination of adult: Status: Acute Plan Pt is an 83-year-old male with a PMH significant for dementia, HLD, CAD, diabtes, HTN, and CKD who is admitted to [facility] for increasing agitation and aggressive behavior. Medical consult for admission H&P. Patient has no acute medical concerns at this time. Mood disorder Plan as per psychiatry Chronic left foot pain at night Has been ongoing for years Pt ascribes to diabetic neuropathy Acetaminophen for pain Diabetes SSI Right drop foot palsy Wear right foot brace Use walker to ambulate HTN Continue home meds HLD Continue home meds CAD Continue home meds Thank you for allowing us to participate in the care of this patient. Signing off at this time. Please let us know if there is are any acute complaints or questions. Time Spent With Patient Time: Total time managing care of this patient today ____ minutes.
[2023-01-29] MEDS: Insulin Lispro 100 UNIT/ML 3 ML VIAL SUBCUT ×3 (11:33→20:57)
[2023-01-29 11:39] LABS: Glucose, Whole Blood 383 mg/dL (60-115)
--- NOTE | 2023-01-29 14:05 | P.HPPS_ITS ---
HPI Date of Service: 01/29/23 Chief Complaint: F32.20 Sources of Information: patient interviewed, chart reviewed and crisis/core team assessment reviewed HPI Subjective Notes: Tam Warning and Conditional Voluntary Narrative: The patient is an 83-year-old male, , living with his , retired, with good social support with the previous diagnosis of vascular dementia for the last 18 months. According to the crisis assessment the patient had been more agitated after his driving license was taken. The night of the admission to the emergency room, according to the crisis team, he got very angry and got engaged into a verbal altercation with his and eventually he broke a vase with his cane and his got scared and called 911. He was rushed to the emergency room, says by crisis and transferring to this facility for psychiatric stabilization. According to staff members, last night the patient was able to take his medications and he was common cooperative, confused but easily redirectable. On interview the patient minimized the event, he was unable to recall all the facts that led him into the facility and he adamantly denies suicidal ideation, missile ideation or psychotic symptoms. Past Psychiatric History: Denies Medical Evaluation Reviewed: Yes [facility] Surgical History History of arthroplasty of left knee History of arthroplasty of right knee Family History: Denies Social History: The patient was born and raised in [place], he had to [facility] he was raised by his parents and he had a good childhood. He finished high school and attended 1 year of college. 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 He was and have children and eventually divorce. His current is his 2nd . Currently he is living with his with good social support. Substance History: Denies Trauma History: Denies Diagnostics Vital Signs (24Hr): Vital Signs - 24 hr 01/28/23 21:40 01/28/23 20:45 01/28/23 23:00 Temperature 98.2 F Pulse Rate 66 60 65 Respiratory Rate 20 17 Blood Pressure 190/77 H 175/81 H 140/76 H Pulse Oximetry 97 Oxygen Delivery Method Room Air 01/29/23 06:00 Temperature 97.6 F Pulse Rate 62 Respiratory Rate 16 Blood Pressure 178/75 H Pulse Oximetry 98 Oxygen Delivery Method Room Air BMI result Body Mass Index 27.5 Labs Labs: Laboratory Results - last 48 hr 01/28/23 01/29/23 01/29/23 21:41 07:48 08:13 POC Glucose 256 H 93 Triglycerides 141 Cholesterol 127 LDL Cholesterol, Calc 73 HDL Cholesterol 01/29/23 11:27 POC Glucose 383 H* Triglycerides Cholesterol LDL Cholesterol, Calc HDL Cholesterol Meds/Allergies Meds Home Medications Medication Instructions Recorded Confirmed Type atorvastatin 80 mg tablet 80 mg PO BEDTIME 01/28/23 01/28/23 History carvedilol 25 mg tablet 25 mg PO BID 01/28/23 01/28/23 History clopidogrel 75 mg tablet 75 mg PO DAILY 01/28/23 01/28/23 History furosemide 40 mg tablet 40 mg PO DAILY 01/28/23 01/28/23 History hydralazine 25 mg tablet 25 mg PO TID 01/28/23 History hydralazine 25 mg tablet 25 mg PO TID 01/28/23 01/28/23 History losartan 50 mg tablet 50 mg PO DAILY 01/28/23 01/28/23 History memantine 5 mg tablet 5 mg PO DAILY 01/28/23 01/28/23 History oxybutynin chloride 10 mg 10 mg PO DAILY 01/28/23 01/28/23 History tablet,extended release 24 hr sertraline 100 mg tablet 100 mg PO DAILY 01/28/23 01/28/23 History Allergies Allergies Allergy/AdvReac Type Severity Reaction Status Date / Time amlodipine Allergy Unknown Unknown Verified 01/28/23 18:56 oxycodone Allergy Unknown Unknown Verified 01/28/23 18:56 Mental Status Exam Mental Status Exam Patient Appearance: Appropriate Patient Orientation: Person and Situation Level of Consciousness: Awake and Appropriate Patient Behavior: Guarded and Passive Mood Description: Withdrawn Affect Description: Constricted Patient Cognition Impaired: Yes Ability to Follow Directions: Good Speech Pattern: Clear Hallucinations: None Delusions: Not Present Thought Process: Illogical, Distracted and Slowed Thinking Thought Content: positive for [place] and positive for Circumstantial Judgement: Poor Assessment & Plan Assessment & Plan (1) Dementia: Status: Acute Code(s): F03.90 - Unspecified dementia, unspecified severity, without behavioral disturbance, psychotic disturbance, mood disturbance, and anxiety (2) Mood disorder: Status: Acute Code(s): F39 - Unspecified mood [affective] disorder Plan The patient is an elderly male with a long history of vascular dementia admitted for increased agitation in the context of losing his driving license and stressors. He was workout at [facility] and there is no evidence of active medical problems. Plan 1. Gather collateral information. 2. Continue with regular medications, the patient had past history of arthroplasty and other surgical, we will follow the recommendations of Medicine. 3. Continue with medical workout. Patient educated on: diagnosis, therapeutic strategies and medical condition Reason for continued inpatient stay Substantial Risk for: harm to self, harm to others, inability to function, rapid decompensation and med/psych decompensation Statement Statement: I have reviewed the history and physical and performed a pertinent examination on my patient. No changes have occurred unless specified. If the History and Physical was not performed prior to admission, the Hospitalist's service will be consulted for completing the admission physical. Time Spent With Patient Time: Total time managing care of this patient today ____ minutes.
[2023-01-29 14:45] VITALS: BP 171/72; PULSE 61
[2023-01-29 16:37] LABS: Glucose, Whole Blood 159 mg/dL (60-115)
--- NOTE | 2023-01-29 17:18 | PC.NURSE ---
Pt was visible through out the shift, taking short naps during the day. Pt's POC was 383 at 1130, pt given 12 ux of coverage a/o. MD notified with no change at this time. Pt displayed no s/sx of hypo/hyperglycemia.
[2023-01-29 18:00] VITALS: BP 169/94; PULSE 60; RESP 17; TEMP 36.2; O2SAT 96
[2023-01-29] MEDS: Atorvastatin Calcium 80 MG TABLET PO (20:26)
[2023-01-29 20:52] LABS: Glucose, Whole Blood 239 mg/dL (60-115)
[2023-01-30 08:00] LABS: Glucose, Whole Blood 141 mg/dL (60-115)
[2023-01-30 08:15] VITALS: BP 162/74; PULSE 62; RESP 16; TEMP 36.6; O2SAT 96
[2023-01-30] MEDS: oxyBUTYnin chloride ER 5 MG TAB.ER.24 10 MG PO (08:25)
[2023-01-30] MEDS: Furosemide 40 MG TABLET PO (08:26)
[2023-01-30] MEDS: Sertraline HCL 100 MG TABLET PO (08:26)
[2023-01-30] MEDS: Memantine HCl 5 MG TABLET PO (08:27)
[2023-01-30] MEDS: Clopidogrel Bisulfate 75 MG TABLET PO (08:27)
[2023-01-30] MEDS: carvediloL 25 MG TABLET PO ×2 (08:27→20:16)
[2023-01-30] MEDS: Losartan Potassium 50 MG TABLET PO (08:27)
[2023-01-30] MEDS: hydrALAZINE HCl 25 MG TABLET PO ×3 (08:27→20:17)
[2023-01-30] MEDS: Insulin Lispro 100 UNIT/ML 3 ML VIAL SUBCUT ×2 (11:31→20:38)
[2023-01-30 11:40] LABS: Glucose, Whole Blood 481 mg/dL (60-115)
--- NOTE | 2023-01-30 12:17 | PC.NURSE ---
POC blood sugar 481 at 1111. Gabrielle Braun, hospitalist, informed of blood sugar with 12 units Humalog coverage at 1122. Questioned as to whether additional coverage needed to 12 units Humalog. No new orders received.
[2023-01-30 14:13] VITALS: BP 120/56; PULSE 60
--- NOTE | 2023-01-30 14:16 | P.PNPSI_ITS ---
Subjective Subjective Date of Service: 01/30/23 Reason For Visit: F32.20 Subjective Notes: Conditional Voluntary Interim History: The nursing staff reported that the patient slept 8 hours, he had been incontinent. The staff has noticed that he has been doing well and he had been ambulatory. He had been asking why he has been here. On interview the patient looks confused but easily redirectable. He wanted to go back with his to buy stuff for FIGS . We will have a family meeting pretty soon. Mental Status Exam Mental Status Exam Patient Appearance: Appropriate Patient Orientation: Person Level of Consciousness: Disoriented and Restless Patient Behavior: Guarded and Passive Mood Description: Withdrawn Affect Description: Constricted Patient Cognition Impaired: Yes Ability to Follow Directions: Good Speech Pattern: Clear Hallucinations: None Delusions: Paranoid Ideation Thought Process: Distracted and Slowed Thinking Thought Content: positive for [place] and positive for Linear Judgement: Poor Diagnostics Vital Signs (24Hr): Vital Signs - 24 hr 01/29/23 14:45 01/29/23 18:00 01/30/23 08:15 Temperature 97.2 F 97.9 F Pulse Rate 61 60 62 Respiratory Rate 17 16 Blood Pressure 171/72 H 169/94 H 162/74 H Pulse Oximetry 96 96 Oxygen Delivery Method Room Air Room Air 01/30/23 14:13 Temperature Pulse Rate 60 Respiratory Rate Blood Pressure 120/56 L Pulse Oximetry Oxygen Delivery Method BMI result Body Mass Index 27.5 Labs Labs: Laboratory Results - last 48 hr 01/28/23 01/29/23 01/29/23 21:41 07:48 08:13 POC Glucose 256 H 93 Triglycerides 141 Cholesterol 127 LDL Cholesterol, Calc 73 HDL Cholesterol 26 01/29/23 01/29/23 01/29/23 11:27 16:33 20:48 POC Glucose 383 H* 159 H 239 H Triglycerides Cholesterol LDL Cholesterol, Calc HDL Cholesterol 01/30/23 01/30/23 07:47 11:11 POC Glucose 141 H 481 H* Triglycerides Cholesterol LDL Cholesterol, Calc HDL Cholesterol Medications Medications Current Medications Acetaminophen (Acetaminophen 325 Mg Tablet) 650 mg PO Q6H PRN PRN Reason: Headache/Pain Mild Scale (1-3) Al Hydroxide/Mg Hydroxide (Magnesium Hydrox/Alum Hydrox 30 Ml Oral.Susp) 30 ml PO Q6H PRN PRN Reason: Heartburn/Nausea Atorvastatin Calcium (Atorvastatin Calcium 80 Mg Tablet) 80 mg PO BEDTIME [facility] Last Admin: 01/29/23 20:26 Dose: 80 mg Carvedilol (Carvedilol 25 Mg Tablet) 25 mg PO BID [facility]; Protocol Last Admin: 01/30/23 08:27 Dose: 25 mg Clopidogrel Bisulfate (Clopidogrel Bisulfate 75 Mg Tablet) 75 mg PO DAILY [facility] Last Admin: 01/30/23 08:27 Dose: 75 mg Furosemide (Furosemide 40 Mg Tablet) 40 mg PO DAILY [facility]; Protocol Last Admin: 01/30/23 08:26 Dose: 40 mg Glucose (Glucose Gel 15 Gm Gel..Gram.) 15 gm PO Q15M PRN; Protocol PRN Reason: per Hypoglycemia Standing Ord. Hydralazine HCl (Hydralazine Hcl 25 Mg Tablet) 25 mg PO TID [facility]; Protocol Last Admin: 01/30/23 08:27 Dose: 25 mg Dextrose (D10) 250 mls @ 750 mls/hr IV Q15M PRN; Protocol PRN Reason: per Hypoglycemia Standing Ord. Insulin Human Lispro (Insulin Lispro 100 Unit/Ml 3 Ml Vial) 0 unit SUBCUT QIDACHS [facility]; Protocol Last Admin: 01/30/23 11:31 Dose: 12 unit Losartan Potassium (Losartan Potassium 50 Mg Tablet) 50 mg PO DAILY [facility]; Protocol Last Admin: 01/30/23 08:27 Dose: 50 mg Magnesium Hydroxide (Milk Of Magnesia 30 Ml Oral.Susp) 30 ml PO DAILY PRN PRN Reason: Constipation Memantine (Memantine Hcl 5 Mg Tablet) 5 mg PO DAILY [facility] Last Admin: 01/30/23 08:27 Dose: 5 mg Oxybutynin Chloride (Oxybutynin Chloride Er 5 Mg Tab.Er.24) 10 mg PO DAILY [facility] Last Admin: 01/30/23 08:25 Dose: 10 mg Sertraline HCl (Sertraline Hcl 100 Mg Tablet) 100 mg PO DAILY [facility] Last Admin: 01/30/23 08:26 Dose: 100 mg Allergies Allergies Allergy/AdvReac Type Severity Reaction Status Date / Time amlodipine Allergy Unknown Unknown Verified 01/28/23 18:56 oxycodone Allergy Unknown Unknown Verified 01/28/23 18:56 Assessment & Plan Assessment & Plan (1) Dementia: Status: Acute Code(s): F03.90 - Unspecified dementia, unspecified severity, without behavioral disturbance, psychotic disturbance, mood disturbance, and anxiety (2) Mood disorder: Status: Acute Code(s): F39 - Unspecified mood [affective] disorder Plan The patient is an elderly male with a long history of vascular dementia admitted for increased agitation in the context of losing his driving license and stressors. He was workout at [facility] and there is no evidence of active medical problems. Plan 1. Gather collateral information. 2. Continue with regular medications, the patient had past history of arthroplasty and other surgical, we will follow the recommendations of Medicine. 3. Continue with medical workout. Reason for contiued inpatient stay Substantial Risk for: inability to function, rapid decompensation and med/psych decompensation Time Spent With Patient Time: Total time managing care of this patient today __20__ minutes.
[2023-01-30 16:10] LABS: Glucose, Whole Blood 136 mg/dL (60-115)
[2023-01-30 20:15] VITALS: BP 132/78; PULSE 64; TEMP 36.7; O2SAT 97
[2023-01-30] MEDS: Atorvastatin Calcium 80 MG TABLET PO (20:16)
[2023-01-30 20:31] LABS: Glucose, Whole Blood 185 mg/dL (60-115)
[2023-01-31 06:00] VITALS: BP 168/70; PULSE 64; RESP 18; TEMP 36.6; O2SAT 95
[2023-01-31 08:24] LABS: Glucose, Whole Blood 144 mg/dL (60-115)
[2023-01-31] MEDS: Clopidogrel Bisulfate 75 MG TABLET PO (09:09)
[2023-01-31] MEDS: Furosemide 40 MG TABLET PO (09:09)
[2023-01-31] MEDS: Losartan Potassium 50 MG TABLET PO (09:09)
[2023-01-31] MEDS: Sertraline HCL 100 MG TABLET PO (09:09)
[2023-01-31] MEDS: carvediloL 25 MG TABLET PO ×2 (09:09→20:03)
[2023-01-31] MEDS: hydrALAZINE HCl 25 MG TABLET PO ×3 (09:09→20:03)
[2023-01-31] MEDS: Memantine HCl 5 MG TABLET PO (09:09)
[2023-01-31] MEDS: oxyBUTYnin chloride ER 5 MG TAB.ER.24 10 MG PO (09:10)
[2023-01-31] MEDS: Insulin Lispro 100 UNIT/ML 3 ML VIAL SUBCUT ×2 (11:28→16:19)
[2023-01-31 11:34] LABS: Glucose, Whole Blood 297 mg/dL (60-115)
[2023-01-31 15:10] VITALS: BP 153/63; PULSE 63; RESP 18; O2SAT 97
--- NOTE | 2023-01-31 15:34 | PC.NURSE ---
Pt reported that he had an inactive CGM patch on upper right inner arm, and that it was no longer activated. Pt agreeable to removing of patch, and independently did so without issue. Irina Stevens APRN, aware.
[2023-01-31 16:09] LABS: Glucose, Whole Blood 371 mg/dL (60-115)
[2023-01-31 18:00] VITALS: BP 145/68; PULSE 64; RESP 18; TEMP 36.3; O2SAT 96
--- NOTE | 2023-01-31 20:02 | P.PNPSI_ITS ---
Subjective Subjective Date of Service: 01/31/23 Reason For Visit: F32.20 Interim History: The nursing staff reported that the patient slept 8 hours, he had been incontinent. The staff has noticed that he has been doing well and he had been ambulatory. He had been asking why he has been here. On interview the patient is confused but directable. pt blood sugars running high Medication Compliance: Yes Side effects from medications: No Attending Groups: No Review of Systems Acute medical concerns: Yes blood sugar unstable Medical Review of Systems: unchanged Review of Systems Review of Systems Chronic left foot soreness at night Patient denies any acute complaints at this time Yes all other systems are reviewed and are negative Mental Status Exam Mental Status Exam Patient Appearance: Appropriate Patient Orientation: Person Level of Consciousness: Disoriented and Restless Patient Behavior: Guarded and Passive Mood Description: Withdrawn Affect Description: Constricted Patient Cognition Impaired: Yes Ability to Follow Directions: Good Speech Pattern: Clear Thought Process: Confusion Thought Content: positive for Disorganized Judgement: Fair Diagnostics Vital Signs (24Hr): Vital Signs - 24 hr 01/30/23 20:15 01/31/23 06:00 01/31/23 15:10 Temperature 98.0 F 97.8 F Pulse Rate 64 64 63 Respiratory Rate 18 18 Blood Pressure 132/78 168/70 H 153/63 H Pulse Oximetry 97 95 97 Oxygen Delivery Method Room Air Room Air Room Air BMI result Body Mass Index 27.5 Labs Labs: Laboratory Results - last 48 hr 01/29/23 01/30/23 01/30/23 20:48 07:47 11:11 POC Glucose 239 H 141 H 481 H* 01/30/23 01/30/23 01/31/23 15:58 20:25 08:06 POC Glucose 136 H 185 H 144 H 01/31/23 01/31/23 11:21 16:06 POC Glucose 297 H 371 H* Medications Medications Current Medications Acetaminophen (Acetaminophen 325 Mg Tablet) 650 mg PO Q6H PRN PRN Reason: Headache/Pain Mild Scale (1-3) Al Hydroxide/Mg Hydroxide (Magnesium Hydrox/Alum Hydrox 30 Ml Oral.Susp) 30 ml PO Q6H PRN PRN Reason: Heartburn/Nausea Atorvastatin Calcium (Atorvastatin Calcium 80 Mg Tablet) 80 mg PO BEDTIME [facility] Last Admin: 01/30/23 20:16 Dose: 80 mg Carvedilol (Carvedilol 25 Mg Tablet) 25 mg PO BID [facility]; Protocol Last Admin: 01/31/23 09:09 Dose: 25 mg Clopidogrel Bisulfate (Clopidogrel Bisulfate 75 Mg Tablet) 75 mg PO DAILY [facility] Last Admin: 01/31/23 09:09 Dose: 75 mg Furosemide (Furosemide 40 Mg Tablet) 40 mg PO DAILY [facility]; Protocol Last Admin: 01/31/23 09:09 Dose: 40 mg Glucose (Glucose Gel 15 Gm Gel..Gram.) 15 gm PO Q15M PRN; Protocol PRN Reason: per Hypoglycemia Standing Ord. Hydralazine HCl (Hydralazine Hcl 25 Mg Tablet) 25 mg PO TID [facility]; Protocol Last Admin: 01/31/23 15:15 Dose: 25 mg Dextrose (D10) 250 mls @ 750 mls/hr IV Q15M PRN; Protocol PRN Reason: per Hypoglycemia Standing Ord. Insulin Human Lispro (Insulin Lispro 100 Unit/Ml 3 Ml Vial) 0 unit SUBCUT QIDACHS [facility]; Protocol Last Admin: 01/31/23 16:19 Dose: 12 unit Losartan Potassium (Losartan Potassium 50 Mg Tablet) 50 mg PO DAILY [facility]; Protocol Last Admin: 01/31/23 09:09 Dose: 50 mg Magnesium Hydroxide (Milk Of Magnesia 30 Ml Oral.Susp) 30 ml PO DAILY PRN PRN Reason: Constipation Memantine (Memantine Hcl 5 Mg Tablet) 5 mg PO DAILY [facility] Last Admin: 01/31/23 09:09 Dose: 5 mg Oxybutynin Chloride (Oxybutynin Chloride Er 5 Mg Tab.Er.24) 10 mg PO DAILY [facility] Last Admin: 01/31/23 09:10 Dose: 10 mg Sertraline HCl (Sertraline Hcl 100 Mg Tablet) 100 mg PO DAILY [facility] Last Admin: 01/31/23 09:09 Dose: 100 mg Allergies Allergies Allergy/AdvReac Type Severity Reaction Status Date / Time amlodipine Allergy Unknown Unknown Verified 01/28/23 18:56 oxycodone Allergy Unknown Unknown Verified 01/28/23 18:56 Assessment & Plan Assessment & Plan (1) Dementia: Status: Acute Code(s): F03.90 - Unspecified dementia, unspecified severity, without behavioral disturbance, psychotic disturbance, mood disturbance, and anxiety (2) Mood disorder: Status: Acute Code(s): F39 - Unspecified mood [affective] disorder Plan The patient is an elderly male with a long history of vascular dementia admitted for increased agitation in the context of losing his driving license and stressors. He was workout at [facility] and there is no evidence of active medical problems. Plan 1. Gather collateral information. 2. Continue with regular medications, the patient had past history of arthroplasty and other surgical, we will follow the recommendations of Medicine. 3. Continue with medical workout. 01/31 contnue above treatment plan Reason for contiued inpatient stay Substantial Risk for: harm to self, inability to function and med/psych decompensation Time Spent With Patient Time: Total time managing care of this patient today ____ minutes.
[2023-01-31 20:03] LABS: Glucose, Whole Blood 149 mg/dL (60-115)
[2023-01-31] MEDS: Atorvastatin Calcium 80 MG TABLET PO (20:05)
[2023-02-01 06:00] VITALS: BP 160/76; PULSE 60; RESP 18; TEMP 36.8; O2SAT 98
[2023-02-01 07:42] LABS: Glucose, Whole Blood 161 mg/dL (60-115)
[2023-02-01] MEDS: Losartan Potassium 50 MG TABLET PO (08:30)
[2023-02-01] MEDS: Insulin Lispro 100 UNIT/ML 3 ML VIAL SUBCUT ×4 (08:30→20:24)
[2023-02-01] MEDS: Memantine HCl 5 MG TABLET PO (08:30)
[2023-02-01] MEDS: oxyBUTYnin chloride ER 5 MG TAB.ER.24 10 MG PO (08:30)
[2023-02-01] MEDS: carvediloL 25 MG TABLET PO ×2 (08:30→20:26)
[2023-02-01] MEDS: Sertraline HCL 100 MG TABLET PO (08:30)
[2023-02-01] MEDS: hydrALAZINE HCl 25 MG TABLET PO ×3 (08:31→20:26)
[2023-02-01] MEDS: Furosemide 40 MG TABLET PO (08:31)
[2023-02-01] MEDS: Clopidogrel Bisulfate 75 MG TABLET PO (08:31)
[2023-02-01 11:25] LABS: Glucose, Whole Blood 467 mg/dL (60-115)
[2023-02-01 11:25] LABS: Glucose, Whole Blood 449 mg/dL (60-115)
[2023-02-01] MEDS: Empagliflozin 25 MG TABLET PO (11:45)
[2023-02-01 11:59] LABS: Glucose, Whole Blood 463 mg/dL (60-115)
[2023-02-01 12:26] LABS: Glucose, Whole Blood 447 mg/dL (60-115)
[2023-02-01 12:26] LABS: Glucose, Whole Blood 433 mg/dL (60-115)
--- NOTE | 2023-02-01 12:42 | PM.EVENT ---
Event Note Date of Service: 02/01/23 Event Note: Pt with uncontrolled hyperglycemia. Discussed insulin dosing with . He is using 24 units novolin N with 15 units novolin R at breakfast, 12 units novolin R at lunch, and 30 units novolin N with 15 units novolin R at dinner. Continue humalog on sliding scale, resume home jardiance 25mg. Add lantus 20 units BID. Agree with change to diabetic diet. Continue POC glucose and monitoring for hypoglycemia with hypoglycemia protocol in place. Please do not hesitate to call with questions. Time Spent With Patient Time: Total time managing care of this patient today ____ minutes.
[2023-02-01] MEDS: Insulin Glargine,Hum.rec.anlog 100 UNIT/ML 10 ML VIAL 20 UNIT SUBCUT ×3 (13:07→20:25)
[2023-02-01 13:54] LABS: Glucose, Whole Blood 361 mg/dL (60-115)
--- NOTE | 2023-02-01 14:06 | P.PNPSI_ITS ---
Subjective Subjective Date of Service: 02/01/23 Reason For Visit: F32.20 Interim History: male with a long history of vascular dementia admitted for increased agitation in the context of losing his driving license and stressors. pt hasdiabetes and blood sugars running high especially at lunch time. seen byhospitalist and started onhome meds and insulin protocol. Medication Compliance: Yes Side effects from medications: No Review of Systems Acute medical concerns: Yes diabetes- high blood sugars Medical Review of Systems: unchanged Review of Systems Review of Systems Chronic left foot soreness at night Patient denies any acute complaints at this time Yes all other systems are reviewed and are negative Mental Status Exam Mental Status Exam Patient Appearance: Appropriate Patient Orientation: Person Level of Consciousness: Disoriented and Restless Patient Behavior: Guarded and Passive Mood Description: Withdrawn Affect Description: Constricted Patient Cognition Impaired: Yes Ability to Follow Directions: Good Speech Pattern: Clear Thought Content: positive for Disoriented and positive for Disorganized Judgement: Poor Diagnostics Vital Signs (24Hr): Vital Signs - 24 hr 01/31/23 15:10 01/31/23 18:00 02/01/23 06:00 Temperature 97.3 F 98.2 F Pulse Rate 63 64 60 Respiratory Rate 18 18 18 Blood Pressure 153/63 H 145/68 H 160/76 H Pulse Oximetry 97 96 98 Oxygen Delivery Method Room Air Room Air BMI result Body Mass Index 27.5 Labs Labs: Laboratory Results - last 48 hr 01/30/23 01/30/23 01/31/23 15:58 20:25 08:06 POC Glucose 136 H 185 H 144 H 01/31/23 01/31/23 01/31/23 11:21 16:06 19:57 POC Glucose 297 H 371 H* 149 H 02/01/23 02/01/23 02/01/23 07:37 11:08 11:15 POC Glucose 161 H 449 H* 467 H* 02/01/23 02/01/23 02/01/23 11:53 12:19 12:21 POC Glucose 463 H* 433 H* 447 H* 02/01/23 13:47 POC Glucose 361 H* Medications Medications Current Medications Acetaminophen (Acetaminophen 325 Mg Tablet) 650 mg PO Q6H PRN PRN Reason: Headache/Pain Mild Scale (1-3) Al Hydroxide/Mg Hydroxide (Magnesium Hydrox/Alum Hydrox 30 Ml Oral.Susp) 30 ml PO Q6H PRN PRN Reason: Heartburn/Nausea Atorvastatin Calcium (Atorvastatin Calcium 80 Mg Tablet) 80 mg PO BEDTIME [facility] Last Admin: 01/31/23 20:05 Dose: 80 mg Carvedilol (Carvedilol 25 Mg Tablet) 25 mg PO BID [facility]; Protocol Last Admin: 02/01/23 08:30 Dose: 25 mg Clopidogrel Bisulfate (Clopidogrel Bisulfate 75 Mg Tablet) 75 mg PO DAILY [facility] Last Admin: 02/01/23 08:31 Dose: 75 mg Empagliflozin (Empagliflozin 25 Mg Tablet) 25 mg PO DAILY [facility] Last Admin: 02/01/23 11:45 Dose: 25 mg Furosemide (Furosemide 40 Mg Tablet) 40 mg PO DAILY [facility]; Protocol Last Admin: 02/01/23 08:31 Dose: 40 mg Glucose (Glucose Gel 15 Gm Gel..Gram.) 15 gm PO Q15M PRN; Protocol PRN Reason: per Hypoglycemia Standing Ord. Hydralazine HCl (Hydralazine Hcl 25 Mg Tablet) 25 mg PO TID [facility]; Protocol Last Admin: 02/01/23 08:31 Dose: 25 mg Dextrose (D10) 250 mls @ 750 mls/hr IV Q15M PRN; Protocol PRN Reason: per Hypoglycemia Standing Ord. Insulin Glargine (Insulin Glargine,Hum.Rec.Anlog 100 Unit/Ml 10 Ml Vial) 20 unit SUBCUT DAILY [facility] Last Admin: 02/01/23 13:07 Dose: 20 unit Insulin Glargine (Insulin Glargine,Hum.Rec.Anlog 100 Unit/Ml 10 Ml Vial) 20 unit SUBCUT BEDTIME [facility] Insulin Human Lispro (Insulin Lispro 100 Unit/Ml 3 Ml Vial) 0 unit SUBCUT QIDACHS [facility]; Protocol Last Admin: 02/01/23 11:32 Dose: 12 unit Losartan Potassium (Losartan Potassium 50 Mg Tablet) 50 mg PO DAILY [facility]; Protocol Last Admin: 02/01/23 08:30 Dose: 50 mg Magnesium Hydroxide (Milk Of Magnesia 30 Ml Oral.Susp) 30 ml PO DAILY PRN PRN Reason: Constipation Memantine (Memantine Hcl 5 Mg Tablet) 5 mg PO DAILY [facility] Last Admin: 02/01/23 08:30 Dose: 5 mg Oxybutynin Chloride (Oxybutynin Chloride Er 5 Mg Tab.Er.24) 10 mg PO DAILY [facility] Last Admin: 02/01/23 08:30 Dose: 10 mg Sertraline HCl (Sertraline Hcl 100 Mg Tablet) 100 mg PO DAILY [facility] Last Admin: 02/01/23 08:30 Dose: 100 mg Allergies Allergies Allergy/AdvReac Type Severity Reaction Status Date / Time amlodipine Allergy Unknown Unknown Verified 01/28/23 18:56 oxycodone Allergy Unknown Unknown Verified 01/28/23 18:56 Assessment & Plan Assessment & Plan (1) Dementia: Status: Acute Code(s): F03.90 - Unspecified dementia, unspecified severity, without behavioral disturbance, psychotic disturbance, mood disturbance, and anxiety (2) Mood disorder: Status: Acute Code(s): F39 - Unspecified mood [affective] disorder Plan The patient is an elderly male with a long history of vascular dementia admitted for increased agitation in the context of losing his driving license and stressors. He was workout at [facility] and there is no evidence of active medical problems. Plan 1. Gather collateral information. 2. Continue with regular medications, the patient had past history of arthroplasty and other surgical, we will follow the recommendations of Medicine. 3. Continue with medical workout. 4/2 seen by hospitalist restarted on jardaince and placed on sliding scale insulin Reason for contiued inpatient stay Substantial Risk for: inability to function and med/psych decompensation Time Spent With Patient Time: Total time managing care of this patient today ____ minutes.
[2023-02-01 16:48] LABS: Glucose, Whole Blood 231 mg/dL (60-115)
[2023-02-01 16:56] VITALS: BP 158/68; PULSE 59
[2023-02-01 18:00] VITALS: BP 152/72; PULSE 65; RESP 18; TEMP 36.2; O2SAT 96
[2023-02-01 19:59] LABS: Glucose, Whole Blood 179 mg/dL (60-115)
[2023-02-01] MEDS: Atorvastatin Calcium 80 MG TABLET PO (20:26)
--- NOTE | 2023-02-02 00:24 | PC.NURSE ---
Patient had POC glucose 448, recheck 448 before lunch. Performed software quality tester test on glucometer and rechecked POC glucose 467 g/dl. Provider notified and given 12 U per sliding scale insulin lispro, also rechecks in similar 460-483 range. Provider ordering patient's home med Jardiance, new order for Lantus 20 U BID. Patient POC came down to 179 by HS. Patient also with HTN 187/76 ; 180/77; on scheduled hydralazine, BP came down to 150's SBP, and [employer] notified. All hypoglycemia and HTN asymptomatic.
[2023-02-02 08:03] LABS: Glucose, Whole Blood 114 mg/dL (60-115)
[2023-02-02 08:20] VITALS: BP 189/77; PULSE 61; RESP 18; TEMP 36.1; O2SAT 97
[2023-02-02] MEDS: Insulin Glargine,Hum.rec.anlog 100 UNIT/ML 10 ML VIAL 20 UNIT SUBCUT ×2 (08:26→20:49)
[2023-02-02] MEDS: hydrALAZINE HCl 25 MG TABLET PO ×3 (08:28→20:51)
[2023-02-02] MEDS: oxyBUTYnin chloride ER 5 MG TAB.ER.24 10 MG PO (08:28)
[2023-02-02] MEDS: Empagliflozin 25 MG TABLET PO (08:29)
[2023-02-02] MEDS: Sertraline HCL 100 MG TABLET PO (08:29)
[2023-02-02] MEDS: Losartan Potassium 50 MG TABLET PO (08:29)
[2023-02-02] MEDS: Clopidogrel Bisulfate 75 MG TABLET PO (08:29)
[2023-02-02] MEDS: Furosemide 40 MG TABLET PO (08:30)
[2023-02-02] MEDS: carvediloL 25 MG TABLET PO ×2 (08:30→20:51)
[2023-02-02] MEDS: Memantine HCl 5 MG TABLET PO ×2 (08:30→20:51)
[2023-02-02 10:57] LABS: Glucose, Whole Blood 448 mg/dL (60-115)
[2023-02-02 10:58] LABS: Glucose, Whole Blood 372 mg/dL (60-115)
[2023-02-02 10:58] LABS: Glucose, Whole Blood 483 mg/dL (60-115)
[2023-02-02 11:17] LABS: Glucose, Whole Blood 198 mg/dL (60-115)
[2023-02-02] MEDS: Insulin Lispro 100 UNIT/ML 3 ML VIAL SUBCUT ×2 (11:24→21:03)
--- NOTE | 2023-02-02 15:20 | HO.PSYCHPN ---
Subjective Subjective Date of Service: 02/02/23 Reason For Visit: F32.20 Subjective Notes: Conditional Voluntary Interim History: The nursing staff reported the patient has been pleasant, cooperative, fully compliant with treatment. The fasting blood sugars were I 140 and has improved since there were some adjustments in his medication. The occupational therapy reported that he has court on the [place] 08/31 and the [place] test 3.4. The psychologist social reported that they will have a family meeting for early discharge to her home. On interview the patient denies new symptoms Mental Status Exam Mental Status Exam Patient Appearance: Well Grooomed and Appropriate Patient Orientation: Person and Situation Level of Consciousness: Awake and Appropriate Patient Behavior: Guarded and Passive Mood Description: Withdrawn and Constricted Affect Description: Constricted Patient Cognition Impaired: Yes Ability to Follow Directions: Good Speech Pattern: Clear Hallucinations: None Delusions: Paranoid Ideation Thought Process: Distracted and Evasive Thought Content: positive for [place], positive for Circumstantial and positive for Loose Associations Judgement: Fair Diagnostics Vital Signs (24Hr): Vital Signs - 24 hr 02/01/23 16:56 02/01/23 18:00 02/02/23 08:20 Temperature 97.2 F 96.9 F Pulse Rate 59 65 61 Respiratory Rate 18 18 Blood Pressure 158/68 H 152/72 H 189/77 H Pulse Oximetry 96 97 Oxygen Delivery Method Room Air Room Air BMI result Body Mass Index 27.5 Labs Labs: Laboratory Results - last 48 hr 01/31/23 01/31/23 02/01/23 16:06 19:57 07:37 POC Glucose 371 H* 149 H 161 H 02/01/23 02/01/23 02/01/23 11:08 11:09 11:15 POC Glucose 449 H* 448 H* 467 H* 02/01/23 02/01/23 02/01/23 11:53 11:54 12:19 POC Glucose 463 H* 483 H* 433 H* 02/01/23 02/01/23 02/01/23 12:21 13:47 13:48 POC Glucose 447 H* 361 H* 372 H* 02/01/23 02/01/23 02/02/23 16:35 19:46 07:52 POC Glucose 231 H 179 H 114 02/02/23 11:12 POC Glucose 198 H Medications Medications Current Medications Acetaminophen (Acetaminophen 325 Mg Tablet) 650 mg PO Q6H PRN PRN Reason: Headache/Pain Mild Scale (1-3) Al Hydroxide/Mg Hydroxide (Magnesium Hydrox/Alum Hydrox 30 Ml Oral.Susp) 30 ml PO Q6H PRN PRN Reason: Heartburn/Nausea Atorvastatin Calcium (Atorvastatin Calcium 80 Mg Tablet) 80 mg PO BEDTIME [facility] Last Admin: 02/01/23 20:26 Dose: 80 mg Carvedilol (Carvedilol 25 Mg Tablet) 25 mg PO BID [facility]; Protocol Last Admin: 02/02/23 08:30 Dose: 25 mg Clopidogrel Bisulfate (Clopidogrel Bisulfate 75 Mg Tablet) 75 mg PO DAILY [facility] Last Admin: 02/02/23 08:29 Dose: 75 mg Empagliflozin (Empagliflozin 25 Mg Tablet) 25 mg PO DAILY [facility] Last Admin: 02/02/23 08:29 Dose: 25 mg Furosemide (Furosemide 40 Mg Tablet) 40 mg PO DAILY [facility]; Protocol Last Admin: 02/02/23 08:30 Dose: 40 mg Glucose (Glucose Gel 15 Gm Gel..Gram.) 15 gm PO Q15M PRN; Protocol PRN Reason: per Hypoglycemia Standing Ord. Hydralazine HCl (Hydralazine Hcl 25 Mg Tablet) 25 mg PO TID [facility]; Protocol Last Admin: 02/02/23 14:44 Dose: 25 mg Dextrose (D10) 250 mls @ 750 mls/hr IV Q15M PRN; Protocol PRN Reason: per Hypoglycemia Standing Ord. Insulin Glargine (Insulin Glargine,Hum.Rec.Anlog 100 Unit/Ml 10 Ml Vial) 20 unit SUBCUT DAILY [facility] Last Admin: 02/02/23 08:26 Dose: 20 unit Insulin Glargine (Insulin Glargine,Hum.Rec.Anlog 100 Unit/Ml 10 Ml Vial) 20 unit SUBCUT BEDTIME [facility] Last Admin: 02/01/23 20:15 Dose: 20 unit Insulin Human Lispro (Insulin Lispro 100 Unit/Ml 3 Ml Vial) 0 unit SUBCUT QIDACHS [facility]; Protocol Last Admin: 02/02/23 11:24 Dose: 4 unit Losartan Potassium (Losartan Potassium 50 Mg Tablet) 50 mg PO DAILY [facility]; Protocol Last Admin: 02/02/23 08:29 Dose: 50 mg Magnesium Hydroxide (Milk Of Magnesia 30 Ml Oral.Susp) 30 ml PO DAILY PRN PRN Reason: Constipation Memantine (Memantine Hcl 5 Mg Tablet) 5 mg PO BID [facility] Oxybutynin Chloride (Oxybutynin Chloride Er 5 Mg Tab.Er.24) 10 mg PO DAILY [facility] Last Admin: 02/02/23 08:28 Dose: 10 mg Sertraline HCl (Sertraline Hcl 100 Mg Tablet) 100 mg PO DAILY [facility] Last Admin: 02/02/23 08:29 Dose: 100 mg Allergies Allergies Allergy/AdvReac Type Severity Reaction Status Date / Time amlodipine Allergy Unknown Unknown Verified 01/28/23 18:56 oxycodone Allergy Unknown Unknown Verified 01/28/23 18:56 Assessment & Plan Assessment & Plan (1) Dementia: Status: Acute Code(s): F03.90 - Unspecified dementia, unspecified severity, without behavioral disturbance, psychotic disturbance, mood disturbance, and anxiety (2) Mood disorder: Status: Acute Code(s): F39 - Unspecified mood [affective] disorder Plan The patient is an elderly male with a long history of vascular dementia admitted for increased agitation in the context of losing his driving license and stressors. He was workout at [facility] and there is no evidence of active medical problems. Plan 1. Gather collateral information. 2. Continue with regular medications, the patient had past history of arthroplasty and other surgical, we will follow the recommendations of Medicine. 3. Continue with medical workout. 4. Increase Namenda up to 5 mg p.o. b.i.d. Reason for contiued inpatient stay Substantial Risk for: inability to function, rapid decompensation and med/psych decompensation Time Spent With Patient Time: Total time managing care of this patient today ____ minutes.
[2023-02-02 16:35] LABS: Glucose, Whole Blood 145 mg/dL (60-115)
[2023-02-02 18:00] VITALS: BP 142/78; PULSE 64; RESP 18; TEMP 36.1; O2SAT 98
[2023-02-02] MEDS: Atorvastatin Calcium 80 MG TABLET PO (20:51)
[2023-02-02 21:00] LABS: Glucose, Whole Blood 254 mg/dL (60-115)
[2023-02-03] MEDS: Milk of Magnesia 30 ML ORAL.SUSP PO (05:41)
[2023-02-03 08:00] LABS: Glucose, Whole Blood 94 mg/dL (60-115)
[2023-02-03 08:30] VITALS: BP 152/69; PULSE 61; RESP 16; TEMP 36.6; O2SAT 98
[2023-02-03] MEDS: Insulin Glargine,Hum.rec.anlog 100 UNIT/ML 10 ML VIAL 20 UNIT SUBCUT ×2 (08:30→20:10)
[2023-02-03] MEDS: Furosemide 40 MG TABLET PO (08:33)
[2023-02-03] MEDS: hydrALAZINE HCl 25 MG TABLET PO ×3 (08:33→22:01)
[2023-02-03] MEDS: carvediloL 25 MG TABLET PO ×2 (08:33→22:00)
[2023-02-03] MEDS: Clopidogrel Bisulfate 75 MG TABLET PO (08:34)
[2023-02-03] MEDS: Sertraline HCL 100 MG TABLET PO (08:34)
[2023-02-03] MEDS: Memantine HCl 5 MG TABLET PO ×2 (08:34→22:01)
[2023-02-03] MEDS: Losartan Potassium 50 MG TABLET PO (08:34)
[2023-02-03] MEDS: Empagliflozin 25 MG TABLET PO (08:34)
[2023-02-03] MEDS: oxyBUTYnin chloride ER 5 MG TAB.ER.24 10 MG PO (08:34)
[2023-02-03 11:29] LABS: Glucose, Whole Blood 183 mg/dL (60-115)
[2023-02-03] MEDS: Insulin Lispro 100 UNIT/ML 3 ML VIAL SUBCUT ×3 (11:39→20:09)
[2023-02-03 14:50] VITALS: BP 135/63
[2023-02-03 16:35] LABS: Glucose, Whole Blood 180 mg/dL (60-115)
--- NOTE | 2023-02-03 16:54 | P.PNPSI_ITS ---
Subjective Subjective Date of Service: 02/03/23 Reason For Visit: F32.20 Subjective Notes: Conditional Voluntary Interim History: The nursing staff reported the patient had been compliant with treatment , he had good appetite and he has gone to several groups. The hospital social worker reported that she discussed the case with his and she reported that he looks to be at baseline. On interview the patient hard of hearing he stated he is doing well and he wants to go back home. We discussed options and since there were no safety concerns we will discharge him tomorrow. Mental Status Exam Mental Status Exam Patient Appearance: Well Grooomed and Appropriate Patient Orientation: Person and Situation Level of Consciousness: Awake and Appropriate Patient Behavior: Guarded and Passive Mood Description: Calm and Constricted Affect Description: Relaxed Patient Cognition Impaired: Yes Ability to Follow Directions: Good Speech Pattern: Clear Hallucinations: None Delusions: Not Present Thought Process: Linear Thought Content: positive for [place] Judgement: Fair Diagnostics Vital Signs (24Hr): Vital Signs - 24 hr 02/02/23 18:00 02/03/23 08:30 02/03/23 14:50 Temperature 96.9 F 97.9 F Pulse Rate 64 61 Respiratory Rate 18 16 Blood Pressure 142/78 H 152/69 H 135/63 Pulse Oximetry 98 98 Oxygen Delivery Method Room Air Room Air BMI result Body Mass Index 27.5 Labs Labs: Laboratory Results - last 48 hr 02/01/23 02/01/23 02/01/23 11:09 11:54 13:48 POC Glucose 448 H* 483 H* 372 H* 02/01/23 02/02/23 02/02/23 19:46 07:52 11:12 POC Glucose 179 H 114 198 H 02/02/23 02/02/23 02/03/23 16:29 20:48 07:50 POC Glucose 145 H 254 H 94 02/03/23 02/03/23 11:24 16:22 POC Glucose 183 H 180 H Medications Medications Current Medications Acetaminophen (Acetaminophen 325 Mg Tablet) 650 mg PO Q6H PRN PRN Reason: Headache/Pain Mild Scale (1-3) Al Hydroxide/Mg Hydroxide (Magnesium Hydrox/Alum Hydrox 30 Ml Oral.Susp) 30 ml PO Q6H PRN PRN Reason: Heartburn/Nausea Atorvastatin Calcium (Atorvastatin Calcium 80 Mg Tablet) 80 mg PO BEDTIME [facility] Last Admin: 02/02/23 20:51 Dose: 80 mg Carvedilol (Carvedilol 25 Mg Tablet) 25 mg PO BID [facility]; Protocol Last Admin: 02/03/23 08:33 Dose: 25 mg Clopidogrel Bisulfate (Clopidogrel Bisulfate 75 Mg Tablet) 75 mg PO DAILY [facility] Last Admin: 02/03/23 08:34 Dose: 75 mg Empagliflozin (Empagliflozin 25 Mg Tablet) 25 mg PO DAILY [facility] Last Admin: 02/03/23 08:34 Dose: 25 mg Furosemide (Furosemide 40 Mg Tablet) 40 mg PO DAILY [facility]; Protocol Last Admin: 02/03/23 08:33 Dose: 40 mg Glucose (Glucose Gel 15 Gm Gel..Gram.) 15 gm PO Q15M PRN; Protocol PRN Reason: per Hypoglycemia Standing Ord. Hydralazine HCl (Hydralazine Hcl 25 Mg Tablet) 25 mg PO TID [facility]; Protocol Last Admin: 02/03/23 14:53 Dose: 25 mg Dextrose (D10) 250 mls @ 750 mls/hr IV Q15M PRN; Protocol PRN Reason: per Hypoglycemia Standing Ord. Insulin Glargine (Insulin Glargine,Hum.Rec.Anlog 100 Unit/Ml 10 Ml Vial) 20 unit SUBCUT DAILY [facility] Last Admin: 02/03/23 08:30 Dose: 20 unit Insulin Glargine (Insulin Glargine,Hum.Rec.Anlog 100 Unit/Ml 10 Ml Vial) 20 unit SUBCUT BEDTIME [facility] Last Admin: 02/02/23 20:49 Dose: 20 unit Insulin Human Lispro (Insulin Lispro 100 Unit/Ml 3 Ml Vial) 0 unit SUBCUT QIDACHS [facility]; Protocol Last Admin: 02/03/23 16:40 Dose: 2 unit Losartan Potassium (Losartan Potassium 50 Mg Tablet) 50 mg PO DAILY [facility]; Protocol Last Admin: 02/03/23 08:34 Dose: 50 mg Magnesium Hydroxide (Milk Of Magnesia 30 Ml Oral.Susp) 30 ml PO DAILY PRN PRN Reason: Constipation Last Admin: 02/03/23 05:41 Dose: 30 ml Memantine (Memantine Hcl 5 Mg Tablet) 5 mg PO BID [facility] Last Admin: 02/03/23 08:34 Dose: 5 mg Oxybutynin Chloride (Oxybutynin Chloride Er 5 Mg Tab.Er.24) 10 mg PO DAILY [facility] Last Admin: 02/03/23 08:34 Dose: 10 mg Sertraline HCl (Sertraline Hcl 100 Mg Tablet) 100 mg PO DAILY [facility] Last Admin: 02/03/23 08:34 Dose: 100 mg Allergies Allergies Allergy/AdvReac Type Severity Reaction Status Date / Time amlodipine Allergy Unknown Unknown Verified 01/28/23 18:56 oxycodone Allergy Unknown Unknown Verified 01/28/23 18:56 Assessment & Plan Assessment & Plan (1) Dementia: Status: Acute Code(s): F03.90 - Unspecified dementia, unspecified severity, without behavioral disturbance, psychotic disturbance, mood disturbance, and anxiety (2) Mood disorder: Status: Acute Code(s): F39 - Unspecified mood [affective] disorder Plan The patient is an elderly male with a long history of vascular dementia admitted for increased agitation in the context of losing his driving license and stressors. He was workout at [facility] and there is no evidence of active medical problems. Plan 1. Gather collateral information. 2. Continue with regular medications, the patient had past history of arthroplasty and other surgical, we will follow the recommendations of Medicine. 3. Continue with medical workout. 4. Increase Namenda up to 5 mg p.o. b.i.d. 5. Discharge tomorrow Reason for contiued inpatient stay Substantial Risk for: inability to function, rapid decompensation and med/psych decompensation Time Spent With Patient Time: Total time managing care of this patient today __20__ minutes.
[2023-02-03 18:00] VITALS: BP 156/71; PULSE 60; RESP 16; TEMP 36.1; O2SAT 98
[2023-02-03 20:02] LABS: Glucose, Whole Blood 175 mg/dL (60-115)
[2023-02-03] MEDS: Atorvastatin Calcium 80 MG TABLET PO (22:00)
[2023-02-04 06:00] VITALS: BP 151/66; PULSE 60; RESP 18; TEMP 36.2; O2SAT 99
--- NOTE | 2023-02-04 06:46 | PM.PSYDC ---
DS: Providers Provider Date of Service: 02/04/23 Date of admission: 01/28/23 18:33 Date of discharge: 02/04/23 Primary care physician: Floyd Hutson MD Consults: 01/28/23 20:07 Consult to Hospitalist Routine Consulting Provider: Hospitalist Reason For Exam: admission physical DS: Diagnosis Discharge Diagnosis (1) Dementia: Status: Acute (2) Mood disorder: Status: Acute DS: Medications Discharge Medications Home Medications: Home Medications Medication Instructions Recorded Confirmed atorvastatin 80 mg tablet 80 mg PO BEDTIME 01/28/23 01/28/23 carvedilol 25 mg tablet 25 mg PO BID 01/28/23 01/28/23 clopidogrel 75 mg tablet 75 mg PO DAILY 01/28/23 01/28/23 furosemide 40 mg tablet 40 mg PO DAILY 01/28/23 01/28/23 hydralazine 25 mg tablet 25 mg PO TID 01/28/23 hydralazine 25 mg tablet 25 mg PO TID 01/28/23 01/28/23 losartan 50 mg tablet 50 mg PO DAILY 01/28/23 01/28/23 memantine 5 mg tablet 5 mg PO DAILY 01/28/23 01/28/23 oxybutynin chloride 10 mg 10 mg PO DAILY 01/28/23 01/28/23 tablet,extended release 24 hr sertraline 100 mg tablet 100 mg PO DAILY 01/28/23 01/28/23 Mental Status Exam Mental Status Exam Patient Appearance: Well Grooomed and Appropriate Patient Orientation: Person, Place and Time Level of Consciousness: Awake and Appropriate Patient Behavior: Cooperative and Passive Mood Description: Withdrawn Affect Description: Constricted Patient Cognition Impaired: Yes Ability to Follow Directions: Good Speech Pattern: Clear Hallucinations: None Delusions: Not Present Thought Process: Linear and Slowed Thinking Thought Content: positive for [place] and positive for Circumstantial Judgement: Fair Data Data Completed and Pending Completed studies during hospitalization [Text1]: 01/28/23 01/29/23 01/29/23 21:41 07:48 08:13 POC Glucose 256 H 93 Triglycerides 141 Cholesterol 127 LDL Cholesterol, Calc 73 HDL Cholesterol 26 01/29/23 01/29/23 01/29/23 11:27 16:33 20:48 POC Glucose 383 H* 159 H 239 H Triglycerides Cholesterol LDL Cholesterol, Calc HDL Cholesterol 01/30/23 01/30/23 01/30/23 07:47 11:11 15:58 POC Glucose 141 H 481 H* 136 H Triglycerides Cholesterol LDL Cholesterol, Calc HDL Cholesterol 01/30/23 01/31/23 01/31/23 20:25 08:06 11:21 POC Glucose 185 H 144 H 297 H Triglycerides Cholesterol LDL Cholesterol, Calc HDL Cholesterol 01/31/23 01/31/23 02/01/23 16:06 19:57 07:37 POC Glucose 371 H* 149 H 161 H Triglycerides Cholesterol LDL Cholesterol, Calc HDL Cholesterol 02/01/23 02/01/23 02/01/23 11:08 11:09 11:15 POC Glucose 449 H* 448 H* 467 H* Triglycerides Cholesterol LDL Cholesterol, Calc HDL Cholesterol 02/01/23 02/01/23 02/01/23 11:53 11:54 12:19 POC Glucose 463 H* 483 H* 433 H* Triglycerides Cholesterol LDL Cholesterol, Calc HDL Cholesterol 02/01/23 02/01/23 02/01/23 12:21 13:47 13:48 POC Glucose 447 H* 361 H* 372 H* Triglycerides Cholesterol LDL Cholesterol, Calc HDL Cholesterol 02/01/23 02/01/23 02/02/23 16:35 19:46 07:52 POC Glucose 231 H 179 H 114 Triglycerides Cholesterol LDL Cholesterol, Calc HDL Cholesterol 02/02/23 02/02/23 02/02/23 11:12 16:29 20:48 POC Glucose 198 H 145 H 254 H Triglycerides Cholesterol LDL Cholesterol, Calc HDL Cholesterol 02/03/23 02/03/23 02/03/23 07:50 11:24 16:22 POC Glucose 94 183 H 180 H Triglycerides Cholesterol LDL Cholesterol, Calc HDL Cholesterol 02/03/23 19:53 POC Glucose 175 H Triglycerides Cholesterol LDL Cholesterol, Calc HDL Cholesterol DS: Summary Hospital Course Hospital Course: The patient was transferred from another emergency room since he was agitated and he broke a vase with his cane. He was confused, delirious at times with altered mental status and apparently not at his baseline. Please see the HPI of the admission note for further details. On admission, the patient was cooperative and pleasant, he was unable to recall the events that led him into the hospital and he was minimizing his violent behavior. We continue him on his regular medications, he did a full workout medically and we try to rule out any other medical explanations of delirium. While he was in the unit, the patient was hard of hearing but he was able to participating in some groups, it was evident that he had a neuro cognitive impairment but there was no evidence of aggressive behavior. We had a family meeting in the wanted him back, she stated that sometimes he can get angry but she felt safe in the house. We have observe his behavior, he is redirectable and since we started a low dose of trazodone he improved remarkably. Since the neuro cognitive impairment was prominent we increase the Namenda to 5 mg p.o. b.i.d. Since there were no safety concerns discharge planning was discussed to go back to his home with ancillary services in the community. Time spent discussing smoking cessation with patient: 3 to 10 minutes Status at Discharge Cognitive/behavioral status at discharge: Impaired at baseline Functional status at discharge: uses cane/walker Overall status at discharge: patient is back to baseline Time Spent with Patient Time attestation: Total time managing care of this patient today _30___ minutes. Time spent: Less than 30 minutes Discharge Plan Discharge Anticipated Discharge Date/Time: 02/04/23 11:00 Patient Disposition: Home, Self-Care Discharge Diagnosis: Dementia Mood disorder Referrals: Nadya Garcia APRN [Other] - 02/19/23 2:00 pm (Patient is scheduled to see EDUCATION DEPARTMENT CHAIR on: 02/19/2023 @ 2pm ) Floyd Hutson MD [Primary Care Provider] - 02/11/23 9:30 am Discharge Medications: New insulin glargine [Lantus U-100 Insulin] 100 unit/mL Solution 20 unit subcut DAILY Qty: 10 0RF memantine 5 mg Tablet 5 mg PO BID 30 Days Qty: 60 0RF Jardiance 25 mg Tablet 25 mg PO DAILY 30 Days Qty: 30 0RF insulin glargine [Lantus U-100 Insulin] 100 unit/mL Solution 20 unit subcut BEDTIME Qty: 10 0RF Continued losartan 50 mg tablet 50 mg PO DAILY 30 Days Qty: 30 0RF furosemide 40 mg tablet 40 mg PO DAILY 30 Days Qty: 30 0RF atorvastatin 80 mg tablet 80 mg PO BEDTIME 30 Days Qty: 30 0RF carvedilol 25 mg tablet 25 mg PO BID 30 Days Qty: 60 0RF oxybutynin chloride 10 mg tablet extended release 24hr 10 mg PO DAILY 30 Days Qty: 30 0RF sertraline 100 mg tablet 100 mg PO DAILY 30 Days Qty: 30 0RF hydralazine 25 mg tablet 25 mg PO TID 30 Days Qty: 90 0RF clopidogrel 75 mg tablet 75 mg PO DAILY 30 Days Qty: 30 0RF Discontinued hydralazine 25 mg tablet 25 mg PO TID memantine 5 mg tablet 5 mg PO DAILY Discharge Orders: Discharge Order (Routine); Ordered 02/04/23 Ordered By: Randy Almeida Diet: Advance to usual diet Activity on Discharge: As tolerated Stand Alone Forms: Patient Portal Discharge page Care Plan Goals: Care plan goals achieved in this admission Health Concerns: Continue treatment with outpatient providers Plan of Treatment: Continue treatment with outpatient psychiatric treatment Assessment: The patient is an elderly male with a history of dementia who was brought into the facility for an episode of agitation. When he was in the unit his mood improved remarkably with a slight increased of Namenda. At this moment he is safe to be discharged in the community.
[2023-02-04 07:23] LABS: Glucose, Whole Blood 95 mg/dL (60-115)
[2023-02-04] MEDS: Sertraline HCL 100 MG TABLET PO (08:40)
[2023-02-04] MEDS: Empagliflozin 25 MG TABLET PO (08:40)
[2023-02-04] MEDS: Losartan Potassium 50 MG TABLET PO (08:40)
[2023-02-04] MEDS: oxyBUTYnin chloride ER 5 MG TAB.ER.24 10 MG PO (08:40)
[2023-02-04] MEDS: Clopidogrel Bisulfate 75 MG TABLET PO (08:40)
[2023-02-04] MEDS: carvediloL 25 MG TABLET PO (08:40)
[2023-02-04] MEDS: hydrALAZINE HCl 25 MG TABLET PO (08:40)
[2023-02-04] MEDS: Furosemide 40 MG TABLET PO (08:40)
[2023-02-04] MEDS: Insulin Glargine,Hum.rec.anlog 100 UNIT/ML 10 ML VIAL 20 UNIT SUBCUT (08:41)
[2023-02-04] MEDS: Memantine HCl 5 MG TABLET PO (08:49)
== END 2023-02-04 10:59 | disposition home or self-care (01) | DRG 885 ==
PROVIDERS: Psychiatry & Neurology Psychiatry; Admitting Provider Psychiatry & Neurology Psychiatry; PCP Internal Medicine; Visit Provider Psychiatry & Neurology Psychiatry
DX: F39 Unspecified mood [affective] disorder (principal); F05 Delirium due to known physiological condition; I25.10 Atherosclerotic heart disease of native coronary artery without angina pectoris; E78.5 Hyperlipidemia, unspecified; E11.40 Type 2 diabetes mellitus with diabetic neuropathy, unspecified; E11.65 Type 2 diabetes mellitus with hyperglycemia; I12.9 Hypertensive chronic kidney disease with stage 1 through stage 4 chronic kidney disease, or unspecified chronic kidney disease; F01.50 Vascular dementia, unspecified severity, without behavioral disturbance, psychotic disturbance, mood disturbance, and anxiety; E11.22 Type 2 diabetes mellitus with diabetic chronic kidney disease; Z88.5 Allergy status to narcotic agent; Z88.8 Allergy status to other drugs, medicaments and biological substances; Z79.02 Long term (current) use of antithrombotics/antiplatelets; Z79.899 Other long term (current) drug therapy
CPT/HCPCS: 36415; 80061; 82947

== ENCOUNTER 2024-07-16 21:43 | Emergency (ER) | payer MEDICARE, SELFPAY ==
[2024-07-16 21:56] VITALS: BP 114/70; PULSE 77; RESP 18; O2SAT 85
[2024-07-16 22:00] VITALS: BP 83/50; PULSE 76; RESP 16
[2024-07-16 22:01] VITALS: BMI 29.1
--- NOTE | 2024-07-16 22:32 | PC.NURSE ---
Late Entry: Pt presented to ED via EMS, Story from EMS: Pt coming from SNF ([facility]), was found to be choking by staff. Staff placed pt on O2 and went to get more help, when they came back pt was pulseless and apneic. Staff started CPR. EMS started their ACLS at approx 2055. EMS interventions included: 6 Epi 1mg 1:10,000, 4 shocks (vfib), ETT 7.0 21@ lip, IO in right tibia head and right humeral head. EMS arrived at 2143. Edy in place, pt on backboard. Pt was given 2 EPI, IV access placed in left forearm 20G an right hand 22G, 1L NS initiated. ROSC was achieved at 2150. Norepi started at 0.05 mcg/kg/min due to hypotension. Family alerted MD that they did not want any further resus measures, FRUIT CHECKER. Pt had bradycardia and lost his pulse, code ended at 2206. Pt cleaned. ME case declined. SEE PAPER CHARTING FOR FULL DETAILS.
--- NOTE | 2024-07-16 22:33 | ED.CPR ---
HPI - CPR General Chief Complaint: Cardiac Arrest/CPR Stated Complaint: cardiac arrest Time Seen by Provider: 07/16/24 22:25 Source: family and EMS Mode of arrival: EMS Limitations: other (Cardiac arrest) History of Present Illness ED Provider: Dr. Williams Butler HPI narrative: 84-year-old male with a PMH significant for dementia, HLD, CAD, diabtes, HTN, and CKD who was brought to emergency department by ambulance in cardiac arrest. Information came from the paramedics. The patient is in his nursing home facility and nursing staff reported that he was choking. The patient then developed respiratory difficulty and lost consciousness. Nursing staff started CPR and when the paramedics arrived the patient was pulseless and apneic. Patient was intubated and the paramedics resuscitated him for proximally 30 minutes prior to arriving in the emergency department. They state that the patient had 4 episodes of V fib and he received 4 shocks. He was given 6 doses of epinephrine IV. He had intraosseous lines established. He was also intubated. On arrival to the emergency department CPR was being done by a Edy device. He was given a dose of epinephrine IV. Patient's 1st rhythm was asystole and he had no pulse. He was given a 2nd dose of epinephrine IV and at that 2nd pulse check he was pulseless and apneic and after discussion with the code team we decided to stop the code. However on the monitor, the patient had a paced rhythm-the pacemaker which was not present at the time of terminating in the code. Patient did have a pulse and a blood pressure however the pulse with disappear when the rhythm was not paced by the pacemaker. The paramedics then located in up-to-date MOLST form that states the patient was a DNR DNI. The patient's daughter, Anyi was here in the emergency department and I did talk to her about the situation and after this discussion was decided that the resuscitation be discontinued. The patient was then pronounced at 22:06 hours. I did discuss the patient was with his Charlee over the phone. Related Data Previous Rx's ?Medication ?Instructions ?Recorded atorvastatin 80 mg tablet 80 mg PO BEDTIME 30 days #30 tabs 02/04/23 carvedilol 25 mg tablet 25 mg PO BID 30 days #60 tabs 02/04/23 clopidogrel 75 mg tablet 75 mg PO DAILY 30 days #30 tabs 02/04/23 empagliflozin 25 mg tablet 25 mg PO DAILY 30 days #30 tabs 02/04/23 (Jardiance) furosemide 40 mg tablet 40 mg PO DAILY 30 days #30 tabs 02/04/23 hydralazine 25 mg tablet 25 mg PO TID 30 days #90 tabs 02/04/23 insulin glargine 100 unit/mL 20 unit (0.2 mL) subcut BEDTIME 02/04/23 subcutaneous solution (Lantus #10 mL U-100 Insulin) insulin glargine 100 unit/mL 20 unit (0.2 mL) subcut DAILY #10 02/04/23 subcutaneous solution (Lantus mL U-100 Insulin) losartan 50 mg tablet 50 mg PO DAILY 30 days #30 tabs 02/04/23 memantine 5 mg tablet 5 mg PO BID 30 days #60 tabs 02/04/23 oxybutynin chloride 10 mg 10 mg PO DAILY 30 days #30 tabs 02/04/23 tablet,extended release 24 hr sertraline 100 mg tablet 100 mg PO DAILY 30 days #30 tabs 02/04/23 Allergies Allergy/AdvReac Type Severity Reaction Status Date / Time amlodipine Allergy Unknown Unknown Verified 01/28/23 18:56 oxycodone Allergy Unknown Unknown Verified 01/28/23 18:56 [facility] Past Medical History Surgical History History of arthroplasty of left knee History of arthroplasty of right knee Social History Social History Household Members: Spouse Housing: House Do you presently have visiting nurse or other home services: No Patient Tobacco Use Status: Former Tobacco user Tobacco use type: Cigarette e-Cigarette/Vaping Use: Never Used Second Hand Smoke Exposure: No Advance Directives: No Advance Directives Information Provided: No service: No Sexual orientation: Straight/Heterosexual Physical Exam Vital Signs: Vital Signs: Last Vital Signs Pulse 76 07/16/24 22:00 Resp 16 07/16/24 22:00 BP 83/50 L 07/16/24 22:00 Pulse Ox 85 L 07/16/24 21:56 O2 Del Method Ambu-Bag 07/16/24 21:56 O2 Flow Rate 15 07/16/24 21:56 BMI result Body Mass Index 29.1 Exam: General: Intubated, CPR delivered by Edy device Head: Normocephalic, atraumatic EENT: pupils dilated nonresponsive Lung: Breath sounds symmetric with endotracheal to bagging Chest: symmetric movement Neuro: No spontaneous movement Pulses: Palpable with Edy device Medical Decision Making Medical Decision Making MDM Narrative: 84-year-old male with a PMH significant for dementia, HLD, CAD, diabtes, HTN, and CKD who was brought to emergency department by ambulance in cardiac arrest most likely caused by aspiration of food. Patient had an unwitnessed arrest in the nursing facility which was thought to be secondary to food aspiration. Patient had 10 minutes of CPR by staff prior to paramedics arrival. Patient was resuscitated for 30-40 minutes prior to arriving in the emergency department. Initially the patient was pulseless and asystolic. Patient was given 2 rounds of epinephrine and at 1 point did have return of spontaneous circulation however this may have been driven by the patient's pacemaker. The patient's family was here in the emergency department and it was determined that the patient was a DNR DNI and resuscitation was discontinued. Patient was pronounced at 22:06 hours Differential diagnosis: ?Includes but is not limited to aspiration causing respiratory arrest, pulseless electrical activity, ventricular tachycardia Course: I did discuss the patient's presentation with his daughter Anyi who was here in the emergency department and with his Charlee over the phone. Admission/Observation Consideration of admission/observation: Escalation of care including admission/observation considered (Yes) Independent Historian Clinical information obtained from an independent historian. History obtained from or confirmed by: Spouse, EMS and Other (Daughter) External Record Review External record reviewed: Other (prison records) Chronic Conditions Patient?s care impacted by: Diabetes and Hypertension Critical Care Time Critical Care Time Critical Care Time: Yes Total Critical Care Time: 40 Attestation: Critical Care: The patient was critically ill with a high probability of imminent or life threatening deterioration. I spent greater than 30 minutes of discontinuous time evaluating the patient,delivering critical care at the bedside, discussing and evaluating pertinent data with consultants. Critical care time does not include time spent performing separately billable procedures or teaching. Total time spent performing critical care was 40 minutes. Discharge Plan Discharge Clinical Impression: Aspiration into airway, Cardiac arrest with pulseless electrical activity, Patient Disposition: Prescriptions: No Action insulin glargine [Lantus U-100 Insulin] 100 unit/mL Solution 20 unit subcut DAILY Qty: 10 0RF memantine 5 mg Tablet 5 mg PO BID 30 Days Qty: 60 0RF Jardiance 25 mg Tablet 25 mg PO DAILY 30 Days Qty: 30 0RF insulin glargine [Lantus U-100 Insulin] 100 unit/mL Solution 20 unit subcut BEDTIME Qty: 10 0RF losartan 50 mg tablet 50 mg PO DAILY 30 Days Qty: 30 0RF furosemide 40 mg tablet 40 mg PO DAILY 30 Days Qty: 30 0RF atorvastatin 80 mg tablet 80 mg PO BEDTIME 30 Days Qty: 30 0RF carvedilol 25 mg tablet 25 mg PO BID 30 Days Qty: 60 0RF oxybutynin chloride 10 mg tablet extended release 24hr 10 mg PO DAILY 30 Days Qty: 30 0RF sertraline 100 mg tablet 100 mg PO DAILY 30 Days Qty: 30 0RF hydralazine 25 mg tablet 25 mg PO TID 30 Days Qty: 90 0RF clopidogrel 75 mg tablet 75 mg PO DAILY 30 Days Qty: 30 0RF Print Language: Macedonian Date/Time: 07/16/24 22:08
--- NOTE | 2024-07-16 22:41 | PC.NURSE ---
[facility] contacted at [phone] by this RN. [facility] declined referral, #[id number].
--- NOTE | 2024-07-16 22:42 | PC.NURSE ---
Daughter: Anyi Gandhi [phone] : Charlee [phone]
--- NOTE | 2024-07-16 23:05 | PC.NURSE ---
Pts daughter took pts watch. Top denture here.
[2024-07-20 10:28] LABS: Glucose, Whole Blood 278 mg/dL (60-115)
== END 2024-07-16 23:55 | disposition expired ==
PROVIDERS: Emergency Provider Emergency Medicine Emergency Medical Services
DX: I46.9 Cardiac arrest, cause unspecified (principal); T17.900A Unspecified foreign body in respiratory tract, part unspecified causing asphyxiation, initial encounter; W44.9XXA Unspecified foreign body entering into or through a natural orifice, initial encounter; Y93.9 Activity, unspecified; Y92.129 Unspecified place in nursing home as the place of occurrence of the external cause; Y99.9 Unspecified external cause status; Z66 Do not resuscitate; E11.22 Type 2 diabetes mellitus with diabetic chronic kidney disease; I12.9 Hypertensive chronic kidney disease with stage 1 through stage 4 chronic kidney disease, or unspecified chronic kidney disease; N18.9 Chronic kidney disease, unspecified; Z87.891 Personal history of nicotine dependence; Z79.4 Long term (current) use of insulin; Z79.899 Other long term (current) drug therapy
CPT/HCPCS: 82947; 96374; 99284; 99285; J0171